=== PATIENT | male | born 1965 | race Caucasian/White ===

== ENCOUNTER 2021-07-01 17:26 | Emergency (ER) | payer BC ==
[~2021-07-01] VITALS: Ht 188 cm; Wt 129.0 kg
[~2021-07-01 17:26] MED LIST: AMOX500C2 PO; FEXO30TA17 PO; TRAM50TA2 PO
--- NOTE | 2021-07-01 19:34 | ED Lower Extremity ---
General Chief Complaint: Lower Extremity Stated Complaint: L LEG SWELLING Nursing Triage Note: PT AMB TO RM 8 WITH SPOUSE WITH C/O L LEG SWELLING SINCE SUNDAY. PT WAS SEEN AT [facility] AND GIVEN BACTRIM (NORA ONEAL MED STUDENT) Source: patient Exam Limitations: no limitations (CEDRICK LOPEZ MD) History of Present Illness Date Seen by Provider: Jul 01, 2021 Time Seen by Provider: 19:12 Initial Comments Claudia is a 55 y/o M with PMHx of HTN, HLD, and varicose veins who presents for R leg swelling onset last night. Patient states he was seen in the Home clinic for diagnosis of cellulitis of the L lower extremity and given Bactrim which he has been taking regularly though with no improvement. Patient reports that last night his L leg started swelling significantly though no pain other than the established pain over the cellulitis. He denies trauma, long trips or immobility, hx of blood clots, fevers, nausea, vomiting, CP and SOB. (NORA ONEAL MED STUDENT) Allergies and Home Medications Allergies Uncoded Allergies: CODIENE (Allergy, Unknown, [facility], 07/01/21) HAY FEVER (Allergy, Unknown, 07/01/21) Patient Home Medication List Home Medication List Reviewed: Yes (CEDRICK LPOEZ MD) Amoxicillin (Amoxicillin) 500 Mg Capsule, 1 EACH PO Q6HR Prescribed by: ALEXIA LAZAR on 11/07/09949 Cephalexin (Cephalexin) 500 Mg Tablet, 500 MG PO QID Prescribed by: CEDRICK ORELLANA on 07/01/212154 Fexofenadine Hcl (Jami) 30 Mg Tablet, 1 EACH PO BID, (Reported) Entered as Reported by: JESSICA THOMPSON on 11/07/09 09 Tramadol Hcl (Tramadol Hcl) 50 Mg Tablet, 50 MG PO Q6H Prescribed by: ALEXIA LAZAR on 11/07/09 0950 Review of Systems Constitutional: No fever, No weakness EENTM: No double vision, No vision loss Respiratory: No hemoptysis, No short of breath Cardiovascular: No chest pain, No syncope Gastrointestinal: No abdominal pain, No constipation, No diarrhea, No nausea, No vomiting Genitourinary: No dysuria, No frequency Musculoskeletal: No back pain, No joint swelling Skin: No change in color, No dryness Psychiatric/Neurological: Denies Anxiety, Denies Depressed (NORA ONEAL MED STUDENT) Past Uxxdwjw-Epaozi-Atfooi Hx Patient Social History Tobacco Use?: Yes Tobacco type used: Cigarettes Smoking Status: Current Everyday Smoker Substance use?: No Alcohol Use?: Yes Alcohol type: Beer Alcohol Frequency: Daily Pt feels they are or have been: No (NORA ONEAL STUDENT) Immunizations Up To Date First/Initial COVID19 Vaccinat: 2020 Second COVID19 Vaccination [place]: 2020 COVID19 Vaccine Resource Conservation Manager: MODERNA (NORA ONEAL) Past Medical History Surgery/Hospitalization HX: HTN, HLD, CAD (NORA ONEAL STUDENT) Physical Exam Vital Signs Vital Signs - First Documented 07/01/21 07/01/21 17:55 22:05 Temp 36.2 Pulse 86 Resp 18 B/P (MAP) 123/76 (92) Pulse Ox 94 O2 Delivery Room Air (CEDRICK LOPEZ MD) Vital Signs Capillary Refill : (NORA ONEAL STUDENT) Height, Weight, BMI Height: '" Weight: lbs. oz. kg; 36.00 BMI Method:Estimated General Appearance: WD/WN, no apparent distress HEENT: PERRL/EOMI, normal ENT inspection Neck: non-tender, full range of motion, normal inspection Cardiovascular: normal peripheral pulses, regular rate, rhythm, no murmur Respiratory: chest non-tender, lungs clear, normal breath sounds, no respiratory distress, no accessory muscle use Gastrointestinal: normal bowel sounds, non tender Hips: bilateral hip non-tender, bilateral hip no evidence of injury Legs: bilateral leg non-tender, bilateral leg normal range of motion; left leg swelling Knees: bilateral knee non-tender, bilateral knee normal inspection; left knee swelling Ankles: bilateral ankle non-tender; left ankle swelling Feet: bilateral foot non-tender; left foot swelling Neurologic/Tendon: normal sensation, normal motor functions Neurologic/Psychiatric: alert, normal mood/affect Skin: rash (tender, erythematous rash consistent with cellulitis over medial aspect of proximal L lower leg and knee) (NORA ONEAL MED STUDENT) Progress/Results/Core Measures Results/Orders Lab Results Laboratory Tests Test 07/01/21 19:50 Range/Units White Blood Count 8.3 4.3-11.0 10^3/uL Red Blood Count 3.73 L 4.30-5.52 10^6/uL Hemoglobin 12.3 L 13.3-17.7 g/dL Hematocrit 37 L 40-54 % Mean Corpuscular Volume 98 80-99 fL Mean Corpuscular Hemoglobin 33 25-34 pg Mean Corpuscular Hemoglobin Concent 34 32-36 g/dL Red Cell Distribution Width 11.9 10.0-14.5 % Platelet Count 274 130-400 10^3/uL Mean Platelet Volume 8.6 L 9.0-12.2 fL Immature Granulocyte % (Auto) 1 % Neutrophils (%) (Auto) 59 42-75 % Lymphocytes (%) (Auto) 24 12-44 % Monocytes (%) (Auto) 12 0-12 % Eosinophils (%) (Auto) 4 0-10 % Basophils (%) (Auto) 1 0-10 % Neutrophils # (Auto) 4.9 1.8-7.8 10^3/uL Lymphocytes # (Auto) 2.0 1.0-4.0 10^3/uL Monocytes # (Auto) 1.0 0.0-1.0 10^3/uL Eosinophils # (Auto) 0.3 0.0-0.3 10^3/uL Basophils # (Auto) 0.1 0.0-0.1 10^3/uL Immature Granulocyte # (Auto) 0.0 0.0-0.1 10^3/uL D-Dimer 0.57 H 0.00-0.49 UG/ML Sodium Level 130 L 135-145 MMOL/L Potassium Level 4.1 3.6-5.0 MMOL/L Chloride Level 94 L 98-107 MMOL/L Carbon Dioxide Level 20 L 21-32 MMOL/L Anion Gap 16 H 5-14 MMOL/L Blood Urea Nitrogen 15 7-18 MG/DL Creatinine 1.20 0.60-1.30 MG/DL Estimat Glomerular Filtration Rate 72 BUN/Creatinine Ratio 13 Glucose Level 80 70-105 MG/DL Calcium Level 9.4 8.5-10.1 MG/DL C-Reactive Protein High Sensitivity 3.43 H 0.00-0.50 MG/DL (CEDRICK LOPEZ MD) My Orders Orders - CEDRICK LOPEZ MD Basic Metabolic Panel (07/01/21 19:31) Cbc With Automated Diff (07/01/21 19:31) Hs C Reactive Protein (07/01/21 19:31) Fibrin Degradation Products (07/01/21 19:31) Ed Iv/Invasive Line Start (07/01/21 19:31) Ceftriaxone 1 Gm Pre-Mix (Rocephin 1 Gm (07/01/21 21:08) Us Venous Lower Ext Lt (07/01/21 21:08) (CEDRICK LOPEZ MD) Vital Signs/I&O 07/01/21 07/01/21 17:55 22:05 Temp 36.2 36.2 Pulse 86 90 Resp 18 16 B/P (MAP) 123/76 (92) 123/85 Pulse Ox 94 O2 Delivery Room Air (CEDRICK LOPEZ MD) Blood Pressure Mean: 92 Progress Progress Note : Progress Note Patient was seen and examined. Differential included persistent cellulitis versus DVT. Labs were obtained. D-dimer was mildly elevated. Ultrasound was obtained and showed no DVT. Treatment for cellulitis will be approached more aggressively with a dose of Rocephin in the ER and addition of Keflex to his oral therapy. (CEDRICK LOPEZ MD) Diagnostic Imaging Diagonstic Imaging: Ultrasound Plain Films/CT/US/NM/MRI: leg Comments Venous ultrasound discussed with the graphic art technician and report reviewed. See report below: NAME: CLAUDIA PAINTER [facility] REC#: [id number] PT STATUS: REG ER : 1965 PHYSICIAN: CEDRICK LOPEZ MD ADMIT DATE: 07/01/21/ER Signed Date of Exam:07/01/21 US VENOUS LOWER EXT LT INDICATION: Left leg swelling, redness, tenderness. History of venous ablation. TECHNIQUE: Multiple real-time grayscale images were obtained over the left lower extremity in various projections, bilaterally. Additional duplex Doppler and color Doppler images were also obtained. CORRELATION STUDY: None FINDINGS: Color and grayscale sonographic images demonstrate no intraluminal defect within the visualized portion of the common femoral, superficial femoral and/or popliteal veins to suggest thrombus formation. These vessels demonstrate normal response to compression and augmentation. No soft tissue fluid collection. Multiple lymph nodes within the left groin. IMPRESSION: 1. Negative for deep venous thrombosis of the left leg. Dictated by: Dictated on workstation # [id number] Dict: 07/01/212144 Trans: 07/01/212145 DO [id number] Interpreted by: ZENON BASILIO DO Electronically signed by: ZENON BASILIO DO 07/01/212145 (CEDRICK LOPEZ MD) Departure Impression Primary Impression: Cellulitis of left leg Additional Impressions: Swelling of left lower extremity Venous insufficiency of left leg Disposition: HOME, SELF-CARE Condition: Improved Departure-Patient Inst. Referrals: [facility] (PCP) Primary Care Physician JESSICA HO APRN (Family) Primary Care Physician Patient Instructions: Cellulitis (Skin Infection), Adult ED Add. Discharge Instructions: Complete the Bactrim antibiotic as previously prescribed. Add Keflex (cephalexin) as prescribed and complete the entire course. You may use Tylenol (acetaminophen) and/or ibuprofen for pain control. Elevate your foot and leg to the level of your heart as much as possible to help reduce swelling. Return to the emergency room if you are having worsening symptoms or develop new symptoms such as fever despite following these instructions. All discharge instructions reviewed with patient and/or family. Voiced understanding. Scripts Cephalexin (Cephalexin) 500 Mg Tablet 500 MG PO QID, #40 TAB Prov: CEDRICK LOPEZ MD 07/01/21 Medical Student Attestation and Attending Note: I have personally interviewed and examined this patient along with Nora Oneal MS4. I have reviewed student documentation including history, physical, and assessments. I agree with the documentation except where otherwise noted. Exam: General: Alert, oriented, no acute distress, well developed HEENT: Normocephalic and atraumatic Heart: Regular rate and rhythm without murmur Lungs: Clear to auscultation bilaterally with normal effort Extremities: Tenderness and swelling throughout the left lower extremity below the knee, mildly tender in the calf Neuropsych: Alert, oriented, no focal deficits Skin: Warm and dry, mild erythema on the medial proximal left calf (CEDRICK LOPEZ MD) Copy Copies To 1: MORGAN ROSA MATTHEW MED STUDENT Jul 01, 2021 19:34 CEDRICK LOPEZ MD Jul 01, 2021 21:55
[2021-07-01 20:05] LABS: BASOPHILS # (AUTO) 0.1 10^3/uL (0.0-0.1); BASOPHILS % (AUTO) 1 % (0-10); EOSINOPHILS # (AUTO) 0.3 10^3/uL (0.0-0.3); EOSINOPHILS % (AUTO) 4 % (0-10); HEMATOCRIT 37 % (40-54); HEMOGLOBIN 12.3 g/dL (13.3-17.7); LYMPHOCYTES % (AUTO) 24 % (12-44); MEAN CORPUSCULAR HEMOGLOBIN 33 pg (25-34); MEAN CORPUSCULAR HGB CONC 34 g/dL (32-36); MEAN CORPUSCULAR VOLUME 98 fL (80-99); MEAN PLATELET VOLUME 8.6 fL (9.0-12.2); MONOCYTES % (AUTO) 12 % (0-12); NEUTROPHILS # (AUTO) 4.9 10^3/uL (1.8-7.8); NEUTROPHILS % (AUTO) 59 % (42-75); PLATELET COUNT 274 10^3/uL (130-400); WHITE BLOOD COUNT 8.3 10^3/uL (4.3-11.0)
[2021-07-01 20:08] LABS: POTASSIUM 4.1 MMOL/L (3.6-5.0)
[2021-07-01 20:09] LABS: CALCIUM 9.4 MG/DL (8.5-10.1)
[2021-07-01 20:14] LABS: CREATININE SERUM 1.2 MG/DL (0.60-1.30)
[2021-07-01] MEDS ORDERED: cefTRIAXone 1 GM PRE-MIX 50 ML IV STA (21:08)
--- NOTE | 2021-07-01 21:48 | Diagnostic Imaging Report ---
INDICATION: Left leg swelling, redness, tenderness. History of venous ablation. TECHNIQUE: Multiple real-time grayscale images were obtained over the left lower extremity in various projections, bilaterally. Additional duplex Doppler and color Doppler images were also obtained. CORRELATION STUDY: None FINDINGS: Color and grayscale sonographic images demonstrate no intraluminal defect within the visualized portion of the common femoral, superficial femoral and/or popliteal veins to suggest thrombus formation. These vessels demonstrate normal response to compression and augmentation. No soft tissue fluid collection. Multiple lymph nodes within the left groin. IMPRESSION: 1. Negative for deep venous thrombosis of the left leg. Dictated by: Dictated on workstation # [id number]
[2021-07-01] MEDS ORDERED: CEPH500T PO (21:55)
[2021-07-01 22:05] VITALS: BP 123/85
== END 2021-07-01 22:06 | disposition home or self-care (01) ==
LOC: EDUNIT# 17:26 → ER 17:28
DX: L03.116 Cellulitis of left lower limb (principal); I87.2 Venous insufficiency (chronic) (peripheral); F17.210 Nicotine dependence, cigarettes, uncomplicated
CPT/HCPCS: 36415; 80048; 85025; 85379; 86141

== ENCOUNTER 2023-01-23 09:35 | Inpatient (IN) | payer OTHER ==
[2023-01-23] VITALS (8 sets, daily range): BP systolic 97–130; BP diastolic 54–77
[~2023-01-23] VITALS: Ht 188 cm; Wt 121.1 kg
[~2023-01-23 09:35] MED LIST changes: +CEPH500T PO
[2023-01-23] MEDS ORDERED: NS IV 1000 ML 1,000 ML IV SCH (11:00)
[2023-01-23] MEDS ORDERED: VANCOMYCIN INJECTION 1,000 MG in NS (IVPB) 250 ML 250 ML IV ONE (11:00)
[2023-01-23 11:06] LABS: BASOPHILS # (AUTO) 0.1 10^3/uL (0.0-0.1); BASOPHILS % (AUTO) 0 % (0-10); EOSINOPHILS # (AUTO) 0.1 10^3/uL (0.0-0.3); EOSINOPHILS % (AUTO) 1 % (0-10); HEMATOCRIT 35 % (40-54); HEMOGLOBIN 11.4 g/dL (13.3-17.7); LYMPHOCYTES # (AUTO) 0.9 10^3/uL (1.0-4.0); LYMPHOCYTES % (AUTO) 7 % (12-44); MEAN CORPUSCULAR HEMOGLOBIN 33 pg (25-34); MEAN CORPUSCULAR HGB CONC 32 g/dL (32-36); MEAN CORPUSCULAR VOLUME 103 fL (80-99); MEAN PLATELET VOLUME 8.6 fL (9.0-12.2); MONOCYTES # (AUTO) 1.7 10^3/uL (0.0-1.0); MONOCYTES % (AUTO) 13 % (0-12); NEUTROPHILS # (AUTO) 10.2 10^3/uL (1.8-7.8); NEUTROPHILS % (AUTO) 78 % (42-75); PLATELET COUNT 373 10^3/uL (130-400)
--- NOTE | 2023-01-23 11:06 | ED Lower Extremity ---
General Chief Complaint: Lower Extremity Stated Complaint: CELLULITIS W/ ABCESS ON LT LEG Nursing Triage Note: ARRIVED VIA POV FROM [facility] WITH COMPLAINTS OF REDNESS/PAIN LEFT LEG THAT HAS NOT IMPROVED WITH ROUND OF KEFLEX. Source: patient Exam Limitations: no limitations History of Present Illness Date Seen by Provider: Jan 23, 2023 Time Seen by Provider: 11:03 Initial Comments Patient is a 57-year-old male with a history of cellulitis to the left leg who presents to the ED with left leg swelling redness and pain. States symptoms started about a week and a half ago. Had some redness and swelling to the left inner thigh. Was placed on Keflex with some improvement. Stopped antibiotics this past Sunday. Has noted increased redness swelling and a developing abscess to the left anterior thigh. Patient has been taking anti-inflammatories without much improvement. History of similar symptoms. Does report a mild cough. He was slightly hypoxic on arrival 89 to 90% was placed on 2 L. History of smoking. Denies of any chest pain Raúl pain vomiting or diarrhea. Reports chills subjective fever. Denies diabetes history of hypertension and smoking. Denies history of COPD or coronary artery disease. Denies of any recent travels or surgeries. Allergies and Home Medications Allergies Uncoded Allergies: CODIENE (Allergy, Unknown, [facility], 07/01/21) HAY FEVER (Allergy, Unknown, 07/01/21) Patient Home Medication List Home Medication List Reviewed: Yes Discontinued Medications Amoxicillin (Amoxicillin) 500 Mg Capsule, 1 EACH PO Q6HR Discontinued Reason: No Longer Taking Prescribed by: ALEXIA LAZAR on 11/07/09949 Last Action: Discontinued Cephalexin (Cephalexin) 500 Mg Tablet, 500 MG PO QID Discontinued Reason: No Longer Taking Prescribed by: CEDRICK ORELLANA on 07/01/212154 Last Action: Discontinued Fexofenadine Hcl (Jami) 30 Mg Tablet, 1 EACH PO BID, (Reported) Discontinued Reason: No Longer Taking Entered as Reported by: JESSICA THOMPSON on 11/07/09910 Last Action: Discontinued Tramadol Hcl (Tramadol Hcl) 50 Mg Tablet, 50 MG PO Q6H Discontinued Reason: No Longer Taking Prescribed by: ALEXIA LAZAR on 11/07/09949 Last Action: Discontinued Review of Systems Constitutional: chills; No diaphoresis; fever, malaise, weakness EENTM: No ear pain, No blurred vision, No double vision Respiratory: No cough, No dyspnea on exertion Cardiovascular: No chest pain Gastrointestinal: No abdominal pain, No diarrhea, No nausea, No vomiting Genitourinary: No decreased output, No discharge Musculoskeletal: No back pain, No joint pain; muscle pain Skin: change in color All Other Systems Reviewed Negative Unless Noted: Yes Past Npntbcv-Fpjpsd-Jvfwov Hx Patient Social History Tobacco Use?: Yes Tobacco type used: Cigarettes Smoking Status: Current Everyday Smoker Substance use?: No Alcohol Use?: Yes Alcohol Frequency: Once in a while Immunizations Up To Date First/Initial COVID19 Vaccinat: 2020 Second COVID19 Vaccination [place]: 2020 Past Medical History Surgery/Hospitalization HX: HTN, HLD, CAD Physical Exam Vital Signs Vital Signs - First Documented 01/23/23 10:10 Temp 36.4 Pulse 87 Resp 16 B/P (MAP) 127/75 (92) Pulse Ox 87 O2 Delivery Room Air O2 Flow Rate 2.00 Capillary Refill : Less Than 3 Seconds Height, Weight, BMI Height: '" Weight: lbs. oz. kg; 38.00 BMI Method:Estimated General Appearance: WD/WN, no apparent distress HEENT: PERRL/EOMI, normal ENT inspection, TMs normal, pharynx normal Neck: non-tender, full range of motion, supple Cardiovascular: regular rate, rhythm, no edema, no gallop, no JVD Respiratory: chest non-tender, lungs clear, normal breath sounds, no respiratory distress, no accessory muscle use Gastrointestinal: normal bowel sounds, non tender, soft, no organomegaly, no pulsatile mass Back: normal inspection, no CVA tenderness Legs: left leg other (Erythema and swelling to the left inner thigh, left medial knee with a 4 x 5 cm fluctuant mass with surrounding induration. Tenderness to palpate. Warmth noted.) Knees: bilateral knee non-tender, bilateral knee normal inspection Ankles: bilateral ankle non-tender, bilateral ankle normal inspection, bilateral ankle normal range of motion Procedures/Interventions I&D : Blade Size: 11 I & D Procedure: betadine prep Packing/Drain: Idoform 03/08 Progress large abscess to left inner thigh. 8 mL local lidocaine. 2 cm incision. Large amount of purulent drainage. Quarter inch out of form packing placed. Tolerated procedure well. Progress/Results/Core Measures Results/Orders Lab Results Laboratory Tests Test 01/23/23 10:40 Range/Units White Blood Count 13.0 H 4.3-11.0 10^3/uL Red Blood Count 3.41 L 4.30-5.52 10^6/uL Hemoglobin 11.4 L 13.3-17.7 g/dL Hematocrit 35 L 40-54 % Mean Corpuscular Volume 103 H 80-99 fL Mean Corpuscular Hemoglobin 33 25-34 pg Mean Corpuscular Hemoglobin Concent 32 32-36 g/dL Red Cell Distribution Width 12.1 10.0-14.5 % Platelet Count 373 130-400 10^3/uL Mean Platelet Volume 8.6 L 9.0-12.2 fL Immature Granulocyte % (Auto) 1 % Neutrophils (%) (Auto) 78 H 42-75 % Lymphocytes (%) (Auto) 7 L 12-44 % Monocytes (%) (Auto) 13 H 0-12 % Eosinophils (%) (Auto) 1 0-10 % Basophils (%) (Auto) 0 0-10 % Neutrophils # (Auto) 10.2 H 1.8-7.8 10^3/uL Lymphocytes # (Auto) 0.9 L 1.0-4.0 10^3/uL Monocytes # (Auto) 1.7 H 0.0-1.0 10^3/uL Eosinophils # (Auto) 0.1 0.0-0.3 10^3/uL Basophils # (Auto) 0.1 0.0-0.1 10^3/uL Immature Granulocyte # (Auto) 0.1 0.0-0.1 10^3/uL Neutrophils % (Manual) 83 % Lymphocytes % (Manual) 2 % Monocytes % (Manual) 13 % Eosinophils % (Manual) 2 % Basophils % (Manual) 0 % Band Neutrophils 0 % Blood Morphology Comment NORMAL Prothrombin Time 14.0 12.2-14.7 SEC INR Comment 1.0 0.8-1.4 Activated Partial Thromboplast Time 32 24-35 SEC Sodium Level 132 L 135-145 MMOL/L Potassium Level 4.3 3.6-5.0 MMOL/L Chloride Level 92 L 98-107 MMOL/L Carbon Dioxide Level 27 21-32 MMOL/L Anion Gap 13 5-14 MMOL/L Blood Urea Nitrogen 15 7-18 MG/DL Creatinine 0.84 0.60-1.30 MG/DL Estimat Glomerular Filtration Rate 103 BUN/Creatinine Ratio 18 Glucose Level 134 H 70-105 MG/DL Lactic Acid Level 0.82 0.50-2.00 MMOL/L Calcium Level 8.7 8.5-10.1 MG/DL Corrected Calcium 9.2 8.5-10.1 MG/DL Total Bilirubin 0.5 0.1-1.0 MG/DL Aspartate Amino Transf (AST/SGOT) 18 5-34 U/L Alanine Aminotransferase (ALT/SGPT) 22 0-55 U/L Alkaline Phosphatase 87 40-136 U/L C-Reactive Protein High Sensitivity 21.67 H 0.00-0.50 MG/DL Total Protein 7.1 6.4-8.2 GM/DL Albumin 3.4 3.2-4.5 GM/DL My Orders Orders - ELIZABETH URBAN Cbc And Automated Diff (01/23/23 10:56) Comprehensive Metabolic Panel (01/23/23 10:56) Blood Culture (01/23/23 10:56) Protime With Inr (01/23/23 10:56) Partial Thromboplastin Time (01/23/23 10:56) Chest 1 View, Ap/Pa Only (01/23/23 10:56) Ed Iv/Invasive Line Start (01/23/23 10:56) Vital Signs Adult Sepsis Patie Q15M (01/23/23 10:56) O2 (01/23/23 10:56) Lactic Acid Analyzer (01/23/23 10:56) Ns Iv 1000 Ml (Ns Iv 1000 Ml) (01/23/23 11:00) Vancomycin Injection (Vancomycin Injecti (01/23/23 11:00) Us Venous Lower Ext Lt (01/23/23 11:02) Lidocaine 1% Inj 20 Ml (Xylocaine 1% Inj (01/23/23 11:15) Hs C Reactive Protein (01/23/23 11:03) Piperacillin/Tazobactam (Piperacillin/Ta (01/23/23 11:15) Manual Differential (01/23/23 10:40) Ed Admission (Communication) (01/23/23 11:44) Medications Given in ED Current Medications Medications Dose Ordered Sig/Haley Route Start Time Stop Time Status Last Admin Dose Admin Lidocaine HCl 20 ml ONCE ONCE INJ 01/23/23 11:15 01/23/23 11:16 DC 01/23/23 11:13 20 ML Vancomycin HCl 1000 mg/Sodium Chloride 250 ml @ 250 mls/hr ONCE ONCE IV 01/23/23 11:00 01/23/23 11:59 01/23/23 11:13 250 MLS/HR Vital Signs/I&O 01/23/23 01/23/23 10:10 10:10 Temp 36.4 Pulse 87 Resp 16 B/P (MAP) 127/75 (92) Pulse Ox 87 O2 Delivery Room Air Nasal Cannula O2 Flow Rate 2.00 Blood Pressure Mean: 92 Departure Communication (PCP) Reviewed previous ER visits, H&P, lab testing. Differential diagnosis cellulitis, abscess, DVT, sepsis. On exam significant swelling redness of the left inner thigh left leg. History of variceal surgeries of his left and right leg. History of cellulitis left leg. He was not tachycardic but slightly hypoxic. Patient was placed on 2 L with 94%. Does report a cough every day smoker. No history of CHF, coronary artery disease, COPD. Does sound wheezy throughout. Complain of left leg pain. Failed outpatient therapy with Keflex. Septic workup was initiated. Started on vancomycin and Zosyn. Ultrasound of the left leg did not note any DVT. Does have a large abscess to left inner thigh. Incision and drainage with a large amount of purulent drainage. Packed quarter inch iodoform packing. CBC showed a white blood count of 13. Hemoglobin 11. CRP of 21. Sodium 132. Was started on a liter fluid. Normal lactic acid. Patient is afebrile. Recommended mission for IV antibiotics General surgery consult. Discussed patient with Dr. Christianson who agreed to accept the patient on behalf of Dr. Cifuentes Impression Primary Impression: Cellulitis of left leg Disposition: ADMITTED INPATIENT Condition: Stable Admissions Decision to Admit Reason: Admit from ER (General) Decision to Admit/Date: Jan 23, 2023 Time/Decision to Admit Time: 11:06 Departure-Patient Inst. Referrals: [facility] (PCP/Family) Primary Care Physician ELIZABETH URBAN Jan 23, 2023 11:06
[2023-01-23 11:08] LABS: ALBUMIN 3.4 GM/DL (3.2-4.5)
[2023-01-23 11:09] LABS: POTASSIUM 4.3 MMOL/L (3.6-5.0)
[2023-01-23 11:10] LABS: CALCIUM 8.7 MG/DL (8.5-10.1)
[2023-01-23 11:11] LABS: TOTAL PROTEIN 7.1 GM/DL (6.4-8.2)
[2023-01-23 11:13] LABS: BILIRUBIN,TOTAL 0.5 MG/DL (0.1-1.0)
[2023-01-23 11:15] LABS: CREATININE SERUM 0.84 MG/DL (0.60-1.30)
[2023-01-23] MEDS ORDERED: PIPERACILLIN/Tazobactam 4.5 GM in NS (IVPB) 100 ML 100 ML IV ONE (11:15)
[2023-01-23] MEDS ORDERED: LIDOCAINE 1% INJ 20 ML VIAL INJ ONE (11:15)
[2023-01-23 11:24] LABS: BAND NEUTROPHILS 0 %; BASOPHILS % (MANUAL) 0 %; EOSINOPHILS % (MANUAL) 2 %; LYMPHOCYTES % (MANUAL) 2 %; MONOCYTES % (MANUAL) 13 %; NEUTROPHILS % (MANUAL) 83 %; RBC MORPH NORMAL
--- NOTE | 2023-01-23 12:15 | Diagnostic Imaging Report ---
CLINICAL INDICATION: Patient complains of redness/pain involving the left leg that has improved in the amount of Keflex. EXAM: Portable chest x-ray upright view. COMPARISON: None. FINDINGS: Lungs/pleura: Lungs are clear. There is no pneumothorax. There is no pleural effusion. Mediastinum: Unremarkable. Pulmonary vasculature: Unremarkable. Heart: Cardiac silhouette is upper limits of normal for portable projection. Bones/extrathoracic soft tissue: Unremarkable. IMPRESSION: There is no radiographic evidence of acute cardiopulmonary process. Dictated by: Dictated on workstation # [id number]
[2023-01-23] MEDS ORDERED: fentaNYL INJECTION 100 MCG/2 ML VIAL IVP STA (12:16)
--- NOTE | 2023-01-23 12:34 | Consultation - Surgery ---
AMIE NIETO 01/23/23 1234: History of Present Illness History of Present Illness Patient Consulted On(reina/time) 01/23/23 12:20 Date Seen by Provider: Jan 23, 2023 Time Seen by Provider: 12:15 History of Present Illness Patient is a 57 year old male who presented to the ED today with complaints of an infection on his left thigh. He has a repeated history of cellulitis on his left leg (4x in the past year) but states this is the worst it has been. This current episode has been present for a couple weeks. Denies history of puncture wounds. He had been started on a 7 day course of keflex, which he completed and said it did help improve the infection some but over this past weekend it continued to get worse. He is in a good amount of pain and is having a hard time walking because of this. He has tried some OTC pain medications with some relief. He denies nausea, vomiting, fever, but is having some chills. He has a 4x5 cm abscess in his left upper medial thigh that has been drained. His current white count is 13. He has been started on vancomycin and Zosyn. He had a doppler ultrasound performed that showed no evidence of lower extremity thro mbosis. He also started having some shortness of breath in the ED and was satting 90% on 2L nasal cannula. He had a CXR performed that was negative for any cardiopulmonary processes. He denies a hx of COPD, asthma, diabetes. Allergies and Home Medications Allergies Uncoded Allergies: CODIENE (Allergy, Unknown, [place], 07/01/21) HAY FEVER (Allergy, Unknown, 07/01/21) Patient Home Medication List No Active Prescriptions or Reported Meds Past Dljamka-Gwrrei-Usjpnr Hx Patient Social History Smoking Status: Current Everyday Smoker Alcohol Use?: Yes Review of Systems-General Constitutional: chills; No malaise EENTM: No dental problems, No nose congestion Respiratory: No hemoptysis; short of breath Cardiovascular: No chest pain; edema Gastrointestinal: No abdominal pain, No nausea, No vomiting Genitourinary: No dysuria, No frequency Musculoskeletal: No back pain, No joint pain Skin: see HPI, change in color, other (cellulitis) Psychiatric/Neurological: Denies Anxiety, Denies Depressed Physical Exam-General Problems Physical Exam Vital Signs Vital Signs - First Documented 01/23/23 10:10 Temp 36.4 Pulse 87 Resp 16 B/P (MAP) 127/75 (92) Pulse Ox 87 O2 Delivery Room Air O2 Flow Rate 2.00 Capillary Refill : Less Than 3 Seconds General Appearance: WD/WN, no apparent distress Respiratory: no respiratory distress, wheezing (right sided wheezing) Cardiovascular: normal peripheral pulses, regular rate, rhythm Gastrointestinal: non tender, soft Extremities: pedal edema (pitting edema) Neurologic/Psychiatric: normal mood/affect, oriented x 3 Skin: rash (large erythematous area in left upper medial thigh that extends down to the middle of the lower leg that is warm to touch and exquisitely painful) Data Review Labs Laboratory Tests 01/23/23 10:40: White Blood Count 13.0H, Red Blood Count 3.41L, Hemoglobin 11.4L, Hematocrit 35L , Mean Corpuscular Volume 103H, Mean Corpuscular Hemoglobin 33, Mean Corpuscular Hemoglobin Concent 32, Red Cell Distribution Width 12.1, Platelet Count 373, Mean Platelet Volume 8.6L, Immature Granulocyte % (Auto) 1, Neutrophils (%) (Auto) 78H, Lymphocytes (%) (Auto) 7L, Monocytes (%) (Auto) 13H, Eosinophils (%) (Auto) 1, Basophils (%) (Auto) 0, Neutrophils # (Auto) 10.2H, Lymphocytes # (Auto) 0.9L, Monocytes # (Auto) 1.7H, Eosinophils # (Auto) 0.1, Basophils # (Auto) 0.1, Immature Granulocyte # (Auto) 0.1, Neutrophils % (Manual) 83, Lymphocytes % (Manual) 2, Monocytes % (Manual) 13, Eosinophils % (Manual) 2, Basophils % (Manual) 0, Band Neutrophils 0, Blood Morphology Comment NORMAL, Prothrombin Time 14.0, INR Comment 1.0, Activated Partial Thromboplast Time 32, Sodium Level 132L, Potassium Level 4.3, Chloride Level 92L, Carbon Dioxide Level 27, Anion Gap 13, Blood Urea Nitrogen 15, Creatinine 0.84, Estimat Glomerular Filtration Rate 103, BUN/Creatinine Ratio 18, Glucose Level 134H, Lactic Acid Level 0.82, Calcium Level 8.7, Corrected Calcium 9.2, Total Bilirubin 0.5, Aspartate Amino Transf (AST/SGOT) 18, Alanine Aminotransferase (ALT/SGPT) 22, Alkaline Phosphatase 87, C-Reactive Protein High Sensitivity 21.67H, Total Protein 7.1, Albumin 3.4 Assessment/Plan Assessment/Plan Assessment/Plan Left leg cellulitis Abscess culture abscess empiric abx with vanc and zosyn, change pending culture results IV fluids pain control Monitor white count Monitor respiratory status Needs incision and drainage NIMISHA CRUZ DO 01/23/23 5307: History of Present Illness History of Present Illness History of Present Illness Consult requested for right lower extremity cellulitis/abscess s/p incision and drainage. Daniela is a 57 year old male with left thigh red and swollen. Has had multiple infections of the left leg in the past year. Has been present for the last couple weeks and continued to worsen. Was on antibiotics which helped initiall but has worsened over the weekend. Pain moderate. Has history of vein ablation b/l lower extremities. U/s showing 4x5 cm abscess left upper medial thigh. WBC 13 Allergies and Home Medications Allergies Uncoded Allergies: CODIENE (Allergy, Unknown, [place], 07/01/21) HAY FEVER (Allergy, Unknown, 07/01/21) Patient Home Medication List Home Medication List Reviewed: Yes No Active Prescriptions or Reported Meds Past Lefwtwr-Oxxiaw-Fbyuvv Hx Reviewed Nursing Assessment Reviewed/Agree w Nursing PMH: Yes Family Medical History Significant Family History: No Pertinent Family Hx Review of Systems-General Constitutional: chills; No diaphoresis EENTM: No blurred vision, No double vision Respiratory: No cough; short of breath Gastrointestinal: No abdominal pain, No nausea, No vomiting Genitourinary: No decreased output, No discharge Musculoskeletal: No back pain, No joint pain Skin: change in color, other (cellulitis) Psychiatric/Neurological: Denies Anxiety, Denies Depressed, Denies Emotional Problems All Other Systems Reviewed Negative Unless Noted: Yes (Negative excepted noted.) Physical Exam-General Problems Physical Exam General Appearance: WD/WN, no apparent distress, obese HEENT: PERRL/EOMI, normal ENT inspection Neck: non-tender, supple Respiratory: chest non-tender, no respiratory distress, no accessory muscle use Cardiovascular: regular rate, rhythm, no JVD Gastrointestinal: non tender, soft Rectal: deferred Back: no CVA tenderness, no vertebral tenderness Extremities: pedal edema (pitting edema), other (left medial thigh with small skin opening and area around it has fluctuance. Large amount of purulent material, ertyhema moving down medial aspect of leg distally) Neurologic/Psychiatric: alert, normal mood/affect, oriented x 3 Skin: rash (large erythematous area in left upper medial thigh that extends down to the middle of the lower leg that is warm to touch and painful) Lymphatic: no adenopathy Assessment/Plan Assessment/Plan Assessment/Plan Left leg cellulitis Abscess left lower extremity pain culture abscess empiric abx with vanc and zosyn, change pending culture results IV fluids pain control npo Discussed the need to do further incision and drianage. Not adequate enough to drain the area and want to see the tissues below for further evaluation. patient understands risks and benefits of incision and drainage and all other indicated procedures and wishes to proceed. To OR. Supervisory-Addendum Brief Verification & Attestation Participated in pt care: history, MDM, physical Personally performed: exam, history, MDM, supervision of care Care discussed with: Medical Student Procedures: n/a Results interpretation: Verified all documentation Verification and Attestation of Medical Student E/M Service A medical student performed and documented this service in my presence. I reviewed and verified all information documented by the medical student and made modifications to such information, when appropriate. I personally performed the physical exam and medical decision making. Nimisha Cruz, Jan 23, 2023,16:47 AMIE NIETO Jan 23, 2023 12:34 NIMISHA CRUZ DO Jan 23, 2023 16:47
--- NOTE | 2023-01-23 12:39 | Diagnostic Imaging Report ---
PROCEDURE: US left lower extremity venous. TECHNIQUE: Multiple real-time grayscale images were obtained over the left lower extremity in various projections. Additional duplex Doppler and color Doppler images were also obtained. INDICATION: Left flank pain and swelling. Left lower extremity venous system widely patent. No deep or superficial thrombus. There are prominent left groin and inguinal lymph nodes with fatty ras likely reactive however the largest is 4.7 x 1.5 cm. There is some subcutaneous edema over the ankle and calf but no visible fluid collection. IMPRESSION: Negative for venous thrombus subcutaneous edema may be cellulitis but no visible fluid collection. Prominent left inguinal lymph nodes indeterminate. Dictated by: Dictated on workstation # [id number]
[2023-01-23] MEDS ORDERED: NALOXONE 0.4 MG/ML 1 ML VIAL IV PRN (12:45)
[2023-01-23] MEDS ORDERED: PHARMACY TO DOSE IV SCH (12:45)
[2023-01-23 12:58] LABS: TRIGLYCERIDES 62 MG/DL (<150); VLDL CHOLESTEROL 12 MG/DL (5-40)
[2023-01-23] MEDS ORDERED: PIPERACILLIN/Tazobactam 4.5 GM in NS (IVPB) 100 ML 100 ML IV NR (13:00)
[2023-01-23] MEDS ORDERED: VANCOMYCIN 1 GM/NS 250 ML IVPB IV NR ×2 (13:00)
[2023-01-23 13:03] LABS: CHOLESTEROL 132 MG/DL (< 200); HDL CHOLESTEROL 39 MG/DL (40-60)
[2023-01-23] MEDS ORDERED: proPOfol INJECTION 200 MG/20 ML VIAL IV ONE (17:16)
[2023-01-23] MEDS ORDERED: fentaNYL INJECTION 100 MCG/2 ML VIAL ONE (17:16)
[2023-01-23] MEDS ORDERED: LIDOCAINE PF 2% 5 ML VIAL ONE (17:16)
[2023-01-23] MEDS ORDERED: MIDAZOLAM INJ 2 MG/2 ML VIAL ONE (17:16)
[2023-01-23] MEDS ORDERED: SUCCINYLCHOLINE INJ 20 MG/1 ML 10 ML VIAL ONE (17:16)
[2023-01-23] MEDS ORDERED: ONDANSETRON INJECTION 4 MG/2 ML (SDV) ONE (17:16)
[2023-01-23] MEDS ORDERED: ROCURONIUM 50 MG/5 ML VIAL IV ONE (17:54)
[2023-01-23] MEDS ORDERED: SEVOFLURANE (ULTANE) 15 ML INHAL SOLN ONE (17:59)
[2023-01-23] MEDS: fentaNYL DRIP PRE-MIX 250 ML IV SCH (18:24)
[2023-01-23] MEDS ORDERED: LACTATED RINGERS 1,000 ML 1,000 ML IV ONE (18:54)
[2023-01-23] MEDS ORDERED: HYDROmorphone INJECTION 2 MG/ML VIAL IVP NR (19:00)
--- NOTE | 2023-01-23 19:01 | Diagnostic Imaging Report ---
INDICATION: Ventilator support. TIME OF EXAM: 6:38 PM CORRELATION is made with prior chest from earlier same day. FINDINGS: ET tube has been placed, has the tip in good position above the negar. There is some atelectasis in the left perihilar region and left base. The right lung is fairly clear. No significant effusion or pneumothorax is detected. IMPRESSION: Satisfactory endotracheal tube placement. Dictated by: Dictated on workstation # [id number]
--- NOTE | 2023-01-23 19:20 | History & Physical ---
HPI History of Present Illness: 57 yo M that presents with worsening LLE pain and swelling. states that patient has been battling cellulitis and pain in this leg several times this year and has been on antibiotics each time. States that over the last 48 hrs the pain and swelling has got alot worse and that is why he came into the ER. also states that he has had a cough for a few days. She has had a head cold this week. Denies any fever this week. Source: patient Exam Limitations: no limitations Date seen by provider: Jan 23, 2023 Time Seen by Provider: 19:30 Attending Physician [facility] PCP Admitting Physician: Yadi Cifuentes MD Attending Physician: Yadi Cifuentes MD Consult Date of Admission Jan 23, 2023 at 12:39 Home Medications Home Medications Reviewed patient Home Medication Reconciliation performed by pharmacy medication reconciliations precision optics technician and/or nursing. Patients Allergies have been reviewed. Allergies Uncoded Allergies: CODIENE (Allergy, Unknown, [place], 07/01/21) HAY FEVER (Allergy, Unknown, 07/01/21) VHX-Faaahn-Vzrxnd Hx Patient Social History Living Status: Lives at home with Smoking Status: Current Everyday Smoker Alcohol Use?: Yes Tobacco type used: Cigarettes Immunizations Up To Date Influenza Vaccine Up-to-Date: No; Not Current First/Initial COVID19 Vaccinat: 2020 Second COVID19 Vaccination [place]: 2020 Past Medical History HTN Tobacco Use Family Medical History Significant Family History: No Pertinent Family Hx Review of Systems ([facility]) Constitutional: other (intubated, unable to get ROS) Reviewed Test Results Reviewed Test Results Lab Laboratory Tests Test 01/23/23 10:40 01/23/23 19:16 01/23/23 21:00 01/23/23 23:15 Range/Units White Blood Count 13.0 H 4.3-11.0 10^3/uL Red Blood Count 3.41 L 4.30-5.52 10^6/uL Hemoglobin 11.4 L 13.3-17.7 g/dL Hematocrit 35 L 40-54 % Mean Corpuscular Volume 103 H 80-99 fL Mean Corpuscular Hemoglobin 33 25-34 pg Mean Corpuscular Hemoglobin Concent 32 32-36 g/dL Red Cell Distribution Width 12.1 10.0-14.5 % Platelet Count 373 130-400 10^3/uL Mean Platelet Volume 8.6 L 9.0-12.2 fL Immature Granulocyte % (Auto) 1 % Neutrophils (%) (Auto) 78 H 42-75 % Lymphocytes (%) (Auto) 7 L 12-44 % Monocytes (%) (Auto) 13 H 0-12 % Eosinophils (%) (Auto) 1 0-10 % Basophils (%) (Auto) 0 0-10 % Neutrophils # (Auto) 10.2 H 1.8-7.8 10^3/uL Lymphocytes # (Auto) 0.9 L 1.0-4.0 10^3/uL Monocytes # (Auto) 1.7 H 0.0-1.0 10^3/uL Eosinophils # (Auto) 0.1 0.0-0.3 10^3/uL Basophils # (Auto) 0.1 0.0-0.1 10^3/uL Immature Granulocyte # (Auto) 0.1 0.0-0.1 10^3/uL Neutrophils % (Manual) 83 % Lymphocytes % (Manual) 2 % Monocytes % (Manual) 13 % Eosinophils % (Manual) 2 % Basophils % (Manual) 0 % Band Neutrophils 0 % Blood Morphology Comment NORMAL Prothrombin Time 14.0 12.2-14.7 SEC INR Comment 1.0 0.8-1.4 Activated Partial Thromboplast Time 32 24-35 SEC Sodium Level 132 L 135-145 MMOL/L Potassium Level 4.3 3.6-5.0 MMOL/L Chloride Level 92 L 98-107 MMOL/L Carbon Dioxide Level 27 21-32 MMOL/L Anion Gap 13 5-14 MMOL/L Blood Urea Nitrogen 15 7-18 MG/DL Creatinine 0.84 0.60-1.30 MG/DL Estimat Glomerular Filtration Rate 103 BUN/Creatinine Ratio 18 Glucose Level 134 H 70-105 MG/DL Mean Blood Glucose 123 <=126 mg/dL Hemoglobin A1c 5.9 H 4.0-5.6 % Lactic Acid Level 0.82 0.50-2.00 MMOL/L Calcium Level 8.7 8.5-10.1 MG/DL Corrected Calcium 9.2 8.5-10.1 MG/DL Total Bilirubin 0.5 0.1-1.0 MG/DL Aspartate Amino Transf (AST/SGOT) 18 5-34 U/L Alanine Aminotransferase (ALT/SGPT) 22 0-55 U/L Alkaline Phosphatase 87 40-136 U/L C-Reactive Protein High Sensitivity 21.67 H 0.00-0.50 MG/DL Total Protein 7.1 6.4-8.2 GM/DL Albumin 3.4 3.2-4.5 GM/DL Triglycerides Level 62 <150 MG/DL Cholesterol Level 132 < 200 MG/DL LDL Cholesterol Direct 85 1-129 MG/DL VLDL Cholesterol 12 5-40 MG/DL HDL Cholesterol 39 L 40-60 MG/DL Arterial Blood pH 7.32 *L 7.37-7.43 Arterial Blood Partial Pressure CO2 58 H 35-45 MMHG Arterial Blood Partial Pressure O2 67 L 79-93 MMHG Arterial Blood HCO3 30 H 23-27 MMOL/L Arterial Blood Total CO2 31.7 H 21.0-31.0 MMOL/L Arterial Blood Oxygen Saturation 94 94-100 % Arterial Blood Base Excess 2.4 -2.5-2.5 MMOL/L Blood Gas Ventilator Setting YES Blood Gas Inspired Oxygen 100% Influenza Type A (RT-PCR) Not Detected Not Detecte Influenza Type B (RT-PCR) Not Detected Not Detecte SARS-CoV-2 RNA (RT-PCR) Not Detected Not Detecte Glucometer 116 H 70-110 MG/DL Physical Exam-(CHC) Physical Exam Vital Signs VS - Last 72 Hours, by Label 01/23/23 01/23/23 01/23/23 01/23/23 10:10 10:10 12:25 12:46 Temp 36.4 36.9 Pulse 87 86 84 Resp 16 16 16 B/P (MAP) 127/75 (92) 100/72 110/69 (83) Pulse Ox 87 94 91 O2 Delivery Room Air Nasal Cannula Room Air Nasal Cannula O2 Flow Rate 2.00 2.00 01/23/23 01/23/23 01/23/23 01/23/23 13:00 15:09 15:11 18:07 Temp 36.6 Pulse 81 Resp 16 B/P (MAP) 101/63 (76) Pulse Ox 91 88 92 O2 Delivery Nasal Cannula Nasal Cannula Nasal Cannula Mechanical Ventilator O2 Flow Rate 2.00 2.00 3.00 01/23/23 01/23/23 01/23/23 01/23/23 18:07 18:10 18:15 18:20 Temp 36.9 Resp 20 20 20 B/P (MAP) 108/58 (75) 110/60 (77) 130/62 (84) Pulse Ox 98 98 92 O2 Delivery Mechanical Ventilator Mechanical Ventilator Mechanical Ventilator Mechanical Ventilator 01/23/23 01/23/23 01/23/23 01/23/23 18:23 18:24 18:27 18:30 Temp 36.9 Pulse 113 113 95 Resp 20 B/P (MAP) 130/62 130/62 130/77 (94) Pulse Ox 91 O2 Delivery Mechanical Ventilator 01/23/23 01/23/23 01/23/23 01/23/23 18:30 18:35 19:00 19:00 Pulse 101 101 Resp 24 B/P (MAP) Pulse Ox 90 O2 Delivery Mechanical Ventilator Mechanical Ventilator Mechanical Ventilator O2 Flow Rate 100.00 01/23/23 01/23/23 01/23/23 01/23/23 19:09 19:20 19:30 19:32 Pulse 92 85 82 104 Resp 24 B/P (MAP) 95/57 (69) 97/58 (71) 103/62 (74) Pulse Ox 94 94 95 84 O2 Delivery Mechanical Ventilator Mechanical Ventilator Mechanical Ventilator O2 Flow Rate 100.00 100.00 100.00 FiO2 100 01/23/23 01/23/23 01/23/23 01/23/23 19:40 19:50 20:00 20:00 Pulse 81 80 79 Resp 24 B/P (MAP) 106/66 (77) 114/68 (79) 115/70 (81) Pulse Ox 95 96 95 93 O2 Delivery Mechanical Ventilator Mechanical Ventilator Mechanical Ventilator Mechanical Ventilator O2 Flow Rate 100.00 100.00 100.00 FiO2 100 01/23/23 01/23/23 01/23/23 01/23/23 20:10 20:20 20:30 20:40 Pulse 79 78 76 76 Resp 24 24 24 B/P (MAP) 118/71 (83) 120/73 (86) 123/73 (87) 123/75 (87) Pulse Ox 95 94 96 98 O2 Delivery Mechanical Ventilator Mechanical Ventilator Mechanical Ventilator Mechanical Ventilator O2 Flow Rate 100.00 100.00 100.00 100.00 01/23/23 01/23/23 01/23/23 01/23/23 20:50 20:51 21:00 21:15 Pulse 77 75 76 92 Resp 24 24 24 B/P (MAP) 128/72 (90) 128/72 122/73 (89) 113/71 (83) Pulse Ox 98 100 96 O2 Delivery Mechanical Ventilator Mechanical Ventilator Mechanical Ventilator O2 Flow Rate 100.00 100.00 100.00 01/23/23 01/23/23 01/23/23 01/23/23 21:30 22:39 23:24 23:45 Temp 36.4 Pulse 77 79 Resp 24 24 B/P (MAP) 117/72 (85) Pulse Ox 96 92 93 O2 Delivery Mechanical Ventilator Mechanical Ventilator O2 Flow Rate 100.00 FiO2 100 100 Capillary Refill : Less Than 3 SecondsLess Than 3 Seconds General Appearance: other (Intubated and sedated) HEENT: PERRL/EOMI Respiratory: no accessory muscle use, crackles, wheezing Cardiovascular: normal peripheral pulses, regular rate, rhythm, no murmur Gastrointestinal: normal bowel sounds, non tender, soft Extremities: swelling, other (+ erythema, necrotic tissue, dressing with purulent drainage) Neurologic/Psychiatric: other (intubated and sedated) Assessment/Plan Assessment/Plan Admission Status: Inpatient Order (span 2 midnights) Reason for Inpatient Admission: Need of critical care (1) Severe sepsis Status: Acute Assessment & Plan: - Broad spectrum antibiotics Vanc and Zosyn, IVFs (2) Necrotizing fasciitis of lower leg Status: Acute Assessment & Plan: - Consult General surgery Dr Cruz, patient was taken to OR (3) Acute and chronic respiratory failure with hypoxia Status: Acute Assessment & Plan: - Unable to tolerate extubation after surgery, will continue intubation until AM (4) Cellulitis of left leg Status: Acute (5) Pre-diabetes Status: Chronic Assessment & Plan: - A1c 5.9 YADI CIFUENTES MD Jan 23, 2023 19:20
[2023-01-23 19:23] LABS: ABG BASE EXCESS 2.4 MMOL/L (-2.5-2.5); ABG OXYGEN SATURATION 94 % (94-100); ABG PCO2 58 MMHG (35-45); ABG PO2 67 MMHG (79-93); ABG TCO2 31.7 MMOL/L (21.0-31.0)
[2023-01-23] MEDS: LACTATED RINGERS 1,000 ML 1,000 ML IV SCH ×3 (19:24→21:47)
[2023-01-23 19:29] LABS: ABG PH 7.32 (7.37-7.43)
[2023-01-23 19:30] LABS: INSPIRED O2 100%; VENTILATOR YES
[2023-01-23] MEDS ORDERED: NS IV 500 ML 1,000 ML ONE (20:20)
--- NOTE | 2023-01-23 20:20 | Tele-ICU Progress Note ---
Progress Note 57M with g/o recurrent LL cellulitus (x4 this year) admitted with left leg cellulitus and abscess. Patient developed redness and swelling to left inner thigh. He was placed on keflex with some improvement, completed 01/19. Now presents with increased redness, swelling and a developing abscess to the left thigh. US was done, negative for clot but did show large abscess. In the ED a large left inner thigh was drained. A 2 cm incision was made with a large amount of purulent material drained. A quarter inch on foam packing was placed. He was started on vanco and zosyn. He was mildly hypoxic at 89-90% and was placed on 2L NC with 94%. Reported to be diffusely wheezy. Patient was then taken to OR for I&D where he was found to have fairly evolved necrotizing faciitis (per bedside RN, op notes not yet available for review). He is transferred to ICU intubated, sedated. A/P: - sepsis: secondary to LL cellulitus with abscess and necrotizing faciitis ---S/p source control with I&D. ---will likely go back to OR in AM ---Cultures pending. ---Continue vanco and zosyn. - acute resp failure, hypoxic. Unclear etiology. Initially with mild hypoxia. Now on 100%/+10 with SpO2 98%, PaO2 67. Ppl only 22. CXR with mild congestion. ---monitor for ARDS ---CTA to rule out PE - EtOH: drinks beer x6 daily. ---CIWA Patient assesed via real time audiovisual communication system. CCT40 min Focused Exam Lactate Level 01/23/23 10:40: Lactic Acid Level 0.82 Height, Weight, BMI Height: '" Weight: lbs. oz. kg; 37.85 BMI Method:Estimated LINDA MCGOVERN MD Jan 23, 2023 20:19
[2023-01-23] MEDS: PIPERACILLIN/Tazobactam 4.5 GM in NS (IVPB) 100 ML 100 ML IV SCH (20:27)
[2023-01-23] MEDS ORDERED: AZITHROMYCIN INJECTION 500 MG in NS (IVPB) 250 ML 250 ML IV SCH (21:00)
[2023-01-23] MEDS ORDERED: NS 100 ML (IVPB) BAG IV ONE (21:15)
[2023-01-23] MEDS ORDERED: HOLD METFORMIN - RECEIVED CONTRAST 20 ML VIAL IV SCH (21:15)
[2023-01-23] MEDS ORDERED: IOHEXOL 350 MG/ML 100 ML (OMNIPAQUE 350) VIAL IV ONE (21:15)
--- NOTE | 2023-01-23 21:22 | Progress Note-Post Operative ---
Post-Operative Progess Note Surgeon (s)/Perianesthesia Nurse (s) Surgeon NIMISHA MURPHY DO Perianesthesia Nurse: na Pre-Operative Diagnosis left thigh abscess/cellulitis Post-Operative Diagnosis left thigh necrotizing soft tissue infection Procedure & Operative Findings Date of Procedure 01/23/23 Procedure Performed/Findings incision and drainage and debridement with cautery subcutaneous tissue and fascia 15x8x6 m left lower extremity Anesthesia Type general Estimated Blood Loss Estimated blood loss (mL): minimal Specimens/Packing Specimens Removed culture Packing: kerlex/betadine NIMISHA MURPHY DO Jan 23, 2023 21:21
--- NOTE | 2023-01-23 21:58 | Diagnostic Imaging Report ---
INDICATION: Nasogastric tube placement. COMPARISONS: 01/23/2023. IMPRESSION: Single view of the chest shows the cardiac contour to be upper limits of normal. Basilar alveolar infiltrates are seen, left greater than right, similar to the previous study. ET tube tip is stable with the tip projected over the trachea at the level of the clavicles. There has been interval placement of NG tube with the tip in the gastric body with side port distal to GE junction. IMPRESSION: 1. Stable chest. 2. Stable ET tube. 2. Interval placement of an NG tube with the tip projected over the gastric body with side port distal to the GE junction. Dictated by: Dictated on workstation # [id number]
--- NOTE | 2023-01-23 22:13 | Diagnostic Imaging Report ---
INDICATION: 57-year-old male with hypoxia, on a ventilator. COMPARISONS: None FINDINGS: There are few shotty benign-appearing axillary nodes but no evidence of axillary adenopathy. There is no mediastinal or hilar adenopathy. Cardiac contour is borderline enlarged. Thoracic aortic contour is normal with few nonaneurysmal calcifications. There is no dissection. There is normal arch origin of the great vessels. Patient is intubated with ET tube tip within the trachea at the level of the clavicles. Pulmonary outflow tract as well as the right and left pulmonary arteries, their segmental and subsegmental branches are patent with no evidence of intraluminal thrombus to suggest a pulmonary embolism. Lungs show bilateral lower lobe consolidations with volume loss. There is no effusion or pneumothorax. There is an NG tube extending into the gastric body. Limited assessment of the abdomen shows borderline hepatomegaly. There is [id number]-[id number] degenerative changes in the axial skeleton. IMPRESSION: 1. No CT angiographic evidence for aortic aneurysm, dissection or pulmonary embolism. 2. Bilateral lower lobe and pneumonic consolidations. There is no effusion or pneumothorax. Additional nonemergent findings as described above. Dictated by: Dictated on workstation # [id number]
[2023-01-23] MEDS: CLINDAMYCIN 900 MG/50 ML IVPB 50 ML IV SCH (23:16)
[2023-01-24] MEDS: VANCOMYCIN 1500MG/300ML PREMIX IV SCH ×3 (00:01→22:51)
[2023-01-24] MEDS: fentaNYL DRIP PRE-MIX 250 ML IV SCH ×3 (01:19→16:14)
[2023-01-24 02:47] VITALS: BP_SYST 103; BP_SYST 97; BP_DIAS 54; BP_DIAS 61
[2023-01-24 04:27] LABS: ABG OXYGEN SATURATION 97 % (94-100); ABG PCO2 50 MMHG (35-45); ABG PO2 83 MMHG (79-93); ABG TCO2 32.5 MMOL/L (21.0-31.0)
[2023-01-24 04:28] LABS: INSPIRED O2 100%
[2023-01-24 04:29] LABS: VENTILATOR YES
--- NOTE | 2023-01-24 04:31 | OPERATIVE REPORT ---
DATE OF SERVICE: 01/23/2023 PREOPERATIVE DIAGNOSIS: Left thigh abscess, cellulitis. POSTOPERATIVE DIAGNOSIS: Left thigh necrotizing soft retraction. PROCEDURE: Incision, drainage and debridement with cautery and subcutaneous tissue and fascia 15 x 8 x 6 cm, left lower extremity. SURGEON: Nimisha Cruz DO ANESTHESIA: General. ESTIMATED BLOOD LOSS: Minimal. COMPLICATIONS: None. INDICATIONS: The patient is a 57-year-old male with abscess of the left thigh. He had drainage performed in the Emergency Department, still with significant fluctuance and tenderness and cellulitis that extended down the medial aspect of the left lower extremity as well. The patient [ ] for possible soft tissue necrotizing infection. Therefore, I discussed opening the left thigh more and all other indicated procedures. The patient understood risks and benefits of procedure and wished to proceed. Consent was signed in chart. DESCRIPTION OF PROCEDURE: The patient was taken to the operating suite where he was prepped and draped in sterile fashion. Timeout was performed through the existing incision. The wound was probed with a large pocket present. The incision was extended proximally and distally along the medial aspect of the thigh, allowing the necrotic and walker dishwater-appearing fluid was within the wound. Culture was obtained. This was then suctioned and started using blunt and cautery dissection removing necrotic tissue and also suctioning. Once [ ] necrotic tissue was suctioned and debrided, overall measurements were 15 x 8 x 6 cm. Power nurse discharge planner was used to irrigate the wound and wound inspected to healthy good tissue. Subcutaneous tissue and some fascia removed. The wound was then appeared stable; therefore, packed it with Kerlix-soaked Betadine. The wound then had sterile dressing applied. The patient tolerated the procedure well without any complications and taken to the intensive Care Unit postoperatively for close monitoring. RECOMMENDATIONS: The patient may need further surgical interventions depending on course. This was discussed with family. Job ID: [id number] DocumentID: [id number] Dictated Date: 01/23/2023 21:31:03 [employer] Date: 01/24/2023 04:30:00 Dictated By: NIMISHA CRUZ DO
[2023-01-24] MEDS: PIPERACILLIN/Tazobactam 4.5 GM in NS (IVPB) 100 ML 100 ML IV SCH ×3 (04:47→19:57)
[2023-01-24] MEDS: CLINDAMYCIN 900 MG/50 ML IVPB 50 ML IV SCH ×3 (05:32→22:04)
[2023-01-24 06:36] LABS: HEMATOCRIT 30 % (40-54); HEMOGLOBIN 9.4 g/dL (13.3-17.7); WHITE BLOOD COUNT 7.3 10^3/uL (4.3-11.0)
[2023-01-24 06:37] LABS: MEAN CORPUSCULAR HEMOGLOBIN 32 pg (25-34); MEAN CORPUSCULAR HGB CONC 31 g/dL (32-36); MEAN CORPUSCULAR VOLUME 104 fL (80-99); MEAN PLATELET VOLUME 8.4 fL (9.0-12.2); PLATELET COUNT 325 10^3/uL (130-400)
[2023-01-24 06:43] VITALS: BP 103/61
--- NOTE | 2023-01-24 07:40 | Progress Note - Surgery ---
AMIE NIETO 01/24/23 0740: Subjective Date Seen by a Provider: Jan 24, 2023 Time Seen by a Provider: 06:50 Subjective/Events-last exam Patient was seen this morning. Yesterday evening he had a more extensive I+D performed in the OR after an initial attempt in the ED. He is still sedated and on mechanical ventilation. He has an NG tube in place with confirmed placement on CXR. He had an ABG this morning that showed a pH of 7.4 with pCO2 of 50 and HCO3 of 31. Also had a chest CT done that showed bilateral lower lobe consolidation. His urine output this morning is 0.55 ml/kg/hr. His leukocytosis from yesterday has also improved from 13 to 7.3 this morning. Review of Systems General: No Chills, No Night Sweats HEENT: No Head Aches, No Visual Changes Pulmonary: No Dyspnea, No Pleuritic Chest Pain Cardiovascular: No: Chest Pain, Palpitations Gastrointestinal: No: Nausea, Vomiting Genitourinary: No Dysuria, No Frequency Musculoskeletal: No: neck pain, shoulder pain Neurological: No: Weakness, Confusion Focused Exam Lactate Level 01/23/23 10:40: Lactic Acid Level 0.82 Objective Exam Vital Signs Date Time Temp Pulse Resp B/P (MAP) Pulse Ox O2 Delivery O2 Flow Rate FiO2 01/24/23 06:45 72 20 94/58 (70) 96 Mechanical Ventilator 100.00 01/24/23 06:43 71 20 95 90 01/24/23 06:30 72 20 96/59 (71) 95 Mechanical Ventilator 100.00 01/24/23 06:15 72 20 97/60 (72) 95 Mechanical Ventilator 100.00 01/24/23 06:00 72 20 98/59 (72) 95 Mechanical Ventilator 100.00 01/24/23 05:45 72 20 97/60 (72) 95 Mechanical Ventilator 100.00 01/24/23 05:30 74 20 97/61 (73) 96 Mechanical Ventilator 100.00 01/24/23 05:15 73 20 91/59 (70) 95 Mechanical Ventilator 100.00 01/24/23 05:00 72 20 92/59 (70) 95 Mechanical Ventilator 100.00 01/24/23 04:47 73 89/56 01/24/23 04:45 73 20 89/56 (67) 94 Mechanical Ventilator 100.00 01/24/23 04:30 75 20 88/56 (67) 94 Mechanical Ventilator 100.00 01/24/23 04:15 76 20 83/58 (66) 94 Mechanical Ventilator 100.00 01/24/23 04:00 71 20 101/63 (76) 95 Mechanical Ventilator 100.00 01/24/23 04:00 93 Mechanical Ventilator 100 01/24/23 03:46 36.4 01/24/23 03:45 72 20 99/63 (75) 95 Mechanical Ventilator 100.00 01/24/23 03:30 70 20 102/62 (75) 95 Mechanical Ventilator 100.00 01/24/23 03:15 71 20 101/62 (75) 95 Mechanical Ventilator 100.00 01/24/23 03:00 70 20 102/61 (73) 95 Mechanical Ventilator 100.00 01/24/23 02:47 71 20 95 100 01/24/23 02:45 71 20 103/61 (74) 95 Mechanical Ventilator 100.00 01/24/23 02:30 72 24 102/62 (75) 95 Mechanical Ventilator 100.00 01/24/23 02:15 71 24 99/60 (71) 95 Mechanical Ventilator 100.00 01/24/23 02:00 70 24 101/61 (73) 95 Mechanical Ventilator 100.00 01/24/23 01:45 70 24 104/65 (77) 95 Mechanical Ventilator 100.00 01/24/23 01:30 639 24 103/63 (74) 95 Mechanical Ventilator 100.00 01/24/23 01:19 70 99/60 01/24/23 01:15 70 24 99/60 (71) 95 Mechanical Ventilator 100.00 01/24/23 01:00 70 24 95 Mechanical Ventilator 100.00 01/24/23 01:00 70 01/24/23 00:45 69 24 86/49 (60) 94 Mechanical Ventilator 100.00 01/24/23 00:30 70 24 88/51 (63) 95 Mechanical Ventilator 100.00 01/24/23 00:15 71 24 98/60 (72) 93 Mechanical Ventilator 100.00 01/24/23 00:00 71 24 105/60 (72) 93 Mechanical Ventilator 100.00 01/23/23 23:45 36.4 01/23/23 23:45 70 24 103/58 (70) 93 Mechanical Ventilator 100.00 01/23/23 23:30 72 24 106/61 (76) 93 Mechanical Ventilator 100.00 01/23/23 23:24 93 Mechanical Ventilator 100 01/23/23 23:15 71 24 105/62 (76) 93 Mechanical Ventilator 100.00 01/23/23 23:00 71 24 106/61 (74) 93 Mechanical Ventilator 100.00 01/23/23 22:45 71 24 100/58 (70) 92 Mechanical Ventilator 100.00 01/23/23 22:39 79 24 92 100 01/23/23 22:30 75 24 97/54 (66) 92 Mechanical Ventilator 100.00 01/23/23 22:23 73 24 96/53 (67) 93 Mechanical Ventilator 100.00 01/23/23 21:30 77 24 117/72 (85) 96 Mechanical Ventilator 100.00 01/23/23 21:15 92 24 113/71 (83) 96 Mechanical Ventilator 100.00 01/23/23 21:00 76 24 122/73 (89) 100 Mechanical Ventilator 100.00 01/23/23 20:51 75 128/72 01/23/23 20:50 77 24 128/72 (90) 98 Mechanical Ventilator 100.00 01/23/23 20:40 76 24 123/75 (87) 98 Mechanical Ventilator 100.00 01/23/23 20:30 76 24 123/73 (87) 96 Mechanical Ventilator 100.00 01/23/23 20:20 78 24 120/73 (86) 94 Mechanical Ventilator 100.00 01/23/23 20:10 79 24 118/71 (83) 95 Mechanical Ventilator 100.00 01/23/23 20:00 93 Mechanical Ventilator 100 01/23/23 20:00 79 24 115/70 (81) 95 Mechanical Ventilator 100.00 01/23/23 19:50 80 24 114/68 (79) 96 Mechanical Ventilator 100.00 01/23/23 19:40 81 24 106/66 (77) 95 Mechanical Ventilator 100.00 01/23/23 19:32 104 24 84 100 01/23/23 19:30 82 24 103/62 (74) 95 Mechanical Ventilator 100.00 01/23/23 19:20 85 24 97/58 (71) 94 Mechanical Ventilator 100.00 01/23/23 19:09 92 24 95/57 (69) 94 Mechanical Ventilator 100.00 01/23/23 19:00 101 01/23/23 19:00 101 24 90 Mechanical Ventilator 100.00 01/23/23 18:35 Mechanical Ventilator 01/23/23 18:30 Mechanical Ventilator 01/23/23 18:30 36.9 20 130/77 (94) 91 Mechanical Ventilator 01/23/23 18:27 95 01/23/23 18:24 113 130/62 01/23/23 18:23 113 130/62 01/23/23 18:20 20 130/62 (84) 92 Mechanical Ventilator 01/23/23 18:15 Mechanical Ventilator 01/23/23 18:10 20 110/60 (77) 98 Mechanical Ventilator 01/23/23 18:07 36.9 20 108/58 (75) 98 Mechanical Ventilator 01/23/23 18:07 Mechanical Ventilator 01/23/23 15:11 92 Nasal Cannula 3.00 01/23/23 15:09 36.6 81 16 101/63 (76) 88 Nasal Cannula 2.00 01/23/23 13:00 91 Nasal Cannula 2.00 01/23/23 12:46 36.9 84 16 110/69 (83) 91 Nasal Cannula 2.00 01/23/23 12:25 86 16 100/72 94 Room Air 01/23/23 10:10 Nasal Cannula 2.00 01/23/23 10:10 36.4 87 16 127/75 (92) 87 Room Air I & O 01/24/23 07:00 Intake Total 240 ml Output Total 1950 ml Balance -1710 ml Capillary Refill : Less Than 3 SecondsLess Than 3 Seconds General Appearance: Obese, Other (sedated on mechanical ventilation) HEENT: PERRL/EOMI, Pharynx Normal Neck: Normal Inspection, Supple Respiratory: Lungs Clear, Normal Breath Sounds Cardiovascular: Regular Rate, Rhythm, No Murmur Peripheral Pulses: 2+ Dorsalis Pedis (R), 2+ Left Dors-Pedis (L), 2+ Radial Pulses (R), 2+ Radial Pulses (L) Gastrointestinal: normal bowel sounds, non tender, soft Extremity: Normal Capillary Refill, Normal Inspection Neurologic/Psychiatric: Other (sedated on mechanical ventilation) Skin: Warm/Dry, Other (wound site looks clean with no evidence of necrotic tissue) Lymphatic: No Adenopathy Results Lab Laboratory Tests 01/23/23 10:40: White Blood Count 13.0H, Red Blood Count 3.41L, Hemoglobin 11.4L, Hematocrit 35L , Mean Corpuscular Volume 103H, Mean Corpuscular Hemoglobin 33, Mean Corpuscular Hemoglobin Concent 32, Red Cell Distribution Width 12.1, Platelet Count 373, Mean Platelet Volume 8.6L, Immature Granulocyte % (Auto) 1, Neutrophils (%) (Auto) 78H, Lymphocytes (%) (Auto) 7L, Monocytes (%) (Auto) 13H, Eosinophils (%) (Auto) 1, Basophils (%) (Auto) 0, Neutrophils # (Auto) 10.2H, Lymphocytes # (Auto) 0.9L, Monocytes # (Auto) 1.7H, Eosinophils # (Auto) 0.1, Basophils # (Auto) 0.1, Immature Granulocyte # (Auto) 0.1, Neutrophils % (Manual) 83, Lymphocytes % (Manual) 2, Monocytes % (Manual) 13, Eosinophils % (Manual) 2, Basophils % (Manual) 0, Band Neutrophils 0, Blood Morphology Comment NORMAL, Prothrombin Time 14.0, INR Comment 1.0, Activated Partial Thromboplast Time 32, Sodium Level 132L, Potassium Level 4.3, Chloride Level 92L, Carbon Dioxide Level 27, Anion Gap 13, Blood Urea Nitrogen 15, Creatinine 0.84, Estimat Glomerular Filtration Rate 103, BUN/Creatinine Ratio 18, Glucose Level 134H, Mean Blood Glucose 123, Hemoglobin A1c 5.9H, Lactic Acid Level 0.82, Calcium Level 8.7, Corrected Calcium 9.2, Total Bilirubin 0.5, Aspartate Amino Transf (AST/SGOT) 18, Alanine Aminotransferase (ALT/SGPT) 22, Alkaline Phosphatase 87, C-Reactive Protein High Sensitivity 21.67H, Total Protein 7.1, Albumin 3.4, Triglycerides Level 62, Cholesterol Level 132, LDL Cholesterol Direct 85, VLDL Cholesterol 12, HDL Cholesterol 39L 01/23/23 19:16: Arterial Blood pH 7.32*L, Arterial Blood Partial Pressure CO2 58H, Arterial Blood Partial Pressure O2 67L, Arterial Blood HCO3 30H, Arterial Blood Total CO2 31.7H, Arterial Blood Oxygen Saturation 94, Arterial Blood Base Excess 2.4, Blood Gas Ventilator Setting YES, Blood Gas Inspired Oxygen 100% 01/23/23 21:00: Influenza Type A (RT-PCR) Not Detected, Influenza Type B (RT-PCR) Not Detected, SARS-CoV-2 RNA (RT-PCR) Not Detected 01/23/23 23:15: Glucometer 116H 01/24/23 04:19: Arterial Blood pH 7.40, Arterial Blood Partial Pressure CO2 50H, Arterial Blood Partial Pressure O2 83, Arterial Blood HCO3 31H, Arterial Blood Total CO2 32.5H, Arterial Blood Oxygen Saturation 97, Arterial Blood Base Excess 5.0H, Blood Gas Ventilator Setting YES, Blood Gas Inspired Oxygen 100% 01/24/23 05:44: White Blood Count 7.3, Red Blood Count 2.92L, Hemoglobin 9.4L, Hematocrit 30L, Mean Corpuscular Volume 104H, Mean Corpuscular Hemoglobin 32, Mean Corpuscular Hemoglobin Concent 31L, Red Cell Distribution Width 12.3, Platelet Count 325, Mean Platelet Volume 8.4L Assessment/Plan Assessment/Plan Assessment/Plan Left leg cellulitis Abscess left lower extremity pain await culture results continue vanc, zosyn, and clindamycin - change accordingly pending culture results IV fluids pain control npo regular packing and dressing changes monitor respiratory status NIMISHA CRUZ DO 01/24/23 0924: Subjective Subjective/Events-last exam Intubated. No family at bedside. WBC 7.3. Objective Exam General Appearance: Obese, Other (sedated on mechanical ventilation) HEENT: PERRL/EOMI, Normal ENT Inspection, Other (ET tube) Neck: Normal Inspection, Supple Respiratory: Chest Non Tender, No Accessory Muscle Use, No Respiratory Distress Cardiovascular: Regular Rate, Rhythm, No JVD Gastrointestinal: non tender, soft Extremity: Other (left lower extremity cellulitis improving, left thigh open wound, no necrotic tissue at this time. Indration surrounding wound) Neurologic/Psychiatric: Other (sedated on mechanical ventilation) Skin: Other (wound site looks clean with no evidence of necrotic tissue) Assessment/Plan Assessment/Plan Assessment/Plan left thigh necrotizing soft tissue infection s/p incision and drianage and debridment Left leg cellulitis left lower extremity pain respiratory failure on vent await culture results continue vanc, zosyn, and clindamycin - change accordingly pending culture results IV fluids pain control npo regular packing and dressing changes monitor respiratory status wound care Supervisory-Addendum Brief Verification & Attestation Participated in pt care: history, MDM, physical Personally performed: exam, history, MDM, supervision of care Care discussed with: Medical Student Procedures: n/a Results interpretation: Verified all documentation Verification and Attestation of Medical Student E/M Service A medical student performed and documented this service in my presence. I reviewed and verified all information documented by the medical student and made modifications to such information, when appropriate. I personally performed the physical exam and medical decision making. Nimisha Cruz, Jan 24, 2023,09:25 AMIE NIETO Jan 24, 2023 07:40 NIMISHA CRUZ DO Jan 24, 2023 09:24
--- NOTE | 2023-01-24 08:21 | Physician Query Clarification ---
PQ-Present on Admission Admission/Discharge Admission Date: Jan 23, 2023 at 12:39 Discharge Date: Dr. Cifuentes, Question: Sepsis w/severe sepsis was documented in H&P done at 19:20 on 01/23. Patient admitted at 12.39 on 01/23. Can you specify if this condition was present on admission? Please document a response in Progress Note or Discharge Summary. 1. Yes - Condition was present at the time of inpatient admission. 2. No - Condition was not present at the time of inpatient admission and it developed during the inpatient stay. 3. W - Provider is unable to clinically determine whether condition was present on admission or not. 4. Other [please specify] PHYSICIAN RESPONSE Condition was Present on Admit: Yes In responding to this query, please exercise your independent professional judgment. The purpose of this communication is to more accurately reflect the complexity of your patients condition. The fact that a question is asked does not imply that any particular answer is desired or expected. Thank you for your timely response to this clarification. Requestors name: Darryl THIS PHYSICIAN QUERY FORM IS A PERMANENT PART OF THE MEDICAL RECORD DARRYL SHAIKH Jan 24, 2023 08:21 YADI CIFUENTES MD Jan 24, 2023 10:09
[2023-01-24] MEDS: ENOXAPARIN 40 MG/0.4 ML SYRINGE SC SCH (08:35)
[2023-01-24 08:39] LABS: ALBUMIN 2.8 GM/DL (3.2-4.5); POTASSIUM 4.3 MMOL/L (3.6-5.0)
[2023-01-24 08:41] LABS: TOTAL PROTEIN 5.8 GM/DL (6.4-8.2)
[2023-01-24 08:43] LABS: BILIRUBIN,TOTAL 0.2 MG/DL (0.1-1.0)
[2023-01-24 08:45] LABS: CREATININE SERUM 0.92 MG/DL (0.60-1.30)
--- NOTE | 2023-01-24 09:18 | Tele-ICU Progress Note ---
Subjective Date Seen by a Provider: Jan 24, 2023 Time Seen by a Provider: 09:14 Subjective/Events-last exam (Tele-ICU Physician , consultation as per request of PCP Service provided via interactive audio and video telecommunications E-CARE system to a patient admitted to ICU bed in [facility]. Available chart/ vitals / labs / Images reviewed H&P is from ER notes Patient's information available about PMH, Shx, Fhx allergy reviewed inEMR. ROS as per chart and RN report Now in ICU, hemodynamically stable Video assessment done using teleICU camera, rest of exam as per RN Discussed with RN. VENT SETTINGS and ABG reviewed NOT CANDIDATE for SBTreviewed possible contraindications including Cardiovascular Stability /Sedation Score / FI02/PEEP / ABG / CXR/ secretions Sedation, discussed with RN, RASS - 1-2 on propofol 40 fent 175 Hospital course: (01/23) 57yr old male admitted with left uper medial thigh abscess/cellulitis s/p I & D, to ICU intubated , 100 Fio2 , CTA - neg for PE 01/24- RASS - 1-2 on propofol 40 fent 175 A/P: Acute hypoxic resp failure 01/23 - postop -?ETIOLOGY - CTA 01/23 NEG for pe , bilat basal PNA should not explain level of hypoxia - in ER was ( slightly hypoxic on arrival 89 to 90% was placed on 2 L) -no severe bronchospam : PAP 25 on vent - low suspect for air embolism based on Sx performed -will order ECHO to assed RVSP and r/o shunt AC 450 rr 20 90% + 10 PAP 23 -no secretion , desats with minimal movements Sepsis: secondary to LL cellulites with abscess and necrotizing faciitis - BP stable left thigh necrotizing soft tissue infection ---will likely go back to OR in AM as per report by RN ---Cultures pending. ---Continue vanco and zosyn clinda - as per Sx Anemia - suspected delutional - follow EtOH: drinks beer x6 daily. ---CIWA, vitamins Nutritions - will start TF latter today Lines : periph , (Central Line Necessity Reviewed) Naidu: 01/23 OG: Nutrition: npo Analgesia: Anxiety/ delirium VTE Prophylaxis: ingrid 40 Stress Ulcer Prophylaxis: na Plans in collaboration with bedside consultants and IM MDs. Discussed with RN to reach out if any questions or concerns Case and care daily discussed on multidisciplinary rounds ( RN, PharmD, Massotherapist , Respiratory Therapy, roll on worker ) A total of 35 minutes of critical care time was devoted to this patient today, required to treat and/or prevent further deterioration of critical care condition ( as above ) . I am remotely monitoring this patient from another state. I am unable to do the bedside exam, and history/physical and pertinent information is taken from other notes in the computer and bedside staff. Sepsis Event Evaluation Height, Weight, BMI Height: '" Weight: lbs. oz. kg; 37.85 BMI Method:Estimated Focused Exam Lactate Level 01/23/23 10:40: Lactic Acid Level 0.82 Exam Exam Patient acknowledged, consented, and participated in this virtual visit which was conducted using real time audio/video Vital Signs Date Time Temp Pulse Resp B/P (MAP) Pulse Ox O2 Delivery O2 Flow Rate FiO2 01/24/23 09:12 72 94/58 01/24/23 09:02 72 94/58 01/24/23 08:03 72 94/58 01/24/23 07:54 36.5 01/24/23 06:45 72 20 94/58 (70) 96 Mechanical Ventilator 100.00 01/24/23 06:43 71 20 95 90 01/24/23 06:30 72 20 96/59 (71) 95 Mechanical Ventilator 100.00 01/24/23 06:15 72 20 97/60 (72) 95 Mechanical Ventilator 100.00 01/24/23 06:00 72 20 98/59 (72) 95 Mechanical Ventilator 100.00 01/24/23 05:45 72 20 97/60 (72) 95 Mechanical Ventilator 100.00 01/24/23 05:30 74 20 97/61 (73) 96 Mechanical Ventilator 100.00 01/24/23 05:15 73 20 91/59 (70) 95 Mechanical Ventilator 100.00 01/24/23 05:00 72 20 92/59 (70) 95 Mechanical Ventilator 100.00 01/24/23 04:47 73 89/56 01/24/23 04:45 73 20 89/56 (67) 94 Mechanical Ventilator 100.00 01/24/23 04:30 75 20 88/56 (67) 94 Mechanical Ventilator 100.00 01/24/23 04:15 76 20 83/58 (66) 94 Mechanical Ventilator 100.00 01/24/23 04:00 71 20 101/63 (76) 95 Mechanical Ventilator 100.00 01/24/23 04:00 93 Mechanical Ventilator 100 01/24/23 03:46 36.4 01/24/23 03:45 72 20 99/63 (75) 95 Mechanical Ventilator 100.00 01/24/23 03:30 70 20 102/62 (75) 95 Mechanical Ventilator 100.00 01/24/23 03:15 71 20 101/62 (75) 95 Mechanical Ventilator 100.00 01/24/23 03:00 70 20 102/61 (73) 95 Mechanical Ventilator 100.00 01/24/23 02:47 71 20 95 100 01/24/23 02:45 71 20 103/61 (74) 95 Mechanical Ventilator 100.00 01/24/23 02:30 72 24 102/62 (75) 95 Mechanical Ventilator 100.00 01/24/23 02:15 71 24 99/60 (71) 95 Mechanical Ventilator 100.00 01/24/23 02:00 70 24 101/61 (73) 95 Mechanical Ventilator 100.00 01/24/23 01:45 70 24 104/65 (77) 95 Mechanical Ventilator 100.00 01/24/23 01:30 639 24 103/63 (74) 95 Mechanical Ventilator 100.00 01/24/23 01:19 70 99/60 01/24/23 01:15 70 24 99/60 (71) 95 Mechanical Ventilator 100.00 01/24/23 01:00 70 24 95 Mechanical Ventilator 100.00 01/24/23 01:00 70 01/24/23 00:45 69 24 86/49 (60) 94 Mechanical Ventilator 100.00 01/24/23 00:30 70 24 88/51 (63) 95 Mechanical Ventilator 100.00 01/24/23 00:15 71 24 98/60 (72) 93 Mechanical Ventilator 100.00 01/24/23 00:00 71 24 105/60 (72) 93 Mechanical Ventilator 100.00 01/23/23 23:45 36.4 01/23/23 23:45 70 24 103/58 (70) 93 Mechanical Ventilator 100.00 01/23/23 23:30 72 24 106/61 (76) 93 Mechanical Ventilator 100.00 01/23/23 23:24 93 Mechanical Ventilator 100 01/23/23 23:15 71 24 105/62 (76) 93 Mechanical Ventilator 100.00 01/23/23 23:00 71 24 106/61 (74) 93 Mechanical Ventilator 100.00 01/23/23 22:45 71 24 100/58 (70) 92 Mechanical Ventilator 100.00 01/23/23 22:39 79 24 92 100 01/23/23 22:30 75 24 97/54 (66) 92 Mechanical Ventilator 100.00 01/23/23 22:23 73 24 96/53 (67) 93 Mechanical Ventilator 100.00 01/23/23 21:30 77 24 117/72 (85) 96 Mechanical Ventilator 100.00 01/23/23 21:15 92 24 113/71 (83) 96 Mechanical Ventilator 100.00 01/23/23 21:00 76 24 122/73 (89) 100 Mechanical Ventilator 100.00 01/23/23 20:51 75 128/72 01/23/23 20:50 77 24 128/72 (90) 98 Mechanical Ventilator 100.00 01/23/23 20:40 76 24 123/75 (87) 98 Mechanical Ventilator 100.00 01/23/23 20:30 76 24 123/73 (87) 96 Mechanical Ventilator 100.00 01/23/23 20:20 78 24 120/73 (86) 94 Mechanical Ventilator 100.00 01/23/23 20:10 79 24 118/71 (83) 95 Mechanical Ventilator 100.00 01/23/23 20:00 93 Mechanical Ventilator 100 01/23/23 20:00 79 24 115/70 (81) 95 Mechanical Ventilator 100.00 01/23/23 19:50 80 24 114/68 (79) 96 Mechanical Ventilator 100.00 01/23/23 19:40 81 24 106/66 (77) 95 Mechanical Ventilator 100.00 01/23/23 19:32 104 24 84 100 01/23/23 19:30 82 24 103/62 (74) 95 Mechanical Ventilator 100.00 01/23/23 19:20 85 24 97/58 (71) 94 Mechanical Ventilator 100.00 01/23/23 19:09 92 24 95/57 (69) 94 Mechanical Ventilator 100.00 01/23/23 19:00 101 01/23/23 19:00 101 24 90 Mechanical Ventilator 100.00 01/23/23 18:35 Mechanical Ventilator 01/23/23 18:30 Mechanical Ventilator 01/23/23 18:30 36.9 20 130/77 (94) 91 Mechanical Ventilator 01/23/23 18:27 95 01/23/23 18:24 113 130/62 01/23/23 18:23 113 130/62 01/23/23 18:20 20 130/62 (84) 92 Mechanical Ventilator 01/23/23 18:15 Mechanical Ventilator 01/23/23 18:10 20 110/60 (77) 98 Mechanical Ventilator 01/23/23 18:07 36.9 20 108/58 (75) 98 Mechanical Ventilator 01/23/23 18:07 Mechanical Ventilator 01/23/23 15:11 92 Nasal Cannula 3.00 01/23/23 15:09 36.6 81 16 101/63 (76) 88 Nasal Cannula 2.00 01/23/23 13:00 91 Nasal Cannula 2.00 01/23/23 12:46 36.9 84 16 110/69 (83) 91 Nasal Cannula 2.00 01/23/23 12:25 86 16 100/72 94 Room Air 01/23/23 10:10 Nasal Cannula 2.00 01/23/23 10:10 36.4 87 16 127/75 (92) 87 Room Air I & O 01/24/23 06:59 Intake Total 240 ml Output Total 1950 ml Balance -1710 ml Height & Weight Height: '" Weight: lbs. oz. kg; 37.85 BMI Method:Estimated General Appearance: Obese, Other (sedated on mechanical ventilation) HEENT: PERRL/EOMI, Pharynx Normal Neck: Normal Inspection, Supple Respiratory: Lungs Clear, Normal Breath Sounds Cardiovascular: Regular Rate, Rhythm, No Murmur Capillary Refill: Less Than 3 Seconds Peripheral Pulses: 2+ Dorsalis Pedis (R), 2+ Left Dors-Pedis (L), 2+ Radial Pulses (R), 2+ Radial Pulses (L) Gastrointestinal: normal bowel sounds, non tender, soft Extremity: Normal Capillary Refill, Normal Inspection Neurologic/Psychiatric: Other (sedated on mechanical ventilation) Skin: Warm/Dry, Other (wound site looks clean with no evidence of necrotic tissue) Lymphatic: No Adenopathy Results Lab Laboratory Tests 01/23/23 10:40 01/24/23 05:44 Assessment/Plan Assessment/Plan 1 RASHMI CANTRELL MD Jan 24, 2023 09:18
[2023-01-24 09:36] VITALS: BP 99/59
--- NOTE | 2023-01-24 11:01 | Progress Note - Hospitalist ---
Subjective HPI/CC On Admission Date Seen by Provider: Jan 24, 2023 Time Seen by Provider: 11:00 Subjective/Events-last exam Patient remains intubated Left inner thigh wound appears to be clean no drainage Nursing packing the wound Reviewed meds and labs Patient appears to have findings suggestive of obstructive sleep apnea untreated and undiagnosed Focused Exam Lactate Level 01/23/23 10:40: Lactic Acid Level 0.82 Objective Exam Vital Signs Vital Signs Date Time Temp Pulse Resp B/P (MAP) Pulse Ox O2 Delivery O2 Flow Rate FiO2 01/24/23 17:41 69 95/56 01/24/23 16:32 94 Mechanical Ventilator 70 01/24/23 16:06 36.5 01/24/23 16:00 20 70.00 Capillary Refill : Less Than 3 SecondsLess Than 3 Seconds General Appearance: Obese, Other (Sedated and intubated) Respiratory: Lungs Clear, Normal Breath Sounds Cardiovascular: Regular Rate, Rhythm Results/Procedures Lab Laboratory Tests 01/24/23 05:44 Patient resulted labs reviewed. Assessment/Plan Assessment and Plan Assess & Plan/Chief Complaint Assessment: Necrotizing fasciitis left inner thigh Acute hypoxic respiratory failure unable to extubate postsurgery Suspicion for GARFIELD Severe sepsis Plan: IV antibiotics Maintain ventilator Appreciate general surgery Appreciate RAUL Perla DO Jan 24, 2023 11:01
--- NOTE | 2023-01-24 12:23 | Diagnostic Imaging Report ---
INDICATION: Central venous catheter assessment Single AP view of the chest is obtained with comparison made to study of 01/23/2023 Heart size and pulmonary vascularity are within normal limits. Endotracheal tube is in place with tip just below the thoracic inlet. Nasogastric tube can be seen to the level of lower esophagus. Below this level there is insufficient contrast for assessment. Left upper extremity PICC has been placed with catheter tip projecting over the lower superior vena cava. There is no pneumothorax. IMPRESSION: No pneumothorax or other complication post left upper extremity PICC placement. Dictated by: Dictated on workstation # [id number]
[2023-01-24] MEDS ORDERED: BUDE10.2 IH (13:53)
[2023-01-24] MEDS ORDERED: HYDR-3922 PO (13:53)
[2023-01-24] MEDS ORDERED: HYDR25TA4 PO (13:53)
[2023-01-24] MEDS ORDERED: AMLO-251 PO (13:53)
[2023-01-24] MEDS ORDERED: OMEP-401 PO (13:53)
[2023-01-24] MEDS ORDERED: ATOR20TA66 PO (13:53)
[2023-01-24] MEDS ORDERED: LISI40TA9 PO (13:53)
[2023-01-24] MEDS: MUPIROCIN 2% OINTMENT 22 GM TUBE NSEACH SCH ×2 (14:03→20:28)
[2023-01-24 14:28] VITALS: BP 95/56
[2023-01-24] MEDS: SODIUM HYPOCHLORITE 0.125% TOP SCH (14:43)
--- NOTE | 2023-01-24 17:07 | Anesthesia-General Post-Op ---
General Patient Condition Mental Status/LOC: Same as Preop Cardiovascular: Satisfactory Nausea/Vomiting: Absent Respiratory: Satisfactory Pain: Controlled Complications: Absent Post Op Complications Complications None Follow Up Care/Instructions Patient Instructions None needed. Anesthesia/Patient Condition Patient Condition Patient is doing well, no complaints, stable vital signs, no apparent adverse anesthesia problems. No complications reported per nursing. CARL MIGUEL CRNA Jan 24, 2023 17:07
[2023-01-24 18:36] VITALS: BP 108/63
[2023-01-24] MEDS ORDERED: TROUGH ORDER-PHARMACY XX NR (22:00)
[2023-01-24 22:14] VITALS: BP 124/70
[2023-01-25] MEDS: fentaNYL DRIP PRE-MIX 250 ML IV SCH ×4 (00:12→22:11)
[2023-01-25 02:34] VITALS: BP 114/65
[2023-01-25] MEDS: PIPERACILLIN/Tazobactam 4.5 GM in NS (IVPB) 100 ML 100 ML IV SCH ×3 (02:59→20:00)
[2023-01-25 03:41] LABS: HEMATOCRIT 31 % (40-54); HEMOGLOBIN 9.7 g/dL (13.3-17.7); MEAN CORPUSCULAR HEMOGLOBIN 33 pg (25-34); MEAN CORPUSCULAR HGB CONC 32 g/dL (32-36); MEAN CORPUSCULAR VOLUME 103 fL (80-99); MEAN PLATELET VOLUME 8.3 fL (9.0-12.2); PLATELET COUNT 343 10^3/uL (130-400); WHITE BLOOD COUNT 7.1 10^3/uL (4.3-11.0)
[2023-01-25 03:54] LABS: ALBUMIN 2.8 GM/DL (3.2-4.5); POTASSIUM 4.1 MMOL/L (3.6-5.0)
[2023-01-25 03:55] LABS: CALCIUM 8.2 MG/DL (8.5-10.1)
[2023-01-25 03:56] LABS: TOTAL PROTEIN 6.2 GM/DL (6.4-8.2)
[2023-01-25] MEDS: FAMOTIDINE INJ 20MG/2ML VIAL IVP SCH ×3 (03:56→19:58)
[2023-01-25 03:58] LABS: BILIRUBIN,TOTAL 0.3 MG/DL (0.1-1.0)
[2023-01-25 03:59] LABS: PHOSPHORUS 3.7 MG/DL (2.3-4.7)
[2023-01-25 04:00] LABS: CREATININE SERUM 0.83 MG/DL (0.60-1.30)
[2023-01-25 04:02] LABS: MAGNESIUM 1.9 MG/DL (1.6-2.4)
[2023-01-25] MEDS ORDERED: MAGNESIUM 1 GM/100 ML IVPB 200 ML IV ONE (04:07)
[2023-01-25] MEDS: MAGNESIUM 1 GM/100 ML IVPB 100 ML IV SCH (04:13)
[2023-01-25 04:16] LABS: ABG BASE EXCESS 4.3 MMOL/L (-2.5-2.5); ABG OXYGEN SATURATION 93 % (94-100); ABG PCO2 47 MMHG (35-45); ABG PH 7.41 (7.37-7.43); ABG PO2 63 MMHG (79-93); ABG TCO2 31.2 MMOL/L (21.0-31.0)
[2023-01-25 04:17] LABS: INSPIRED O2 60%; VENTILATOR YES
--- NOTE | 2023-01-25 05:26 | Progress Note - Hospitalist ---
Subjective HPI/CC On Admission Date Seen by Provider: Jan 25, 2023 Time Seen by Provider: 10:00 Subjective/Events-last exam Remains intubated PHTN noted at bedside I updated her on ECHO results Slow extubation Focused Exam Lactate Level 01/23/23 10:40: Lactic Acid Level 0.82 Objective Exam Vital Signs Vital Signs Date Time Temp Pulse Resp B/P (MAP) Pulse Ox O2 Delivery O2 Flow Rate FiO2 01/25/23 12:00 68 25 117/67 (82) 93 Mechanical Ventilator 60.00 01/25/23 11:17 36.7 01/25/23 10:22 60 Capillary Refill : Less Than 3 SecondsLess Than 3 Seconds General Appearance: No Apparent Distress, WD/WN, Other (sedated and intubated) Respiratory: Lungs Clear, Normal Breath Sounds Results/Procedures Lab Laboratory Tests 01/25/23 03:35 Patient resulted labs reviewed. Assessment/Plan Assessment and Plan Assess & Plan/Chief Complaint Assessment: Necrotizing fasciitis left inner thigh Acute hypoxic respiratory failure unable to extubate postsurgery Suspicion for GARFIELD Severe sepsis PHTN on ECHO Plan: IV antibiotics Maintain ventilator Appreciate general surgery Appreciate RAUL Perla DO Jan 25, 2023 05:26
[2023-01-25] MEDS: CLINDAMYCIN 900 MG/50 ML IVPB 50 ML IV SCH ×3 (06:04→22:57)
[2023-01-25 06:25] VITALS: BP 107/59
[2023-01-25] MEDS: MUPIROCIN 2% OINTMENT 22 GM TUBE NSEACH SCH ×2 (08:09→19:59)
[2023-01-25] MEDS: SODIUM HYPOCHLORITE 0.125% TOP SCH (08:09)
[2023-01-25] MEDS: ENOXAPARIN 40 MG/0.4 ML SYRINGE SC SCH (08:10)
--- NOTE | 2023-01-25 08:31 | Progress Note - Surgery ---
MARY JARAMILLO 01/25/23 0830: Subjective Date Seen by a Provider: Jan 25, 2023 Time Seen by a Provider: 07:10 Subjective/Events-last exam Pt is intubated and sedated with FIO2 titrated down. Left medial thigh wound is clean and no signs of necrotic tissue. Erythema is decreasing. Focused Exam Lactate Level 01/23/23 10:40: Lactic Acid Level 0.82 Objective Exam Vital Signs Date Time Temp Pulse Resp B/P (MAP) Pulse Ox O2 Delivery O2 Flow Rate FiO2 01/25/23 08:18 67 115/72 01/25/23 08:17 67 115/72 01/25/23 08:00 67 20 107/62 (77) 94 Mechanical Ventilator 60.00 01/25/23 07:45 36.6 01/25/23 07:14 68 108/62 01/25/23 07:00 70 01/25/23 07:00 70 19 108/62 (75) 94 Mechanical Ventilator 60.00 01/25/23 06:25 69 20 95 60 01/25/23 06:00 68 28 113/64 (80) 94 Mechanical Ventilator 60.00 01/25/23 05:20 60 01/25/23 05:00 70 28 117/68 (84) 94 Mechanical Ventilator 60.00 01/25/23 04:52 70 113/65 01/25/23 04:00 70 113/65 01/25/23 04:00 71 20 119/66 (83) 94 Mechanical Ventilator 60.00 01/25/23 04:00 71 20 119/66 (83) 94 Mechanical Ventilator 60.00 01/25/23 03:56 70 113/65 01/25/23 03:00 70 28 113/65 (81) 95 Mechanical Ventilator 60.00 01/25/23 03:00 95 Mechanical Ventilator 60 01/25/23 02:58 60 01/25/23 02:58 36.5 70 20 96 Mechanical Ventilator 60.00 01/25/23 02:35 60 01/25/23 02:34 71 20 97 70 01/25/23 02:33 Mechanical Ventilator 60.00 01/25/23 02:32 71 115/66 01/25/23 02:30 Mechanical Ventilator 60.00 01/25/23 02:00 71 19 115/66 (82) 97 Mechanical Ventilator 70.00 01/25/23 01:30 70 01/25/23 01:09 71 121/68 01/25/23 01:00 71 19 121/69 (86) 96 Mechanical Ventilator 70.00 01/25/23 00:12 71 121/68 01/25/23 00:01 71 01/25/23 00:00 72 20 121/68 (85) 96 Mechanical Ventilator 70.00 01/24/23 23:40 95 Mechanical Ventilator 70 01/24/23 23:40 37.2 72 20 124/66 (85) 95 Mechanical Ventilator 70.00 01/24/23 23:00 75 19 122/65 (84) 94 Mechanical Ventilator 70.00 01/24/23 22:50 76 116/69 01/24/23 22:25 80 124/72 01/24/23 22:14 80 22 94 70 01/24/23 22:12 70 01/24/23 22:00 80 14 124/70 (88) 93 Mechanical Ventilator 70.00 01/24/23 21:00 73 20 117/67 (84) 95 Mechanical Ventilator 70.00 01/24/23 20:00 95 Mechanical Ventilator 70 01/24/23 20:00 71 20 108/63 (78) 95 Mechanical Ventilator 70.00 01/24/23 19:57 71 113/64 01/24/23 19:57 71 113/64 01/24/23 19:53 37.0 71 20 113/64 (80) 95 Mechanical Ventilator 70.00 01/24/23 19:46 36.5 01/24/23 19:00 72 01/24/23 19:00 72 20 115/65 (82) 96 Mechanical Ventilator 70.00 01/24/23 18:50 72 108/63 01/24/23 18:36 72 20 94 70 01/24/23 18:00 79 10 111/64 (80) 91 Mechanical Ventilator 70.00 01/24/23 17:41 69 95/56 01/24/23 17:00 71 20 108/64 (79) 95 Mechanical Ventilator 70.00 01/24/23 16:32 94 Mechanical Ventilator 70 01/24/23 16:14 69 95/56 01/24/23 16:09 69 95/56 01/24/23 16:06 36.5 01/24/23 16:00 71 20 102/67 (79) 94 Mechanical Ventilator 70.00 11/22/23 15:15 69 95/56 01/24/23 15:00 70 19 105/60 (75) 95 Mechanical Ventilator 70.00 01/24/23 14:28 69 20 96 70 01/24/23 14:00 70 20 89/51 (64) 95 Mechanical Ventilator 90.00 01/24/23 13:35 68 106/65 01/24/23 13:17 68 106/65 01/24/23 13:00 69 01/24/23 13:00 68 106/65 01/24/23 13:00 70 19 101/59 (73) 95 Mechanical Ventilator 90.00 01/24/23 12:46 36.5 01/24/23 12:35 93 Mechanical Ventilator 80 01/24/23 12:00 73 20 99/59 (72) 94 Mechanical Ventilator 90.00 01/24/23 11:58 37.3 01/24/23 11:00 87 15 98/62 (74) 92 Mechanical Ventilator 90.00 01/24/23 10:00 72 19 101/60 (74) 95 Mechanical Ventilator 90.00 01/24/23 09:36 72 20 95 80 01/24/23 09:12 72 94/58 01/24/23 09:02 72 94/58 01/24/23 09:00 73 20 100/60 (73) 96 Mechanical Ventilator 90.00 I & O 01/25/23 06:59 Intake Total 2400 ml Output Total 2675 ml Balance -275 ml Capillary Refill : Less Than 3 SecondsLess Than 3 Seconds General Appearance: Obese, Other (Sedated and intubated) HEENT: PERRL/EOMI, Normal ENT Inspection, Other (ET tube) Neck: Normal Inspection, Supple Respiratory: Lungs Clear, Normal Breath Sounds Cardiovascular: Regular Rate, Rhythm Peripheral Pulses: 2+ Dorsalis Pedis (R), 2+ Left Dors-Pedis (L), 2+ Radial Pulses (R), 2+ Radial Pulses (L) Gastrointestinal: non tender, soft Extremity: Other (left lower extremity cellulitis improving, left thigh open wound, no necrotic tissue at this time. Indration surrounding wound) Neurologic/Psychiatric: Other (sedated on mechanical ventilation) Skin: Other (wound site looks clean with no evidence of necrotic tissue) Lymphatic: No Adenopathy Results Lab Laboratory Tests 01/24/23 12:03: Glucometer 104 01/24/23 22:09: Vancomycin Level Trough 14.9 01/25/23 03:35: White Blood Count 7.1, Red Blood Count 2.97L, Hemoglobin 9.7L, Hematocrit 31L, Mean Corpuscular Volume 103H, Mean Corpuscular Hemoglobin 33, Mean Corpuscular Hemoglobin Concent 32, Red Cell Distribution Width 12.4, Platelet Count 343, Mean Platelet Volume 8.3L, Sodium Level 137, Potassium Level 4.1, Chloride Level 101, Carbon Dioxide Level 27, Anion Gap 9, Blood Urea Nitrogen 12, Creatinine 0.83, Estimat Glomerular Filtration Rate 103, BUN/Creatinine Ratio 14, Glucose Level 91, Calcium Level 8.2L, Corrected Calcium 9.2, Phosphorus Level 3.7, Magnesium Level 1.9, Total Bilirubin 0.3, Aspartate Amino Transf (AST/SGOT) 15, Alanine Aminotransferase (ALT/SGPT) 20, Alkaline Phosphatase 76, Total Protein 6.2L, Albumin 2.8L 01/25/23 04:05: Arterial Blood pH 7.41, Arterial Blood Partial Pressure CO2 47H, Arterial Blood Partial Pressure O2 63L, Arterial Blood HCO3 30H, Arterial Blood Total CO2 31.2H , Arterial Blood Oxygen Saturation 93L, Arterial Blood Base Excess 4.3H, Blood Gas Ventilator Setting YES, Blood Gas Inspired Oxygen 60% Microbiology 01/23/23 Gram Stain - Final, Resulted 01/23/23 Anaerobic Culture, Resulted Pending 01/23/23 Surgical Culture, Resulted Pending 01/23/23 MRSA Screen - Final, Complete 01/23/23 Blood Culture - Preliminary, Resulted Assessment/Plan Assessment/Plan Assessment/Plan left thigh necrotizing soft tissue infection s/p incision and drianage and debridment Left leg cellulitis left lower extremity pain respiratory failure on vent await culture results continue vanc, zosyn, and clindamycin - change accordingly pending culture results IV fluids pain control npo regular packing and dressing changes monitor respiratory status- Titrated FIO2 down to 60 from 100 wound care NIMISHA CRUZ DO 01/25/23 0941: Subjective Subjective/Events-last exam Intubated and sedated. Left thigh improving. Erythema and edema decreasing. No family at bedside. Objective Exam General Appearance: Other (Sedated and intubated) HEENT: PERRL/EOMI, Normal ENT Inspection, Other (ET tube) Neck: Normal Inspection, Supple Respiratory: Chest Non Tender, No Accessory Muscle Use Cardiovascular: Regular Rate, Rhythm, No JVD Gastrointestinal: non tender, soft Extremity: Other (left lower extremity cellulitis improving, left thigh open wound, no necrotic tissue at this time. Induration surrounding wound ) Neurologic/Psychiatric: Other (sedated on mechanical ventilation) Skin: Other (wound site looks clean with no evidence of necrotic tissue, less erythema) Lymphatic: No Adenopathy Assessment/Plan Assessment/Plan Assessment/Plan left thigh necrotizing soft tissue infection s/p incision and drianage and debridment Left leg cellulitis left lower extremity pain respiratory failure on vent await culture results continue vanc, zosyn, and clindamycin - change accordingly pending culture results IV fluids pain control npo regular packing and dressing changes monitor respiratory status- Titrated FIO2 down to 60 from 100 wound care Supervisory-Addendum Brief Verification & Attestation Participated in pt care: history, MDM, physical Personally performed: exam, history, MDM, supervision of care Care discussed with: Medical Student Procedures: n/a Results interpretation: Verified all documentation Verification and Attestation of Medical Student E/M Service A medical student performed and documented this service in my presence. I reviewed and verified all information documented by the medical student and made modifications to such information, when appropriate. I personally performed the physical exam and medical decision making. Nimisha Cruz, Jan 25, 2023,09:41 MARY JARAMILLO Jan 25, 2023 08:30 NIMISHA CRUZ DO Jan 25, 2023 09:41
[2023-01-25 10:22] VITALS: BP 117/69
--- NOTE | 2023-01-25 10:40 | Tele-ICU Progress Note ---
Subjective Date Seen by a Provider: Jan 25, 2023 Time Seen by a Provider: 10:40 Subjective/Events-last exam (Tele-ICU Physician , Progress Note ) Service provided via interactive audio and video telecommunications E-CARE system to a patient admitted to ICU bed in [facility]. Patient is seen today due to persistent need of ICU care Available chart/ vitals / labs / Images reviewed Video assessment done using teleICU camera, rest of exam as per RN Discussed with RN Events overnight : Afebrile hemodynamically stable Respiratory -20 450 50 + 8 I/O = neg Drips: Pressors- no VENT SETTINGS and ABG reviewed NOT CANDIDATE for SBTreviewed possible contraindications including C ardiovascular Stability /Sedation Score / FI02/PEEP / ABG / CXR/ secretions Sedation, discussed with RN, RASS - 1-2 on propofol 40 fent 150 Hospital course: (01/23) 57yr old male admitted with left uper medial thigh abscess/cellulitis s/p I & D, to ICU intubated , 100 Fio2 , CTA - neg for PE 01/24- RASS - 1-2 on propofol 40 fent 175 ECHO 01/25- AC -20 450 50 + 8 , propofol 40 fent 150 A/P: Acute hypoxic resp failure 01/23 - postop -?ETIOLOGY still not clear - IMROVING - CTA 01/23 NEG for pe , bilat basal PNA should not explain level of hypoxia -no severe bronchospam : PAP 25 on vent - low suspect for air embolism based on Sx performed -will order ECHO NO shunt ( but present pulm HTN - in ER was ( slightly hypoxic on arrival 89 to 90% was placed on 2 L)) - -AC 20 450 50 + 8 PAP 23 -no secretion , desats with minimal movements Sepsis: secondary to LL cellulites with abscess and necrotizing faciitis - BP stable left thigh necrotizing soft tissue infection ---Cultures pending. ---Continue vanco and zosyn clinda - as per Sx - plans as per sx Anemia - suspected delutional - stable PULM HTN - by ECHO 01/24/23 - RVSP 60 mm hg ( no acute PE on CTA ) - keep neg volum status EtOH: drinks beer x6 daily. ---CIWA, vitamins Nutritions - not started TF with NG output 800 cc last shift - cont LIS , off TF today Lines : periph , (Central Line Necessity Reviewed) Naidu: 01/23 OG: Nutrition: npo Analgesia: Anxiety/ delirium VTE Prophylaxis: ingrid 40 Stress Ulcer Prophylaxis: h2bl Plans in collaboration with bedside consultants and IM MDs. Discussed with RN to reach out if any questions or concerns Case and care daily discussed on multidisciplinary rounds ( RN, PharmD, Marketing Operations Coordinator , Respiratory Therapy, group home worker ) A total of 35 minutes of critical care time was devoted to this patient today, required to treat and/or prevent further deterioration of critical care condition ( as above ) . I am remotely monitoring this patient from another state. I am unable to do the bedside exam, and history/physical and pertinent information is taken from other notes in the computer and bedside staff. Sepsis Event Evaluation Height, Weight, BMI Height: '" Weight: lbs. oz. kg; 38.64 BMI Method:Estimated Focused Exam Lactate Level 01/23/23 10:40: Lactic Acid Level 0.82 Exam Exam Patient acknowledged, consented, and participated in this virtual visit which was conducted using real time audio/video Vital Signs Date Time Temp Pulse Resp B/P (MAP) Pulse Ox O2 Delivery O2 Flow Rate FiO2 01/25/23 10:22 70 20 96 60 01/25/23 10:10 68 119/64 01/25/23 10:00 70 16 119/64 (77) 95 Mechanical Ventilator 60.00 01/25/23 09:00 68 20 116/67 (80) 95 Mechanical Ventilator 60.00 01/25/23 08:18 67 115/72 01/25/23 08:17 67 115/72 01/25/23 08:00 67 20 107/62 (77) 94 Mechanical Ventilator 60.00 01/25/23 07:45 36.6 01/25/23 07:15 94 Mechanical Ventilator 60 01/25/23 07:14 68 108/62 01/25/23 07:00 70 01/25/23 07:00 70 19 108/62 (75) 94 Mechanical Ventilator 60.00 01/25/23 06:25 69 20 95 60 01/25/23 06:00 68 28 113/64 (80) 94 Mechanical Ventilator 60.00 01/25/23 05:20 60 01/25/23 05:00 70 28 117/68 (84) 94 Mechanical Ventilator 60.00 11/23/23 04:52 70 113/65 01/25/23 04:00 70 113/65 01/25/23 04:00 71 20 119/66 (83) 94 Mechanical Ventilator 60.00 01/25/23 04:00 71 20 119/66 (83) 94 Mechanical Ventilator 60.00 01/25/23 03:56 70 113/65 01/25/23 03:00 70 28 113/65 (81) 95 Mechanical Ventilator 60.00 01/25/23 03:00 95 Mechanical Ventilator 60 01/25/23 02:58 60 01/25/23 02:58 36.5 70 20 96 Mechanical Ventilator 60.00 01/25/23 02:35 60 01/25/23 02:34 71 20 97 70 01/25/23 02:33 Mechanical Ventilator 60.00 01/25/23 02:32 71 115/66 01/25/23 02:30 Mechanical Ventilator 60.00 01/25/23 02:00 71 19 115/66 (82) 97 Mechanical Ventilator 70.00 01/25/23 01:30 70 01/25/23 01:09 71 121/68 01/25/23 01:00 71 19 121/69 (86) 96 Mechanical Ventilator 70.00 01/25/23 00:12 71 121/68 01/25/23 00:01 71 01/25/23 00:00 72 20 121/68 (85) 96 Mechanical Ventilator 70.00 01/24/23 23:40 95 Mechanical Ventilator 70 01/24/23 23:40 37.2 72 20 124/66 (85) 95 Mechanical Ventilator 70.00 01/24/23 23:00 75 19 122/65 (84) 94 Mechanical Ventilator 70.00 01/24/23 22:50 76 116/69 01/24/23 22:25 80 124/72 01/24/23 22:14 80 22 94 70 01/24/23 22:12 70 01/24/23 22:00 80 14 124/70 (88) 93 Mechanical Ventilator 70.00 01/24/23 21:00 73 20 117/67 (84) 95 Mechanical Ventilator 70.00 01/24/23 20:00 95 Mechanical Ventilator 70 01/24/23 20:00 71 20 108/63 (78) 95 Mechanical Ventilator 70.00 01/24/23 19:57 71 113/64 01/24/23 19:57 71 113/64 01/24/23 19:53 37.0 71 20 113/64 (80) 95 Mechanical Ventilator 70.00 01/24/23 19:46 36.5 01/24/23 19:00 72 01/24/23 19:00 72 20 115/65 (82) 96 Mechanical Ventilator 70.00 01/24/23 18:50 72 108/63 01/24/23 18:36 72 20 94 70 01/24/23 18:00 79 10 111/64 (80) 91 Mechanical Ventilator 70.00 01/24/23 17:41 69 95/56 01/24/23 17:00 71 20 108/64 (79) 95 Mechanical Ventilator 70.00 01/24/23 16:32 94 Mechanical Ventilator 70 01/24/23 16:14 69 95/56 01/24/23 16:09 69 95/56 01/24/23 16:06 36.5 01/24/23 16:00 71 20 102/67 (79) 94 Mechanical Ventilator 70.00 01/24/23 15:15 69 95/56 01/24/23 15:00 70 19 105/60 (75) 95 Mechanical Ventilator 70.00 01/24/23 14:28 69 20 96 70 01/24/23 14:00 70 20 89/51 (64) 95 Mechanical Ventilator 90.00 01/24/23 13:35 68 106/65 01/24/23 13:17 68 106/65 01/24/23 13:00 69 01/24/23 13:00 68 106/65 01/24/23 13:00 70 19 101/59 (73) 95 Mechanical Ventilator 90.00 01/24/23 12:46 36.5 01/24/23 12:35 93 Mechanical Ventilator 80 01/24/23 12:00 73 20 99/59 (72) 94 Mechanical Ventilator 90.00 01/24/23 11:58 37.3 01/24/23 11:00 87 15 98/62 (74) 92 Mechanical Ventilator 90.00 I & O 01/25/23 06:59 Intake Total 2400 ml Output Total 2675 ml Balance -275 ml Height & Weight Height: '" Weight: lbs. oz. kg; 38.64 BMI Method:Estimated General Appearance: Other (Sedated and intubated) HEENT: PERRL/EOMI, Normal ENT Inspection, Other (ET tube) Neck: Normal Inspection, Supple Respiratory: Chest Non Tender, No Accessory Muscle Use Cardiovascular: Regular Rate, Rhythm, No JVD Capillary Refill: Less Than 3 Seconds Peripheral Pulses: 2+ Dorsalis Pedis (R), 2+ Left Dors-Pedis (L), 2+ Radial Pulses (R), 2+ Radial Pulses (L) Gastrointestinal: non tender, soft Extremity: Other (left lower extremity cellulitis improving, left thigh open wound, no necrotic tissue at this time. Induration surrounding wound ) Neurologic/Psychiatric: Other (sedated on mechanical ventilation) Skin: Other (wound site looks clean with no evidence of necrotic tissue, less erythema) Lymphatic: No Adenopathy Results Lab Laboratory Tests 01/24/23 05:44 01/25/23 03:35 Assessment/Plan Assessment/Plan 1 RASHMI CANTRELL MD Jan 25, 2023 10:40
[2023-01-25] MEDS: NS IV SCH (11:08)
[2023-01-25] MEDS: THIAMINE IV SCH (11:08)
[2023-01-25] MEDS: FOLIC ACID IV SCH (11:08)
[2023-01-25] MEDS: VANCOMYCIN 1500MG/300ML PREMIX IV SCH ×2 (11:12→22:57)
[2023-01-25 13:44] VITALS: BP 104/85
[2023-01-25] MEDS: RT-Ipratropium/Albuterol NEB 3 ML VIAL INH PRN ×2 (13:44→18:41)
[2023-01-25 18:36] VITALS: BP 103/65
[2023-01-25 22:43] VITALS: BP 109/64
[2023-01-26 02:10] VITALS: BP 100/64
[2023-01-26] MEDS: RT-Ipratropium/Albuterol NEB 3 ML VIAL INH PRN ×2 (02:10→06:58)
[2023-01-26] MEDS: PIPERACILLIN/Tazobactam 4.5 GM in NS (IVPB) 100 ML 100 ML IV SCH ×3 (03:03→18:33)
[2023-01-26 04:44] LABS: ABG BASE EXCESS 3.5 MMOL/L (-2.5-2.5); ABG OXYGEN SATURATION 92 % (94-100); ABG PCO2 48 MMHG (35-45); ABG PH 7.39 (7.37-7.43); ABG PO2 64 MMHG (79-93); ABG TCO2 30.6 MMOL/L (21.0-31.0); INSPIRED O2 50%; VENTILATOR YES
[2023-01-26] MEDS: fentaNYL DRIP PRE-MIX 250 ML IV SCH ×3 (05:06→19:47)
[2023-01-26 05:30] LABS: HEMATOCRIT 33 % (40-54); HEMOGLOBIN 10.2 g/dL (13.3-17.7); MEAN CORPUSCULAR HEMOGLOBIN 32 pg (25-34); MEAN CORPUSCULAR HGB CONC 31 g/dL (32-36); MEAN CORPUSCULAR VOLUME 104 fL (80-99); MEAN PLATELET VOLUME 8.4 fL (9.0-12.2); PLATELET COUNT 388 10^3/uL (130-400); WHITE BLOOD COUNT 6.8 10^3/uL (4.3-11.0)
[2023-01-26 05:44] LABS: POTASSIUM 4.5 MMOL/L (3.6-5.0)
[2023-01-26 05:45] LABS: ALBUMIN 2.9 GM/DL (3.2-4.5)
[2023-01-26 05:46] LABS: CALCIUM 8.4 MG/DL (8.5-10.1)
[2023-01-26 05:47] LABS: TOTAL PROTEIN 6.5 GM/DL (6.4-8.2)
[2023-01-26 05:49] LABS: BILIRUBIN,TOTAL 0.2 MG/DL (0.1-1.0)
[2023-01-26 05:50] LABS: PHOSPHORUS 3.7 MG/DL (2.3-4.7)
[2023-01-26 05:51] LABS: CREATININE SERUM 0.79 MG/DL (0.60-1.30)
[2023-01-26] MEDS: CLINDAMYCIN 900 MG/50 ML IVPB 50 ML IV SCH ×3 (06:03→21:34)
--- NOTE | 2023-01-26 06:44 | Progress Note - Hospitalist ---
Subjective HPI/CC On Admission Date Seen by Provider: Jan 26, 2023 Time Seen by Provider: 11:00 Subjective/Events-last exam Patient remains intubated Patient needs wound VAC No major concerns Labs reviewed and all stable SBT not reasonable today Focused Exam Lactate Level Objective Exam Vital Signs Vital Signs Date Time Temp Pulse Resp B/P (MAP) Pulse Ox O2 Delivery O2 Flow Rate FiO2 01/26/23 15:25 69 110/63 01/26/23 14:54 20 96 50 01/26/23 12:26 Mechanical Ventilator 01/26/23 12:05 36.8 50.00 Capillary Refill : Less Than 3 SecondsLess Than 3 Seconds General Appearance: No Apparent Distress, WD/WN, Chronically ill, Obese, Other (Intubated and sedated) Respiratory: Lungs Clear, Normal Breath Sounds Cardiovascular: Regular Rate, Rhythm Results/Procedures Lab Laboratory Tests 01/26/23 05:14 Patient resulted labs reviewed. Assessment/Plan Assessment and Plan Assess & Plan/Chief Complaint Assessment: Necrotizing fasciitis left inner thigh Acute hypoxic respiratory failure unable to extubate postsurgery Suspicion for GARFIELD Severe sepsis PHTN on ECHO Plan: IV antibiotics Maintain ventilator Appreciate general surgery Appreciate RAUL Perla DO Jan 26, 2023 06:44
[2023-01-26 07:00] VITALS: BP 108/60
--- NOTE | 2023-01-26 07:23 | Progress Note - Surgery ---
AMIE NIETO 01/26/2323: Subjective Date Seen by a Provider: Jan 26, 2023 Time Seen by a Provider: 07:00 Subjective/Events-last exam Patient s/p day 3 left thigh abscess I+D and debridement. Is sedated and on mechanical ventilation still. FiO2 continues to be titrated down to 50, from 60 yesterday. His wound culture came back positive for staph aureus. Blood cultures were negative. Had thiamine and B12 infusion yesterday. Hgb this morning is 10.2. Review of Systems General: No Chills, No Night Sweats HEENT: No Head Aches, No Visual Changes Pulmonary: No Dyspnea, No Cough Cardiovascular: No: Chest Pain, Palpitations Gastrointestinal: No: Nausea, Vomiting, Abdominal Pain Genitourinary: No Dysuria, No Frequency Musculoskeletal: No: neck pain, shoulder pain Neurological: No: Weakness, Confusion Focused Exam Lactate Level 01/23/23 10:40: Lactic Acid Level 0.82 Objective Exam Vital Signs Date Time Temp Pulse Resp B/P (MAP) Pulse Ox O2 Delivery O2 Flow Rate FiO2 01/26/23 07:00 66 20 95 50 01/26/23 06:00 68 20 107/60 (76) 95 Mechanical Ventilator 50.00 01/26/23 05:00 70 20 106/58 (74) 95 Mechanical Ventilator 50.00 01/26/23 04:20 94 Mechanical Ventilator 50 01/26/23 04:00 71 17 111/64 (80) 94 Mechanical Ventilator 50.00 01/26/23 03:00 72 112/66 (81) 96 Mechanical Ventilator 50.00 01/26/23 02:10 69 20 96 50 01/26/23 02:00 69 100/64 (76) 96 Mechanical Ventilator 50.00 01/26/23 01:00 72 108/66 (80) 96 Mechanical Ventilator 50.00 01/26/23 00:03 72 01/26/23 00:00 73 110/65 (80) 95 Mechanical Ventilator 50.00 01/25/23 23:27 94 Mechanical Ventilator 50 01/25/23 23:00 73 110/63 (79) 96 Mechanical Ventilator 50.00 01/25/23 22:43 72 20 95 50 01/25/23 22:11 80 117/76 01/25/23 22:00 82 117/76 (90) 96 Mechanical Ventilator 50.00 01/25/23 21:00 80 121/99 (106) 92 Mechanical Ventilator 50.00 01/25/23 20:00 73 116/71 (86) 92 Mechanical Ventilator 50.00 01/25/23 20:00 74 114/69 01/25/23 19:31 94 Mechanical Ventilator 50 01/25/23 19:09 37.8 01/25/23 19:00 70 111/65 (80) 94 Mechanical Ventilator 60.00 01/25/23 18:58 70 01/25/23 18:36 68 20 94 50 01/25/23 18:00 68 110/65 (81) 94 Mechanical Ventilator 60.00 01/25/23 17:45 69 112/62 01/25/23 17:38 69 112/62 01/25/23 17:00 69 112/62 (81) 95 Mechanical Ventilator 60.00 01/25/23 16:58 36.9 01/25/23 16:37 94 Mechanical Ventilator 50 01/25/23 16:00 70 113/63 (80) 95 Mechanical Ventilator 60.00 01/25/23 15:30 69 119/75 01/25/23 15:12 70 114/75 01/25/23 15:00 70 114/75 (89) 94 Mechanical Ventilator 60.00 01/25/23 14:25 71 111/64 01/25/23 14:00 71 19 111/64 (79) 96 Mechanical Ventilator 60.00 01/25/23 13:44 72 20 94 50 01/25/23 13:19 69 110/65 01/25/23 13:00 67 20 125/74 (91) 95 Mechanical Ventilator 60.00 01/25/23 12:43 69 01/25/23 12:20 68 117/67 01/25/23 12:00 68 25 117/67 (82) 93 Mechanical Ventilator 60.00 01/25/23 12:00 94 Mechanical Ventilator 50 01/25/23 11:30 68 117/67 01/25/23 11:17 36.7 01/25/23 11:00 71 19 115/65 (81) 94 Mechanical Ventilator 60.00 01/25/23 10:22 70 20 96 60 01/25/23 10:10 68 119/64 01/25/23 10:00 70 16 119/64 (77) 95 Mechanical Ventilator 60.00 01/25/23 09:00 68 20 116/67 (80) 95 Mechanical Ventilator 60.00 01/25/23 08:18 67 115/72 01/25/23 08:17 67 115/72 01/25/23 08:00 67 20 107/62 (77) 94 Mechanical Ventilator 60.00 01/25/23 07:45 36.6 I & O 01/26/23 06:59 Intake Total 1320 ml Output Total 3600 ml Balance -2280 ml Capillary Refill : Less Than 3 SecondsLess Than 3 Seconds General Appearance: No Apparent Distress, WD/WN, Other (sedated and intubated) HEENT: PERRL/EOMI, Normal ENT Inspection, Other (ET tube) Neck: Normal Inspection, Supple Respiratory: Lungs Clear, Normal Breath Sounds Cardiovascular: Regular Rate, Rhythm, No JVD Peripheral Pulses: 2+ Dorsalis Pedis (R), 2+ Left Dors-Pedis (L), 2+ Radial Pulses (R), 2+ Radial Pulses (L) Gastrointestinal: non tender, soft Extremity: Other (left lower extremity cellulitis improving, left thigh open wound, no necrotic tissue at this time. Induration surrounding wound ) Neurologic/Psychiatric: Other (sedated on mechanical ventilation) Skin: Other (wound site looks clean with no evidence of necrotic tissue, less erythema) Lymphatic: No Adenopathy Results Lab Laboratory Tests 01/25/23 11:14: Glucometer 93 01/25/23 17:07: Glucometer 86 01/26/23 04:35: Arterial Blood pH 7.39, Arterial Blood Partial Pressure CO2 48H, Arterial Blood Partial Pressure O2 64L, Arterial Blood HCO3 29H, Arterial Blood Total CO2 30.6, Arterial Blood Oxygen Saturation 92L, Arterial Blood Base Excess 3.5H, Blood Gas Ventilator Setting YES, Blood Gas Inspired Oxygen 50% 01/26/23 05:14: White Blood Count 6.8, Red Blood Count 3.15L, Hemoglobin 10.2L, Hematocrit 33L, Mean Corpuscular Volume 104H, Mean Corpuscular Hemoglobin 32, Mean Corpuscular Hemoglobin Concent 31L, Red Cell Distribution Width 12.4, Platelet Count 388, Mean Platelet Volume 8.4L, Sodium Level 137, Potassium Level 4.5, Chloride Level 102, Carbon Dioxide Level 27, Anion Gap 8, Blood Urea Nitrogen 9, Creatinine 0. 79, Estimat Glomerular Filtration Rate 105, BUN/Creatinine Ratio 11, Glucose Level 97, Calcium Level 8.4L, Corrected Calcium 9.3, Phosphorus Level 3.7, Magnesium Level 2.0, Total Bilirubin 0.2, Aspartate Amino Transf (AST/SGOT) 13, Alanine Aminotransferase (ALT/SGPT) 17, Alkaline Phosphatase 92, Total Protein 6.5, Albumin 2.9L, Triglycerides Level 165H Microbiology 01/23/23 Gram Stain - Final, Resulted 01/23/23 Anaerobic Culture, Resulted Pending 01/23/23 Surgical Culture - Preliminary, Resulted Staphylococcus aureus 01/23/23 MRSA Screen - Final, Complete 01/23/23 Blood Culture - Preliminary, Resulted Assessment/Plan Assessment/Plan Assessment/Plan left thigh necrotizing soft tissue infection s/p incision and drainage and debridement Left leg cellulitis left lower extremity pain respiratory failure on vent culture results - staph aureus continue vanc, zosyn, and clindamycin IV fluids pain control npo continue wet to dry wound care BID monitor respiratory status- FiO2 down to 50, PEEP down to 8 NIMISHA CRUZ DO 01/26/23 1537: Subjective Subjective/Events-last exam Intubated and sedated. Family at bedside. Not able to be extubated yet. Objective Exam General Appearance: WD/WN, Other (sedated and intubated) HEENT: PERRL/EOMI, Normal ENT Inspection, Other (ET tube) Neck: Normal Inspection, Supple Respiratory: Other Cardiovascular: No JVD Gastrointestinal: non tender, soft Extremity: Other (left lower extremity cellulitis improving, left thigh open wound, no necrotic tissue at this time. Induration surrounding wound improving) Neurologic/Psychiatric: Alert, Oriented x3, Other (sedated on mechanical ventilation) Skin: Normal Color, Warm/Dry, Other (wound site looks clean with no evidence of necrotic tissue, less erythema) Lymphatic: No Adenopathy Assessment/Plan Assessment/Plan Assessment/Plan left thigh necrotizing soft tissue infection s/p incision and drainage and debridement Left leg cellulitis left lower extremity pain respiratory failure on vent culture results - staph aureus continue vanc, zosyn, and clindamycin IV fluids pain control npo continue wet to dry wound care BID considering wound vac monitor respiratory status- FiO2 down to 50, PEEP down to 8 Supervisory-Addendum Brief Verification & Attestation Participated in pt care: history, MDM, physical Personally performed: exam, history, MDM, supervision of care Care discussed with: Medical Student Procedures: n/a Results interpretation: Verified all documentation Verification and Attestation of Medical Student E/M Service A medical student performed and documented this service in my presence. I reviewed and verified all information documented by the medical student and made modifications to such information, when appropriate. I personally performed the physical exam and medical decision making. Nimisha Cruz, Jan 26, 2023,15:37 AMIE NIETO Jan 26, 2023 07:23 NIMISHA CRUZ DO Jan 26, 2023 15:37
[2023-01-26] MEDS: FAMOTIDINE INJ 20MG/2ML VIAL IVP SCH ×2 (08:02→19:46)
[2023-01-26] MEDS: ENOXAPARIN 40 MG/0.4 ML SYRINGE SC SCH (08:02)
[2023-01-26] MEDS: MUPIROCIN 2% OINTMENT 22 GM TUBE NSEACH SCH ×2 (08:02→19:53)
[2023-01-26] MEDS: SODIUM HYPOCHLORITE 0.125% TOP SCH (08:03)
--- NOTE | 2023-01-26 08:57 | Tele-ICU Progress Note ---
Subjective Date Seen by a Provider: Jan 26, 2023 Time Seen by a Provider: 08:57 Subjective/Events-last exam (Tele-ICU Physician , Progress Note ) Service provided via interactive audio and video telecommunications E-CARE system to a patient admitted to ICU bed in [facility]. Patient is seen today due to persistent need of ICU care Available chart/ vitals / labs / Images reviewed Video assessment done using teleICU camera, rest of exam as per RN Discussed with RN Events overnight : Afebrile hemodynamically stable Respiratory -20 450 50 + 8 I/O = neg Drips: Pressors- no VENT SETTINGS and ABG reviewed NOT CANDIDATE for SBTreviewed possible contraindications including C ardiovascular Stability /Sedation Score / FI02/PEEP / ABG / CXR/ secretions Sedation, discussed with RN, RASS - 1-2 on propofol 40 fent 150 Hospital course: (01/23) 57yr old male admitted with left uper medial thigh abscess/cellulitis s/p I & D, to ICU intubated , 100 Fio2 , CTA - neg for PE 01/24- RASS - 1-2 on propofol 40 fent 175 ECHO 01/25- AC -20 450 50 + 8 , propofol 40 fent 150 01/26- AC -20 450 50 + 8 , propofol 30 fent 175 OG output 500 /shift A/P: Acute hypoxic resp failure 01/23 - postop -?ETIOLOGY still not clear - IMROVING - CTA 01/23 NEG for pe , bilat basal PNA should not explain level of hypoxia -no severe bronchospam : PAP 25 on vent - low suspect for air embolism based on Sx performed -will order ECHO NO shunt ( but present pulm HTN - in ER was ( slightly hypoxic on arrival 89 to 90% was placed on 2 L)) - -AC 20 450 50 + 8 PAP 23 -no secretion , desats with minimal movements Sepsis: secondary to LL cellulites with abscess and necrotizing faciitis - BP stable left thigh necrotizing soft tissue infection ---Cultures pending. ---Continue vanco and zosyn clinda - as per Sx - plans as per sx Anemia - suspected delutional - stable PULM HTN - by ECHO 01/24/23 - RVSP 60 mm hg ( no acute PE on CTA ) - keep neg volum status EtOH: drinks beer x6 daily. ---CIWA, vitamins Nutritions - not started TF with NG output 500 cc last shift - cont LIS , off TF today MRSA nasal - bactroban ELEV TGL 01/26 of 165 - add vesed , try to wean off propofol Lines : periph , (Central Line Necessity Reviewed) Naidu: 01/23 OG: Nutrition: npo Analgesia: Anxiety/ delirium VTE Prophylaxis: ingrid 40 Stress Ulcer Prophylaxis: h2bl Plans in collaboration with bedside consultants and IM MDs. Discussed with RN to reach out if any questions or concerns Case and care daily discussed on multidisciplinary rounds ( RN, PharmD, [employer] , Respiratory Therapy, asphalt worker ) A total of 35 minutes of critical care time was devoted to this patient today, required to treat and/or prevent further deterioration of critical care condition ( as above ) . I am remotely monitoring this patient from another state. I am unable to do the bedside exam, and history/physical and pertinent information is taken from other notes in the computer and bedside staff. Sepsis Event Evaluation Height, Weight, BMI Height: '" Weight: lbs. oz. kg; 38.64 BMI Method:Estimated Focused Exam Lactate Level 01/23/23 10:40: Lactic Acid Level 0.82 Exam Exam Patient acknowledged, consented, and participated in this virtual visit which was conducted using real time audio/video Vital Signs Date Time Temp Pulse Resp B/P (MAP) Pulse Ox O2 Delivery O2 Flow Rate FiO2 01/26/23 08:01 66 108/60 01/26/23 08:01 66 108/60 01/26/23 07:52 37.0 Mechanical Ventilator 50.00 01/26/23 07:00 67 01/26/23 07:00 66 20 95 50 01/26/23 06:00 68 20 107/60 (76) 95 Mechanical Ventilator 50.00 01/26/23 05:00 70 20 106/58 (74) 95 Mechanical Ventilator 50.00 01/26/23 04:20 94 Mechanical Ventilator 50 01/26/23 04:00 71 17 111/64 (80) 94 Mechanical Ventilator 50.00 01/26/23 03:00 72 112/66 (81) 96 Mechanical Ventilator 50.00 01/26/23 02:10 69 20 96 50 01/26/23 02:00 69 100/64 (76) 96 Mechanical Ventilator 50.00 01/26/23 01:00 72 108/66 (80) 96 Mechanical Ventilator 50.00 01/26/23 00:03 72 01/26/23 00:00 73 110/65 (80) 95 Mechanical Ventilator 50.00 01/25/23 23:27 94 Mechanical Ventilator 50 01/25/23 23:00 73 110/63 (79) 96 Mechanical Ventilator 50.00 01/25/23 22:43 72 20 95 50 01/25/23 22:11 80 117/76 01/25/23 22:00 82 117/76 (90) 96 Mechanical Ventilator 50.00 01/25/23 21:00 80 121/99 (106) 92 Mechanical Ventilator 50.00 01/25/23 20:00 73 116/71 (86) 92 Mechanical Ventilator 50.00 01/25/23 20:00 74 114/69 01/25/23 19:31 94 Mechanical Ventilator 50 01/25/23 19:09 37.8 01/25/23 19:00 70 111/65 (80) 94 Mechanical Ventilator 60.00 01/25/23 18:58 70 01/25/23 18:36 68 20 94 50 01/25/23 18:00 68 110/65 (81) 94 Mechanical Ventilator 60.00 01/25/23 17:45 69 112/62 01/25/23 17:38 69 112/62 01/25/23 17:00 69 112/62 (81) 95 Mechanical Ventilator 60.00 01/25/23 16:58 36.9 01/25/23 16:37 94 Mechanical Ventilator 50 01/25/23 16:00 70 113/63 (80) 95 Mechanical Ventilator 60.00 01/25/23 15:30 69 119/75 01/25/23 15:12 70 114/75 01/25/23 15:00 70 114/75 (89) 94 Mechanical Ventilator 60.00 01/25/23 14:25 71 111/64 01/25/23 14:00 71 19 111/64 (79) 96 Mechanical Ventilator 60.00 01/25/23 13:44 72 20 94 50 01/25/23 13:19 69 110/65 01/25/23 13:00 67 20 125/74 (91) 95 Mechanical Ventilator 60.00 01/25/23 12:43 69 01/25/23 12:20 68 117/67 01/25/23 12:00 68 25 117/67 (82) 93 Mechanical Ventilator 60.00 01/25/23 12:00 94 Mechanical Ventilator 50 01/25/23 11:30 68 117/67 01/25/23 11:17 36.7 01/25/23 11:00 71 19 115/65 (81) 94 Mechanical Ventilator 60.00 01/25/23 10:22 70 20 96 60 01/25/23 10:10 68 119/64 01/25/23 10:00 70 16 119/64 (77) 95 Mechanical Ventilator 60.00 01/25/23 09:00 68 20 116/67 (80) 95 Mechanical Ventilator 60.00 I & O0 01/26/23 06:59 Intake Total 1320 ml Output Total 3600 ml Balance -2280 ml Height & Weight Height: '" Weight: lbs. oz. kg; 38.64 BMI Method:Estimated General Appearance: No Apparent Distress, WD/WN, Other (sedated and intubated) HEENT: PERRL/EOMI, Normal ENT Inspection, Other (ET tube) Neck: Normal Inspection, Supple Respiratory: Lungs Clear, Normal Breath Sounds Cardiovascular: Regular Rate, Rhythm, No JVD Capillary Refill: Less Than 3 Seconds Peripheral Pulses: 2+ Dorsalis Pedis (R), 2+ Left Dors-Pedis (L), 2+ Radial Pulses (R), 2+ Radial Pulses (L) Gastrointestinal: non tender, soft Extremity: Other (left lower extremity cellulitis improving, left thigh open wound, no necrotic tissue at this time. Induration surrounding wound ) Neurologic/Psychiatric: Other (sedated on mechanical ventilation) Skin: Other (wound site looks clean with no evidence of necrotic tissue, less erythema) Lymphatic: No Adenopathy Results Lab Laboratory Tests 01/25/23 03:35 01/26/23 05:14 Assessment/Plan Assessment/Plan 1 RASHMI CANTRELL MD Jan 26, 2023 08:57
[2023-01-26] MEDS ORDERED: FOLIC ACID IV SCH (09:00)
[2023-01-26] MEDS ORDERED: NS IV SCH (09:00)
[2023-01-26] MEDS ORDERED: THIAMINE IV SCH (09:00)
[2023-01-26] MEDS: FOLIC ACID IV SCH (09:18)
[2023-01-26] MEDS: THIAMINE IV SCH (09:18)
[2023-01-26] MEDS: NS IV SCH (09:18)
[2023-01-26] MEDS: MIDAZOLAM DRIP PRE-MIX 100 ML IV SCH (09:19)
[2023-01-26] MEDS: RT-Ipratropium/Albuterol NEB 3 ML VIAL INH SCH ×4 (10:23→22:07)
[2023-01-26 10:26] VITALS: BP 104/60
[2023-01-26] MEDS: VANCOMYCIN 1500MG/300ML PREMIX IV SCH ×2 (11:07→22:34)
[2023-01-26 14:54] VITALS: BP 110/63
[2023-01-26 18:28] VITALS: BP 109/67
[2023-01-26 22:07] VITALS: BP 101/62
[2023-01-27] MEDS: PIPERACILLIN/Tazobactam 4.5 GM in NS (IVPB) 100 ML 100 ML IV SCH ×3 (02:28→18:02)
[2023-01-27] MEDS: fentaNYL DRIP PRE-MIX 250 ML IV SCH ×4 (02:28→21:43)
[2023-01-27] MEDS: RT-Ipratropium/Albuterol NEB 3 ML VIAL INH SCH ×6 (02:42→21:25)
[2023-01-27 02:43] VITALS: BP 103/73
[2023-01-27] MEDS: MIDAZOLAM DRIP PRE-MIX 100 ML IV SCH ×2 (03:07→19:48)
[2023-01-27 03:24] LABS: HEMATOCRIT 34 % (40-54); HEMOGLOBIN 10.7 g/dL (13.3-17.7); MEAN CORPUSCULAR HEMOGLOBIN 33 pg (25-34); MEAN CORPUSCULAR HGB CONC 32 g/dL (32-36); MEAN CORPUSCULAR VOLUME 104 fL (80-99); MEAN PLATELET VOLUME 8.4 fL (9.0-12.2); PLATELET COUNT 357 10^3/uL (130-400); WHITE BLOOD COUNT 7.6 10^3/uL (4.3-11.0)
[2023-01-27 03:33] LABS: POTASSIUM 4.8 MMOL/L (3.6-5.0)
[2023-01-27 03:34] LABS: CALCIUM 8.6 MG/DL (8.5-10.1)
[2023-01-27 03:35] LABS: TOTAL PROTEIN 6.6 GM/DL (6.4-8.2)
[2023-01-27 03:37] LABS: BILIRUBIN,TOTAL 0.2 MG/DL (0.1-1.0)
[2023-01-27 03:38] LABS: PHOSPHORUS 3.4 MG/DL (2.3-4.7)
[2023-01-27 03:39] LABS: CREATININE SERUM 0.76 MG/DL (0.60-1.30)
[2023-01-27 03:41] LABS: MAGNESIUM 1.9 MG/DL (1.6-2.4)
[2023-01-27] MEDS: MAGNESIUM 1 GM/100 ML IVPB 100 ML IV SCH ×2 (03:59→04:00)
[2023-01-27] MEDS: CLINDAMYCIN 900 MG/50 ML IVPB 50 ML IV SCH ×3 (05:46→21:35)
--- NOTE | 2023-01-27 06:24 | Progress Note - Hospitalist ---
Subjective HPI/CC On Admission Date Seen by Provider: Jan 27, 2023 Time Seen by Provider: 11:00 Subjective/Events-last exam Remains intubated Will need wound VAC Long slow recovery suspected Reviewed meds and labs Review of Systems General: Fatigue, Malaise Objective Exam Vital Signs Vital Signs Date Time Temp Pulse Resp B/P (MAP) Pulse Ox O2 Delivery O2 Flow Rate FiO2 01/28/23 05:17 60 01/28/23 05:00 82 20 132/80 (97) 94 Mechanical Ventilator 60.00 01/28/23 03:00 37.1 Capillary Refill : Less Than 3 SecondsLess Than 3 Seconds General Appearance: Chronically ill, Obese, Other (Sedated and intubated) Respiratory: Lungs Clear, Normal Breath Sounds Cardiovascular: Regular Rate, Rhythm Results/Procedures Lab Laboratory Tests 01/28/23 03:25 Patient resulted labs reviewed. Assessment/Plan Assessment and Plan Assess & Plan/Chief Complaint Assessment: Necrotizing fasciitis left inner thigh Acute hypoxic respiratory failure unable to extubate postsurgery Suspicion for [place]ARFIELD Severe sepsis PHTN on ECHO Plan: IV antibiotics Maintain ventilator Appreciate general surgery Appreciate RAUL Perla DO Jan 27, 2023 06:24
[2023-01-27 06:27] LABS: ABG BASE EXCESS 2.4 MMOL/L (-2.5-2.5); ABG OXYGEN SATURATION 93 % (94-100); ABG PCO2 49 MMHG (35-45); ABG PH 7.37 (7.37-7.43); ABG PO2 69 MMHG (79-93); ABG TCO2 29.8 MMOL/L (21.0-31.0)
[2023-01-27 06:29] LABS: INSPIRED O2 50%; VENTILATOR YES
[2023-01-27 07:18] VITALS: BP 115/69
[2023-01-27] MEDS: MUPIROCIN 2% OINTMENT 22 GM TUBE NSEACH SCH ×2 (07:59→19:48)
--- NOTE | 2023-01-27 08:00 | Tele-ICU Progress Note ---
Progress Note Video rounds completed 57 y/o male with sepsis secondary to LLE necrotizing fasciitis S/P surgical debridement Remains on vent (Tele-ICU Physician , Progress Note ) Service provided via interactive audio and video telecommunications E-CARE system to a patient admitted to ICU bed in [facility]. Patient is seen today due to persistent need of ICU care Available chart/ vitals / labs / Images reviewed Video assessment done using teleICU camera, rest of exam as per RN Discussed with RN Events overnight : PE this am comfortable in bed on vent, sedated with fentanyl and propofol No dyschronous breathing Pulse: 75 BP: 122/65 O2 sat: 95% VENT SETTINGS: 20/450/50%/6 AB.37/49/69/28 NOT CANDIDATE for SBTreviewed possible contraindications including Cardiovascular Stability /Sedation Score / FI02/PEEP / ABG / CXR/ secretions Sedation, discussed with RN, RASS - 1-2 on propofol 40 fent 150 Hospital course: (01/23) 57yr old male admitted with left uper medial thigh abscess/cellulitis s/p I & D, to ICU intubated , 100 Fio2 , CTA - neg for PE 01/24- RASS - 1-2 on propofol 40 fent 175 ECHO 01/25- AC -20 450 50 + 8 , propofol 40 fent 150 01/26- AC -20 450 50 + 8 , propofol 30 fent 175 OG output 500 /shift A/P: Acute hypoxic resp failure 01/23 - postop -?ETIOLOGY still not clear - IMROVING - CTA 01/23 NEG for pe , bilat basal PNA should not explain level of hypoxia -no severe bronchospam : PAP 25 on vent - low suspect for air embolism based on Sx performed -will order ECHO NO shunt ( but present pulm HTN - in ER was ( slightly hypoxic on arrival 89 to 90% was placed on 2 L)) - -AC 20 450 50 + 8 PAP 23 -no secretion , desats with minimal movements Sepsis: secondary to left lower extremity cellulites with abscess and necrotizing faciitis - BP stable left thigh necrotizing soft tissue infection ---Cultures pending. ---Continue vanco and zosyn clinda - as per Sx ---being followed by surgery, POD #4 surgical debridement Anemia - Hb.7 PULM HTN - by ECHO 11/22/23 - RVSP 60 mm hg ( no acute PE on CTA ) - keep neg volum status EtOH: drinks beer x6 daily. ---CIWA, receiving MVI and thiamine Nutritions - not started TF with NG output 500 cc last shift - cont LIS , off TF today MRSA nasal - bactroban ELEV TGL 01/26 of 165 - add vesed , try to wean off propofol Lines : periph , (Central Line Necessity Reviewed) Naidu: 01/23 OG: Nutrition: npo Analgesia: Anxiety/ delirium VTE Prophylaxis: ingrid 40 Stress Ulcer Prophylaxis: on Famotidine IMPRESSION: sepsis secondary to LLE necrotizing fasciitis, s/p debridement Remains ventilated with marginal ABG on 50% FIO2. Currently not ready for SBT based on low PO2 and high FIO2 Plans in collaboration with bedside consultants and IM MDs. Discussed with RN to reach out if any questions or concerns A total of 30 minutes of critical care time was devoted to this patient today, required to treat and/or prevent further deterioration of critical care condition. Focused Exam Height, Weight, BMI Height: '" Weight: lbs. oz. kg; 38.08 BMI Method:Estimated Labs Laboratory Tests 01/27/23 03:13 Results Results/Procedures Labs Laboratory Tests 01/26/23 05:14 01/27/23 03:13 Patient resulted labs reviewed. Results Labs Labs Laboratory Tests 01/26/23 11:44: Glucometer 92 01/26/23 17:38: Glucometer 100 01/26/23 23:48: Glucometer 94 01/27/23 03:13: White Blood Count 7.6, Red Blood Count 3.25L, Hemoglobin 10.7L, Hematocrit 34L, Mean Corpuscular Volume 104H, Mean Corpuscular Hemoglobin 33, Mean Corpuscular Hemoglobin Concent 32, Red Cell Distribution Width 12.5, Platelet Count 357, Mean Platelet Volume 8.4L, Sodium Level 137, Potassium Level 4.8, Chloride Level 103, Carbon Dioxide Level 26, Anion Gap 8, Blood Urea Nitrogen 9, Creatinine 0.76, Estimat Glomerular Filtration Rate 106, BUN/Creatinine Ratio 12, Glucose L evel 101, Calcium Level 8.6, Corrected Calcium 9.4, Phosphorus Level 3.4, Magnesium Level 1.9, Total Bilirubin 0.2, Aspartate Amino Transf (AST/SGOT) 20, Alanine Aminotransferase (ALT/SGPT) 19, Alkaline Phosphatase 87, Total Protein 6.6, Albumin 3.0L 01/27/23 05:04: Arterial Blood pH 7.37, Arterial Blood Partial Pressure CO2 49H, Arterial Blood Partial Pressure O2 69L, Arterial Blood HCO3 28H, Arterial Blood Total CO2 29.8, Arterial Blood Oxygen Saturation 93L, Arterial Blood Base Excess 2.4, Blood Gas Ventilator Setting YES, Blood Gas Inspired Oxygen 50% Microbiology 01/23/23 Gram Stain - Final, Resulted 01/23/23 Anaerobic Culture - Preliminary, Resulted No anaerobes isolated 01/23/23 Surgical Culture - Preliminary, Resulted Staphylococcus aureus Staphylococcus aureus#2 Susceptibility To Follow 01/23/23 MRSA Screen - Final, Complete 01/23/23 Blood Culture - Preliminary, Resulted HONORIO GIORDANO MD Jan 27, 2023 08:00
[2023-01-27] MEDS: THIAMINE IV SCH (08:56)
[2023-01-27] MEDS: NS IV SCH (08:56)
[2023-01-27] MEDS: FOLIC ACID IV SCH (08:56)
[2023-01-27] MEDS: FAMOTIDINE INJ 20MG/2ML VIAL IVP SCH ×2 (08:56→19:48)
[2023-01-27] MEDS: ENOXAPARIN 40 MG/0.4 ML SYRINGE SC SCH (08:57)
[2023-01-27] MEDS: SODIUM HYPOCHLORITE 0.125% TOP SCH (08:57)
--- NOTE | 2023-01-27 09:43 | Progress Note - Surgery ---
AMIE NIETO 01/27/23 0943: Subjective Date Seen by a Provider: Jan 27, 2023 Time Seen by a Provider: 09:00 Subjective/Events-last exam Patient seen this morning. Still sedated and on mechanical ventilation. His wound looks good with no drainage or signs of infection. Erythema appears to be improving as well. His vent settings are slowly being tapered down with his PEEP at 6 this morning. Review of Systems General: No Chills, No Night Sweats HEENT: No Head Aches, No Visual Changes Pulmonary: No Dyspnea, No Cough Cardiovascular: No: Chest Pain, Palpitations Gastrointestinal: No: Nausea, Vomiting Genitourinary: No Dysuria, No Frequency Musculoskeletal: No: neck pain, shoulder pain Neurological: No: Weakness, Seizures Objective Exam Vital Signs Date Time Temp Pulse Resp B/P (MAP) Pulse Ox O2 Delivery O2 Flow Rate FiO2 01/27/23 09:20 75 121/67 01/27/23 09:11 75 121/67 01/27/23 09:00 75 22 121/67 (86) 95 Mechanical Ventilator 50.00 01/27/23 08:09 37.1 Mechanical Ventilator 50.00 01/27/23 08:04 79 21 115/63 01/27/23 08:04 76 115/63 01/27/23 08:00 76 17 115/63 (80) 94 Mechanical Ventilator 50.00 01/27/23 07:18 73 20 95 50 01/27/23 07:00 72 20 112/62 (79) 95 Mechanical Ventilator 50.00 01/27/23 07:00 73 01/27/23 06:18 71 111/60 01/27/23 06:00 71 19 111/60 (77) 95 Mechanical Ventilator 50.00 01/27/23 05:15 50 01/27/23 05:08 73 124/71 01/27/23 05:00 73 19 124/71 (88) 95 Mechanical Ventilator 50.00 01/27/23 04:58 76 124/73 01/27/23 04:00 76 20 124/73 (90) 95 Mechanical Ventilator 50.00 01/27/23 03:43 37.3 20 95 Mechanical Ventilator 50.00 01/27/23 03:40 95 Mechanical Ventilator 50 01/27/23 03:07 73 20 103/73 01/27/23 03:00 75 20 125/75 (92) 95 Mechanical Ventilator 50.00 01/27/23 02:43 73 20 94 50 01/27/23 02:28 73 118/70 01/27/23 02:00 73 20 118/70 (86) 95 Mechanical Ventilator 50.00 01/27/23 01:19 50 01/27/23 01:05 75 110/67 01/27/23 01:00 76 20 115/69 (84) 93 Mechanical Ventilator 50.00 01/27/23 00:15 75 01/27/23 00:00 75 20 110/67 (81) 94 Mechanical Ventilator 50.00 01/26/23 23:26 76 109/64 01/26/23 23:26 76 109/64 01/26/23 23:25 94 Mechanical Ventilator 50 01/26/23 23:24 37.7 76 20 109/64 (79) 94 Mechanical Ventilator 50.00 01/26/23 23:00 76 17 107/64 (78) 94 Mechanical Ventilator 50.00 01/26/23 22:14 50 01/26/23 22:07 75 20 95 50 01/26/23 22:00 75 20 101/62 (75) 95 Mechanical Ventilator 50.00 01/26/23 21:37 50 01/26/23 21:00 75 20 112/67 (82) 95 Mechanical Ventilator 50.00 01/26/23 20:00 76 19 108/60 (76) 96 Mechanical Ventilator 50.00 01/26/23 19:47 80 109/63 01/26/23 19:47 80 109/63 01/26/23 19:25 80 109/63 01/26/23 19:15 94 Mechanical Ventilator 50 01/26/23 19:01 76 01/26/23 19:00 76 19 104/60 (75) 96 Mechanical Ventilator 50.00 01/26/23 19:00 37.7 Mechanical Ventilator 50.00 01/26/23 18:28 78 20 94 50 01/26/23 18:00 73 19 109/67 (81) 96 Mechanical Ventilator 50.00 01/26/23 17:38 50 01/26/23 17:37 73 108/66 01/26/23 17:00 74 19 110/68 (82) 95 Mechanical Ventilator 50.00 01/26/23 16:17 69 110/63 01/26/23 16:17 69 110/63 01/26/23 16:00 75 14 111/64 (80) 95 Mechanical Ventilator 50.00 01/26/23 16:00 36.7 01/26/23 16:00 95 Mechanical Ventilator 50 01/26/23 15:25 69 110/63 01/26/23 15:00 70 20 110/65 (80) 96 Mechanical Ventilator 50.00 01/26/23 14:54 69 20 96 50 01/26/23 14:48 50 01/26/23 14:42 69 108/66 01/26/23 14:00 71 19 110/63 (79) 96 Mechanical Ventilator 50.00 01/26/23 13:57 71 108/63 01/26/23 13:39 71 108/63 01/26/23 13:04 72 109/62 01/26/23 13:00 72 01/26/23 13:00 72 19 108/61 (77) 96 Mechanical Ventilator 50.00 01/26/23 12:26 97 Mechanical Ventilator 50 01/26/23 12:11 78 105/60 01/26/23 12:07 78 105/60 01/26/23 12:05 36.8 Mechanical Ventilator 50.00 01/26/23 12:00 74 28 108/62 (77) 97 Mechanical Ventilator 50.00 01/26/23 11:40 78 105/60 01/26/23 11:07 78 20 105/60 01/26/23 11:05 73 105/60 01/26/23 11:01 71 102/62 01/26/23 11:00 74 20 107/63 (78) 95 Mechanical Ventilator 50.00 01/26/23 10:58 50 01/26/23 10:33 71 20 102/62 01/26/23 10:33 71 102/62 01/26/23 10:26 70 20 94 50 01/26/23 10:00 69 19 103/62 (76) 95 Mechanical Ventilator 50.00 01/26/23 09:50 66 106/64 01/26/23 09:49 71 20 106/64 I & O 01/27/23 07:00 Intake Total 3827.4 ml Output Total 3240 ml Balance 587.4 ml Capillary Refill : Less Than 3 SecondsLess Than 3 Seconds General Appearance: WD/WN, Other (sedated and intubated) HEENT: PERRL/EOMI, Normal ENT Inspection, Other (ET tube) Neck: Normal Inspection, Supple Respiratory: Lungs Clear, Normal Breath Sounds, Other (on mechanical ventilation) Cardiovascular: No JVD Peripheral Pulses: 2+ Dorsalis Pedis (R), 2+ Left Dors-Pedis (L), 2+ Radial Pulses (R), 2+ Radial Pulses (L) Gastrointestinal: non tender, soft Extremity: Other (left lower extremity cellulitis improving, left thigh open wound, no necrotic tissue at this time. Induration surrounding wound impro ving) Neurologic/Psychiatric: Alert, Oriented x3, Other (sedated on mechanical ventilation) Skin: Normal Color, Warm/Dry, Other (wound site looks clean with no evidence of necrotic tissue, less erythema) Lymphatic: No Adenopathy Results Lab Laboratory Tests 01/26/23 11:44: Glucometer 92 01/26/23 17:38: Glucometer 100 01/26/23 23:48: Glucometer 94 01/27/23 03:13: White Blood Count 7.6, Red Blood Count 3.25L, Hemoglobin 10.7L, Hematocrit 34L, Mean Corpuscular Volume 104H, Mean Corpuscular Hemoglobin 33, Mean Corpuscular Hemoglobin Concent 32, Red Cell Distribution Width 12.5, Platelet Count 357, Mean Platelet Volume 8.4L, Sodium Level 137, Potassium Level 4.8, Chloride Level 103, Carbon Dioxide Level 26, Anion Gap 8, Blood Urea Nitrogen 9, Creatinine 0.76, Estimat Glomerular Filtration Rate 106, BUN/Creatinine Ratio 12, Glucose Level 101, Calcium Level 8.6, Corrected Calcium 9.4, Phosphorus Level 3.4, Magnesium Level 1.9, Total Bilirubin 0.2, Aspartate Amino Transf (AST/SGOT) 20, Alanine Aminotransferase (ALT/SGPT) 19, Alkaline Phosphatase 87, Total Protein 6.6, Albumin 3.0L 01/27/23 05:04: Arterial Blood pH 7.37, Arterial Blood Partial Pressure CO2 49H, Arterial Blood Partial Pressure O2 69L, Arterial Blood HCO3 28H, Arterial Blood Total CO2 29.8, Arterial Blood Oxygen Saturation 93L, Arterial Blood Base Excess 2.4, Blood Gas Ventilator Setting YES, Blood Gas Inspired Oxygen 50% Microbiology 01/23/23 Gram Stain - Final, Resulted 01/23/23 Anaerobic Culture - Preliminary, Resulted No anaerobes isolated 01/23/23 Surgical Culture - Preliminary, Resulted Staphylococcus aureus Staphylococcus aureus#2 Susceptibility To Follow 01/23/23 MRSA Screen - Final, Complete 01/23/23 Blood Culture - Preliminary, Resulted Assessment/Plan Assessment/Plan Assessment/Plan left thigh necrotizing soft tissue infection s/p incision and drainage and debridement Left leg cellulitis left lower extremity pain respiratory failure on vent culture results - staph aureus continue vanc, zosyn, and clindamycin IV fluids pain control npo continue wet to dry wound care BID consider wound vac monitor respiratory status- FiO2 at 50, PEEP down to 6 continue to titrate down vent settings until possible extubation NIMISHA CRUZ DO 01/27/23 1133: Subjective Subjective/Events-last exam Intubated and sedated. No family at bedside. Left leg improving. Not able to extubate yet. Objective Exam General Appearance: No Apparent Distress, Other (sedated and intubated) HEENT: Normal ENT Inspection, Other (ET tube) Neck: Normal Inspection, Supple Respiratory: Chest Non Tender, Other (on mechanical ventilation, equal chest rise) Cardiovascular: Regular Rate, Rhythm, No JVD Gastrointestinal: non tender, soft Extremity: Other (left lower extremity cellulitis improving, left thigh open wound, no necrotic tissue at this time. Induration surrounding wound improving) Neurologic/Psychiatric: No Alert, No Oriented x3; Other (sedated on mechanical ventilation) Skin: Normal Color, Warm/Dry, Other (wound site looks clean with no evidence of necrotic tissue, less erythema) Lymphatic: No Adenopathy Assessment/Plan Assessment/Plan Assessment/Plan left thigh necrotizing soft tissue infection s/p incision and drainage and debridement Left leg cellulitis left lower extremity pain respiratory failure on vent culture results - staph aureus continue vanc, zosyn, and clindamycin IV fluids pain control npo continue wet to dry wound care BID consider wound vac monitor respiratory status- FiO2 at 50, PEEP down to 6 continue to titrate down vent settings until possible extubation tube feeds with higher residuals, will hold today Supervisory-Addendum Brief Verification & Attestation Participated in pt care: history, MDM, physical Personally performed: exam, history, MDM, supervision of care Care discussed with: Medical Student Procedures: n/a Results interpretation: Verified all documentation Verification and Attestation of Medical Student E/M Service A medical student performed and documented this service in my presence. I reviewed and verified all information documented by the medical student and made modifications to such information, when appropriate. I personally performed the physical exam and medical decision making. Nimisha Cruz, Jan 27, 2023,11:33 AMIE NIETO Jan 27, 2023 09:43 NIMISHA CRUZ DO Jan 27, 2023 11:33
[2023-01-27 10:03] VITALS: BP 126/76
[2023-01-27] MEDS: VANCOMYCIN 1500MG/300ML PREMIX IV SCH ×2 (10:34→22:00)
[2023-01-27 15:08] VITALS: BP 90/71
[2023-01-27 19:05] VITALS: BP 119/67
[2023-01-27 21:26] VITALS: BP 119/66
[2023-01-28] MEDS ORDERED: RT-ALBUTEROL SULF 2.5 MG/3 ML PRE-MIX VIAL INH PRN (00:30)
[2023-01-28] MEDS ORDERED: RT-ALBUTEROL SULF 2.5 MG/3 ML PRE-MIX VIAL ONE (00:33)
[2023-01-28 01:40] LABS: ABG BASE EXCESS 0.9 MMOL/L (-2.5-2.5); ABG OXYGEN SATURATION 93 % (94-100); ABG PCO2 49 MMHG (35-45); ABG PH 7.35 (7.37-7.43); ABG PO2 67 MMHG (79-93); ABG TCO2 28.6 MMOL/L (21.0-31.0)
[2023-01-28 01:41] LABS: INSPIRED O2 60%; VENTILATOR YES
[2023-01-28] MEDS: PIPERACILLIN/Tazobactam 4.5 GM in NS (IVPB) 100 ML 100 ML IV SCH ×3 (02:15→18:00)
[2023-01-28] MEDS: RT-Ipratropium/Albuterol NEB 3 ML VIAL INH SCH ×6 (02:50→22:12)
[2023-01-28 02:51] VITALS: BP 132/71
[2023-01-28] MEDS: fentaNYL DRIP PRE-MIX 250 ML IV SCH ×5 (03:22→21:30)
[2023-01-28 03:39] LABS: BASOPHILS # (AUTO) 0.1 10^3/uL (0.0-0.1); BASOPHILS % (AUTO) 1 % (0-10); EOSINOPHILS # (AUTO) 0.2 10^3/uL (0.0-0.3); EOSINOPHILS % (AUTO) 2 % (0-10); HEMATOCRIT 35 % (40-54); LYMPHOCYTES # (AUTO) 0.4 10^3/uL (1.0-4.0); LYMPHOCYTES % (AUTO) 4 % (12-44); MEAN CORPUSCULAR HEMOGLOBIN 32 pg (25-34); MEAN CORPUSCULAR HGB CONC 31 g/dL (32-36); MEAN CORPUSCULAR VOLUME 103 fL (80-99); MEAN PLATELET VOLUME 8.4 fL (9.0-12.2); MONOCYTES # (AUTO) 0.8 10^3/uL (0.0-1.0); MONOCYTES % (AUTO) 9 % (0-12); NEUTROPHILS # (AUTO) 7.7 10^3/uL (1.8-7.8); NEUTROPHILS % (AUTO) 84 % (42-75); PLATELET COUNT 376 10^3/uL (130-400); WHITE BLOOD COUNT 9.2 10^3/uL (4.3-11.0)
[2023-01-28 03:57] LABS: ALBUMIN 3.2 GM/DL (3.2-4.5); BILIRUBIN,TOTAL 0.3 MG/DL (0.1-1.0); CALCIUM 8.8 MG/DL (8.5-10.1); CREATININE SERUM 0.75 MG/DL (0.60-1.30); MAGNESIUM 1.9 MG/DL (1.6-2.4); PHOSPHORUS 3.8 MG/DL (2.3-4.7); POTASSIUM 4.8 MMOL/L (3.6-5.0); TOTAL PROTEIN 6.7 GM/DL (6.4-8.2)
[2023-01-28] MEDS: MAGNESIUM 1 GM/100 ML IVPB 100 ML IV SCH (04:18)
[2023-01-28] MEDS: CLINDAMYCIN 900 MG/50 ML IVPB 50 ML IV SCH (05:17)
--- NOTE | 2023-01-28 06:40 | Progress Note - Hospitalist ---
Subjective HPI/CC On Admission Date Seen by Provider: Jan 28, 2023 Time Seen by Provider: 11:00 Subjective/Events-last exam Patient doing about the same Respiratory status is complicated Severity of COPD from 2 packs a day smoker and presumed sleep apnea will make it slow recovery at bedside All answers were to her satisfaction Review of Systems General: Fatigue, Malaise Objective Exam Vital Signs Vital Signs Date Time Temp Pulse Resp B/P (MAP) Pulse Ox O2 Delivery O2 Flow Rate FiO2 01/28/23 12:33 84 113/69 01/28/23 12:00 18 94 Mechanical Ventilator 60.00 01/28/23 11:16 60 01/28/23 08:39 37.5 Capillary Refill : Less Than 3 SecondsLess Than 3 Seconds General Appearance: No Apparent Distress, WD/WN, Chronically ill, Other (Sedated and intubated) Respiratory: Lungs Clear, Normal Breath Sounds Cardiovascular: Regular Rate, Rhythm Results/Procedures Lab Laboratory Tests 01/28/23 03:25 Patient resulted labs reviewed. Assessment/Plan Assessment and Plan Assess & Plan/Chief Complaint Assessment: Necrotizing fasciitis left inner thigh Acute hypoxic respiratory failure unable to extubate postsurgery Suspicion for [facility] Severe sepsis PHTN on ECHO Plan: IV antibiotics Maintain ventilator Appreciate general surgery Appreciate RAUL Perla DO Jan 28, 2023 06:40
--- NOTE | 2023-01-28 06:41 | Diagnostic Imaging Report ---
EXAMINATION: Chest 1 view HISTORY: Hypoxia COMPARISON: 01/22/2023 FINDINGS: Heart size and pulmonary vasculature are normal. There are low lung volumes. There are patchy opacities within the mid and lower lungs. Small bilateral pleural effusions. The left-sided PICC line is present with tip projecting over the distal SVC. Medical support lines and tubes are otherwise unchanged. The osseous structures are intact. IMPRESSION: 1. Low lung volumes with patchy opacities in the lung bases compatible with atelectasis, edema, or pneumonia. Small bilateral pleural effusions. Dictated by: Dictated on workstation # [id number]
[2023-01-28] MEDS: MUPIROCIN 2% OINTMENT 22 GM TUBE NSEACH SCH ×2 (07:26→20:23)
[2023-01-28] MEDS ORDERED: FUROSEMIDE INJECTION 40 MG/4 ML VIAL IVP ONE (08:15)
[2023-01-28] MEDS: NS IV SCH (08:25)
[2023-01-28] MEDS: FAMOTIDINE INJ 20MG/2ML VIAL IVP SCH ×2 (08:25→20:22)
[2023-01-28] MEDS: FOLIC ACID IV SCH (08:25)
[2023-01-28] MEDS: ENOXAPARIN 40 MG/0.4 ML SYRINGE SC SCH (08:25)
[2023-01-28] MEDS: THIAMINE IV SCH (08:25)
[2023-01-28] MEDS: SODIUM HYPOCHLORITE 0.125% TOP SCH (08:25)
--- NOTE | 2023-01-28 09:46 | Diagnostic Imaging Report ---
EXAMINATION: Abdomen 1 view HISTORY: Abdominal distention COMPARISON: None available. FINDINGS: There is a moderate amount of gas and stool throughout the colon. Nonobstructive bowel gas pattern. The enteric catheter is present overlying the left upper quadrant. The osseous structures are intact. IMPRESSION: Moderate stool burden without other acute abnormality in the abdomen. Dictated by: Dictated on workstation # [id number]
--- NOTE | 2023-01-28 09:48 | Progress Note - Surgery ---
AMIE NIETO 01/28/23 0948: Subjective Date Seen by a Provider: Jan 28, 2023 Time Seen by a Provider: 09:30 Subjective/Events-last exam Patient was seen this morning. Still sedated and on mechanical ventilation. FiO2 at 60% this morning. His nurse reported he had 3 episodes last night of seng aturation with tachycardia. Vitals are stable at this time. He had a CXR this morning that showed patchy opacities in the lung bases consistent with atelectasis, pneumonia, or edema. Sputum culture was ordered. His wound looks clean and dry with no signs of infection. Wound culture susceptibility came back that showed susceptibility to vancomycin but resistance to clindamycin. Review of Systems General: No Chills, No Night Sweats HEENT: No Head Aches, No Visual Changes Pulmonary: No Cough, No Pleuritic Chest Pain Cardiovascular: No: Chest Pain, Palpitations Gastrointestinal: No: Nausea, Vomiting Genitourinary: No Dysuria, No Frequency Musculoskeletal: No: neck pain, shoulder pain Neurological: No: Seizures, Other (sedated) Objective Exam Vital Signs Date Time Temp Pulse Resp B/P (MAP) Pulse Ox O2 Delivery O2 Flow Rate FiO2 01/28/23 09:39 60 01/28/23 09:08 80 129/87 01/28/23 09:00 79 20 129/87 (105) 92 Mechanical Ventilator 60.00 01/28/23 08:50 80 129/87 01/28/23 08:40 79 20 118/64 01/28/23 08:39 37.5 Mechanical Ventilator 60.00 01/28/23 08:26 78 20 116/62 01/28/23 08:26 78 116/62 01/28/23 08:26 79 117/63 01/28/23 08:00 93 Mechanical Ventilator 60 01/28/23 08:00 79 19 117/63 (80) 95 Mechanical Ventilator 60.00 01/28/23 07:25 78 136/82 01/28/23 07:25 78 136/82 01/28/23 07:00 79 19 136/82 (100) 95 Mechanical Ventilator 60.00 01/28/23 07:00 78 01/28/23 06:00 79 20 129/80 (96) 95 Mechanical Ventilator 60.00 01/28/23 05:17 60 01/28/23 05:00 82 20 132/80 (97) 94 Mechanical Ventilator 60.00 01/28/23 04:00 82 20 134/73 (93) 95 Mechanical Ventilator 60.00 01/28/23 03:30 95 Mechanical Ventilator 60 01/28/23 03:22 80 130/72 01/28/23 03:22 80 130/72 01/28/23 03:14 80 130/72 01/28/23 03:00 81 21 130/72 (91) 95 Mechanical Ventilator 60.00 01/28/23 03:00 37.1 80 20 130/72 (91) 95 Mechanical Ventilator 60.00 01/28/23 02:51 81 19 95 60 01/28/23 02:20 81 126/69 01/28/23 02:00 83 19 128/74 (92) 94 Mechanical Ventilator 60.00 01/28/23 01:24 85 124/74 01/28/23 01:15 60 01/28/23 01:00 94 24 160/92 (114) 90 Mechanical Ventilator 60.00 01/28/23 00:45 82 01/28/23 00:40 92 158/86 01/28/23 00:39 90 22 158/86 01/28/23 00:21 Mechanical Ventilator 60.00 01/28/23 00:00 81 22 145/90 (108) 94 Mechanical Ventilator 50.00 01/27/23 23:34 / 01/27/23 23:34 78 129/73 01/27/23 23:30 93 Mechanical Ventilator 50 01/27/23 23:18 37.4 78 20 129/73 (91) 93 Mechanical Ventilator 50.00 01/27/23 23:00 79 19 129/74 (92) 94 Mechanical Ventilator 50.00 01/27/23 22:00 79 19 114/63 (80) 94 Mechanical Ventilator 50.00 01/27/23 21:44 79 121/66 01/27/23 21:43 79 121/66 01/27/23 21:26 78 20 95 50 01/27/23 21:19 50 01/27/23 21:00 80 20 121/66 (84) 94 Mechanical Ventilator 50.00 01/27/23 20:00 80 20 118/66 (83) 94 Mechanical Ventilator 50.00 01/27/23 19:48 79 20 119/67 11/25/23 19:46 37.2 01/27/23 19:29 79 119/67 01/27/23 19:25 94 Mechanical Ventilator 50 01/27/23 19:05 79 20 94 50 01/27/23 19:00 78 01/27/23 19:00 37.5 80 20 125/73 (90) 94 Mechanical Ventilator 50.00 01/27/23 18:09 75 123/70 01/27/23 18:02 75 123/70 01/27/23 18:00 75 13 123/70 (90) 92 Mechanical Ventilator 50.00 01/27/23 17:13 50 01/27/23 17:00 76 20 112/63 (78) 92 Mechanical Ventilator 50.00 01/27/23 16:02 92 Mechanical Ventilator 50 01/27/23 16:00 75 20 111/60 (76) 92 Mechanical Ventilator 50.00 01/27/23 15:59 36.6 01/27/23 15:31 76 105/58 01/27/23 15:08 76 20 91 50 01/27/23 15:00 77 16 90/71 (77) 91 Mechanical Ventilator 50.00 01/27/23 14:11 50 01/27/23 14:00 70 19 106/59 (74) 93 Mechanical Ventilator 50.00 01/27/23 13:52 70 122/65 01/27/23 13:51 70 122/65 01/27/23 13:25 70 122/65 01/27/23 13:00 70 11 122/65 (82) 93 Mechanical Ventilator 50.00 01/27/23 12:54 93 Mechanical Ventilator 50 01/27/23 12:24 71 01/27/23 12:16 37.0 Mechanical Ventilator 50.00 01/27/23 12:00 72 28 106/59 (76) 93 Mechanical Ventilator 50.00 01/27/23 11:00 76 28 110/64 (80) 94 Mechanical Ventilator 50.00 01/27/23 11:00 76 28 110/64 (80) 94 Mechanical Ventilator 50.00 01/27/23 10:35 50 01/27/23 10:03 77 20 95 50 01/27/23 10:00 76 28 126/76 (90) 94 Mechanical Ventilator 50.00 01/27/23 09:48 75 121/67 I & O 01/28/23 07:00 Intake Total 3021.2 ml Output Total 3415 ml Balance -393.8 ml Capillary Refill : Less Than 3 SecondsLess Than 3 Seconds General Appearance: Chronically ill, Obese, Other (Sedated and intubated) HEENT: Normal ENT Inspection, Other (ET tube) Neck: Normal Inspection, Supple Respiratory: No Lungs Clear, No Normal Breath Sounds; No Respiratory Distress, Other (coarse breath sounds) Cardiovascular: Regular Rate, Rhythm Peripheral Pulses: 2+ Dorsalis Pedis (R), 2+ Left Dors-Pedis (L), 2+ Radial Pulses (R), 2+ Radial Pulses (L) Gastrointestinal: non tender, soft Extremity: Other (left lower extremity cellulitis improving, left thigh open wound, no necrotic tissue at this time. Induration surrounding wound improving) Neurologic/Psychiatric: No Alert, No Oriented x3; Other (sedated on mechanical ventilation) Skin: Normal Color, Warm/Dry, Other (wound site looks clean with no evidence of necrotic tissue, less erythema) Lymphatic: No Adenopathy Results Lab Laboratory Tests 01/27/23 11:19: Glucometer 94 01/27/23 18:28: Glucometer 81 01/27/23 23:18: Glucometer 87 01/28/23 01:32: Arterial Blood pH 7.35L, Arterial Blood Partial Pressure CO2 49H, Arterial Blood Partial Pressure O2 67L, Arterial Blood HCO3 27, Arterial Blood Total CO2 28.6, Arterial Blood Oxygen Saturation 93L, Arterial Blood Base Excess 0.9, Blood Gas Ventilator Setting YES, Blood Gas Inspired Oxygen 60% 01/28/23 03:25: White Blood Count 9.2, Red Blood Count 3.41L, Hemoglobin 11.0L, Hematocrit 35L, Mean Corpuscular Volume 103H, Mean Corpuscular Hemoglobin 32, Mean Corpuscular Hemoglobin Concent 31L, Red Cell Distribution Width 12.4, Platelet Count 376, Mean Platelet Volume 8.4L, Immature Granulocyte % (Auto) 1, Neutrophils (%) (Auto) 84H, Lymphocytes (%) (Auto) 4L, Monocytes (%) (Auto) 9, Eosinophils (%) ( Auto) 2, Basophils (%) (Auto) 1, Neutrophils # (Auto) 7.7, Lymphocytes # (Auto) 0.4L, Monocytes # (Auto) 0.8, Eosinophils # (Auto) 0.2, Basophils # (Auto) 0.1, Immature Granulocyte # (Auto) 0.1, Sodium Level 135, Potassium Level 4.8, C hloride Level 101, Carbon Dioxide Level 25, Anion Gap 9, Blood Urea Nitrogen 9, Creatinine 0.75, Estimat Glomerular Filtration Rate 107, BUN/Creatinine Ratio 12, Glucose Level 117H, Calcium Level 8.8, Corrected Calcium 9.4, Phosphorus Level 3.8, Magnesium Level 1.9, Total Bilirubin 0.3, Aspartate Amino Transf (AST/SGOT) 48H, Alanine Aminotransferase (ALT/SGPT) 40, Alkaline Phosphatase 89, Total Protein 6.7, Albumin 3.2, Triglycerides Level 226H Microbiology 01/23/23 Gram Stain - Final, Resulted 01/23/23 Anaerobic Culture - Preliminary, Resulted No anaerobes isolated 01/23/23 Surgical Culture - Final, Resulted Staphylococcus aureus Staphylococcus aureus#2 01/23/23 MRSA Screen - Final, Complete 01/23/23 Blood Culture - Preliminary, Resulted Assessment/Plan Assessment/Plan Assessment/Plan left thigh necrotizing soft tissue infection s/p incision and drainage and debridement Left leg cellulitis left lower extremity pain respiratory failure on vent pneumonia culture results - staph aureus continue vanc and zosyn DC clindamycin IV fluids pain control npo continue wet to dry wound care BID consider wound vac monitor respiratory status- FiO2 at 60 this morning, PEEP at 6 continue to titrate down vent settings until possible extubation continue to hold tube feeds sputum culture NIMISHA GARDUNO DO 01/28/23 1135: Subjective Subjective/Events-last exam Patient intubated and sedated. Having some desats last night. FIO2 60. Chest x ray as noted above. Wound left leg stable. Family at bedside. Objective Exam General Appearance: Other (Sedated and intubated) HEENT: Normal ENT Inspection, Other (ET tube) Neck: Normal Inspection, Supple Respiratory: No Respiratory Distress, Other (coarse breath sounds) Cardiovascular: Regular Rate, Rhythm, No JVD Gastrointestinal: non tender, soft Extremity: Other (left lower extremity cellulitis improving, left thigh open wound, no necrotic tissue at this time. Induration surrounding wound improving) Skin: Normal Color, Warm/Dry Lymphatic: No Adenopathy Assessment/Plan Assessment/Plan Assessment/Plan left thigh necrotizing soft tissue infection s/p incision and drainage and debridement Left leg cellulitis left lower extremity pain respiratory failure on vent pneumonia culture results - staph aureus continue vanc and zosyn IV fluids pain control npo continue wet to dry wound care BID possible wound vac monitor respiratory status- FiO2 at 60 this morning, PEEP at 6 continue to titrate down vent settings until possible extubation continue to hold tube feeds sputum culture KUB Supervisory-Addendum Brief Verification & Attestation Participated in pt care: history, MDM, physical Personally performed: exam, history, MDM, supervision of care Care discussed with: Medical Student Procedures: n/a Results interpretation: Verified all documentation Verification and Attestation of Medical Student E/M Service A medical student performed and documented this service in my presence. I reviewed and verified all information documented by the medical student and made modifications to such information, when appropriate. I personally performed the physical exam and medical decision making. Nimisha Cruz, Jan 28, 2023,11:35 AMIE NIETO Jan 28, 2023 09:48 NIMISHA CRUZ DO Jan 28, 2023 11:35
[2023-01-28] MEDS: MIDAZOLAM DRIP PRE-MIX 100 ML IV SCH ×2 (10:20→20:25)
[2023-01-28 10:26] VITALS: BP 128/71
--- NOTE | 2023-01-28 10:45 | Tele-ICU Progress Note ---
Subjective Date Seen by a Provider: Jan 28, 2023 Time Seen by a Provider: 10:45 Subjective/Events-last exam (Tele-ICU Physician , Progress Note ) Service provided via interactive audio and video telecommunications E-CARE system to a patient admitted to ICU bed in [facility]. Patient is seen today due to persistent need of ICU care Available chart/ vitals / labs / Images reviewed Video assessment done using teleICU camera, rest of exam as per RN Discussed with RN Events overnight : events of desat last night - ? mucous plugs Afebrile hemodynamically stable Respiratory -20 450 60 + 8 I/O = neg Drips: Pressors- no VENT SETTINGS and ABG reviewed NOT CANDIDATE for SBTreviewed possible contraindications including Cardiovascular Stability /Sedation Score / FI02/PEEP / ABG / CXR/ secretions Sedation, discussed with RN, RASS - 1-2 on propofol 25 fent 200 versed 8 Hospital course: (01/23) 57yr old male admitted with left uper medial thigh abscess/cellulitis s/p I & D, to ICU intubated , 100 Fio2 , CTA - neg for PE 01/24- RASS - 1-2 on propofol 40 fent 175 ECHO 01/25- AC -20 450 50 + 8 , propofol 40 fent 150 01/26- AC -20 450 50 + 8 , propofol 30 fent 175 OG output 500 /shift 01/28 -AC -20 450 60 + 8 , RASS - 1-2 on propofol 25 fent 200 versed 8, A/P: Acute hypoxic resp failure 01/23 - postop -?ETIOLOGY still not clear - IMROVING - CTA 01/23 NEG for pe , bilat basal PNA should not explain level of hypoxia -no severe bronchospam : PAP 25 on vent - + secretions - events of desat last night - ? mucous plugs - on duo neb q4 h - low suspect for air embolism based on Sx performed - ECHO NO shunt ( but present pulm HTN - in ER was ( slightly hypoxic on arrival 89 to 90% was placed on 2 L)) - -AC change to rr 18 and TV 600 ( clost to 8 cc/kf IBW ) -no secretion , desats with minimal movements Sepsis: secondary to LL cellulites with abscess and necrotizing faciitis - BP stable left thigh necrotizing soft tissue infection ---Cultures pending. ---Continue vanco and zosyn clinda - as per Sx - MRSA wound - stop clinda - plans as per sx Anemia - suspected delutional - stable PULM HTN - by ECHO 01/24/23 - RVSP 60 mm hg ( no acute PE on CTA ) - keep neg volum status EtOH: drinks beer x6 daily. ---CIWA, vitamins Nutritions - not started TF with NG output 500 cc last shift - cont LIS , off TF today - started 01/26 - high residuals - add reglan MRSA nasal - bactroban ELEV TGL 01/26 of 165- add vesed , try to wean off propofol Lines : periph , (Central Line Necessity Reviewed) Naidu: 01/23 OG: Nutrition: npo Analgesia: Anxiety/ delirium VTE Prophylaxis: ingrid 40 Stress Ulcer Prophylaxis: h2bl Plans in collaboration with bedside consultants and IM MDs. Discussed with RN to reach out if any questions or concerns Case and care daily discussed on multidisciplinary rounds ( RN, PharmD, Gynecology Teacher , Respiratory Therapy, gum worker ) A total of 35 minutes of critical care time was devoted to this patient today, required to treat and/or prevent further deterioration of critical care condition ( as above ) . I am remotely monitoring this patient from another state. I am unable to do the bedside exam, and history/physical and pertinent information is taken from other notes in the computer and bedside staff. Sepsis Event Evaluation Height, Weight, BMI Height: '" Weight: lbs. oz. kg; 38.02 BMI Method:Estimated Exam Exam Patient acknowledged, consented, and participated in this virtual visit which was conducted using real time audio/video Vital Signs Date Time Temp Pulse Resp B/P (MAP) Pulse Ox O2 Delivery O2 Flow Rate FiO2 01/28/23 10:26 78 18 94 60 01/28/23 10:20 79 18 128/71 01/28/23 10:18 79 18 128/71 01/28/23 10:18 79 128/71 01/28/23 10:00 78 22 126/68 (88) 94 Mechanical Ventilator 60.00 01/28/23 09:44 79 18 123/69 01/28/23 09:44 79 131/70 01/28/23 09:39 60 01/28/23 09:08 80 129/87 01/28/23 09:00 79 20 129/87 (105) 92 Mechanical Ventilator 60.00 01/28/23 08:50 80 129/87 01/28/23 08:40 79 20 118/64 01/28/23 08:39 37.5 Mechanical Ventilator 60.00 01/28/23 08:26 78 20 116/62 01/28/23 08:26 78 116/62 01/28/23 08:26 79 117/63 01/28/23 08:00 93 Mechanical Ventilator 60 01/28/23 08:00 79 19 117/63 (80) 95 Mechanical Ventilator 60.00 01/28/23 07:25 78 136/82 01/28/23 07:25 78 136/82 01/28/23 07:00 79 19 136/82 (100) 95 Mechanical Ventilator 60.00 01/28/23 07:00 78 01/28/23 06:00 79 20 129/80 (96) 95 Mechanical Ventilator 60.00 01/28/23 05:17 60 01/28/23 05:00 82 20 132/80 (97) 94 Mechanical Ventilator 60.00 01/28/23 04:00 82 20 134/73 (93) 95 Mechanical Ventilator 60.00 01/28/23 03:30 95 Mechanical Ventilator 60 01/28/23 03:22 80 130/72 01/28/23 03:22 80 130/72 01/28/23 03:14 80 130/72 01/28/23 03:00 81 21 130/72 (91) 95 Mechanical Ventilator 60.00 01/28/23 03:00 37.1 80 20 130/72 (91) 95 Mechanical Ventilator 60.00 01/28/23 02:51 81 19 95 60 01/28/23 02:20 81 126/69 01/28/23 02:00 83 19 128/74 (92) 94 Mechanical Ventilator 60.00 01/28/23 01:24 85 124/74 01/28/23 01:15 60 01/28/23 01:00 94 24 160/92 (114) 90 Mechanical Ventilator 60.00 01/28/23 00:45 82 01/28/23 00:40 92 158/86 01/28/23 00:39 90 22 158/86 01/28/23 00:21 Mechanical Ventilator 60.00 01/28/23 00:00 81 22 145/90 (108) 94 Mechanical Ventilator 50.00 01/27/23 23:34 / 01/27/23 23:34 78 129/73 01/27/23 23:30 93 Mechanical Ventilator 50 01/27/23 23:18 37.4 78 20 129/73 (91) 93 Mechanical Ventilator 50.00 01/27/23 23:00 79 19 129/74 (92) 94 Mechanical Ventilator 50.00 01/27/23 22:00 79 19 114/63 (80) 94 Mechanical Ventilator 50.00 01/27/23 21:44 79 121/66 01/27/23 21:43 79 121/66 01/27/23 21:26 78 20 95 50 01/27/23 21:19 50 01/27/23 21:00 80 20 121/66 (84) 94 Mechanical Ventilator 50.00 01/27/23 20:00 80 20 118/66 (83) 94 Mechanical Ventilator 50.00 01/27/23 19:48 79 20 119/67 01/27/23 19:46 37.2 01/27/23 19:29 79 119/67 01/27/23 19:25 94 Mechanical Ventilator 50 01/27/23 19:05 79 20 94 50 01/27/23 19:00 78 01/27/23 19:00 37.5 80 20 125/73 (90) 94 Mechanical Ventilator 50.00 01/27/23 18:09 75 123/70 01/27/23 18:02 75 123/70 01/27/23 18:00 75 13 123/70 (90) 92 Mechanical Ventilator 50.00 01/27/23 17:13 50 01/27/23 17:00 76 20 112/63 (78) 92 Mechanical Ventilator 50.00 01/27/23 16:02 92 Mechanical Ventilator 50 01/27/23 16:00 75 20 111/60 (76) 92 Mechanical Ventilator 50.00 01/27/23 15:59 36.6 01/27/23 15:31 76 105/58 01/27/23 15:08 76 20 91 50 01/27/23 15:00 77 16 90/71 (77) 91 Mechanical Ventilator 50.00 01/27/23 14:11 50 01/27/23 14:00 70 19 106/59 (74) 93 Mechanical Ventilator 50.00 01/27/23 13:52 70 122/65 01/27/23 13:51 70 122/65 01/27/23 13:25 70 122/65 01/27/23 13:00 70 11 122/65 (82) 93 Mechanical Ventilator 50.00 01/27/23 12:54 93 Mechanical Ventilator 50 01/27/23 12:24 71 01/27/23 12:16 37.0 Mechanical Ventilator 50.00 01/27/23 12:00 72 28 106/59 (76) 93 Mechanical Ventilator 50.00 01/27/23 11:00 76 28 110/64 (80) 94 Mechanical Ventilator 50.00 01/27/23 11:00 76 28 110/64 (80) 94 Mechanical Ventilator 50.00 I & O 01/28/23 06:59 Intake Total 3021.2 ml Output Total 3415 ml Balance -393.8 ml Height & Weight Height: '" Weight: lbs. oz. kg; 38.02 BMI Method:Estimated General Appearance: Chronically ill, Obese, Other (Sedated and intubated) HEENT: Normal ENT Inspection, Other (ET tube) Neck: Normal Inspection, Supple Respiratory: No Lungs Clear, No Normal Breath Sounds; No Respiratory Distress, Other (coarse breath sounds) Cardiovascular: Regular Rate, Rhythm Capillary Refill: Less Than 3 Seconds Peripheral Pulses: 2+ Dorsalis Pedis (R), 2+ Left Dors-Pedis (L), 2+ Radial Pulses (R), 2+ Radial Pulses (L) Gastrointestinal: non tender, soft Extremity: Other (left lower extremity cellulitis improving, left thigh open wound, no necrotic tissue at this time. Induration surrounding wound improving) Neurologic/Psychiatric: No Alert, No Oriented x3; Other (sedated on mechanical ventilation) Skin: Normal Color, Warm/Dry, Other (wound site looks clean with no evidence of necrotic tissue, less erythema) Lymphatic: No Adenopathy Results Lab Laboratory Tests 01/27/23 03:13 01/28/23 03:25 Assessment/Plan Assessment/Plan 1 RASHMI CANTRELL MD Jan 28, 2023 10:45
[2023-01-28 15:13] VITALS: BP 128/71
[2023-01-28] MEDS: VANCOMYCIN 1500MG/300ML PREMIX 300 ML IV SCH (16:26)
[2023-01-28 18:40] VITALS: BP 121/73
--- NOTE | 2023-01-28 19:02 | Tele-ICU Progress Note ---
Subjective Date Seen by a Provider: Jan 28, 2023 Time Seen by a Provider: 19:02 Subjective/Events-last exam (Tele-ICU Physician , consultation as per request of PCP Service provided via interactive audio and video telecommunications E-CARE system to a patient admitted to ICU bed in [facility]. Available chart/ vitals / labs / Images reviewed H&P is from ER notes Patient's information available about PMH, Shx, Fhx allergy reviewed inEMR. ROS as per chart and RN report Now in ICU, hemodynamically stable Video assessment done using teleICU camera, rest of exam as per RN Discussed with RN. Hospital course: A/P Suspected Acute stroke ( last mormal seemn 9 pm --> 10 am had confusion and slurred speech ) -CT/CTA head and neck - no large vessel occlusion -neurocheck/NIHSS/VS monitoring per stroke order set protocol -IV hydralazine and labetalol PRN for BP >185/105 -f/up imaging ad MRI to follow -echo ordered -Antithrombotic medication (migh took extra tegretol accidental - level is pending ) h/o trigeminal neuralgia - tx with tegretol DM with milf hypoglycemia - ISS SYDNI vs CKD - hydration - follow Anemia - ? baseline HB - no acute bleeding - follow Lines : , (Central Line Necessity Reviewed) Naidu: OG: Nutrition: Analgesia: Anxiety/ delirium VTE Prophylaxis: Stress Ulcer Prophylaxis: Plans in collaboration with bedside consultants and IM MDs. Discussed with RN to reach out if any questions or concerns A total of _ minutes of critical care time was devoted to this patient today, required to treat and/or prevent further deterioration of critical care condition ( as above ) . I am remotely monitoring this patient from another state. I am unable to do the bedside exam, and history/physical and pertinent information is taken from other notes in the computer and bedside staff. . Sepsis Event Evaluation Height, Weight, BMI Height: '" Weight: lbs. oz. kg; 38.02 BMI Method:Estimated Exam Exam Patient acknowledged, consented, and participated in this virtual visit which was conducted using real time audio/video Vital Signs Date Time Temp Pulse Resp B/P (MAP) Pulse Ox O2 Delivery O2 Flow Rate FiO2 01/28/23 18:40 82 18 94 60 01/28/23 18:00 84 18 114/70 (83) 94 Mechanical Ventilator 60.00 11/26/23 17:22 81 131/72 01/28/23 17:21 81 131/72 01/28/23 17:18 60 01/28/23 17:00 84 28 147/84 (100) 95 Mechanical Ventilator 60.00 01/28/23 16:00 81 25 131/72 (90) 95 Mechanical Ventilator 60.00 01/28/23 15:40 95 Mechanical Ventilator 60 01/28/23 15:36 37.0 01/28/23 15:13 78 18 94 60 01/28/23 15:00 82 18 136/77 (93) 94 Mechanical Ventilator 60.00 01/28/23 14:30 60 01/28/23 14:00 80 18 120/68 (84) 95 Mechanical Ventilator 60.00 01/28/23 13:27 80 114/72 01/28/23 13:25 80 114/72 01/28/23 13:00 80 17 114/72 (84) 94 Mechanical Ventilator 60.00 01/28/23 12:33 84 113/69 01/28/23 12:21 84 01/28/23 12:00 83 18 113/69 (83) 94 Mechanical Ventilator 60.00 01/28/23 12:00 37.1 Mechanical Ventilator 60.00 01/28/23 11:16 95 Mechanical Ventilator 60 01/28/23 11:13 81 131/71 01/28/23 11:13 81 131/71 01/28/23 11:00 81 17 131/71 (89) 95 Mechanical Ventilator 60.00 01/28/23 10:26 78 18 94 60 01/28/23 10:20 79 18 128/71 01/28/23 10:18 79 18 128/71 01/28/23 10:18 79 128/71 01/28/23 10:00 78 22 126/68 (88) 94 Mechanical Ventilator 60.00 01/28/23 09:44 79 18 123/69 01/28/23 09:44 79 131/70 01/28/23 09:39 60 01/28/23 09:08 80 129/87 01/28/23 09:00 79 20 129/87 (105) 92 Mechanical Ventilator 60.00 01/28/23 08:50 80 129/87 01/28/23 08:40 79 18 95 60 01/28/23 08:40 79 20 118/64 01/28/23 08:39 37.5 Mechanical Ventilator 60.00 01/28/23 08:26 78 20 116/62 01/28/23 08:26 78 116/62 01/28/23 08:26 79 117/63 01/28/23 08:00 93 Mechanical Ventilator 60 01/28/23 08:00 79 19 117/63 (80) 95 Mechanical Ventilator 60.00 01/28/23 07:25 78 136/82 01/28/23 07:25 78 136/82 01/28/23 07:00 79 19 136/82 (100) 95 Mechanical Ventilator 60.00 01/28/23 07:00 78 01/28/23 06:00 79 20 129/80 (96) 95 Mechanical Ventilator 60.00 01/28/23 05:17 60 01/28/23 05:00 82 20 132/80 (97) 94 Mechanical Ventilator 60.00 01/28/23 04:00 82 20 134/73 (93) 95 Mechanical Ventilator 60.00 01/28/23 03:30 95 Mechanical Ventilator 60 01/28/23 03:22 80 130/72 01/28/23 03:22 80 130/72 01/28/23 03:14 80 130/72 01/28/23 03:00 81 21 130/72 (91) 95 Mechanical Ventilator 60.00 01/28/23 03:00 37.1 80 20 130/72 (91) 95 Mechanical Ventilator 60.00 01/28/23 02:51 81 19 95 60 01/28/23 02:20 81 126/69 01/28/23 02:00 83 19 128/74 (92) 94 Mechanical Ventilator 60.00 01/28/23 01:24 85 124/74 01/28/23 01:15 60 01/28/23 01:00 94 24 160/92 (114) 90 Mechanical Ventilator 60.00 01/28/23 00:45 82 01/28/23 00:40 92 158/86 01/28/23 00:39 90 22 158/86 01/28/23 00:21 Mechanical Ventilator 60.00 01/28/23 00:00 81 22 145/90 (108) 94 Mechanical Ventilator 50.00 01/27/23 23:34 / 01/27/23 23:34 78 129/73 01/27/23 23:30 93 Mechanical Ventilator 50 01/27/23 23:18 37.4 78 20 129/73 (91) 93 Mechanical Ventilator 50.00 01/27/23 23:00 79 19 129/74 (92) 94 Mechanical Ventilator 50.00 01/27/23 22:00 79 19 114/63 (80) 94 Mechanical Ventilator 50.00 01/27/23 21:44 79 121/66 01/27/23 21:43 79 121/66 01/27/23 21:26 78 20 95 50 01/27/23 21:19 50 01/27/23 21:00 80 20 121/66 (84) 94 Mechanical Ventilator 50.00 01/27/23 20:00 80 20 118/66 (83) 94 Mechanical Ventilator 50.00 01/27/23 19:48 79 20 119/67 01/27/23 19:46 37.2 01/27/23 19:29 79 119/67 01/27/23 19:25 94 Mechanical Ventilator 50 01/27/23 19:05 79 20 94 50 I & O 01/28/23 06:59 Intake Total 3021.2 ml Output Total 3415 ml Balance -393.8 ml Height & Weight Height: '" Weight: lbs. oz. kg; 38.02 BMI Method:Estimated General Appearance: No Apparent Distress, WD/WN, Chronically ill, Other (Sedated and intubated) HEENT: Normal ENT Inspection, Other (ET tube) Neck: Normal Inspection, Supple Respiratory: Lungs Clear, Normal Breath Sounds Cardiovascular: Regular Rate, Rhythm Capillary Refill: Less Than 3 Seconds Peripheral Pulses: 2+ Dorsalis Pedis (R), 2+ Left Dors-Pedis (L), 2+ Radial Pulses (R), 2+ Radial Pulses (L) Gastrointestinal: non tender, soft Extremity: Other (left lower extremity cellulitis improving, left thigh open wound, no necrotic tissue at this time. Induration surrounding wound improving) Neurologic/Psychiatric: No Alert, No Oriented x3; Other (sedated on mechanical ventilation) Skin: Normal Color, Warm/Dry Lymphatic: No Adenopathy Results Lab Laboratory Tests 01/27/23 03:13 01/28/23 03:25 Assessment/Plan Assessment/Plan 1 RASHMI CANTRELL MD Jan 28, 2023 19:02
[2023-01-28] MEDS: LACTULOSE SYRUP 10GM/15ML 30ML UDC PO SCH (20:22)
[2023-01-28 22:12] VITALS: BP 130/80
[2023-01-29] MEDS: fentaNYL DRIP PRE-MIX 250 ML IV SCH ×6 (01:42→22:21)
[2023-01-29] MEDS: PIPERACILLIN/Tazobactam 4.5 GM in NS (IVPB) 100 ML 100 ML IV SCH ×3 (02:17→18:03)
[2023-01-29 02:32] LABS: BASOPHILS % (AUTO) 0 % (0-10); EOSINOPHILS # (AUTO) 0.4 10^3/uL (0.0-0.3); EOSINOPHILS % (AUTO) 6 % (0-10); HEMATOCRIT 36 % (40-54); HEMOGLOBIN 11.4 g/dL (13.3-17.7); LYMPHOCYTES # (AUTO) 0.6 10^3/uL (1.0-4.0); LYMPHOCYTES % (AUTO) 8 % (12-44); MEAN CORPUSCULAR HEMOGLOBIN 32 pg (25-34); MEAN CORPUSCULAR HGB CONC 32 g/dL (32-36); MEAN CORPUSCULAR VOLUME 101 fL (80-99); MEAN PLATELET VOLUME 8.4 fL (9.0-12.2); MONOCYTES % (AUTO) 13 % (0-12); NEUTROPHILS # (AUTO) 5.5 10^3/uL (1.8-7.8); NEUTROPHILS % (AUTO) 72 % (42-75); PLATELET COUNT 386 10^3/uL (130-400); WHITE BLOOD COUNT 7.6 10^3/uL (4.3-11.0)
[2023-01-29 02:45] VITALS: BP 127/77
[2023-01-29] MEDS: RT-Ipratropium/Albuterol NEB 3 ML VIAL INH SCH ×6 (02:45→22:15)
[2023-01-29 02:47] LABS: ALBUMIN 3.2 GM/DL (3.2-4.5); POTASSIUM 3.9 MMOL/L (3.6-5.0)
[2023-01-29 02:48] LABS: CALCIUM 8.9 MG/DL (8.5-10.1)
[2023-01-29 02:50] LABS: TOTAL PROTEIN 6.8 GM/DL (6.4-8.2)
[2023-01-29 02:52] LABS: BILIRUBIN,TOTAL 0.4 MG/DL (0.1-1.0)
[2023-01-29 02:53] LABS: CREATININE SERUM 0.76 MG/DL (0.60-1.30)
[2023-01-29 02:56] LABS: MAGNESIUM 1.8 MG/DL (1.6-2.4)
[2023-01-29] MEDS: VANCOMYCIN 1500MG/300ML PREMIX 300 ML IV SCH ×2 (03:09→16:27)
[2023-01-29 03:15] LABS: EOSINOPHILS % (MANUAL) 5 %; LYMPHOCYTES % (MANUAL) 6 %; MONOCYTES % (MANUAL) 13 %; NEUTROPHILS % (MANUAL) 76 %; RBC MORPH NORMAL
[2023-01-29] MEDS: POTASSIUM CL 10MEQ/50ML IVPB 50 ML IV SCH ×2 (03:25→04:23)
[2023-01-29] MEDS: MAGNESIUM 1 GM/100 ML IVPB 100 ML IV SCH ×2 (03:25→04:23)
[2023-01-29] MEDS: MIDAZOLAM DRIP PRE-MIX 100 ML IV SCH ×3 (05:24→22:21)
[2023-01-29 06:30] VITALS: BP 121/74
[2023-01-29 06:35] LABS: ABG BASE EXCESS 2.9 MMOL/L (-2.5-2.5); ABG OXYGEN SATURATION 93 % (94-100); ABG PCO2 39 MMHG (35-45); ABG PH 7.45 (7.37-7.43); ABG PO2 66 MMHG (79-93); ABG TCO2 28.3 MMOL/L (21.0-31.0); INSPIRED O2 50%; VENTILATOR YES
--- NOTE | 2023-01-29 07:08 | Progress Note - Hospitalist ---
Subjective HPI/CC On Admission Date Seen by Provider: Jan 29, 2023 Time Seen by Provider: 09:00 Subjective/Events-last exam Patient still intubated Reviewed vent settings Reviewed meds and labs Still not SBT candidate Objective Exam Vital Signs Vital Signs Date Time Temp Pulse Resp B/P (MAP) Pulse Ox O2 Delivery O2 Flow Rate FiO2 01/29/23 19:45 94 Mechanical Ventilator 50 01/29/23 18:50 81 18 01/29/23 18:00 128/75 (92) 60.00 01/29/23 16:40 37.8 Capillary Refill : Less Than 3 SecondsLess Than 3 Seconds General Appearance: Other (Sedated and intubated) Respiratory: Lungs Clear, Normal Breath Sounds Cardiovascular: Regular Rate, Rhythm Results/Procedures Lab Laboratory Tests 01/29/23 02:25 Patient resulted labs reviewed. Assessment/Plan Assessment and Plan Assess & Plan/Chief Complaint Assessment: Necrotizing fasciitis left inner thigh Acute hypoxic respiratory failure unable to extubate postsurgery Suspicion for GARFIELD Severe sepsis PHTN on ECHO Plan: IV antibiotics Maintain ventilator Appreciate general surgery Appreciate RAUL Perla DO Jan 29, 2023 07:08
--- NOTE | 2023-01-29 07:52 | Tele-ICU Progress Note ---
Subjective Date Seen by a Provider: Jan 29, 2023 Time Seen by a Provider: 07:51 Subjective/Events-last exam Tele-ICU Physician, Progress Note Service provided via interactive audio and video telecommunications E-CARE sy stem to a patient admitted to ICU bed in [facility]. Patient is seen today due to persistent need of ICU care Available chart/ vitals / labs / Images reviewed Video assessment done using teleICU camera, rest of exam as per RN Discussed with RN Subjective: No major events overnight. Still with copious secretions, sputum culture still pending. On antibiotics for soft tissue infection. Hospital course: 01/23- 57yr old male admitted with left uper medial thigh necrotizing soft tissue infection now s/p I&D (01/23), hospital course c/b acute hypoxic respiratory failure 2/2 pneumonia, intubated and sedated 01/24- RASS - 1-2 on propofol 40 fent 175 ECHO 01/25- AC -20 450 50 + 8 , propofol 40 fent 150 01/26- AC -20 450 50 + 8 , propofol 30 fent 175 OG output 500 /shift 01/28- Intubated and sedated, remains on Fi02 60%, Wound cx susceptible to Vanc, resistance to clindamycin. 01/29- Remains intubated and requiring 50% A/P: Acute respiratory failure likely 2/2 pneumonia -Patient remains intubated (vent day 6) -Labs with no evidence of leukocytosis and CXR yesterday with low lung volumes and small bilateral effusion -Noted to have copious secretions, sputum culture not sent, will reorder. Hold off starting antibiotics -Will give one dose IV lasix -CTA 01/23 neg for pe, bilat basal PNA should not explain level of hypoxia -TTE with evidence of Pulm HTN however normal EF, no shunt Neuro: On propfol, fentanyl and versed. Will dc propofol given elevated TG and start precedex. -Wean versed gtt. Will start on seroquel 25mg QHS. Sepsis: 2/2 LL cellulites with abscess and necrotizing fascitis -Currently on Vanc and Clindamycin however cultures noted to have resistance to clinda. -Will cont Vanc/zosyn, likely require 2 weeks. -Surg following s/p I&D Anemia of chronic disease -Stable -Transfuse Hgb <7 EtOH: drinks beer x6 daily. -Out of window for withdrawal -Ok to d/c CIWA, cont thiamine Nutrition: Will discuss with surgery, -Will hold TF until bowel movement Lines : PIV Naidu: 01/23 OG: Nutrition: npo Analgesia: Anxiety/ delirium VTE Prophylaxis: ingrid 40 Stress Ulcer Prophylaxis: pepcid Plans in collaboration with bedside consultants and IM MDs. Discussed with RN to reach out if any questions or concerns Case and care daily discussed on multidisciplinary rounds ( RN, PharmD, Shellfish Checker , Respiratory Therapy, criminal justice social worker) A total of 35 minutes of CC time was devoted to this patient today, required to treat and/or prevent further deterioration of critical care condition (as above). I am remotely monitoring this patient from another state. I am unable to do the bedside exam, and history/physical and pertinent information is taken from other notes in the computer and bedside staff. Sepsis Event Evaluation Height, Weight, BMI Height: '" Weight: lbs. oz. kg; 36.97 BMI Method:Estimated Exam Exam Patient acknowledged, consented, and participated in this virtual visit which was conducted using real time audio/video Vital Signs Date Time Temp Pulse Resp B/P (MAP) Pulse Ox O2 Delivery O2 Flow Rate FiO2 01/29/23 07:16 73 01/29/23 07:00 74 18 116/68 (84) 96 Mechanical Ventilator 60.00 01/29/23 06:30 73 18 95 50 01/29/23 05:59 72 18 120/71 (87) 96 Mechanical Ventilator 60.00 01/29/23 05:30 50 01/29/23 05:24 75 17 115/69 01/29/23 05:24 75 115/69 01/29/23 05:24 75 115/69 01/29/23 05:00 72 17 113/69 (84) 95 Mechanical Ventilator 60.00 01/29/23 04:23 50 01/29/23 04:00 75 17 117/69 (85) 94 Mechanical Ventilator 60.00 01/29/23 03:00 95 Mechanical Ventilator 50 01/29/23 03:00 37.1 76 18 135/81 (99) 94 Mechanical Ventilator 60.00 01/29/23 02:45 75 18 95 50 01/29/23 02:26 50 01/29/23 02:26 Mechanical Ventilator 50.00 01/29/23 02:00 74 17 127/77 (94) 96 Mechanical Ventilator 60.00 01/29/23 01:42 79 123/74 01/29/23 01:25 79 123/74 01/29/23 01:00 75 01/29/23 01:00 82 18 131/76 (94) 93 Mechanical Ventilator 60.00 01/29/23 00:00 76 17 136/78 (97) 96 Mechanical Ventilator 60.00 01/28/23 23:10 95 Mechanical Ventilator 60 01/28/23 23:00 37.1 80 18 141/86 (104) 95 Mechanical Ventilator 60.00 01/28/23 22:12 77 18 96 60 01/28/23 22:00 77 25 149/84 (105) 96 Mechanical Ventilator 60.00 01/28/23 21:30 80 151/87 01/28/23 21:23 60 01/28/23 21:22 86 126/75 01/28/23 21:00 81 17 123/77 (92) 95 Mechanical Ventilator 60.00 01/28/23 20:25 86 18 126/75 01/28/23 20:00 84 17 148/96 (113) 94 Mechanical Ventilator 60.00 01/28/23 19:15 95 Mechanical Ventilator 60 01/28/23 19:00 86 01/28/23 19:00 37.7 81 18 126/75 (92) 95 Mechanical Ventilator 60.00 01/28/23 18:40 82 18 94 60 01/28/23 18:00 84 18 114/70 (83) 94 Mechanical Ventilator 60.00 01/28/23 17:22 81 131/72 01/28/23 17:21 81 131/72 01/28/23 17:18 60 01/28/23 17:00 84 28 147/84 (100) 95 Mechanical Ventilator 60.00 01/28/23 16:00 81 25 131/72 (90) 95 Mechanical Ventilator 60.00 01/28/23 15:40 95 Mechanical Ventilator 60 01/28/23 15:36 37.0 01/28/23 15:13 78 18 94 60 01/28/23 15:00 82 18 136/77 (93) 94 Mechanical Ventilator 60.00 01/28/23 14:30 60 01/28/23 14:00 80 18 120/68 (84) 95 Mechanical Ventilator 60.00 11/26/23 13:27 80 114/72 11/26/23 13:25 80 114/72 01/28/23 13:00 80 17 114/72 (84) 94 Mechanical Ventilator 60.00 01/28/23 12:33 84 113/69 01/28/23 12:21 84 01/28/23 12:00 83 18 113/69 (83) 94 Mechanical Ventilator 60.00 01/28/23 12:00 37.1 Mechanical Ventilator 60.00 01/28/23 11:16 95 Mechanical Ventilator 60 01/28/23 11:13 81 131/71 01/28/23 11:13 81 131/71 01/28/23 11:00 81 17 131/71 (89) 95 Mechanical Ventilator 60.00 01/28/23 10:26 78 18 94 60 01/28/23 10:20 79 18 128/71 01/28/23 10:18 79 18 128/71 01/28/23 10:18 79 128/71 01/28/23 10:00 78 22 126/68 (88) 94 Mechanical Ventilator 60.00 01/28/23 09:44 79 18 123/69 01/28/23 09:44 79 131/70 01/28/23 09:39 60 01/28/23 09:08 80 129/87 01/28/23 09:00 79 20 129/87 (105) 92 Mechanical Ventilator 60.00 01/28/23 08:50 80 129/87 01/28/23 08:40 79 18 95 60 01/28/23 08:40 79 20 118/64 01/28/23 08:39 37.5 Mechanical Ventilator 60.00 01/28/23 08:26 78 20 116/62 01/28/23 08:26 78 116/62 01/28/23 08:26 79 117/63 01/28/23 08:00 93 Mechanical Ventilator 60 01/28/23 08:00 79 19 117/63 (80) 95 Mechanical Ventilator 60.00 I & O 01/29/23 06:59 Intake Total 3211.2 ml Output Total 5285 ml Balance -2073.8 ml Height & Weight Height: '" Weight: lbs. oz. kg; 36.97 BMI Method:Estimated General Appearance: No Apparent Distress, WD/WN, Chronically ill, Other (Sedated and intubated) HEENT: Normal ENT Inspection, Other (ET tube) Neck: Normal Inspection, Supple Respiratory: Lungs Clear, Normal Breath Sounds Cardiovascular: Regular Rate, Rhythm Capillary Refill: Less Than 3 Seconds Peripheral Pulses: 2+ Dorsalis Pedis (R), 2+ Left Dors-Pedis (L), 2+ Radial Pulses (R), 2+ Radial Pulses (L) Gastrointestinal: non tender, soft Extremity: Other (left lower extremity cellulitis improving, left thigh open wound, no necrotic tissue at this time. Induration surrounding wound improving) Neurologic/Psychiatric: No Alert, No Oriented x3; Other (sedated on mechanical ventilation) Skin: Normal Color, Warm/Dry Lymphatic: No Adenopathy Results Lab Laboratory Tests 01/28/23 03:25 01/29/23 02:25 Assessment/Plan Assessment/Plan . Critical Care: Ventilator Management MIKE CUTLER MD Jan 29, 2023 07:52
[2023-01-29] MEDS ORDERED: POT Phosphate/NA Phosphate TABLET PO NR (08:30)
[2023-01-29] MEDS: THIAMINE IV SCH (08:39)
[2023-01-29] MEDS: FAMOTIDINE INJ 20MG/2ML VIAL IVP SCH ×2 (08:39→20:17)
[2023-01-29] MEDS: SODIUM HYPOCHLORITE 0.125% TOP SCH (08:39)
[2023-01-29] MEDS: NS IV SCH (08:39)
[2023-01-29] MEDS: LACTULOSE SYRUP 10GM/15ML 30ML UDC PO SCH ×2 (08:39→20:17)
[2023-01-29] MEDS: FOLIC ACID IV SCH (08:39)
[2023-01-29] MEDS: ENOXAPARIN 40 MG/0.4 ML SYRINGE SC SCH (08:39)
--- NOTE | 2023-01-29 08:50 | Diagnostic Imaging Report ---
EXAM: CHEST 1 VIEW, AP/PA ONLY. INDICATION: Intubated. Respiratory failure. COMPARISON: 01/28/2023. FINDINGS: ETT tip at the level of the clavicles. NG tube tip is obscured by underpenetration. Low lung volumes accentuate the heart size and pulmonary vascularity. Probable small left pleural effusion. No pneumothorax. Increasing interstitial opacities on the left. IMPRESSION: 1. ETT in the expected position. 2. Low lung volumes. 3. Increasing interstitial opacities on the left may be due to an infectious/inflammatory process. Small left pleural effusion. Dictated by: Dictated on workstation # [id number]
[2023-01-29] MEDS ORDERED: FUROSEMIDE INJECTION 40 MG/4 ML VIAL IVP NR (09:30)
[2023-01-29] MEDS: SENNOSIDES 8.6 MG TABLET PO SCH (09:40)
[2023-01-29 10:11] VITALS: BP 137/83
[2023-01-29] MEDS ORDERED: HYPOCHLOROUS ACID/NaCl WOUND SOLN 250 ML IR PRN (13:00)
--- NOTE | 2023-01-29 13:08 | Wound Care Assessment ---
Wound Care Assessment Date Seen by Provider: Jan 29, 2023 Time Seen by Provider: 13:06 Chief Complaint L medial thigh wound HPI Connor Munguia is a 57yoM with past medical history of HTN, HLD, COPD who was admitted for L lower extremity cellulitis with underlying abscess. He has had recurrent bouts of cellulitis in this area of his L medial thigh over the last year and most recently completed a 7 day course of keflex before admission. He was taken to the OR for incision and drainage. In the OR he was found to have necrotizing soft tissue infection. He is currently on Vanc and Zosyn for sepsis with wound culture positive for clindamycin resistant MRSA. Blood cultures have been negative. He is intubated and sedated in the ICU for acute hypoxic respiratory failure. He was also placed on CIWA protocol for potential for alcohol withdrawal. He has been slow to wean with thoughts of underlying GARFIELD with pulmonary HTN and questionable pneumonia. Wound care was consulted for possible wound vac placement and management. He is a good candidate and wound vac was placed 01/29, will change twice weekly. Unable to obtain any further history due to patient being intubated and sedated. Past Medical History: Denies Diabetes Type II Smoking Status: Current Everyday Smoker (2ppd) Recreational Drug Use: No Alcohol Use: Regular Use (6 beers/d) Review of Systems Other systems unable to obtain ROS due to patient condition Exam Vital Signs Date Time Temp Pulse Resp B/P (MAP) Pulse Ox O2 Delivery O2 Flow Rate FiO2 01/29/23 12:13 84 01/29/23 12:00 36.1 01/29/23 12:00 17 96 Mechanical Ventilator 60.00 01/29/23 10:11 50 Capillary Refill : Less Than 3 SecondsLess Than 3 Seconds General Appearance: obese, other (intubated and sedated) Neck: supple Cardiovascular: regular rate, rhythm Respiratory: other (intubated) Gastrointestinal: soft Extremities: inflammation, swelling, other (induration to periwound) Neurologic/Psychiatric: other (sedated) Skin: other (open surgical wound to L medial thigh) Skin Problem Location: lower extremities Skin Character: drainage, erythema, lesion, tenderness (patient reacts to painful stimuli when dressing wound) L Medial thigh wound S/P I&D of nectrotizing soft tissue infection Full thickness with exposed muscle and fascia 12.1x10.0x5.3 cm granulation is small and pink necrotic is medium and slough no tunneling or undermining Results Laboratory Tests 01/28/23 17:33: Glucometer 87 01/28/23 23:22: Glucometer 87 01/29/23 02:25: White Blood Count 7.6, Red Blood Count 3.52L, Hemoglobin 11.4L, Hematocrit 36L, Mean Corpuscular Volume 101H, Mean Corpuscular Hemoglobin 32, Mean Corpuscular Hemoglobin Concent 32, Red Cell Distribution Width 12.4, Platelet Count 386, Mean Platelet Volume 8.4L, Immature Granulocyte % (Auto) 1, Neutrophils (%) (Auto) 72, Lymphocytes (%) (Auto) 8L, Monocytes (%) (Auto) 13H, Eosinophils (%) (Auto) 6, Basophils (%) (Auto) 0, Neutrophils # (Auto) 5.5, Lymphocytes # (Auto) 0.6L, Monocytes # (Auto) 1.0, Eosinophils # (Auto) 0.4H, Basophils # (Auto) 0.0, Immature Granulocyte # (Auto) 0.1, Neutrophils % (Manual) 76, Lymphocytes % (Manual) 6, Monocytes % (Manual) 13, Eosinophils % (Manual) 5, Blood Morphology Comment NORMAL, Sodium Level 137, Potassium Level 3.9, Chloride Level 101, Carbon Dioxide Level 24, Anion Gap 12, Blood Urea Nitrogen 10, Creatinine 0.76, Estimat Glomerular Filtration Rate 106, BUN/Creatinine Ratio 13, Glucose Level 94, Calcium Level 8.9, Corrected Calcium 9.5, Phosphorus Level 3.0, Magnesium Level 1.8, Total Bilirubin 0.4, Aspartate Amino Transf (AST/SGOT) 63H, Alanine Aminotransferase (ALT/SGPT) 62H, Alkaline Phosphatase 90, Total Protein 6.8, Albumin 3.2 01/29/23 06:27: Arterial Blood pH 7.45H, Arterial Blood Partial Pressure CO2 39, Arterial Blood Partial Pressure O2 66L, Arterial Blood HCO3 27, Arterial Blood Total CO2 28.3, Arterial Blood Oxygen Saturation 93L, Arterial Blood Base Excess 2.9H, Blood Gas Ventilator Setting YES, Blood Gas Inspired Oxygen 50% 01/29/23 12:16: Glucometer 92 Microbiology 01/23/23 Gram Stain - Final, Complete 01/23/23 Anaerobic Culture - Final, Complete No anaerobes isolated 01/23/23 Surgical Culture - Final, Complete Staphylococcus aureus Staphylococcus aureus#2 01/23/23 MRSA Screen - Final, Complete 01/23/23 Blood Culture - Final, Complete Assessment/Plan/Dx 1. L medial thigh open surgical wound s/p debridement of nectrotizing soft tissue infection 2. Acute hypoxic respiratory failure thought to be secondary to pna with GARFIELD/pulmonary HTN 3. Sepsis with Cindamycin resistant MRSA 4. Anemia of Chronic disease 5. Alcohol use disorder Plan 1. Wound vac placed 01/29 with good seal, change twice weekly. Currently on Vanc and Zosyn per primary team. Continue IV abx. No apparent uncontrolled diabetes or vascular disease complicating wound healing. With smoking history is at risk for peripheral vascular disease. 2. Intubated and sedated, per primary team with ICU consulted 3. Per primary 4. Per primary 5. Per primary, no signs of alcohol withdrawal at this time Supervisory-Addendum Brief Verification & Attestation Participated in pt care: history, MDM, physical Personally performed: exam, history, MDM, supervision of care Care discussed with: Medical Student Procedures: n/a Results interpretation: Verified all documentation KEN OCHOA Jan 29, 2023 13:08 THADDEUS CHAMPAGNE MD Jan 29, 2023 16:58
[2023-01-29 14:13] VITALS: BP 127/71
[2023-01-29] MEDS ORDERED: ALTEPLASE 2 MG VIAL (CATHFLO) IV NR (15:00)
[2023-01-29] MEDS ORDERED: TROUGH ORDER-PHARMACY XX ONE (15:00)
--- NOTE | 2023-01-29 15:19 | Progress Note - Surgery ---
MARY JARAMILLO 01/29/23 1519: Subjective Date Seen by a Provider: Jan 29, 2023 Time Seen by a Provider: 11:20 Subjective/Events-last exam Pt is intubated and sedated. Wound is clean without necrotic tissue. FIO2 is 50%. Review of Systems General: No Chills, No Night Sweats HEENT: No Head Aches, No Visual Changes Pulmonary: No Dyspnea, No Cough Cardiovascular: No: Chest Pain, Palpitations Gastrointestinal: No: Nausea, Vomiting Genitourinary: No Dysuria, No Hematuria Musculoskeletal: No: neck pain, shoulder pain Neurological: No: Weakness, Numbness Objective Exam Vital Signs Date Time Temp Pulse Resp B/P (MAP) Pulse Ox O2 Delivery O2 Flow Rate FiO2 01/29/23 15:00 86 18 144/84 (104) 96 Mechanical Ventilator 60.00 01/29/23 14:13 79 18 96 50 01/29/23 14:00 80 17 127/71 (89) 95 Mechanical Ventilator 60.00 01/29/23 13:38 81 01/29/23 13:00 80 17 118/69 (85) 96 Mechanical Ventilator 60.00 01/29/23 12:13 84 01/29/23 12:00 36.1 01/29/23 12:00 82 17 114/72 (86) 96 Mechanical Ventilator 60.00 01/29/23 11:00 80 17 115/72 (86) 96 Mechanical Ventilator 60.00 01/29/23 10:11 80 18 96 50 01/29/23 10:00 77 18 137/83 (101) 96 Mechanical Ventilator 60.00 01/29/23 09:21 50 01/29/23 09:00 78 17 124/73 (90) 95 Mechanical Ventilator 60.00 01/29/23 08:11 36.5 01/29/23 08:00 74 17 111/67 (82) 96 Mechanical Ventilator 60.00 01/29/23 08:00 94 Mechanical Ventilator 50 01/29/23 07:16 73 01/29/23 07:00 74 18 116/68 (84) 96 Mechanical Ventilator 60.00 01/29/23 06:30 73 18 95 50 01/29/23 05:59 72 18 120/71 (87) 96 Mechanical Ventilator 60.00 01/29/23 05:30 50 11/27/23 05:24 75 17 115/69 11/27/23 05:24 75 115/69 01/29/23 05:24 75 115/69 01/29/23 05:00 72 17 113/69 (84) 95 Mechanical Ventilator 60.00 01/29/23 04:23 50 01/29/23 04:00 75 17 117/69 (85) 94 Mechanical Ventilator 60.00 01/29/23 03:00 95 Mechanical Ventilator 50 01/29/23 03:00 37.1 76 18 135/81 (99) 94 Mechanical Ventilator 60.00 01/29/23 02:45 75 18 95 50 01/29/23 02:26 50 01/29/23 02:26 Mechanical Ventilator 50.00 01/29/23 02:00 74 17 127/77 (94) 96 Mechanical Ventilator 60.00 01/29/23 01:42 79 123/74 01/29/23 01:25 79 123/74 01/29/23 01:00 75 01/29/23 01:00 82 18 131/76 (94) 93 Mechanical Ventilator 60.00 01/29/23 00:00 76 17 136/78 (97) 96 Mechanical Ventilator 60.00 01/28/23 23:10 95 Mechanical Ventilator 60 01/28/23 23:00 37.1 80 18 141/86 (104) 95 Mechanical Ventilator 60.00 01/28/23 22:12 77 18 96 60 01/28/23 22:00 77 25 149/84 (105) 96 Mechanical Ventilator 60.00 01/28/23 21:30 80 151/87 01/28/23 21:23 60 01/28/23 21:22 86 126/75 01/28/23 21:00 81 17 123/77 (92) 95 Mechanical Ventilator 60.00 01/28/23 20:25 86 18 126/75 01/28/23 20:00 84 17 148/96 (113) 94 Mechanical Ventilator 60.00 01/28/23 19:15 95 Mechanical Ventilator 60 01/28/23 19:00 86 01/28/23 19:00 37.7 81 18 126/75 (92) 95 Mechanical Ventilator 60.00 01/28/23 18:40 82 18 94 60 01/28/23 18:00 84 18 114/70 (83) 94 Mechanical Ventilator 60.00 01/28/23 17:22 81 131/72 11/26/23 17:21 81 131/72 01/28/23 17:18 60 01/28/23 17:00 84 28 147/84 (100) 95 Mechanical Ventilator 60.00 01/28/23 16:00 81 25 131/72 (90) 95 Mechanical Ventilator 60.00 01/28/23 15:40 95 Mechanical Ventilator 60 01/28/23 15:36 37.0 I & O 01/29/23 06:59 Intake Total 3211.2 ml Output Total 5285 ml Balance -2073.8 ml Capillary Refill : Less Than 3 SecondsLess Than 3 Seconds General Appearance: No Apparent Distress, WD/WN, Chronically ill, Other (Sedated and intubated) HEENT: Normal ENT Inspection, Other (ET tube) Neck: Normal Inspection, Supple Respiratory: Lungs Clear, Normal Breath Sounds Cardiovascular: Regular Rate, Rhythm Peripheral Pulses: 2+ Dorsalis Pedis (R), 2+ Left Dors-Pedis (L), 2+ Radial Pulses (R), 2+ Radial Pulses (L) Gastrointestinal: soft Extremity: Other (left lower extremity cellulitis improving, left thigh open wound, no necrotic tissue at this time. Induration surrounding wound improving) Neurologic/Psychiatric: No Alert, No Oriented x3; Other (sedated on mechanical ventilation) Skin: Normal Color, Warm/Dry Lymphatic: No Adenopathy Results Lab Laboratory Tests 01/28/23 17:33: Glucometer 87 01/28/23 23:22: Glucometer 87 01/29/23 02:25: White Blood Count 7.6, Red Blood Count 3.52L, Hemoglobin 11.4L, Hematocrit 36L, Mean Corpuscular Volume 101H, Mean Corpuscular Hemoglobin 32, Mean Corpuscular Hemoglobin Concent 32, Red Cell Distribution Width 12.4, Platelet Count 386, M pooja Platelet Volume 8.4L, Immature Granulocyte % (Auto) 1, Neutrophils (%) (Auto) 72, Lymphocytes (%) (Auto) 8L, Monocytes (%) (Auto) 13H, Eosinophils (%) (Auto) 6, Basophils (%) (Auto) 0, Neutrophils # (Auto) 5.5, Lymphocytes # (Auto) 0.6L, Monocytes # (Auto) 1.0, Eosinophils # (Auto) 0.4H, Basophils # (Auto) 0.0, Immature Granulocyte # (Auto) 0.1, Neutrophils % (Manual) 76, Lymphocytes % (Manual) 6, Monocytes % (Manual) 13, Eosinophils % (Manual) 5, Blood Morphology Comment NORMAL, Sodium Level 137, Potassium Level 3.9, Chloride Level 101, Carbon Dioxide Level 24, Anion Gap 12, Blood Urea Nitrogen 10, Creatinine 0.76, Estimat Glomerular Filtration Rate 106, BUN/Creatinine Ratio 13, Glucose Level 94, Calcium Level 8.9, Corrected Calcium 9.5, Phosphorus Level 3.0, Magnesium Level 1.8, Total Bilirubin 0.4, Aspartate Amino Transf (AST/SGOT) 63H, Alanine Aminotransferase (ALT/SGPT) 62H, Alkaline Phosphatase 90, Total Protein 6.8, Albumin 3.2 01/29/23 06:27: Arterial Blood pH 7.45H, Arterial Blood Partial Pressure CO2 39, Arterial Blood Partial Pressure O2 66L, Arterial Blood HCO3 27, Arterial Blood Total CO2 28.3, Arterial Blood Oxygen Saturation 93L, Arterial Blood Base Excess 2.9H, Blood Gas Ventilator Setting YES, Blood Gas Inspired Oxygen 50% 01/29/23 12:16: Glucometer 92 01/29/23 14:31: Vancomycin Level Trough 11.0 Microbiology 01/28/23 Gram Stain, Resulted Pending 01/28/23 Sputum Culture - Preliminary, Resulted YEAST Culture In Progress 01/23/23 Gram Stain - Final, Complete 01/23/23 Anaerobic Culture - Final, Complete No anaerobes isolated 01/23/23 Surgical Culture - Final, Complete Staphylococcus aureus Staphylococcus aureus#2 01/23/23 Blood Culture - Final, Complete Assessment/Plan Assessment/Plan Assessment/Plan left thigh necrotizing soft tissue infection s/p incision and drainage and debridement Left leg cellulitis left lower extremity pain respiratory failure on vent pneumonia culture results - staph aureus continue vanc and zosyn IV fluids pain control npo continue wet to dry wound care BID Wound vacuum monitor respiratory status- FiO2 at 50 this morning, PEEP at 6 continue to titrate down vent settings until possible extubation continue to hold tube feeds sputum culture ZAID CRUZ DO 01/29/23 4324: Subjective Subjective/Events-last exam Intubated and sedated. Family at bedside. Objective Exam General Appearance: No Apparent Distress, Chronically ill, Other (Sedated and intubated) HEENT: PERRL/EOMI, Normal ENT Inspection, Other (ET tube) Neck: Normal Inspection, Supple Respiratory: Chest Non Tender, No Accessory Muscle Use, No Respiratory Distress Cardiovascular: Regular Rate, Rhythm, No JVD Gastrointestinal: soft, no organomegaly Extremity: Other (left lower extremity cellulitis improving, left thigh open wound, no necrotic tissue at this time. Induration surrounding wound improving) Neurologic/Psychiatric: Other (sedated on mechanical ventilation) Skin: Normal Color, Warm/Dry Lymphatic: No Adenopathy Assessment/Plan Assessment/Plan Assessment/Plan left thigh necrotizing soft tissue infection s/p incision and drainage and debridement Left leg cellulitis left lower extremity pain respiratory failure on vent pneumonia culture results - staph aureus continue vanc and zosyn IV fluids pain control npo continue wet to dry wound care BID Wound vacuum monitor respiratory status- FiO2 at 50 this morning, PEEP at 6 continue to titrate down vent settings until possible extubation continue to hold tube feeds sputum culture Supervisory-Addendum Brief Verification & Attestation Participated in pt care: history, MDM, physical Personally performed: exam, history, MDM, supervision of care Care discussed with: Medical Student Procedures: n/a Results interpretation: Verified all documentation Verification and Attestation of Medical Student E/M Service A medical student performed and documented this service in my presence. I reviewed and verified all information documented by the medical student and made modifications to such information, when appropriate. I personally performed the physical exam and medical decision making. Zaid Cruz, Jan 29, 2023,18:54 MARY JARAMILLO Jan 29, 2023 15:19 ZAID CRUZ DO Jan 29, 2023 18:54
[2023-01-29 18:50] VITALS: BP 122/73
[2023-01-29] MEDS: MICONAZOLE 2% POWDER 90 GM TOP SCH (20:17)
[2023-01-29 22:16] VITALS: BP 113/63
[2023-01-30 02:12] VITALS: BP 111/67
[2023-01-30] MEDS: RT-Ipratropium/Albuterol NEB 3 ML VIAL INH SCH ×6 (02:12→21:06)
[2023-01-30] MEDS: fentaNYL DRIP PRE-MIX 250 ML IV SCH ×5 (02:23→22:27)
[2023-01-30] MEDS: PIPERACILLIN/Tazobactam 4.5 GM in NS (IVPB) 100 ML 100 ML IV SCH ×3 (02:24→18:10)
[2023-01-30 04:54] LABS: BASOPHILS % (AUTO) 1 % (0-10); EOSINOPHILS # (AUTO) 0.5 10^3/uL (0.0-0.3); EOSINOPHILS % (AUTO) 6 % (0-10); HEMATOCRIT 37 % (40-54); HEMOGLOBIN 11.8 g/dL (13.3-17.7); LYMPHOCYTES # (AUTO) 0.9 10^3/uL (1.0-4.0); LYMPHOCYTES % (AUTO) 10 % (12-44); MEAN CORPUSCULAR HEMOGLOBIN 32 pg (25-34); MEAN CORPUSCULAR HGB CONC 32 g/dL (32-36); MEAN CORPUSCULAR VOLUME 102 fL (80-99); MEAN PLATELET VOLUME 8.7 fL (9.0-12.2); MONOCYTES % (AUTO) 12 % (0-12); NEUTROPHILS # (AUTO) 6.2 10^3/uL (1.8-7.8); NEUTROPHILS % (AUTO) 71 % (42-75); PLATELET COUNT 403 10^3/uL (130-400); WHITE BLOOD COUNT 8.7 10^3/uL (4.3-11.0)
[2023-01-30 05:03] LABS: ABG BASE EXCESS 3.7 MMOL/L (-2.5-2.5); ABG OXYGEN SATURATION 92 % (94-100); ABG PCO2 43 MMHG (35-45); ABG PH 7.43 (7.37-7.43); ABG PO2 66 MMHG (79-93); ABG TCO2 29.8 MMOL/L (21.0-31.0)
[2023-01-30 05:04] LABS: INSPIRED O2 50%; VENTILATOR YES
[2023-01-30 05:22] LABS: ALBUMIN 3.2 GM/DL (3.2-4.5); BILIRUBIN,TOTAL 0.6 MG/DL (0.1-1.0); CALCIUM 8.9 MG/DL (8.5-10.1); CREATININE SERUM 0.78 MG/DL (0.60-1.30); MAGNESIUM 1.8 MG/DL (1.6-2.4); PHOSPHORUS 3.5 MG/DL (2.3-4.7); POTASSIUM 3.8 MMOL/L (3.6-5.0); TOTAL PROTEIN 6.6 GM/DL (6.4-8.2)
[2023-01-30] MEDS: VANCOMYCIN 1500MG/300ML PREMIX 300 ML IV SCH (05:56)
[2023-01-30] MEDS ORDERED: NS IV 500 ML 500 ML IV PRN (07:15)
[2023-01-30] MEDS: ACETAMINOPHEN 500 MG TABLET PO PRN (07:27)
--- NOTE | 2023-01-30 07:27 | Progress Note - Surgery ---
AMIE NIETO 01/30/23 0727: Subjective Date Seen by a Provider: Jan 30, 2023 Time Seen by a Provider: 06:30 Subjective/Events-last exam Patient intubated. His propofol was discontinued yesterday. He has a wound vac in place on his left thigh. Per nursing he still has not had a BM and has hyp oactive bowel sounds. He has been given senna, miralax, and lactulose. His abdominal xray on 01/28 showed moderate stool burden. His CXR yesterday showed worsening left interstitial opacities. Sputum culture came back positive for yeast growth. He has been started on miconazole Review of Systems General: No Chills, No Night Sweats HEENT: No Head Aches, No Visual Changes Pulmonary: No Dyspnea, No Cough Cardiovascular: No: Chest Pain, Palpitations Gastrointestinal: No: Nausea, Vomiting Genitourinary: No Dysuria, No Frequency Musculoskeletal: No: neck pain, shoulder pain Neurological: No: Weakness, Numbness Objective Exam Vital Signs Date Time Temp Pulse Resp B/P (MAP) Pulse Ox O2 Delivery O2 Flow Rate FiO2 01/30/23 06:01 50 01/30/23 06:00 89 11 116/69 (84) 92 Mechanical Ventilator 50.00 01/30/23 05:50 94 Mechanical Ventilator 50 01/30/23 05:30 101 18 142/82 (98) 94 Mechanical Ventilator 50.00 01/30/23 05:00 86 18 113/74 (86) 94 Mechanical Ventilator 50.00 01/30/23 04:00 94 Mechanical Ventilator 50 01/30/23 04:00 81 18 102/65 (76) 95 Mechanical Ventilator 50.00 01/30/23 03:00 83 18 108/68 (78) 95 Mechanical Ventilator 50.00 01/30/23 02:12 82 18 95 50 01/30/23 02:00 81 18 111/67 (82) 94 Mechanical Ventilator 50.00 01/30/23 01:46 50 01/30/23 01:00 81 18 120/72 (83) 96 Mechanical Ventilator 50.00 01/30/23 01:00 81 01/30/23 00:00 82 18 119/69 (82) 96 Mechanical Ventilator 50.00 01/29/23 23:16 94 Mechanical Ventilator 50 01/29/23 23:00 82 18 115/61 (79) 96 Mechanical Ventilator 50.00 01/29/23 22:21 82 18 118/63 01/29/23 22:16 82 18 94 50 01/29/23 22:00 85 18 119/64 (82) 95 Mechanical Ventilator 50.00 01/29/23 21:58 50 01/29/23 21:00 85 18 113/70 (85) 95 Mechanical Ventilator 50.00 01/29/23 20:00 87 18 116/72 (85) 93 Mechanical Ventilator 50.00 01/29/23 19:45 94 Mechanical Ventilator 50 01/29/23 19:00 81 18 126/77 (95) 91 Mechanical Ventilator 50.00 01/29/23 19:00 81 01/29/23 18:50 81 18 95 50 01/29/23 18:00 50 01/29/23 18:00 81 17 128/75 (92) 94 Mechanical Ventilator 60.00 01/29/23 17:00 80 18 143/87 (105) 96 Mechanical Ventilator 60.00 01/29/23 16:40 37.8 01/29/23 16:00 94 Mechanical Ventilator 50 01/29/23 16:00 80 18 127/76 (93) 96 Mechanical Ventilator 60.00 01/29/23 15:00 86 18 144/84 (104) 96 Mechanical Ventilator 60.00 01/29/23 14:13 79 18 96 50 01/29/23 14:00 50 01/29/23 14:00 80 17 127/71 (89) 95 Mechanical Ventilator 60.00 01/29/23 13:38 81 01/29/23 13:00 80 17 118/69 (85) 96 Mechanical Ventilator 60.00 01/29/23 12:13 84 01/29/23 12:00 36.1 01/29/23 12:00 94 Mechanical Ventilator 50 01/29/23 12:00 82 17 114/72 (86) 96 Mechanical Ventilator 60.00 01/29/23 11:00 80 17 115/72 (86) 96 Mechanical Ventilator 60.00 01/29/23 10:11 80 18 96 50 01/29/23 10:00 77 18 137/83 (101) 96 Mechanical Ventilator 60.00 01/29/23 09:21 50 01/29/23 09:00 78 17 124/73 (90) 95 Mechanical Ventilator 60.00 01/29/23 08:11 36.5 01/29/23 08:00 74 17 111/67 (82) 96 Mechanical Ventilator 60.00 01/29/23 08:00 94 Mechanical Ventilator 50 I & O 01/30/23 07:00 Intake Total 0 ml Output Total 4400 ml Balance -4400 ml Capillary Refill : Less Than 3 SecondsLess Than 3 Seconds General Appearance: Other (Sedated and intubated) HEENT: PERRL/EOMI, Normal ENT Inspection, Other (ET tube) Neck: Normal Inspection, Supple Respiratory: Lungs Clear, Normal Breath Sounds Cardiovascular: Regular Rate, Rhythm Peripheral Pulses: 2+ Dorsalis Pedis (R), 2+ Left Dors-Pedis (L), 2+ Radial Pulses (R), 2+ Radial Pulses (L) Gastrointestinal: soft, no organomegaly, abnormal bowel sounds (hypoactive) Extremity: Other (left lower extremity cellulitis improving, left thigh open wound, no necrotic tissue at this time. Induration surrounding wound improving. Wound vac in place) Neurologic/Psychiatric: Other (on mechanical ventilation) Skin: Normal Color, Warm/Dry Lymphatic: No Adenopathy Results Lab Laboratory Tests 01/29/23 12:16: Glucometer 92 01/29/23 14:31: Vancomycin Level Trough 11.0 01/29/23 18:20: Glucometer 87 01/29/23 23:36: Glucometer 88 01/30/23 04:40: White Blood Count 8.7, Red Blood Count 3.65L, Hemoglobin 11.8L, Hematocrit 37L, Mean Corpuscular Volume 102H, Mean Corpuscular Hemoglobin 32, Mean Corpuscular Hemoglobin Concent 32, Red Cell Distribution Width 12.2, Platelet Count 403H, Mean Platelet Volume 8.7L, Immature Granulocyte % (Auto) 1, Neutrophils (%) (A uto) 71, Lymphocytes (%) (Auto) 10L, Monocytes (%) (Auto) 12, Eosinophils (%) (Auto) 6, Basophils (%) (Auto) 1, Neutrophils # (Auto) 6.2, Lymphocytes # (Auto) 0.9L, Monocytes # (Auto) 1.0, Eosinophils # (Auto) 0.5H, Basophils # (Auto) 0.0, Immature Granulocyte # (Auto) 0.1, Sodium Level 138, Potassium Level 3.8, Chloride Level 104, Carbon Dioxide Level 24, Anion Gap 10, Blood Urea Nitrogen 12, Creatinine 0.78, Estimat Glomerular Filtration Rate 105, BUN/Creatinine Ratio 15, Glucose Level 84, Calcium Level 8.9, Corrected Calcium 9.5, Phosphorus Level 3.5, Magnesium Level 1.8, Total Bilirubin 0.6, Aspartate Amino Transf (AST/SGOT) 41H, Alanine Aminotransferase (ALT/SGPT) 55, Alkaline Phosphatase 94, Total Protein 6.6, Albumin 3.2 01/30/23 04:53: Arterial Blood pH 7.43, Arterial Blood Partial Pressure CO2 43, Arterial Blood Partial Pressure O2 66L, Arterial Blood HCO3 29H, Arterial Blood Total CO2 29.8, Arterial Blood Oxygen Saturation 92L, Arterial Blood Base Excess 3.7H, Blood Gas Ventilator Setting YES, Blood Gas Inspired Oxygen 50% Microbiology 01/28/23 Gram Stain - Final, Resulted 01/28/23 Sputum Culture - Preliminary, Resulted YEAST Culture In Progress 01/23/23 Gram Stain - Final, Complete 01/23/23 Anaerobic Culture - Final, Complete No anaerobes isolated 01/23/23 Surgical Culture - Final, Complete Staphylococcus aureus Staphylococcus aureus#2 01/23/23 Blood Culture - Final, Complete Assessment/Plan Assessment/Plan Assessment/Plan left thigh necrotizing soft tissue infection s/p incision and drainage and debridement Left leg cellulitis left lower extremity pain respiratory failure on vent pneumonia wound culture results - staph aureus sputum culture results - yeast continue vanc and zosyn continue antifungals IV fluids pain control npo continue wet to dry wound care BID Wound vacuum in place monitor respiratory status- FiO2 at 50 this morning, PEEP at 6 continue to titrate down vent settings until possible extubation continue to hold tube feeds NIMISHA CRUZ DO 01/30/232043: Subjective Subjective/Events-last exam Remains intubated. Trying SBT not able to be extubated yet. Wound vac in place. Able to shake head to answer questions. Family at bedside. Objective Exam General Appearance: Anxious, Other ( intubated) HEENT: PERRL/EOMI, Normal ENT Inspection, Other (ET tube) Neck: Normal Inspection, Supple Respiratory: Chest Non Tender, No Accessory Muscle Use, No Respiratory Distress Cardiovascular: Regular Rate, Rhythm, No JVD Gastrointestinal: soft, distended (slight) Extremity: Other (left lower extremity cellulitis improving, left thigh open wound with wound vac,. Induration surrounding wound improving. Wound vac in place) Neurologic/Psychiatric: Alert, Other (on mechanical ventilation) Skin: Normal Color, Warm/Dry Lymphatic: No Adenopathy Assessment/Plan Assessment/Plan Assessment/Plan left thigh necrotizing soft tissue infection s/p incision and drainage and debridement Left leg cellulitis left lower extremity pain respiratory failure on vent pneumonia wound culture results - staph aureus sputum culture results - yeast continue vanc and zosyn Eraxis continue antifungals IV fluids pain control npo Wound vac in place monitor respiratory status- FiO2 at 50 this morning, PEEP at 6 continue to titrate down vent settings until possible extubation continue to hold tube feeds due to high resdiduals Supervisory-Addendum Brief Verification & Attestation Participated in pt care: history, MDM, physical Personally performed: exam, history, MDM, supervision of care Care discussed with: Medical Student Procedures: n/a Results interpretation: Verified all documentation Verification and Attestation of Medical Student E/M Service A medical student performed and documented this service in my presence. I reviewed and verified all information documented by the medical student and made modifications to such information, when appropriate. I personally performed the physical exam and medical decision making. Nimisha Cruz, Jan 30, 2023,20:44 AMIE NIETO Jan 30, 2023 07:27 NIMISHA CRUZ DO Jan 30, 2023 20:44
[2023-01-30] MEDS: LACTULOSE SYRUP 10GM/15ML 30ML UDC PO SCH ×2 (08:09→20:12)
[2023-01-30] MEDS: ENOXAPARIN 40 MG/0.4 ML SYRINGE SC SCH (08:09)
[2023-01-30] MEDS: SENNOSIDES 8.6 MG TABLET PO SCH (08:09)
[2023-01-30] MEDS: MIDAZOLAM DRIP PRE-MIX 100 ML IV SCH ×2 (08:09→21:04)
[2023-01-30] MEDS: FAMOTIDINE INJ 20MG/2ML VIAL IVP SCH ×2 (08:09→20:12)
[2023-01-30] MEDS: NS IV SCH (08:20)
[2023-01-30] MEDS: FOLIC ACID IV SCH (08:20)
[2023-01-30] MEDS: THIAMINE IV SCH (08:20)
[2023-01-30 08:30] VITALS: BP 105/64
[2023-01-30] MEDS: MICONAZOLE 2% POWDER 90 GM TOP SCH ×2 (08:30→20:12)
[2023-01-30] MEDS ORDERED: ANIDULAFUNGIN IV ONE (08:45)
[2023-01-30] MEDS ORDERED: NS IV ONE (08:45)
--- NOTE | 2023-01-30 08:48 | Tele-ICU Progress Note ---
Subjective Date Seen by a Provider: Jan 30, 2023 Time Seen by a Provider: 08:47 Subjective/Events-last exam (Tele-ICU Physician , Progress Note ) Service provided via interactive audio and video telecommunications E-CARE system to a patient admitted to ICU bed in [facility]. Patient is seen today due to persistent need of ICU care Available chart/ vitals / labs / Images reviewed Video assessment done using teleICU camera, rest of exam as per RN Discussed with RN Events overnight : events of desat last night - ? mucous plugs Afebrile hemodynamically stable Respiratory -20 450 60 + 8 I/O = neg Drips: Pressors- no VENT SETTINGS and ABG reviewed NOT CANDIDATE for SBTreviewed possible contraindications including Cardiovascular Stability /Sedation Score / FI02/PEEP / ABG / CXR/ secretions Sedation, discussed with RN, RASS - 1-2 fent 300 versed 10 Hospital course: (01/23) 57yr old male admitted with left uper medial thigh abscess/cellulitis s/p I & D, to ICU intubated , 100 Fio2 , CTA - neg for PE 01/24- RASS - 1-2 on propofol 40 fent 175 ECHO 01/25- AC -20 450 50 + 8 , propofol 40 fent 150 01/26- AC -20 450 50 + 8 , propofol 30 fent 175 OG output 500 /shift 01/28 -AC -20 450 60 + 8 , RASS - 1-2 on propofol 25 fent 200 versed 8, changed TV to 600 01/29 - 50 % , high OG output , WOUND VAC 01/30 -40 % 18 600 +6 , FEVER 38 ( recultured PICC . periph , sputum ) + secretions ETT ,ERAXIS , cont lactulose , added reglan , fent 300 versed 10 A/P: Acute hypoxic resp failure 01/23 - postop -?ETIOLOGY still not clear - IMROVING - CTA 01/23 NEG for pe, ECHO NO shunt ( but present pulm HTN - in ER was ( slightly hypoxic on arrival 89 to 90% was placed on 2 L)) , - low suspect for air embolism based on Sx performed - + secretions -- on duo neb q4 h - -AC 40 % 18 600 +6 -cont diuresis Left thigh necrotizing soft tissue infection ---Cultures pending. ---Continue vanco and zosyn clinda - as per Sx - MRSA wound - stop clinda - wound vac 01/29 - as per sx ID - MRSA - soft tissue - VANCO ( by sens ) -suspecteed PNA - Zosyn , vanco - sputum yeastr - 01/29 Eraxis -MRSA nasal- bactroban -Fever 01/30 - recultured PULM HTN - by ECHO 01/24/23 - RVSP 60 mm hg ( no acute PE on CTA ) - keep neg volume status EtOH: drinks beer x6 daily. ---CIWA, vitamins Nutritions - not started TF with NG output 500 cc last shift - cont LIS , off TF today - started 01/26 - high residuals - add reglan - still NPO with hiogh residuals MRSA nasal - bactroban ELEV TGL 01/26 of 165- add vesed , off propofol Sepsis: secondary to LL cellulites with abscess and necrotizing faciitis - BP stable Lines : PICC , (Central Line Necessity Reviewed) Naidu: 01/23 OG: Nutrition: npo Analgesia: Anxiety/ delirium VTE Prophylaxis: ingrid 40 Stress Ulcer Prophylaxis: h2bl Plans in collaboration with bedside consultants and IM MDs. Discussed with RN to reach out if any questions or concerns Case and care daily discussed on multidisciplinary rounds ( RN, PharmD, Shoeshiner , Respiratory Therapy, caseworker intake ) A total of 35 minutes of critical care time was devoted to this patient today, required to treat and/or prevent further deterioration of critical care condition ( as above ) . I am remotely monitoring this patient from another state. I am unable to do the bedside exam, and history/physical and pertinent information is taken from other notes in the computer and bedside staff. Sepsis Event Evaluation Height, Weight, BMI Height: '" Weight: lbs. oz. kg; 37.40 BMI Method:Estimated Focused Exam Lactate Level 01/30/23 08:15: Lactic Acid Level 0.38L Lactic Acid Level Laboratory Tests Test 01/30/23 08:15 Lactic Acid Level 0.38 MMOL/L (0.50-2.00) L Exam Exam Patient acknowledged, consented, and participated in this virtual visit which w as conducted using real time audio/video Vital Signs Date Time Temp Pulse Resp B/P (MAP) Pulse Ox O2 Delivery O2 Flow Rate FiO2 01/30/23 08:09 89 11 116/69 01/30/23 08:09 89 108/61 01/30/23 07:55 38.4 Mechanical Ventilator 50.00 01/30/23 07:27 38.4 01/30/23 06:01 50 01/30/23 06:00 89 11 116/69 (84) 92 Mechanical Ventilator 50.00 01/30/23 05:50 94 Mechanical Ventilator 50 01/30/23 05:30 101 18 142/82 (98) 94 Mechanical Ventilator 50.00 01/30/23 05:00 86 18 113/74 (86) 94 Mechanical Ventilator 50.00 01/30/23 04:00 94 Mechanical Ventilator 50 01/30/23 04:00 81 18 102/65 (76) 95 Mechanical Ventilator 50.00 01/30/23 03:00 83 18 108/68 (78) 95 Mechanical Ventilator 50.00 01/30/23 02:12 82 18 95 50 01/30/23 02:00 81 18 111/67 (82) 94 Mechanical Ventilator 50.00 01/30/23 01:46 50 01/30/23 01:00 81 18 120/72 (83) 96 Mechanical Ventilator 50.00 01/30/23 01:00 81 01/30/23 00:00 82 18 119/69 (82) 96 Mechanical Ventilator 50.00 01/29/23 23:16 94 Mechanical Ventilator 50 01/29/23 23:00 82 18 115/61 (79) 96 Mechanical Ventilator 50.00 01/29/23 22:21 82 18 118/63 01/29/23 22:16 82 18 94 50 01/29/23 22:00 85 18 119/64 (82) 95 Mechanical Ventilator 50.00 01/29/23 21:58 50 01/29/23 21:00 85 18 113/70 (85) 95 Mechanical Ventilator 50.00 01/29/23 20:00 87 18 116/72 (85) 93 Mechanical Ventilator 50.00 01/29/23 19:45 94 Mechanical Ventilator 50 01/29/23 19:00 81 18 126/77 (95) 91 Mechanical Ventilator 50.00 01/29/23 19:00 81 01/29/23 18:50 81 18 95 50 01/29/23 18:00 50 01/29/23 18:00 81 17 128/75 (92) 94 Mechanical Ventilator 60.00 01/29/23 17:00 80 18 143/87 (105) 96 Mechanical Ventilator 60.00 01/29/23 16:40 37.8 01/29/23 16:00 94 Mechanical Ventilator 50 01/29/23 16:00 80 18 127/76 (93) 96 Mechanical Ventilator 60.00 01/29/23 15:00 86 18 144/84 (104) 96 Mechanical Ventilator 60.00 01/29/23 14:13 79 18 96 50 01/29/23 14:00 50 01/29/23 14:00 80 17 127/71 (89) 95 Mechanical Ventilator 60.00 01/29/23 13:38 81 01/29/23 13:00 80 17 118/69 (85) 96 Mechanical Ventilator 60.00 01/29/23 12:13 84 01/29/23 12:00 36.1 01/29/23 12:00 94 Mechanical Ventilator 50 01/29/23 12:00 82 17 114/72 (86) 96 Mechanical Ventilator 60.00 01/29/23 11:00 80 17 115/72 (86) 96 Mechanical Ventilator 60.00 01/29/23 10:11 80 18 96 50 01/29/23 10:00 77 18 137/83 (101) 96 Mechanical Ventilator 60.00 01/29/23 09:21 50 01/29/23 09:00 78 17 124/73 (90) 95 Mechanical Ventilator 60.00 I & O 01/30/23 07:00 Intake Total 0 ml Output Total 4400 ml Balance -4400 ml Height & Weight Height: '" Weight: lbs. oz. kg; 37.40 BMI Method:Estimated General Appearance: Other (Sedated and intubated) HEENT: PERRL/EOMI, Normal ENT Inspection, Other (ET tube) Neck: Normal Inspection, Supple Respiratory: Lungs Clear, Normal Breath Sounds Cardiovascular: Regular Rate, Rhythm Capillary Refill: Less Than 3 Seconds Peripheral Pulses: 2+ Dorsalis Pedis (R), 2+ Left Dors-Pedis (L), 2+ Radial Pulses (R), 2+ Radial Pulses (L) Gastrointestinal: soft, no organomegaly, abnormal bowel sounds (hypoactive) Extremity: Other (left lower extremity cellulitis improving, left thigh open wound, no necrotic tissue at this time. Induration surrounding wound improving. Wound vac in place) Neurologic/Psychiatric: Other (on mechanical ventilation) Skin: Normal Color, Warm/Dry Lymphatic: No Adenopathy Results Lab Laboratory Tests 01/29/23 02:25 01/30/23 04:40 Assessment/Plan Assessment/Plan 1 RASHMI CANTRELL MD Jan 30, 2023 08:48
[2023-01-30] MEDS: SODIUM HYPOCHLORITE 0.125% TOP SCH (08:52)
[2023-01-30] MEDS ORDERED: NS IV NR (09:00)
[2023-01-30] MEDS ORDERED: ANIDULAFUNGIN IV NR (09:00)
[2023-01-30 09:55] VITALS: BP 135/75
[2023-01-30] MEDS: METOCLOPRAMIDE INJ 10 MG/2 ML IVP SCH ×2 (11:55→17:56)
[2023-01-30 14:47] VITALS: BP 149/83
[2023-01-30] MEDS: VANCOMYCIN 1,750 MG/NS 500 ML IVPB IV SCH ×2 (15:18)
--- NOTE | 2023-01-30 15:39 | Progress Note - Hospitalist ---
BENJAMIN JENKINS 01/30/23 1539: Subjective HPI/CC On Admission Date Seen by Provider: Jan 30, 2023 Subjective/Events-last exam Connor is a 57 yo M with a PMH of pre-diabetes, HTN and cigarette smoking who was admitted on 01/23 for right lower extremity necrotizing fascititis causing severe sepsis. He was initiated on broad spectrum antibiotics and underwent debridement and incision and drainage that day. He could not be extubated post- operatively due to acute hypoxic respiratory failure and he has been intubated and mechanically ventilated since. Focused Exam Lactate Level 01/30/23 08:15: Lactic Acid Level 0.38L Objective Exam Vital Signs Vital Signs Date Time Temp Pulse Resp B/P (MAP) Pulse Ox O2 Delivery O2 Flow Rate FiO2 01/30/23 15:24 37.2 01/30/23 15:00 89 18 94 Mechanical Ventilator 40.00 01/30/23 14:47 40 Capillary Refill : Less Than 3 SecondsLess Than 3 Seconds Cardiovascular: Other (mechanically ventilated ) Gastrointestinal: Abnormal Bowel Sounds ((diminished) ) Extremity: Other (Wound vac on left inner thigh. wound is clean without necrotic tissue) Neurologic/Psychiatric: Other (intubated and sedated ) Results/Procedures Lab Laboratory Tests 01/30/23 04:40 Patient resulted labs reviewed. Assessment/Plan Assessment and Plan Assess & Plan/Chief Complaint Acute hypoxic respiratory failure Respiratory acidosis - improving - Patient intubated & mechanically ventilated since 01/23 after failed post- operative extubation - Etiology unclear; pulmonary HTN and undiagosed GARFIELD likely contributing. Atel ectasis may play a role. - Current vent settings: TV 600, rate 50, PEEP 6, FiO2 40% - ABG today: pH 7.43, pCO2 43, pO2 66 - ICU following and will determine candicacy for SBT - Continue to down-titrate vent settings until potential extubation Pulmonary hypertension, mild - Echo showing systolic pressure of 60-65 mmHg (01/24) Possible ventilator associated pneumonia - CXR 01/28: patchy basilar opacities compatible w/ atelectasis, edema, or pneumonia. - CXR 01/29: showing worsening left interstitial opacities - Sputum culture grew yeast on 01/28 - Continue vancomycin and zosyn - Continue adunilofungin and miconazole Bilateral pleural effusions, small - Continue lasix 20 mg Necrotizing fascititis of LLE (inner thigh) - improving S/P I&D and debridement of LLE (01/23) - Patient without leukocytosis and no longer meeting sepsis criteria - Wound cultures resulted s. aureus resitant to clindamycin (01/26) - Blood cultures without growth thus far - Clindamycin from 01/23 - 01/26 - Surgery still following, appreciate recs - Continue wet to dry wound care BID - Continue vancomycin and Zosyin - Continue IV fluids Constipation - CXR 01/28 showing moderate stool burden without acute abnormality - Per nursing, no BM since admission - ICU starting metoclopramide Prediabetes - a1C 5.9 this admission Disposition: Pending DVT prophylaxis: Enoxaparin Diet: NPO (intubated/sedated), holding tube feeds BISI MARQUEZ DO 01/31/23 0444: Subjective HPI/CC On Admission Time Seen by Provider: 11:00 Subjective/Events-last exam Patient still intubated Fever noted Increase secretions Pancultured Objective Exam General Appearance: Other (Sedated and intubated) Respiratory: Lungs Clear Assessment/Plan Assessment and Plan Assess & Plan/Chief Complaint Supportive care Supervisory-Addendum Brief Verification & Attestation Participated in pt care: history, MDM, physical Personally performed: exam, history, MDM, supervision of care Care discussed with: Medical Student Procedures: n/a Results interpretation: Verified all documentation Verification and Attestation of Medical Student E/M Service A medical student performed and documented this service in my presence. I reviewed and verified all information documented by the medical student and made modifications to such information, when appropriate. I personally performed the physical exam and medical decision making. Bisi Marquez Jan 31, 2023,04:44 BENJAMIN JENKINS Jan 30, 2023 15:39 BISI MARQUEZ DO Jan 31, 2023 04:44
[2023-01-30 19:00] VITALS: BP 151/87
[2023-01-30 21:06] VITALS: BP 162/91
[2023-01-31] MEDS: METOCLOPRAMIDE INJ 10 MG/2 ML IVP SCH ×5 (00:55→23:25)
[2023-01-31 02:55] VITALS: BP 142/78
[2023-01-31] MEDS: RT-Ipratropium/Albuterol NEB 3 ML VIAL INH SCH ×6 (02:55→22:14)
[2023-01-31] MEDS: fentaNYL DRIP PRE-MIX 250 ML IV SCH ×4 (03:05→23:27)
[2023-01-31] MEDS: PIPERACILLIN/Tazobactam 4.5 GM in NS (IVPB) 100 ML 100 ML IV SCH ×3 (03:07→18:11)
[2023-01-31 03:10] LABS: ABG BASE EXCESS 0.5 MMOL/L (-2.5-2.5); ABG OXYGEN SATURATION 96 % (94-100); ABG PCO2 37 MMHG (35-45); ABG PH 7.43 (7.37-7.43); ABG PO2 88 MMHG (79-93); ABG TCO2 25.7 MMOL/L (21.0-31.0); INSPIRED O2 50%; VENTILATOR YES
[2023-01-31] MEDS: VANCOMYCIN 1,750 MG/NS 500 ML IVPB IV SCH ×4 (04:18→16:18)
[2023-01-31 04:20] LABS: BASOPHILS # (AUTO) 0.1 10^3/uL (0.0-0.1); BASOPHILS % (AUTO) 1 % (0-10); EOSINOPHILS # (AUTO) 0.3 10^3/uL (0.0-0.3); EOSINOPHILS % (AUTO) 3 % (0-10); HEMATOCRIT 37 % (40-54); HEMOGLOBIN 11.8 g/dL (13.3-17.7); LYMPHOCYTES % (AUTO) 10 % (12-44); MEAN CORPUSCULAR HEMOGLOBIN 32 pg (25-34); MEAN CORPUSCULAR HGB CONC 32 g/dL (32-36); MEAN CORPUSCULAR VOLUME 101 fL (80-99); MEAN PLATELET VOLUME 8.6 fL (9.0-12.2); MONOCYTES # (AUTO) 1.3 10^3/uL (0.0-1.0); MONOCYTES % (AUTO) 13 % (0-12); NEUTROPHILS # (AUTO) 7.3 10^3/uL (1.8-7.8); NEUTROPHILS % (AUTO) 73 % (42-75); PLATELET COUNT 416 10^3/uL (130-400)
[2023-01-31 04:32] LABS: ALBUMIN 3.4 GM/DL (3.2-4.5); BILIRUBIN,TOTAL 0.4 MG/DL (0.1-1.0); CREATININE SERUM 0.75 MG/DL (0.60-1.30); MAGNESIUM 1.9 MG/DL (1.6-2.4); PHOSPHORUS 3.3 MG/DL (2.3-4.7); POTASSIUM 3.5 MMOL/L (3.6-5.0); TOTAL PROTEIN 7.3 GM/DL (6.4-8.2)
[2023-01-31] MEDS: POTASSIUM CL 10MEQ/50ML IVPB 50 ML IV SCH ×4 (04:56→07:30)
[2023-01-31] MEDS: MAGNESIUM 1 GM/100 ML IVPB 100 ML IV SCH (04:56)
[2023-01-31] MEDS: POTASSIUM CHLORIDE 20 MEQ TABLET PO SCH (04:56)
[2023-01-31 06:32] VITALS: BP 166/96
--- NOTE | 2023-01-31 08:05 | Progress Note - Surgery ---
MARY JARAMILLO 01/31/23 0805: Subjective Date Seen by a Provider: Jan 31, 2023 Time Seen by a Provider: 07:00 Subjective/Events-last exam Pt is intubated. Wound vac is on and no necrotic tissue seen. SBT tried yesterday and tolerated for 40 minutes but had heavy secretions that required reintubation. SBT scheduled for today. Per RN, patient is coughing more today and they are confident that he can clear his secretions. Review of Systems Unable to obtain due to intubation. Focused Exam Lactate Level 01/30/23 08:15: Lactic Acid Level 0.38L Objective Exam Vital Signs Date Time Temp Pulse Resp B/P (MAP) Pulse Ox O2 Delivery O2 Flow Rate FiO2 01/31/23 07:32 124 170/94 01/31/23 07:30 124 26 170/94 01/31/23 07:30 124 170/94 01/31/23 06:51 86 166/96 01/31/23 06:45 85 18 132/89 (104) 97 Mechanical Ventilator 50.00 01/31/23 06:32 86 18 97 50 01/31/23 06:30 87 18 166/96 (117) 96 Mechanical Ventilator 50.00 01/31/23 06:15 84 18 149/86 (103) 95 Mechanical Ventilator 50.00 01/31/23 06:12 50 01/31/23 06:00 86 18 150/84 (102) 94 Mechanical Ventilator 50.00 01/31/23 05:30 96 18 178/94 (115) 95 Mechanical Ventilator 50.00 01/31/23 05:15 90 18 144/77 (100) 90 Mechanical Ventilator 50.00 01/31/23 05:00 99 18 172/91 (106) 95 Mechanical Ventilator 50.00 01/31/23 04:45 89 18 140/85 (101) 95 Mechanical Ventilator 50.00 01/31/23 04:30 92 18 150/83 (102) 94 Mechanical Ventilator 50.00 01/31/23 04:28 95 Mechanical Ventilator 40 01/31/23 04:15 97 18 158/84 (100) 95 Mechanical Ventilator 50.00 01/31/23 04:00 90 18 147/79 (93) 96 Mechanical Ventilator 50.00 01/31/23 03:45 89 18 147/77 (97) 94 Mechanical Ventilator 50.00 01/31/23 03:30 91 18 169/88 (117) 96 Mechanical Ventilator 50.00 01/31/23 03:05 85 142/78 01/31/23 03:00 86 18 177/93 (124) 98 Mechanical Ventilator 50.00 01/31/23 02:55 85 18 98 50 01/31/23 02:45 81 18 142/78 (97) 96 Mechanical Ventilator 50.00 01/31/23 02:32 92 169/89 01/31/23 02:30 82 18 144/79 (101) 95 Mechanical Ventilator 50.00 01/31/23 02:15 92 18 169/89 (119) 97 Mechanical Ventilator 50.00 01/31/23 02:00 50 01/31/23 02:00 84 18 157/80 (108) 96 Mechanical Ventilator 50.00 01/31/23 01:45 86 18 141/100 (112) 98 Mechanical Ventilator 50.00 01/31/23 01:30 79 18 153/86 (103) 97 Mechanical Ventilator 50.00 01/31/23 01:15 81 18 160/87 (109) 97 Mechanical Ventilator 50.00 01/31/23 01:00 81 18 158/85 (103) 97 Mechanical Ventilator 50.00 01/31/23 01:00 81 01/31/23 00:46 89 18 168/90 (113) 97 Mechanical Ventilator 50.00 01/31/23 00:45 89 18 183/95 (128) 97 Mechanical Ventilator 50.00 01/31/23 00:44 95 Mechanical Ventilator 40 01/31/23 00:30 86 18 151/90 (108) 96 Mechanical Ventilator 50.00 01/31/23 00:15 84 18 135/85 (103) 93 Mechanical Ventilator 50.00 01/31/23 00:00 83 18 139/83 (105) 94 Mechanical Ventilator 50.00 01/30/23 23:45 81 18 137/81 (102) 90 Mechanical Ventilator 50.00 01/30/23 23:30 81 18 162/96 (120) 95 Mechanical Ventilator 50.00 01/30/23 23:15 81 18 142/86 (101) 95 Mechanical Ventilator 50.00 01/30/23 23:00 83 18 155/89 (114) 95 Mechanical Ventilator 50.00 01/30/23 22:30 83 18 137/75 (91) 95 Mechanical Ventilator 50.00 01/30/23 22:15 87 18 147/79 (96) 95 Mechanical Ventilator 50.00 01/30/23 22:00 95 18 148/80 (105) 96 Mechanical Ventilator 50.00 01/30/23 21:53 40 01/30/23 21:45 97 18 148/78 (99) 95 Mechanical Ventilator 50.00 01/30/23 21:30 93 18 95 Mechanical Ventilator 50.00 01/30/23 21:15 97 18 179/98 (125) 93 Mechanical Ventilator 50.00 01/30/23 21:06 98 18 92 Mechanical Ventilator 50.00 01/30/23 21:06 96 18 91 50 01/30/23 21:04 99 20 162/91 01/30/23 21:00 105 18 162/91 (106) 90 Mechanical Ventilator 40.00 01/30/23 20:45 98 18 162/102 (122) 94 Mechanical Ventilator 40.00 01/30/23 20:30 89 18 159/91 (115) 95 Mechanical Ventilator 40.00 01/30/23 20:15 80 18 161/91 (118) 96 Mechanical Ventilator 40.00 01/30/23 20:00 78 18 152/92 (123) 96 Mechanical Ventilator 40.00 01/30/23 20:00 36.7 01/30/23 19:53 95 Mechanical Ventilator 40 01/30/23 19:45 79 18 141/79 (92) 95 Mechanical Ventilator 35.00 01/30/23 19:30 80 18 158/91 (115) 96 Mechanical Ventilator 35.00 01/30/23 19:15 78 18 148/82 (105) 96 Mechanical Ventilator 35.00 01/30/23 19:00 78 01/30/23 19:00 78 18 151/87 (107) 96 Mechanical Ventilator 35.00 01/30/23 19:00 77 18 96 35 01/30/23 18:21 Mechanical Ventilator 35.00 01/30/23 18:15 40 01/30/23 18:00 78 17 155/84 (107) 97 Mechanical Ventilator 40.00 01/30/23 17:55 81 159/87 01/30/23 17:00 78 18 159/87 (111) 97 Mechanical Ventilator 40.00 01/30/23 16:30 81 140/78 01/30/23 16:07 95 Mechanical Ventilator 40 01/30/23 16:00 81 23 140/78 (98) 95 Mechanical Ventilator 40.00 01/30/23 15:24 37.2 01/30/23 15:00 89 18 133/73 (93) 94 Mechanical Ventilator 40.00 01/30/23 14:47 94 21 94 40 01/30/23 14:00 75 17 149/89 (109) 96 Mechanical Ventilator 40.00 01/30/23 13:00 76 01/30/23 13:00 76 15 127/82 (97) 95 Mechanical Ventilator 40.00 01/30/23 12:26 79 133/72 01/30/23 12:25 79 133/72 01/30/23 12:15 96 Mechanical Ventilator 40 01/30/23 12:05 38.3 Mechanical Ventilator 40.00 01/30/23 12:00 78 17 133/75 (94) 96 Mechanical Ventilator 50.00 01/30/23 11:54 37.5 01/30/23 11:00 79 20 133/72 (92) 95 Mechanical Ventilator 50.00 01/30/23 10:12 40 01/30/23 10:00 81 17 111/65 (80) 96 Mechanical Ventilator 50.00 01/30/23 09:55 79 18 94 40 01/30/23 09:00 91 18 112/66 (81) 96 Mechanical Ventilator 50.00 01/30/23 08:30 81 18 98 40 01/30/23 08:20 37.3 01/30/23 08:09 89 11 116/69 01/30/23 08:09 89 108/61 I & O 01/31/23 06:59 Intake Total 1050 ml Output Total 2575 ml Balance -1525 ml Capillary Refill : Less Than 3 SecondsLess Than 3 Seconds General Appearance: Other (Intubated) HEENT: PERRL/EOMI, Normal ENT Inspection, Other (ET tube) Neck: Normal Inspection, Supple Respiratory: Lungs Clear Cardiovascular: Regular Rate, Rhythm, No Edema, No JVD Peripheral Pulses: 2+ Dorsalis Pedis (R), 2+ Left Dors-Pedis (L), 2+ Radial Pulses (R), 2+ Radial Pulses (L) Gastrointestinal: soft, distended (slight) Extremity: Other (left lower extremity cellulitis improving, left thigh open wound with wound vac,. Induration surrounding wound improving. Wound vac in place) Neurologic/Psychiatric: Alert, Other (on mechanical ventilation) Skin: Normal Color, Warm/Dry Lymphatic: No Adenopathy Results Lab Laboratory Tests 01/30/23 08:15: Lactic Acid Level 0.38L 01/30/23 11:25: Glucometer 79 01/30/23 17:59: Glucometer 82 01/30/23 19:33: Glucometer 76 01/30/23 20:51: Glucometer 105 01/31/23 00:54: Glucometer 93 01/31/23 03:04: Arterial Blood pH 7.43, Arterial Blood Partial Pressure CO2 37, Arterial Blood Partial Pressure O2 88, Arterial Blood HCO3 25, Arterial Blood Total CO2 25.7, Arterial Blood Oxygen Saturation 96, Arterial Blood Base Excess 0.5, Blood Gas Ventilator Setting YES, Blood Gas Inspired Oxygen 50% 01/31/23 04:10: White Blood Count 10.0, Red Blood Count 3.68L, Hemoglobin 11.8L, Hematocrit 37L, Mean Corpuscular Volume 101H, Mean Corpuscular Hemoglobin 32, Mean Corpuscular Hemoglobin Concent 32, Red Cell Distribution Width 12.2, Platelet Count 416H, Mean Platelet Volume 8.6L, Immature Granulocyte % (Auto) 1, Neutrophils (%) (Auto) 73, Lymphocytes (%) (Auto) 10L, Monocytes (%) (Auto) 13H, Eosinophils (%) (Auto) 3, Basophils (%) (Auto) 1, Neutrophils # (Auto) 7.3, Lymphocytes # (Auto) 1.0, Monocytes # (Auto) 1.3H, Eosinophils # (Auto) 0.3, Basophils # (Auto) 0.1, Immature Granulocyte # (Auto) 0.1, Sodium Level 141, Potassium Level 3.5L, Chloride Level 106, Carbon Dioxide Level 21, Anion Gap 14, Blood Urea Nitrogen 10, Creatinine 0.75, Estimat Glomerular Filtration Rate 107, BUN/Creatinine Ratio 13, Glucose Level 94, Calcium Level 9.0, Corrected Calcium 9.5, Phosphorus Level 3.3, Magnesium Level 1.9, Total Bilirubin 0.4, Aspartate Amino Transf (AST/SGOT) 37H, Alanine Aminotransferase (ALT/SGPT) 51, Alkaline Phosphatase 98, Total Protein 7.3, Albumin 3.4 Microbiology 01/28/23 Gram Stain - Final, Complete 01/28/23 Sputum Culture - Final, Complete YEAST 01/23/23 Gram Stain - Final, Complete 01/23/23 Anaerobic Culture - Final, Complete No anaerobes isolated 01/23/23 Surgical Culture - Final, Complete Staphylococcus aureus Staphylococcus aureus#2 01/23/23 Blood Culture - Final, Complete Assessment/Plan Assessment/Plan Assessment/Plan left thigh necrotizing soft tissue infection s/p incision and drainage and debridement Left leg cellulitis left lower extremity pain respiratory failure on vent pneumonia wound culture results - MRSA sputum culture results - yeast continue vanc and zosyn continue antifungals- miconazole and adinulafungin IV fluids pain control npo Wound vac in place monitor respiratory status- FiO2 at 50 this morning, PEEP at 6 continue to titrate down vent settings until possible extubation- SBT today continue to hold tube feeds due to high residuals ANTONIO CUMMINGS DO 01/31/23 1538: Subjective Time Seen by a Provider: 13:39 Subjective/Events-last exam Pt seen and examined, intubated and sedated. Review of Systems unable to obtain, pt intubated Objective Exam General Appearance: Other (Intubated) HEENT: Other (ET tube) Respiratory: No Accessory Muscle Use, No Respiratory Distress, Crackles, Decreased Breath Sounds Cardiovascular: Regular Rate, Rhythm, No Murmur Extremity: Other (left lower extremity did not see any cellulitis, left thigh open wound with wound vac,. Induration surrounding wound improving. ) Assessment/Plan Assessment/Plan Assessment/Plan left thigh necrotizing soft tissue infection s/p incision and drainage and debridement with wound VAC placement Left leg cellulitis left lower extremity pain respiratory failure on vent pneumonia wound culture results - MRSA sputum culture results - yeast continue vanc and zosyn continue antifungals- miconazole and adinulafungin IV fluids pain control npo Wound vac in place Supervisory-Addendum Brief Verification & Attestation Participated in pt care: history, MDM, physical Personally performed: exam, history, MDM, supervision of care Care discussed with: Medical Student Procedures: n/a Verification and Attestation of Medical Student E/M Service A medical student performed and documented this service. I then reviewed and verified all information documented by the medical student and made modifications to such information, when appropriate. I personally performed a physical exam, medical decision making and then discussed any differences between the notes and made revisions as necessary to create one note. Antonio Cummings , 01/31/23 , 15:38 MARY JARAMILLO Jan 31, 2023 08:05 ANTONIO CUMMINGS DO Jan 31, 2023 15:38
[2023-01-31] MEDS: ENOXAPARIN 40 MG/0.4 ML SYRINGE SC SCH (08:15)
[2023-01-31] MEDS: LACTULOSE SYRUP 10GM/15ML 30ML UDC PO SCH ×2 (08:15→21:02)
[2023-01-31] MEDS: SENNOSIDES 8.6 MG TABLET PO SCH (08:16)
[2023-01-31] MEDS: FAMOTIDINE INJ 20MG/2ML VIAL IVP SCH ×2 (08:16→21:02)
[2023-01-31] MEDS: MIDAZOLAM DRIP PRE-MIX 100 ML IV SCH (08:16)
[2023-01-31] MEDS: SODIUM HYPOCHLORITE 0.125% TOP SCH (08:16)
[2023-01-31] MEDS: MICONAZOLE 2% POWDER 90 GM TOP SCH ×2 (08:16→21:03)
--- NOTE | 2023-01-31 09:00 | Tele-ICU Progress Note ---
Subjective Date Seen by a Provider: Jan 31, 2023 Time Seen by a Provider: 08:59 Subjective/Events-last exam (Tele-ICU Physician , Progress Note ) Service provided via interactive audio and video telecommunications E-CARE system to a patient admitted to ICU bed in [facility]. Patient is seen today due to persistent need of ICU care Available chart/ vitals / labs / Images reviewed Video assessment done using teleICU camera, rest of exam as per RN Discussed with RN Events overnight : events of desat last night - ? mucous plugs Afebrile hemodynamically stable Respiratory -20 450 60 + 8 I/O = neg Drips: Pressors- no VENT SETTINGS and ABG reviewed NOT CANDIDATE for SBTreviewed possible contraindications including Cardiovascular Stability /Sedation Score / FI02/PEEP / ABG / CXR/ secretions Sedation, discussed with RN, RASS - 1-2 fent 300 versed 10 Hospital course: (01/23) 57yr old male admitted with left uper medial thigh abscess/cellulitis s/p I & D, to ICU intubated , 100 Fio2 , CTA - neg for PE 01/24- RASS - 1-2 on propofol 40 fent 175 ECHO 01/25- AC -20 450 50 + 8 , propofol 40 fent 150 01/26- AC -20 450 50 + 8 , propofol 30 fent 175 OG output 500 /shift 01/28 -AC -20 450 60 + 8 , RASS - 1-2 on propofol 25 fent 200 versed 8, changed TV to 600 01/29 - 50 % , high OG output , WOUND VAC 01/30 -40 % 18 600 +6 , FEVER 38 ( recultured PICC . periph , sputum ) + secretions ETT ,ERAXIS , cont lactulose , added reglan , fent 300 versed 10 01/31 - mucous plugs - 50% ( was on 100% few times ) febt 300 , verced 8 RASS -1 A/P: Acute hypoxic resp failure 01/23 - postop -?ETIOLOGY still not clear - IMROVING - CTA 01/23 NEG for pe, ECHO NO shunt ( but present pulm HTN - in ER was ( slightly hypoxic on arrival 89 to 90% was placed on 2 L)) , - low suspect for air embolism based on Sx performed - + secretions -- on duo neb q4 h , mucomist nebs , guafenesin 200 qid - -AC 50 % 18 600 +6 -cont diuresis PRN SBT 01/30 - gdid well , but SEVERE SECRETIONS - will repeat today again Left thigh necrotizing soft tissue infection ---Cultures pending. ---Continue vanco and zosyn clinda - as per Sx - MRSA wound - stop clinda - wound vac 01/29 - as per sx ID - MRSA - soft tissue - VANCO ( by sens ) -suspecteed PNA - Zosyn , vanco - sputum yeast - 01/29 Eraxis -MRSA nasal- bactroban -Fever 01/30 - recultured , subsideing PULM HTN - by ECHO 01/24/23 - RVSP 60 mm hg ( no acute PE on CTA ) - keep neg volume status EtOH: drinks beer x6 daily. ---CIWA, vitamins Nutritions - cont LIS , off TF today - started 01/26 - high residuals - reglan - still NPO with high residuals MRSA nasal - bactroban ELEV TGL 01/26 of 165- add vesed , off propofol Sepsis: secondary to LL cellulites with abscess and necrotizing faciitis - BP stable Lines : PICC , (Central Line Necessity Reviewed) Naidu: 01/23 OG: Nutrition: npo Analgesia: Anxiety/ delirium VTE Prophylaxis: ingrid 40 Stress Ulcer Prophylaxis: h2bl Plans in collaboration with bedside consultants and IM MDs. Discussed with RN to reach out if any questions or concerns Case and care daily discussed on multidisciplinary rounds ( RN, PharmD, Weaving Professor , Respiratory Therapy, canvas worker apprentice ) A total of 35 minutes of critical care time was devoted to this patient today, required to treat and/or prevent further deterioration of critical care condition ( as above ) . I am remotely monitoring this patient from another state. I am unable to do the bedside exam, and history/physical and pertinent information is taken from other notes in the computer and bedside staff. Sepsis Event Evaluation Height, Weight, BMI Height: '" Weight: lbs. oz. kg; 37.40 BMI Method:Estimated Focused Exam Lactate Level 01/30/23 08:15: Lactic Acid Level 0.38L Exam Exam Patient acknowledged, consented, and participated in this virtual visit which was conducted using real time audio/video Vital Signs Date Time Temp Pulse Resp B/P (MAP) Pulse Ox O2 Delivery O2 Flow Rate FiO2 01/31/23 08:25 37.4 11/29/23 08:16 124 26 170/94 01/31/23 07:32 124 170/94 01/31/23 07:30 124 26 170/94 01/31/23 07:30 124 170/94 01/31/23 07:00 104 01/31/23 06:51 86 166/96 01/31/23 06:45 85 18 132/89 (104) 97 Mechanical Ventilator 50.00 01/31/23 06:32 86 18 97 50 01/31/23 06:30 87 18 166/96 (117) 96 Mechanical Ventilator 50.00 01/31/23 06:15 84 18 149/86 (103) 95 Mechanical Ventilator 50.00 01/31/23 06:12 50 01/31/23 06:00 86 18 150/84 (102) 94 Mechanical Ventilator 50.00 01/31/23 05:30 96 18 178/94 (115) 95 Mechanical Ventilator 50.00 01/31/23 05:15 90 18 144/77 (100) 90 Mechanical Ventilator 50.00 01/31/23 05:00 99 18 172/91 (106) 95 Mechanical Ventilator 50.00 01/31/23 04:45 89 18 140/85 (101) 95 Mechanical Ventilator 50.00 01/31/23 04:30 92 18 150/83 (102) 94 Mechanical Ventilator 50.00 01/31/23 04:28 95 Mechanical Ventilator 40 01/31/23 04:15 97 18 158/84 (100) 95 Mechanical Ventilator 50.00 01/31/23 04:00 90 18 147/79 (93) 96 Mechanical Ventilator 50.00 01/31/23 03:45 89 18 147/77 (97) 94 Mechanical Ventilator 50.00 01/31/23 03:30 91 18 169/88 (117) 96 Mechanical Ventilator 50.00 01/31/23 03:05 85 142/78 01/31/23 03:00 86 18 177/93 (124) 98 Mechanical Ventilator 50.00 01/31/23 02:55 85 18 98 50 01/31/23 02:45 81 18 142/78 (97) 96 Mechanical Ventilator 50.00 01/31/23 02:32 92 169/89 01/31/23 02:30 82 18 144/79 (101) 95 Mechanical Ventilator 50.00 01/31/23 02:15 92 18 169/89 (119) 97 Mechanical Ventilator 50.00 01/31/23 02:00 50 01/31/23 02:00 84 18 157/80 (108) 96 Mechanical Ventilator 50.00 01/31/23 01:45 86 18 141/100 (112) 98 Mechanical Ventilator 50.00 01/31/23 01:30 79 18 153/86 (103) 97 Mechanical Ventilator 50.00 01/31/23 01:15 81 18 160/87 (109) 97 Mechanical Ventilator 50.00 01/31/23 01:00 81 18 158/85 (103) 97 Mechanical Ventilator 50.00 01/31/23 01:00 81 01/31/23 00:46 89 18 168/90 (113) 97 Mechanical Ventilator 50.00 01/31/23 00:45 89 18 183/95 (128) 97 Mechanical Ventilator 50.00 01/31/23 00:44 95 Mechanical Ventilator 40 01/31/23 00:30 86 18 151/90 (108) 96 Mechanical Ventilator 50.00 01/31/23 00:15 84 18 135/85 (103) 93 Mechanical Ventilator 50.00 01/31/23 00:00 83 18 139/83 (105) 94 Mechanical Ventilator 50.00 01/30/23 23:45 81 18 137/81 (102) 90 Mechanical Ventilator 50.00 01/30/23 23:30 81 18 162/96 (120) 95 Mechanical Ventilator 50.00 01/30/23 23:15 81 18 142/86 (101) 95 Mechanical Ventilator 50.00 01/30/23 23:00 83 18 155/89 (114) 95 Mechanical Ventilator 50.00 01/30/23 22:30 83 18 137/75 (91) 95 Mechanical Ventilator 50.00 01/30/23 22:15 87 18 147/79 (96) 95 Mechanical Ventilator 50.00 01/30/23 22:00 95 18 148/80 (105) 96 Mechanical Ventilator 50.00 01/30/23 21:53 40 01/30/23 21:45 97 18 148/78 (99) 95 Mechanical Ventilator 50.00 01/30/23 21:30 93 18 95 Mechanical Ventilator 50.00 01/30/23 21:15 97 18 179/98 (125) 93 Mechanical Ventilator 50.00 11/28/23 21:06 98 18 92 Mechanical Ventilator 50.00 01/30/23 21:06 96 18 91 50 01/30/23 21:04 99 20 162/91 01/30/23 21:00 105 18 162/91 (106) 90 Mechanical Ventilator 40.00 01/30/23 20:45 98 18 162/102 (122) 94 Mechanical Ventilator 40.00 01/30/23 20:30 89 18 159/91 (115) 95 Mechanical Ventilator 40.00 01/30/23 20:15 80 18 161/91 (118) 96 Mechanical Ventilator 40.00 01/30/23 20:00 78 18 152/92 (123) 96 Mechanical Ventilator 40.00 01/30/23 20:00 36.7 01/30/23 19:53 95 Mechanical Ventilator 40 01/30/23 19:45 79 18 141/79 (92) 95 Mechanical Ventilator 35.00 01/30/23 19:30 80 18 158/91 (115) 96 Mechanical Ventilator 35.00 01/30/23 19:15 78 18 148/82 (105) 96 Mechanical Ventilator 35.00 01/30/23 19:00 78 01/30/23 19:00 78 18 151/87 (107) 96 Mechanical Ventilator 35.00 01/30/23 19:00 77 18 96 35 01/30/23 18:21 Mechanical Ventilator 35.00 01/30/23 18:15 40 01/30/23 18:00 78 17 155/84 (107) 97 Mechanical Ventilator 40.00 01/30/23 17:55 81 159/87 01/30/23 17:00 78 18 159/87 (111) 97 Mechanical Ventilator 40.00 01/30/23 16:30 81 140/78 01/30/23 16:07 95 Mechanical Ventilator 40 01/30/23 16:00 81 23 140/78 (98) 95 Mechanical Ventilator 40.00 01/30/23 15:24 37.2 01/30/23 15:00 89 18 133/73 (93) 94 Mechanical Ventilator 40.00 01/30/23 14:47 94 21 94 40 01/30/23 14:00 75 17 149/89 (109) 96 Mechanical Ventilator 40.00 01/30/23 13:00 76 01/30/23 13:00 76 15 127/82 (97) 95 Mechanical Ventilator 40.00 01/30/23 12:26 79 133/72 01/30/23 12:25 79 133/72 01/30/23 12:15 96 Mechanical Ventilator 40 01/30/23 12:05 38.3 Mechanical Ventilator 40.00 01/30/23 12:00 78 17 133/75 (94) 96 Mechanical Ventilator 50.00 01/30/23 11:54 37.5 01/30/23 11:00 79 20 133/72 (92) 95 Mechanical Ventilator 50.00 01/30/23 10:12 40 01/30/23 10:00 81 17 111/65 (80) 96 Mechanical Ventilator 50.00 01/30/23 09:55 79 18 94 40 01/30/23 09:00 91 18 112/66 (81) 96 Mechanical Ventilator 50.00 I & O 01/31/23 06:59 Intake Total 1050 ml Output Total 2575 ml Balance -1525 ml Height & Weight Height: '" Weight: lbs. oz. kg; 37.40 BMI Method:Estimated General Appearance: Other (Intubated) HEENT: PERRL/EOMI, Normal ENT Inspection, Other (ET tube) Neck: Normal Inspection, Supple Respiratory: Lungs Clear Cardiovascular: Regular Rate, Rhythm, No Edema, No JVD Capillary Refill: Less Than 3 Seconds Peripheral Pulses: 2+ Dorsalis Pedis (R), 2+ Left Dors-Pedis (L), 2+ Radial Pulses (R), 2+ Radial Pulses (L) Gastrointestinal: soft, distended (slight) Extremity: Other (left lower extremity cellulitis improving, left thigh open wound with wound vac,. Induration surrounding wound improving. Wound vac in place) Neurologic/Psychiatric: Alert, Other (on mechanical ventilation) Skin: Normal Color, Warm/Dry Lymphatic: No Adenopathy Results Lab Laboratory Tests 01/30/23 04:40 01/31/23 04:10 Assessment/Plan Assessment/Plan 1 RASHMI CANTRELL MD Jan 31, 2023 09:00
[2023-01-31] MEDS: guaiFENesin SYRUP 100 MG/5 ML 10 ML PO SCH ×4 (09:17→21:02)
[2023-01-31] MEDS: NS IV SCH ×2 (09:17)
[2023-01-31] MEDS: THIAMINE IV SCH (09:17)
[2023-01-31] MEDS: FOLIC ACID IV SCH (09:17)
[2023-01-31] MEDS: ANIDULAFUNGIN IV SCH (09:17)
[2023-01-31] MEDS ORDERED: RT-Ipratropium/Albuterol NEB 3 ML VIAL INH SCH (10:00)
[2023-01-31] MEDS: aCETylcysteine 20% (RT/PO) 4 ML SOLN VIAL INH SCH ×3 (10:28→22:14)
[2023-01-31 10:30] VITALS: BP 131/80
--- NOTE | 2023-01-31 11:40 | Progress Note - Hospitalist ---
BENJAMIN JENKINS 01/31/23 1139: Subjective HPI/CC On Admission Date Seen by Provider: Jan 31, 2023 Time Seen by Provider: 11:00 Subjective/Events-last exam Patient has been intubated and mechanically ventilated x 8 days. He is easily aroused during the examination and able to follow commands. Per nursing, he is coughing up significant mucous. Yesterday's SBT lasted 40 minutes and another trial is planned for today. He has not yet had a bowel movement. Focused Exam Lactate Level 01/30/23 08:15: Lactic Acid Level 0.38L Objective Exam Vital Signs Vital Signs Date Time Temp Pulse Resp B/P (MAP) Pulse Ox O2 Delivery O2 Flow Rate FiO2 01/31/23 11: 90 146/76 01/31/23 11:03 37.5 01/31/23 11:02 17 95 Mechanical Ventilator 50.00 01/31/23 10:30 50 Capillary Refill : Less Than 3 SecondsLess Than 3 Seconds General Appearance: No Apparent Distress, Other (intubated but arousable ) Respiratory: No Accessory Muscle Use, No Respiratory Distress Cardiovascular: Regular Rate, Rhythm Extremity: No Pedal Edema, Other (wound vac in place on left inner thigh. no erythema or necrotic tissue noted. ) Neurologic/Psychiatric: Alert, Other (intubated but arousable ) Skin: Normal Color, Warm/Dry Results/Procedures Lab Laboratory Tests 01/31/23 04:10 Patient resulted labs reviewed. Assessment/Plan Assessment and Plan Assess & Plan/Chief Complaint Acute hypoxic respiratory failure Respiratory acidosis - improving - Patient intubated & mechanically ventilated since 01/23 after failed post- operative extubation - Etiology unclear; pulmonary HTN and undiagosed GARFIELD likely contributing. Atelectasis may play a role. - Vent settings today: TV 600, rate 50, PEEP 6, FiO2 50% - ABG today: pH 7.43, pCO2 37, pO2 66 - SBT yesterday was 40 minutes and largely limited by persistent secretions - ICU conducting SBTs as permitted. Planning for SBT today. - ICU to down-titrate vent settings until potential extubation Pulmonary hypertension, mild - Echo showing systolic pressure of 60-65 mmHg (01/24) Possible ventilator associated pneumonia - CXR 01/28: patchy basilar opacities compatible w/ atelectasis, edema, or pneumonia. - CXR 01/29: showing worsening left interstitial opacities - Sputum culture grew yeast on 01/28 - Continue vancomycin, zosyn, miconazole and adunilofungin Bilateral pleural effusions, small - Continue lasix 20 mg Necrotizing fascititis of LLE (inner thigh) - improving S/P I&D and debridement of LLE (01/23) - Patient without leukocytosis and no longer meeting sepsis criteria - Wound cultures resulted s. aureus resitant to clindamycin (01/26) - Blood cultures without growth thus far - Clindamycin from 01/23 - 01/26 - Surgery still following, appreciate recs - Continue wet to dry wound care BID - Continue vancomycin and Zosyin - Continue IV fluids Constipation - CXR 01/28 showing moderate stool burden without acute abnormality - Per nursing, no BM since admission - Continue lactulose and metoclopramide Prediabetes - a1C 5.9 this admission Disposition: Pending DVT prophylaxis: Enoxaparin Diet: NPO (intubated/sedated), holding tube feeds BISI MARQUEZ DO 02/01/23 0425: Subjective Subjective/Events-last exam Patient seems to be doing really well SBT today Reviewed meds and labs Reviewed chest x-ray Objective Exam General Appearance: Chronically ill, Obese, Other (intubated but arousable ) Respiratory: No Accessory Muscle Use, No Respiratory Distress, Decreased Breath Sounds Cardiovascular: Regular Rate, Rhythm Assessment/Plan Assessment and Plan Assess & Plan/Chief Complaint SBT Supportive care Supervisory-Addendum Brief Verification & Attestation Participated in pt care: history, MDM, physical Personally performed: exam, history, MDM, supervision of care Care discussed with: Medical Student Procedures: n/a Results interpretation: Verified all documentation Verification and Attestation of Medical Student E/M Service A medical student performed and documented this service in my presence. I reviewed and verified all information documented by the medical student and made modifications to such information, when appropriate. I personally performed the physical exam and medical decision making. Bisi Marquez, Feb 01, 2023,04:24 BENJAMIN JENKINS Jan 31, 2023 11:39 BISI MARQUEZ DO Feb 01, 2023 04:25
[2023-01-31] MEDS ORDERED: dilTIAZem INJ 25 MG/5 ML VIAL IVP ONE (14:00)
[2023-01-31] MEDS ORDERED: dilTIAZem INJ 25 MG/5 ML VIAL ONE (14:02)
--- NOTE | 2023-01-31 14:22 | Diagnostic Imaging Report ---
INDICATION: Hypoxia. Frontal chest obtained at 9:37 a.m. Comparison made with 01/29/2023. FINDINGS: ET tube tip overlies mid trachea. NG tube tip is below the film. There is central vascular congestion with some patchy bibasilar infiltrate. There is no pneumothorax or pleural fluid. IMPRESSION: Central vascular congestion noted with patchy bibasilar infiltrate. Stable life support lines. Dictated by: Dictated on workstation # [id number]
[2023-01-31] MEDS: LABETALOL 5 mg/ml 4 ML SINGLE DOSE SYRINGE IV PRN (16:18)
[2023-01-31] MEDS: ACETAMINOPHEN 500 MG TABLET PO PRN (21:23)
[2023-02-01] MEDS: LABETALOL 5 mg/ml 4 ML SINGLE DOSE SYRINGE IV PRN ×2 (01:30→16:28)
[2023-02-01] MEDS: RT-Ipratropium/Albuterol NEB 3 ML VIAL INH SCH ×6 (02:33→22:30)
[2023-02-01] MEDS: aCETylcysteine 20% (RT/PO) 4 ML SOLN VIAL INH SCH ×4 (02:34→22:30)
[2023-02-01] MEDS ORDERED: TROUGH ORDER-PHARMACY XX ONE ×2 (03:00→15:00)
[2023-02-01] MEDS: PIPERACILLIN/Tazobactam 4.5 GM in NS (IVPB) 100 ML 100 ML IV SCH ×3 (03:39→18:28)
[2023-02-01] MEDS: VANCOMYCIN 1,750 MG/NS 500 ML IVPB IV SCH ×4 (04:31→16:27)
[2023-02-01 05:07] LABS: BASOPHILS # (AUTO) 0.1 10^3/uL (0.0-0.1); BASOPHILS % (AUTO) 1 % (0-10); EOSINOPHILS # (AUTO) 0.1 10^3/uL (0.0-0.3); EOSINOPHILS % (AUTO) 1 % (0-10); HEMATOCRIT 42 % (40-54); HEMOGLOBIN 13.5 g/dL (13.3-17.7); LYMPHOCYTES # (AUTO) 1.1 10^3/uL (1.0-4.0); LYMPHOCYTES % (AUTO) 9 % (12-44); MEAN CORPUSCULAR HEMOGLOBIN 33 pg (25-34); MEAN CORPUSCULAR HGB CONC 32 g/dL (32-36); MEAN CORPUSCULAR VOLUME 101 fL (80-99); MEAN PLATELET VOLUME 8.9 fL (9.0-12.2); MONOCYTES # (AUTO) 1.3 10^3/uL (0.0-1.0); MONOCYTES % (AUTO) 10 % (0-12); NEUTROPHILS # (AUTO) 9.6 10^3/uL (1.8-7.8); NEUTROPHILS % (AUTO) 78 % (42-75); PLATELET COUNT 418 10^3/uL (130-400); WHITE BLOOD COUNT 12.3 10^3/uL (4.3-11.0)
[2023-02-01 05:14] LABS: ALBUMIN 3.7 GM/DL (3.2-4.5)
[2023-02-01 05:15] LABS: POTASSIUM 3.6 MMOL/L (3.6-5.0)
[2023-02-01 05:16] LABS: CALCIUM 9.7 MG/DL (8.5-10.1)
[2023-02-01 05:17] LABS: TOTAL PROTEIN 8.2 GM/DL (6.4-8.2)
[2023-02-01 05:19] LABS: BILIRUBIN,TOTAL 0.5 MG/DL (0.1-1.0)
[2023-02-01 05:20] LABS: PHOSPHORUS 2.4 MG/DL (2.3-4.7)
[2023-02-01 05:21] LABS: CREATININE SERUM 0.7 MG/DL (0.60-1.30)
[2023-02-01 05:24] LABS: MAGNESIUM 1.9 MG/DL (1.6-2.4)
[2023-02-01] MEDS: POTASSIUM CHLORIDE 20 MEQ TABLET PO SCH (06:00)
[2023-02-01] MEDS: POTASSIUM CL 10MEQ/50ML IVPB 50 ML IV SCH (06:00)
[2023-02-01] MEDS: MAGNESIUM 1 GM/100 ML IVPB 100 ML IV SCH ×2 (06:00→07:03)
[2023-02-01] MEDS: METOCLOPRAMIDE INJ 10 MG/2 ML IVP SCH ×3 (07:02→18:28)
[2023-02-01] MEDS ORDERED: POTASSIUM CHLORIDE 20 MEQ TABLET PO ONE (08:00)
[2023-02-01] MEDS: DexMEDEtomidine 1,000mcg/250ml 250 ML IV SCH ×2 (08:24→22:38)
[2023-02-01] MEDS: SENNOSIDES 8.6 MG TABLET PO SCH (09:00)
[2023-02-01] MEDS: LACTULOSE SYRUP 10GM/15ML 30ML UDC PO SCH ×2 (09:00→21:22)
[2023-02-01] MEDS: NS IV SCH ×2 (09:36→09:43)
[2023-02-01] MEDS: ANIDULAFUNGIN IV SCH (09:36)
[2023-02-01] MEDS: ENOXAPARIN 40 MG/0.4 ML SYRINGE SC SCH (09:41)
[2023-02-01] MEDS: guaiFENesin SYRUP 100 MG/5 ML 10 ML PO SCH ×4 (09:41→21:22)
[2023-02-01] MEDS: THIAMINE IV SCH (09:43)
[2023-02-01] MEDS: FOLIC ACID IV SCH (09:43)
[2023-02-01] MEDS: FAMOTIDINE INJ 20MG/2ML VIAL IVP SCH ×2 (09:44→21:23)
[2023-02-01] MEDS: MICONAZOLE 2% POWDER 90 GM TOP SCH ×2 (09:55→21:23)
[2023-02-01] MEDS: SODIUM HYPOCHLORITE 0.125% TOP SCH (09:56)
[2023-02-01] MEDS: oxyCODONE IMMEDIATE RELEASE 5 MG TABLET PO PRN ×3 (10:36→21:23)
--- NOTE | 2023-02-01 11:41 | Occ Therapy Progress Note ---
Therapy Progress Note On medical hold per RN, OT will monitor MJ ESPINAL OT Feb 01, 2023 11:41
--- NOTE | 2023-02-01 11:45 | Physical Therapy Progress Note ---
Therapy Progress Note Patient on Hold due to elevated HR. PT will attempt tomorrow JOLEEN Covarrubias PT Feb 01, 2023 11:45
--- NOTE | 2023-02-01 11:57 | Progress Note - Surgery ---
Subjective Time Seen by a Provider: 11:14 Subjective/Events-last exam Pt seen and examined, he is extubated and states leg pain is minimal. Review of Systems Pulmonary: No Dyspnea, No Cough Cardiovascular: No: Chest Pain, Palpitations Gastrointestinal: No: Nausea, Vomiting Musculoskeletal: leg pain unable to obtain, pt intubated Focused Exam Lactate Level 01/30/23 08:15: Lactic Acid Level 0.38L Objective Exam Vital Signs Date Time Temp Pulse Resp B/P (MAP) Pulse Ox O2 Delivery O2 Flow Rate FiO2 02/01/23 11:00 87 16 146/82 (103) 95 Vapotherm 30.00 100.00 02/01/23 10:51 94 Vapotherm 30.00 70 02/01/23 10:00 86 14 151/91 (111) 98 Vapotherm 30.00 100.00 02/01/23 09:00 93 15 138/83 (101) 96 Vapotherm 30.00 100.00 02/01/23 08:00 98 161/104 (123) 96 Vapotherm 30.00 100.00 02/01/23 07:33 92 Vapotherm 30.00 100.00 02/01/23 07:26 93 Vapotherm 30.00 100 02/01/23 07:22 103 02/01/23 07:12 89 High Flow N/C 9.00 02/01/23 07:00 110 28 169/95 (119) 92 High Flow N/C 9.00 02/01/23 06:45 101 166/97 02/01/23 06:00 105 26 170/98 (122) 90 High Flow N/C 9.00 02/01/23 05:00 100 26 143/100 (114) 91 High Flow N/C 9.00 02/01/23 04:15 102 21 161/96 (117) 90 High Flow N/C 9.00 02/01/23 03:58 36.8 High Flow N/C 9.00 02/01/23 03:57 92 High Flow N/C 9.00 02/01/23 03:30 103 169/95 02/01/23 03:00 96 20 91 High Flow N/C 9.00 02/01/23 02:36 94 High Flow N/C 9.00 02/01/23 02:00 97 25 154/87 (109) 92 High Flow N/C 9.00 02/01/23 01:00 96 26 166/110 (128) 93 High Flow N/C 9.00 02/01/23 00:04 98 02/01/23 00:00 37.9 High Flow N/C 9.00 02/01/23 00:00 96 25 159/66 (97) 93 High Flow N/C 9.00 02/01/23 00:00 93 High Flow N/C 9.00 01/31/23 23:27 107 158/93 01/31/23 23:00 106 19 157/88 (111) 93 High Flow N/C 9.00 01/31/23 22:17 94 High Flow N/C 9.00 01/31/23 22:00 107 28 168/104 (125) 91 High Flow N/C 9.00 01/31/23 22:00 37.2 01/31/23 21:23 37.9 01/31/23 21:00 110 32 163/92 (115) 90 High Flow N/C 9.00 01/31/23 20:31 144 01/31/23 20:00 93 High Flow N/C 9.00 01/31/23 20:00 37.2 High Flow N/C 9.00 01/31/23 20:00 94 27 152/105 (121) 93 High Flow N/C 9.00 01/31/23 19:03 96 01/31/23 19:00 94 18 153/89 (110) 95 High Flow N/C 9.00 01/31/23 18:53 98 High Flow N/C 9.00 01/31/23 18:00 96 20 153/89 (110) 96 High Flow N/C 9.00 01/31/23 17:34 100 139/81 01/31/23 17:00 98 18 139/81 (100) 95 High Flow N/C 9.00 01/31/23 16:41 37.5 01/31/23 16:21 97 177/97 01/31/23 16:00 94 High Flow N/C 9.00 01/31/23 16:00 99 17 156/91 (112) 95 High Flow N/C 9.00 01/31/23 15:59 101 173/112 01/31/23 15:41 101 173/112 01/31/23 15:00 98 20 168/106 (126) 95 High Flow N/C 9.00 01/31/23 14:56 90 High Flow N/C 9.00 01/31/23 14:15 104 159/88 01/31/23 14:03 152 174/97 01/31/23 14:00 149 26 164/97 (119) 94 Mechanical Ventilator 50.00 01/31/23 13:45 50 01/31/23 13:00 98 18 174/97 (122) 98 Mechanical Ventilator 50.00 01/31/23 13:00 97 01/31/23 12:58 98 19 175/87 01/31/23 12:58 97 175/87 01/31/23 12:00 95 17 173/91 (118) 96 Mechanical Ventilator 50.00 01/31/23 12:00 95 Mechanical Ventilator 50 I & O 02/01/23 06:59 Intake Total 2487.4 ml Output Total 5000 ml Balance -2512.6 ml Capillary Refill : Less Than 3 SecondsLess Than 3 Seconds General Appearance: No Apparent Distress, Obese HEENT: PERRL/EOMI Respiratory: No Accessory Muscle Use, No Respiratory Distress, Decreased Breath Sounds Cardiovascular: Regular Rate, Rhythm, No Murmur Peripheral Pulses: 2+ Dorsalis Pedis (R), 2+ Left Dors-Pedis (L), 2+ Radial Pulses (R), 2+ Radial Pulses (L) Extremity: Other (left lower extremity did not see any cellulitis, left thigh open wound with wound vac,. No induration surrounding wound ) Neurologic/Psychiatric: Alert Skin: Normal Color, Warm/Dry Results Lab Laboratory Tests 01/31/23 18:10: Glucometer 119H 01/31/23 23:24: Glucometer 104 02/01/23 05:00: White Blood Count 12.3H, Red Blood Count 4.15L, Hemoglobin 13.5, Hematocrit 42, Mean Corpuscular Volume 101H, Mean Corpuscular Hemoglobin 33, Mean Corpuscular Hemoglobin Concent 32, Red Cell Distribution Width 12.1, Platelet Count 418H, Mean Platelet Volume 8.9L, Immature Granulocyte % (Auto) 1, Neutrophils (%) (Auto) 78H, Lymphocytes (%) (Auto) 9L, Monocytes (%) (Auto) 10, Eosinophils (%) (Auto) 1, Basophils (%) (Auto) 1, Neutrophils # (Auto) 9.6H, Lymphocytes # (Auto) 1.1, Monocytes # (Auto) 1.3H, Eosinophils # (Auto) 0.1, Basophils # (Auto) 0.1, Immature Granulocyte # (Auto) 0.1, Sodium Level 141, Potassium Level 3.6, Chloride Level 105, Carbon Dioxide Level 23, Anion Gap 13, Blood Urea Nitrogen 6L, Creatinine 0.70, Estimat Glomerular Filtration Rate 109, BUN/Creatinine Ratio 9, Glucose Level 100, Calcium Level 9.7, Corrected Calcium 9.9, Phosphorus Level 2.4, Magnesium Level 1.9, Total Bilirubin 0.5, Aspartate Amino Transf (AST/SGOT) 36H, Alanine Aminotransferase (ALT/SGPT) 52, Alkaline Phosphatase 108, Total Protein 8.2, Albumin 3.7, Vancomycin Level Trough 21.4H Microbiology 01/30/23 Blood Culture - Preliminary, Resulted 01/28/23 Gram Stain - Final, Complete 01/28/23 Sputum Culture - Final, Complete YEAST 01/23/23 Gram Stain - Final, Complete 01/23/23 Anaerobic Culture - Final, Complete No anaerobes isolated 01/23/23 Surgical Culture - Final, Complete Staphylococcus aureus Staphylococcus aureus#2 Assessment/Plan Assessment/Plan Assessment/Plan Left thigh necrotizing soft tissue infection s/p incision and drainage and debridement with wound VAC placement Wound VAC to be changed today, wound culture results - MRSA on ABX Sputum culture results - yeast, continue antifungals- miconazole and adinulafungin IV fluids, pain control, start clears and advance as tolerated BOOGIE ANDRE DO Feb 01, 2023 11:57
[2023-02-01] MEDS ORDERED: FUROSEMIDE INJECTION 40 MG/4 ML VIAL IVP NR (12:00)
--- NOTE | 2023-02-01 12:14 | Speech Therapy Progress Note ---
Therapy Progress Note Speech pathology received the consultation and the chart was reviewed. ST attempted the assessment at 1211. The patient refused participation stating, "Just go. Are you still there? I told you to go." Prior to refusal, the patient denied swallowing concerns or issues (however does appear confused). ST provided gentle encouragement and rationale for the visit. Regardless the patient continued to point at the door stating, "I said leave." ST will reattempt the evaluation on the subsequent treatment date. REFUSED, Visit x 1 PERLA LOWRY Feb 01, 2023 12:14
[2023-02-01 13:20] LABS: ABG BASE EXCESS 1.7 MMOL/L (-2.5-2.5); ABG OXYGEN SATURATION 89 % (94-100); ABG PCO2 42 MMHG (35-45); ABG PH 7.41 (7.37-7.43); ABG PO2 58 MMHG (79-93); ABG TCO2 27.9 MMOL/L (21.0-31.0)
--- NOTE | 2023-02-01 13:51 | Tele-ICU Progress Note ---
Subjective Date Seen by a Provider: Feb 01, 2023 Time Seen by a Provider: 13:50 Subjective/Events-last exam Tele-ICU Physician , Progress Note Service provided via interactive audio and video telecommunications E-CARE sys tem to a patient admitted to ICU bed in [facility]. Patient is seen today due to persistent need of ICU care Available chart/ vitals / labs / Images reviewed Video assessment done using teleICU camera, rest of exam as per RN Discussed with RN Subj: Pt extubated yesterday with no major events overnight. Continues to have episodes of confusion and is on precedex. but otherwise HD stable Hospital course: 01/23 57yr old male admitted with left uper medial thigh abscess/cellulitis s/p I & D, to ICU intubated , 100 Fio2 , CTA - neg for PE 01/24- RASS - 1-2 on propofol 40 fent 175 ECHO 01/25- AC -20 450 50 + 8 , propofol 40 fent 150 01/26- AC -20 450 50 + 8 , propofol 30 fent 175 OG output 500 /shift 01/28 -AC -20 450 60 + 8 , RASS - 1-2 on propofol 25 fent 200 versed 8, changed TV to 600 01/29 - 50 % , high OG output , WOUND VAC 01/30 -40 % 18 600 +6 , FEVER 38 ( recultured PICC . periph , sputum ) + secretions ETT ,ERAXIS , cont lactulose , added reglan , fent 300 versed 10 01/31 - mucous plugs - 50% ( was on 100% few times ) febt 300 , verced 8 RASS -1 A/P: Encephlopathy-Pt with fluctuating mental status noted be agitated. Unclear e tiology -Creatinine normal -Hx of etoh use but not within window for alcohol withdrawal -Will obtain CT head -Cont precedex and Ativan prn Acute hypoxic resp failure post op: resolved, -Extubated 01/31. -Pt initially intubated 01/23 for surgery and unable to be extubated. -Currently on broad spectrum antibiotics -Will give one dose IV Lasix -Cont duo neb q4 h , mucomist nebs , guafenesin 200 qid Left thigh necrotizing soft tissue infection s/p I&D with wound vac in place -Wound culture + MRSA -Continue vanco and zosyn -Surgery following -Adequate pain control Pulm HTN -TTE 01/24/23 - RVSP 60 mm hg -CTA neg for PE -Will attempt to keep net neg. One dose IV Lasix today given stable creatinine EtOH: drinks beer x6 daily. -CIWA, vitamins -Cont IV thiamine Constipation - CXR 01/28 showing moderate stool burden without acute abnormality - Per nursing, no BM since admission - Continue lactulose and metoclopramide Nutrition -Speech evaluation today, then CLD Lines : PICC, (Central Line Necessity Reviewed) Naidu: 01/23 OG: Nutrition: speech eval Analgesia: Anxiety/ delirium VTE Prophylaxis: ingrid 40 Stress Ulcer Prophylaxis: h2bl Plans in collaboration with bedside consultants and IM MDs. Discussed with RN to reach out if any questions or concerns Case and care daily discussed on multidisciplinary rounds ( RN, PharmD, [employer] Winder , Respiratory Therapy, survey worker ) A total of 35 minutes of CC time was devoted to this patient today, required to treat and/or prevent further deterioration of critical care condition ( as above ) . I am remotely monitoring this patient from another state. I am unable to do the bedside exam, and history/physical and pertinent information is taken from other notes in the computer and bedside staff. Sepsis Event Evaluation Height, Weight, BMI Height: '" Weight: lbs. oz. kg; 37.91 BMI Method:Estimated Focused Exam Lactate Level 01/30/23 08:15: Lactic Acid Level 0.38L Exam Exam Patient acknowledged, consented, and participated in this virtual visit which was conducted using real time audio/video Vital Signs Date Time Temp Pulse Resp B/P (MAP) Pulse Ox O2 Delivery O2 Flow Rate FiO2 02/01/23 13:00 82 11 165/120 (135) 97 Vapotherm 30.00 100.00 02/01/23 12:12 85 02/01/23 12:00 84 23 134/78 (96) 94 Vapotherm 30.00 100.00 02/01/23 12:00 36.7 02/01/23 11:00 87 16 146/82 (103) 95 Vapotherm 30.00 100.00 02/01/23 10:51 94 Vapotherm 30.00 70 02/01/23 10:00 86 14 151/91 (111) 98 Vapotherm 30.00 100.00 02/01/23 09:00 93 15 138/83 (101) 96 Vapotherm 30.00 100.00 02/01/23 08:00 98 161/104 (123) 96 Vapotherm 30.00 100.00 02/01/23 07:33 92 Vapotherm 30.00 100.00 02/01/23 07:26 93 Vapotherm 30.00 100 02/01/23 07:22 103 02/01/23 07:12 89 High Flow N/C 9.00 02/01/23 07:00 110 28 169/95 (119) 92 High Flow N/C 9.00 02/01/23 06:45 101 166/97 02/01/23 06:00 105 26 170/98 (122) 90 High Flow N/C 9.00 02/01/23 05:00 100 26 143/100 (114) 91 High Flow N/C 9.00 02/01/23 04:15 102 21 161/96 (117) 90 High Flow N/C 9.00 02/01/23 03:58 36.8 High Flow N/C 9.00 02/01/23 03:57 92 High Flow N/C 9.00 02/01/23 03:30 103 169/95 02/01/23 03:00 96 20 91 High Flow N/C 9.00 02/01/23 02:36 94 High Flow N/C 9.00 02/01/23 02:00 97 25 154/87 (109) 92 High Flow N/C 9.00 02/01/23 01:00 96 26 166/110 (128) 93 High Flow N/C 9.00 02/01/23 00:04 98 02/01/23 00:00 37.9 High Flow N/C 9.00 02/01/23 00:00 96 25 159/66 (97) 93 High Flow N/C 9.00 02/01/23 00:00 93 High Flow N/C 9.00 01/31/23 23:27 107 158/93 01/31/23 23:00 106 19 157/88 (111) 93 High Flow N/C 9.00 01/31/23 22:17 94 High Flow N/C 9.00 01/31/23 22:00 107 28 168/104 (125) 91 High Flow N/C 9.00 01/31/23 22:00 37.2 01/31/23 21:23 37.9 01/31/23 21:00 110 32 163/92 (115) 90 High Flow N/C 9.00 01/31/23 20:31 144 01/31/23 20:00 93 High Flow N/C 9.00 01/31/23 20:00 37.2 High Flow N/C 9.00 01/31/23 20:00 94 27 152/105 (121) 93 High Flow N/C 9.00 01/31/23 19:03 96 01/31/23 19:00 94 18 153/89 (110) 95 High Flow N/C 9.00 01/31/23 18:53 98 High Flow N/C 9.00 01/31/23 18:00 96 20 153/89 (110) 96 High Flow N/C 9.00 01/31/23 17:34 100 139/81 01/31/23 17:00 98 18 139/81 (100) 95 High Flow N/C 9.00 01/31/23 16:41 37.5 01/31/23 16:21 97 177/97 01/31/23 16:00 94 High Flow N/C 9.00 01/31/23 16:00 99 17 156/91 (112) 95 High Flow N/C 9.00 01/31/23 15:59 101 173/112 01/31/23 15:41 101 173/112 01/31/23 15:00 98 20 168/106 (126) 95 High Flow N/C 9.00 01/31/23 14:56 90 High Flow N/C 9.00 01/31/23 14:15 104 159/88 01/31/23 14:03 152 174/97 01/31/23 14:00 149 26 164/97 (119) 94 Mechanical Ventilator 50.00 01/31/23 13:45 50 I & O 02/01/23 06:59 Intake Total 2487.4 ml Output Total 5000 ml Balance -2512.6 ml Height & Weight Height: '" Weight: lbs. oz. kg; 37.91 BMI Method:Estimated General Appearance: No Apparent Distress, Obese HEENT: PERRL/EOMI Respiratory: No Accessory Muscle Use, No Respiratory Distress, Decreased Breath Sounds Cardiovascular: Regular Rate, Rhythm, No Murmur Capillary Refill: Less Than 3 Seconds Peripheral Pulses: 2+ Dorsalis Pedis (R), 2+ Left Dors-Pedis (L), 2+ Radial Pulses (R), 2+ Radial Pulses (L) Extremity: Other (left lower extremity did not see any cellulitis, left thigh open wound with wound vac,. No induration surrounding wound ) Neurologic/Psychiatric: Alert Skin: Normal Color, Warm/Dry Results Lab Laboratory Tests 01/31/23 04:10 02/01/23 05:00 Assessment/Plan Assessment/Plan . MIKE CUTLER MD Feb 01, 2023 13:51
--- NOTE | 2023-02-01 13:55 | Progress Note - Hospitalist ---
BENJAMIN JENKINS 02/01/23 1355: Subjective Subjective/Events-last exam 57 yo M admitted on 01/23 for LLE necrotizing fasciitis/sepsis who required mechanically ventilation that day due to failed post-operative extubation. Extubated on 01/31 and currently maintained on vapotherm. Per nursing, the patient experienced an episode of SVT following extubation yesterday that resolved with diltiazem 25 mg x 1 and 5mg x 1. He had two water bowel movements this morning and ate a full meal at breakfast. Per nursing and the patient's family, present at bedside, he grew confused after and agitated (pulled a picc line and wound wrapping) after extubation and began to experience hallucinations. Fentanyl was discontinued and replaced with hydrocodone. He was given Haldol once. Focused Exam Lactate Level 01/30/23 08:15: Lactic Acid Level 0.38L Objective Exam Vital Signs Vital Signs Date Time Temp Pulse Resp B/P (MAP) Pulse Ox O2 Delivery O2 Flow Rate FiO2 02/01/23 13:00 82 11 165/120 (135) 97 Vapotherm 30.00 100.00 02/01/23 12:00 36.7 02/01/23 10:51 70 Capillary Refill : Less Than 3 SecondsLess Than 3 Seconds General Appearance: No Apparent Distress HEENT: PERRL/EOMI Respiratory: Normal Breath Sounds, No Accessory Muscle Use, No Respiratory Distress Cardiovascular: Tachycardia, Other (regular rate ) Gastrointestinal: Normal Bowel Sounds Neurologic/Psychiatric: Alert; No Oriented x3; Other (Patient oriented to person but not to time and place. ) Skin: Normal Color, Other (Wound vac in place on left lower extremity. No necrosis or erythema noted on exam. ) Results/Procedures Lab Laboratory Tests 02/01/23 05:00 Patient resulted labs reviewed. Assessment/Plan Assessment and Plan Assess & Plan/Chief Complaint Altered mental status (01/31) - Patient with hallucinations and agitations following extubation 01/31 - Fentanyl discontinued on 01/31 to minimize AMS - Plan: Lorazepam 2mg PRN. Montor. Supraventricular tachycardia (01/31) - One episode on 01/31 after extubation that resolved with Diltiazem - Currently in normal sinus rhythm - No known history of SVT - Plan: Consult cardiology. Monitor. Acute hypoxic respiratory failure - improving Pulmonary vascular congestion Pulmonary hypertension, mild - Etiology for ARF unclear; pulmonary HTN/undiagosed GARFIELD likely contibuting - 01/24 Echo showing systolic pressure of 60-65 mmHg - 01/31 CXR still with "central vascular congestion" - Patient mechanically ventilated from 01/23- after failed post-operative extubation - Patient extubated on 01/31 and currently maintained on vapotherm 30. - Plan: Continue weaning oxygen use. Continue lasix 20 mg. Ventilator associated fungal pneumonia - Sputum culture grew yeast on 01/28 - Miconazole and adunilofungin since 01/28 - Plan: continue anti-fungals Necrotizing fascititis of LLE (inner thigh) - improving S/P I&D and debridement of LLE (01/23) - Patient without leukocytosis and no longer meeting sepsis criteria - Wound cultures grew s. aureus resitant to clindamycin (01/26) - Blood cultures without growth - Vancomycin and Zosyn since 01/23 per surgery - Wound vac in place. Wet to dry wound care BID per surgery - Pain control with hydrocodone vs fentanyl to limit confusion - Plan: follow surgery recommendations Constipation - improving - CXR 01/28 showing moderate stool burden without acute abnormality - 2 watery bowel movement this morning per nursing - Plan: continue laxatives Prediabetes - a1C 5.9 this admission Disposition: Pending DVT prophylaxis: Enoxaparin Diet: Regular BISI MARQUEZ DO 02/02/23 0412: Subjective HPI/CC On Admission Date Seen by Provider: Feb 01, 2023 Time Seen by Provider: 11:00 Subjective/Events-last exam Patient confused postextubation Updated on postop and postintubation delirium and the need for supportive care Reviewed meds and labs ABG reviewed Review of Systems Neurological: Confusion Objective Exam General Appearance: No Apparent Distress, WD/WN, Chronically ill Respiratory: Lungs Clear, Normal Breath Sounds Cardiovascular: Regular Rate, Rhythm Neurologic/Psychiatric: Alert, Disoriented Assessment/Plan Assessment and Plan Assess & Plan/Chief Complaint Supportive care Hopefully delirium will dissipate quickly PT and OT Supervisory-Addendum Brief Verification & Attestation Participated in pt care: history, MDM, physical Personally performed: exam, history, MDM, supervision of care Care discussed with: Medical Student Procedures: n/a Results interpretation: Verified all documentation Verification and Attestation of Medical Student E/M Service A medical student performed and documented this service in my presence. I reviewed and verified all information documented by the medical student and made modifications to such information, when appropriate. I personally performed the physical exam and medical decision making. Bisi Marquez, Feb 02, 2023,04:11 BENJAMIN JENKINS Feb 01, 2023 13:55 BISI MARQUEZ DO Feb 02, 2023 04:12
--- NOTE | 2023-02-01 15:12 | Diagnostic Imaging Report ---
INDICATION: Altered mental status. TECHNIQUE: Multiple contiguous axial images were obtained through the brain without the use of intravenous contrast. Auto Exposure Controls were utilized during the CT exam to meet ALARA standards for radiation dose reduction. COMPARISON: There is no previous study for comparison. FINDINGS: There are no extra-axial fluid collections. No intracranial hemorrhage. No intracranial mass or mass effect. No midline shift. The ventricles are normal in size and position. 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 There is no acute abnormality otherwise seen. The calvarial windows show no fracture. There is fluid in the right sphenoid sinus and right maxillary sinus with a retention cyst in the right maxillary sinus. IMPRESSION: No acute hemorrhage, mass effect, or acute appearing finding. 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 Underlying sinus disease as above. Dictated by: Dictated on workstation # [id number]
--- NOTE | 2023-02-01 17:48 | Consultation-Cardiology ---
HPI-Cardiology Cardiology Consultation Date of Consultation 02/01/23 Date of Admission Time Seen by Provider: 17:44 Indication: Tachycardia HPI 57-year-old gentleman admitted with necrotizing fasciitis of the left thigh, had surgery with I&D receiving antibiotic. Patient had prolonged intubation postsurgery, has pulmonary hypertension. Change in mental status and confusion. He was noted last night and early this morning to have multiple episodes of supraventricular tachycardia. I was called for evaluation On my evaluation patient 1 was laying down comfortably in bed review of his record showed multiple episodes of sinus tachycardia, currently heart rate is stable. Denied any chest pain. Not able to provide full history, his history was obtained by reviewing his records Home Medications & Allergies Allergies: Coded Allergies: codeine (Verified Allergy, Mild, JAUNDICE, 01/29/23) Uncoded Allergies: HAY FEVER (Allergy, Unknown, 07/01/21) Home Medication List Reviewed: Yes [id number] Hx Patient Social History Marital Status: single Living Status: Lives at home with Recreational Drug Use: No Smoking Status: Current Everyday Smoker (2ppd) Alcohol Use?: Yes Past Medical History Discussed below Family Medical History Significant Family History: No Pertinent Family Hx Review of Systems-General Review of Systems Constitutional: malaise, weakness, other (intubated, unable to get ROS) EENTM: see HPI; No blurred vision, No double vision Respiratory: see HPI; No cough; short of breath Cardiovascular: see HPI; No chest pain; edema Gastrointestinal: No abdominal pain, No nausea, No vomiting Genitourinary: see HPI; No decreased output, No discharge Musculoskeletal: see HPI; No back pain, No joint pain Skin: see HPI, change in color, other (cellulitis) Psychiatric/Neurological: Denies Anxiety, Denies Depressed, Denies Emotional Problems All Other Systems Reviewed Negative Unless Noted: Yes (Negative excepted noted.) Reviewed Test Results Reviewed Test Results Lab Laboratory Tests Test 01/31/23 18:10 01/31/23 23:24 02/01/23 05:00 02/01/23 12:16 Range/Units Glucometer 119 H 104 159 H 70-110 MG/DL White Blood Count 12.3 H 4.3-11.0 10^3/uL Red Blood Count 4.15 L 4.30-5.52 10^6/uL Hemoglobin 13.5 13.3-17.7 g/dL Hematocrit 42 40-54 % Mean Corpuscular Volume 101 H 80-99 fL Mean Corpuscular Hemoglobin 33 25-34 pg Mean Corpuscular Hemoglobin Concent 32 32-36 g/dL Red Cell Distribution Width 12.1 10.0-14.5 % Platelet Count 418 H 130-400 10^3/uL Mean Platelet Volume 8.9 L 9.0-12.2 fL Immature Granulocyte % (Auto) 1 % Neutrophils (%) (Auto) 78 H 42-75 % Lymphocytes (%) (Auto) 9 L 12-44 % Monocytes (%) (Auto) 10 0-12 % Eosinophils (%) (Auto) 1 0-10 % Basophils (%) (Auto) 1 0-10 % Neutrophils # (Auto) 9.6 H 1.8-7.8 10^3/uL Lymphocytes # (Auto) 1.1 1.0-4.0 10^3/uL Monocytes # (Auto) 1.3 H 0.0-1.0 10^3/uL Eosinophils # (Auto) 0.1 0.0-0.3 10^3/uL Basophils # (Auto) 0.1 0.0-0.1 10^3/uL Immature Granulocyte # (Auto) 0.1 0.0-0.1 10^3/uL Sodium Level 141 135-145 MMOL/L Potassium Level 3.6 3.6-5.0 MMOL/L Chloride Level 105 98-107 MMOL/L Carbon Dioxide Level 23 21-32 MMOL/L Anion Gap 13 5-14 MMOL/L Blood Urea Nitrogen 6 L 7-18 MG/DL Creatinine 0.70 0.60-1.30 MG/DL Estimat Glomerular Filtration Rate 109 BUN/Creatinine Ratio 9 Glucose Level 100 70-105 MG/DL Calcium Level 9.7 8.5-10.1 MG/DL Corrected Calcium 9.9 8.5-10.1 MG/DL Phosphorus Level 2.4 2.3-4.7 MG/DL Magnesium Level 1.9 1.6-2.4 MG/DL Total Bilirubin 0.5 0.1-1.0 MG/DL Aspartate Amino Transf (AST/SGOT) 36 H 5-34 U/L Alanine Aminotransferase (ALT/SGPT) 52 0-55 U/L Alkaline Phosphatase 108 40-136 U/L Total Protein 8.2 6.4-8.2 GM/DL Albumin 3.7 3.2-4.5 GM/DL Vancomycin Level Trough 21.4 H 10.0-20.0 UG/ML Test 02/01/23 13:04 02/01/23 15:30 Range/Units Arterial Blood pH 7.41 7.37-7.43 Arterial Blood Partial Pressure CO2 42 35-45 MMHG Arterial Blood Partial Pressure O2 58 L 79-93 MMHG Arterial Blood HCO3 27 23-27 MMOL/L Arterial Blood Total CO2 27.9 21.0-31.0 MMOL/L Arterial Blood Oxygen Saturation 89 L 94-100 % Arterial Blood Base Excess 1.7 -2.5-2.5 MMOL/L Blood Gas Ventilator Setting Blood Gas Inspired Oxygen Vancomycin Level Trough 10.1 10.0-20.0 UG/ML Physical Exam Physical Exam Vital Signs Vital Signs - First Documented 01/26/23 01/26/23 01/26/23 00:00 02:10 07:52 Temp 37.0 Pulse 73 Resp 20 B/P (MAP) 110/65 (80) Pulse Ox 95 O2 Delivery Mechanical Ventilator O2 Flow Rate 50.00 FiO2 50 Capillary Refill : Less Than 3 SecondsLess Than 3 Seconds Height, Weight, BMI Height: '" Weight: lbs. oz. kg; 37.91 BMI Method:Estimated General Appearance: No Apparent Distress Eyes: Bilateral Eye Normal Inspection, Bilateral Eye PERRL, Bilateral Eye EOMI HEENT: PERRL/EOMI Neck: Full Range of Motion, Normal Inspection, Non Tender, Supple, Carotid Bruit Respiratory: Normal Breath Sounds, No Accessory Muscle Use, No Respiratory Distress Cardiovascular: Tachycardia, Other (regular rate ) Gastrointestinal: Normal Bowel Sounds Back: Normal Inspection, No CVA Tenderness, No Vertebral Tenderness Extremity: Other (left lower extremity did not see any cellulitis, left thigh open wound with wound vac,. No induration surrounding wound ) Neurologic/Psychiatric: Alert; No Oriented x3; Other (Patient oriented to person but not to time and place. ) Skin: Normal Color, Other (Wound vac in place on left lower extremity. No necrosis or erythema noted on exam. ) Lymphatic: No Adenopathy A/P-Cardiology Admission Diagnosis Paroxysmal supraventricular tachycardia Necrotizing fasciitis Respiratory failure Encephalopathy Assessment/Plan Paroxysmal supraventricular tachycardia, mainly sinus tachycardia episode after extubation Currently in sinus rhythm with controlled rate Continue to monitor Necrotizing fasciitis with cellulitis of the left thigh, status post I&D, currently has a wound VAC Receiving antibiotic and managed by surgical team Status post prolonged respiratory failure, intubated, difficult extubation Still in respiratory failure currently on Vapotherm History of alcohol use. Change in mental status, confusion, lethargy, encephalopathy. Probably secondary to sepsis and hypoxemia Pulmonary hypertension, probably underlying lung disease, continue to monitor. Maintained on Vapotherm BOB PEARCE MD Feb 01, 2023 17:48
[2023-02-01] MEDS: hydrALAZINE 10 MG TABLET PO SCH ×2 (18:28→21:23)
[2023-02-01] MEDS ORDERED: hydrALAZINE 10 MG TABLET PO SCH (21:00)
[2023-02-01] MEDS ORDERED: VANCOMYCIN 1500MG/300ML PREMIX IV SCH (21:00)
[2023-02-01] MEDS ORDERED: ZIPRASIDONE INJECTION 20 MG VIAL IM ONE (21:15)
[2023-02-01] MEDS ORDERED: WATER (STERILE) FOR INJ 10 ML BTL INJ SCH (21:15)
[2023-02-02] MEDS: METOCLOPRAMIDE INJ 10 MG/2 ML IVP SCH ×4 (00:48→17:15)
[2023-02-02] MEDS: RT-Ipratropium/Albuterol NEB 3 ML VIAL INH SCH ×6 (02:06→22:00)
[2023-02-02] MEDS: aCETylcysteine 20% (RT/PO) 4 ML SOLN VIAL INH SCH ×4 (02:06→22:00)
[2023-02-02] MEDS: LORazepam 1 MG TABLET PO PRN ×5 (03:28→20:42)
[2023-02-02] MEDS: PIPERACILLIN/Tazobactam 4.5 GM in NS (IVPB) 100 ML 100 ML IV SCH ×2 (03:28→10:26)
[2023-02-02] MEDS: VANCOMYCIN 1,750 MG/NS 500 ML IVPB IV SCH ×2 (05:16)
[2023-02-02 05:23] LABS: BASOPHILS # (AUTO) 0.1 10^3/uL (0.0-0.1); BASOPHILS % (AUTO) 1 % (0-10); EOSINOPHILS # (AUTO) 0.4 10^3/uL (0.0-0.3); EOSINOPHILS % (AUTO) 3 % (0-10); HEMATOCRIT 44 % (40-54); HEMOGLOBIN 14.1 g/dL (13.3-17.7); LYMPHOCYTES # (AUTO) 1.1 10^3/uL (1.0-4.0); LYMPHOCYTES % (AUTO) 8 % (12-44); MEAN CORPUSCULAR HEMOGLOBIN 32 pg (25-34); MEAN CORPUSCULAR HGB CONC 32 g/dL (32-36); MEAN CORPUSCULAR VOLUME 99 fL (80-99); MONOCYTES # (AUTO) 1.5 10^3/uL (0.0-1.0); MONOCYTES % (AUTO) 11 % (0-12); NEUTROPHILS # (AUTO) 10.2 10^3/uL (1.8-7.8); NEUTROPHILS % (AUTO) 76 % (42-75); PLATELET COUNT 440 10^3/uL (130-400); WHITE BLOOD COUNT 13.4 10^3/uL (4.3-11.0)
[2023-02-02 05:27] LABS: ALBUMIN 3.6 GM/DL (3.2-4.5); POTASSIUM 3.3 MMOL/L (3.6-5.0)
[2023-02-02 05:28] LABS: CALCIUM 9.7 MG/DL (8.5-10.1)
[2023-02-02 05:31] LABS: BILIRUBIN,TOTAL 0.4 MG/DL (0.1-1.0)
[2023-02-02 05:33] LABS: CREATININE SERUM 0.73 MG/DL (0.60-1.30)
[2023-02-02 05:36] LABS: MAGNESIUM 1.8 MG/DL (1.6-2.4)
[2023-02-02] MEDS: POTASSIUM CHLORIDE 20 MEQ TABLET PO SCH (05:42)
[2023-02-02] MEDS: POTASSIUM CL 10MEQ/50ML IVPB 50 ML IV SCH (05:42)
[2023-02-02] MEDS: MAGNESIUM 1 GM/100 ML IVPB 100 ML IV SCH ×3 (05:43→06:09)
[2023-02-02] MEDS ORDERED: POTASSIUM CHLORIDE 20 MEQ TABLET PO ONE ×2 (05:45→08:00)
[2023-02-02] MEDS: SENNOSIDES 8.6 MG TABLET PO SCH (08:13)
[2023-02-02] MEDS: hydrALAZINE 10 MG TABLET PO SCH ×2 (08:14→20:42)
[2023-02-02] MEDS: LACTULOSE SYRUP 10GM/15ML 30ML UDC PO SCH ×2 (08:14→20:42)
[2023-02-02] MEDS: guaiFENesin SYRUP 100 MG/5 ML 10 ML PO SCH ×4 (08:14→20:42)
[2023-02-02] MEDS: amLODIPine 10 MG TABLET PO SCH (08:14)
[2023-02-02] MEDS: ANIDULAFUNGIN IV SCH (08:15)
[2023-02-02] MEDS: FAMOTIDINE INJ 20MG/2ML VIAL IVP SCH ×2 (08:15→20:42)
[2023-02-02] MEDS: NS IV SCH ×2 (08:15→10:09)
[2023-02-02] MEDS: ENOXAPARIN 40 MG/0.4 ML SYRINGE SC SCH (08:16)
[2023-02-02] MEDS: DexMEDEtomidine 1,000mcg/250ml 250 ML IV SCH ×3 (08:50→19:01)
--- NOTE | 2023-02-02 09:32 | Progress Note - Cardiology ---
Cardiology SOAP Progress Note Subjective: In bed Currently on Vapo-therm Lethargic, but awakens easily Does not answer questions Objective: I&O/Vital Signs 02/01/23 02/01/23 02/01/23 02/01/23 22:00 22:31 22:38 23:00 Pulse 75 78 80 Resp 26 B/P (MAP) 175/115 (135) 168/101 160/94 (116) Pulse Ox 98 94 94 O2 Delivery Vapotherm Vapotherm Vapotherm O2 Flow Rate 30.00 30.00 30.00 100.00 100.00 FiO2 70 02/01/23 02/02/23 02/02/23 02/02/23 23:54 00:00 00:00 01:00 Pulse 80 80 77 Resp 48 22 B/P (MAP) 158/100 (119) 151/94 (113) Pulse Ox 93 94 95 O2 Delivery Vapotherm Vapotherm Vapotherm O2 Flow Rate 30.00 30.00 100.00 100.00 FiO2 100 02/02/23 02/02/23 02/02/23 02/02/23 02:00 02:07 02:38 03:00 Pulse 73 78 87 Resp 20 19 B/P (MAP) 162/104 (123) 156/94 142/90 (107) Pulse Ox 95 97 98 O2 Delivery Vapotherm Vapotherm Vapotherm O2 Flow Rate 30.00 30.00 30.00 100.00 100.00 FiO2 70 02/02/23 02/02/23 02/02/23 02/02/23 04:00 04:00 05:00 06:00 Pulse 86 85 77 Resp 24 24 23 B/P (MAP) 170/109 (129) 168/108 (128) 161/98 (119) Pulse Ox 95 94 93 93 O2 Delivery Vapotherm Vapotherm Vapotherm Vapotherm O2 Flow Rate 30.00 30.00 30.00 100.00 100.00 100.00 FiO2 100 02/02/23 02/02/23 02/02/23 02/02/23 07:00 07:00 07:01 08:00 Pulse 78 77 80 Resp 23 23 B/P (MAP) 162/98 (118) 145/90 (106) Pulse Ox 93 93 92 O2 Delivery Vapotherm Vapotherm Vapotherm O2 Flow Rate 30.00 30.00 30.00 100.00 100.00 FiO2 70 02/02/23 02/02/23 08:50 09:00 Pulse 78 83 Resp 18 B/P (MAP) 160/102 130/88 (100) Pulse Ox 93 O2 Delivery Vapotherm O2 Flow Rate 30.00 100.00 02/01/23 23:59 Intake Total 2247.5 ml Output Total 3200 ml Balance -952.5 ml Constitutional: other (Lethargic, opens eyes when named is called, but does not answer any questions) Respiratory: No accessory muscle use, No respiratory distress; other (diminished throughout) Cardiovascular: regular rate-rhythm; No JVD; S1 and S2 Gastrointestional: round, distended; No guarding; audible bowel sounds Extremities: other (wound vac in place to left upper leg), no lower extremity edema bilateral Neurologic/Psychiatric: other (moves extremities) Skin: other (see above) Results/Procedures: Labs Laboratory Tests 02/01/23 12:16: Glucometer 159H 02/01/23 13:04: Arterial Blood pH 7.41, Arterial Blood Partial Pressure CO2 42, Arterial Blood Partial Pressure O2 58L, Arterial Blood HCO3 27, Arterial Blood Total CO2 27.9, Arterial Blood Oxygen Saturation 89L, Arterial Blood Base Excess 1.7, Blood Gas Ventilator Setting , Blood Gas Inspired Oxygen 02/01/23 15:30: Vancomycin Level Trough 10.1 02/02/23 05:02: White Blood Count 13.4H, Red Blood Count 4.42, Hemoglobin 14.1, Hematocrit 44, Mean Corpuscular Volume 99, Mean Corpuscular Hemoglobin 32, Mean Corpuscular Hemoglobin Concent 32, Red Cell Distribution Width 12.0, Platelet Count 440H, Mean Platelet Volume 9.0, Immature Granulocyte % (Auto) 1, Neutrophils (%) (Auto) 76H, Lymphocytes (%) (Auto) 8L, Monocytes (%) (Auto) 11, Eosinophils (%) (Auto) 3, Basophils (%) (Auto) 1, Neutrophils # (Auto) 10.2H, Lymphocytes # (Auto) 1.1, Monocytes # (Auto) 1.5H, Eosinophils # (Auto) 0.4H, Basophils # (Auto) 0.1, Immature Granulocyte # (Auto) 0.1, Sodium Level 138, Potassium Level 3.3L, Chloride Level 100, Carbon Dioxide Level 25, Anion Gap 13, Blood Urea Nitrogen 8, Creatinine 0.73, Estimat Glomerular Filtration Rate 107, BUN/Creatinine Ratio 11, Glucose Level 139H, Calcium Level 9.7, Corrected Calcium 10.0, Phosphorus Level 4.0, Magnesium Level 1.8, Total Bilirubin 0.4, Aspartate Amino Transf (AST/SGOT) 29, Alanine Aminotransferase (ALT/SGPT) 44, Alkaline Phosphatase 104, Total Protein 8.0, Albumin 3.6, Thyroid Stimulating Hormone (TSH) 0.74 Microbiology 01/30/23 Blood Culture - Preliminary, Resulted 01/28/23 Gram Stain - Final, Complete 01/28/23 Sputum Culture - Final, Complete YEAST 01/23/23 Gram Stain - Final, Complete 01/23/23 Anaerobic Culture - Final, Complete No anaerobes isolated 01/23/23 Surgical Culture - Final, Complete Staphylococcus aureus Staphylococcus aureus#2 A/P: Assessment: Paroxysmal supraventricular tachycardia, mainly sinus tachycardia episode after extubation - Currently in sinus rhythm with controlled rate - Echocardiogram of 01-24-[address] Jacob showed LVEF 55-65%. Grade 1 diastolic dysfunction. LA/RA mod dilated. Mild MR. PASP 60-65 mmHg Necrotizing fasciitis with cellulitis of the left thigh, status post I&D, currently has a wound VAC - Receiving antibiotic and managed by surgical team Status post prolonged respiratory failure, intubated, difficult extubation - requiring Vapo-therm History of alcohol use. Change in mental status, confusion, lethargy, encephalopathy. - Probably secondary to sepsis and hypoxemia Pulmonary hypertension - probably underlying lung disease and/or obesity hypoventilation syndrome Plan: Notes from Dr. Jacob reviewed Continue current regimen Advise consideration of out patient sleep studies to eval for sleep apnea Monitor lab closely Replace potassium today MERRICK WOO Feb 02, 2023 09:32
--- NOTE | 2023-02-02 09:39 | ST Dysphagia Evaluation ---
Speech Evaluation-General Medical Diagnosis Acute Respiratory Failure Onset Date: Jan 23, 2023 Therapy Diagnosis Therapy Diagnosis: Intact Oropharyngeal Swallow Precautions Precautions: Fall, Pressure Ulcer, Aspiration Precautions/Isolations: Contact Isolation, Aspiration, Fall Prevention, Pressure Ulcer Referral Referring Physician: Dr. Busch Reason for Referral: Evaluation/Treatment Medical History Pertinent Medical History: HTN Reviewed History: Yes Speech PLF/Current-Dysphagia Prior Level of Function The patient was unable to provide prior level of P.O. function to the clinician. At this time, the patient is receiving a regular consistency diet with thin liquids. Subjective The patient was lying in bed, sleeping, upon entrance to the room by the clinician. With assistance from the patient's RN, the patient was woke with mo derate verbal prompting and encouragement. The patient remained with eyes closed however participated in orientation discussions with the RN and clinician. The patient's head of bed was elevated for safe swallowing position. Cognitive Status Patient Orientation: Person, Confused, Place, Situation Oral Motor Skills Dentition: Natural Current Food Consistancy: Regular, Thin Liquids Ability to Follow Directions: Fair Oral Expression Ability: Moderate Impairment Voice Voice Phonatory-Based Quality: Glottal Jean Voice Pitch: Normal Voice Loudness: Mildly Soft/Quiet Face Facial Symmetry: Symmetrical Oral-Facial Assessment Oral-Facial Dentition: Normal Labial Seal Description: Normal Lingual Protrusion: Normal Volitional Dry Swallow: Yes Voluntary Cough: Yes Can Clear Throat Volitionally: Yes Dysphagia Evaluation Consistencies Presented: Regular, Thin Liquid (Via straw.), Pureed The RN provided the patient multiple pills with thin liquid. One the initial trial, the patient displayed difficulty coordinating straw sips. With additional time, the patient was able to draw bolus material from the straw. Additional oral difficulties were not observed. Pharyngeal impairments were not observed. The patient displays audible pharyngeal congestion at baseline, clearing his throat prior to P.O. trials. The patient was provided thin liquid via straw sips, puree via teaspoon, solids, and medication (by RN). Overt s/s of suspected aspiration were not demonstrated with any consistency tested. Dietary Recommendations: Regular Liquid Recommendations: Thin Recommendations: - Continue a regular consistency diet with thin liquids, as tolerated. - Fully upright and ALERT for P.O. intake of any kind. - Small, single bites and sips. - Meal set-up assistance, as needed. - Monitor for s/s of suspected aspiration with P.O. intake. If demonstrated, please contact speech pathology. - Skilled dysphagia treatment is not warranted at this time. Please re-consult speech pathology if difficulties arise. The results and recommendations were provided to the patient and RN and placed on the in-room white board at the conclusion of the session. Speech-Plan Treatment Plan Speech Therapy Treatment Plan: Discontinue ST Treatment Duration: Feb 02, 2023 Frequency: 1 time per week Estimated Hrs Per Day: .25 hour per day Rehab Potential: Fair Pt/Family Agrees to Plan: Yes Safety Risks/Education Teaching Recipient: Patient Teaching Methods: Discussion Response to Teaching: Reinforcement Needed Education Topics Provided: Results, Recommendations, Plan of Care, Safe Swallowing Strategies Time Speech Therapy Time In: 08:25 Speech Therapy Time Out: 08:50 DATE: Feb 02, 2023 Total Billed Time: 25 Billed Treatment Time 1, MADI TRUJILLO [facility] ST Feb 02, 2023 09:39
[2023-02-02] MEDS: THIAMINE IV SCH (10:09)
[2023-02-02] MEDS: FOLIC ACID IV SCH (10:09)
[2023-02-02] MEDS: SODIUM HYPOCHLORITE 0.125% TOP SCH (10:26)
[2023-02-02] MEDS: MICONAZOLE 2% POWDER 90 GM TOP SCH ×2 (10:26→21:29)
--- NOTE | 2023-02-02 10:52 | Physical Therapy Evaluation ---
PT Evaluation-General Medical Diagnosis Admission Date Jan 23, 2023 at 12:39 Medical Diagnosis: Acute Respiratory Failure Onset Date: Jan 23, 2023 Therapy Diagnosis Therapy Diagnosis: generalized weakness/impaired mobility Precautions Precautions/Isolations: Contact Isolation, Aspiration, Fall Prevention, Pressure Ulcer Referral Physician: Narayan Reason for Referral: Evaluation/Treatment Medical History Pertinent Medical History: CAD, HTN, Smoking Current History ER from [facility] secondary to left LE edema and redness Reviewed History: Yes Social History Home: Apartment Current Living Status: Spouse Prior Prior Level of Function SCALE: Activities may be completed with or without assistive devices. 6-Polowrfixc-qrymmup completes the activity by him/herself with no assistance from a helper. 5-Set-up or Clean-up Assistance-helper sets up or cleans up; patient completes activity. [place] assists only prior to or following the activity. 4-Supervision or Touching Assistance-helper provides verbal cues and/or touching/steadying and/or contact guard assistance as patient completes activity. Assistance may be provided throughout the activity or intermittently. 3-Partial/Moderate Assistance-helper does LESS THAN HALF the effort. [place] lifts, holds or supports trunk or limbs, but provides less than half the effort. 2-Substantial/Maximal Assistance-helper does MORE THAN HALF the effort. [place] lifts or holds trunk or limbs and provides more than half the effort. 9-Vqdyggcns-gvydva does ALL the effort. Patient does none of the effort to complete the activity. Or, the assistance of 2 or more helpers is required for the patient to complete the activity. If activity was not attempted, code reason: 7-Patient Refused. 9-Not Applicable-not attempted and the patient did not perform the activity before the current illness, exacerbation or injury. 10-Not Attempted due to Environmental Limitations-(lack of equipment, weather restraints, etc.). 88-Not Attempted due to Medical Conditions or Safety Concerns. Bed Mobility: 6 Transfers (B,C,W/C): 6 Gait: 6 Stairs: 6 Indoor Mobility (Ambulation): Independent Stairs: Independent Prior Devices Use: None PT Evaluation-Current Subjective Patient is more alert on this date. Able to actively participate with therapy. Objective Patient Orientation: Person Attachments: Oxygen (vapotherm), Naidu Catheter, IV wound vac ROM/Strength ROM Lower Extremities left LE limited due to discomfort and wound vac/right LE WFL Strength Lower Extremities 3+/5 grossly bilateral LE Integumentary/Posture Bladder Incontinence: Naidu Cath Posture trunk flexed posture due to weakness Neuromuscular (Tone, Coordination, Reflexes) diminished coordination due to weakness/sedation Sensory Vision: Functional Hearing: Functional Transfers Sit to Lying (QC): 4 Lying to Sitting/Side of Bed(Q: 4 Sit to Stand (QC): 3 (bed change during standing) Gait Mode of Locomotion: Walk Anticipated Mode of Locomotion: Walk Distance: 8 side steps to right Gait Assistive Device: FWW Balance Sitting Static: Normal Sitting Dynamic: Normal Standing Static: Fair Standing Dynamic: Fair Assessment/Needs Patient will benefit from skilled PT to address functional strength and mobility to improve current LOF to safely return to home with spouse at maximum LOF. Rehab Potential: Fair PT Residential Goals Blast Furnace Supervisor Goals PT Residential Goals Time Frame: Mar 03, 2023 Roll Left & Right (QC): 6 Sit to Lying (QC): 6 Lying-Sitting on Side/Bed(QC): 6 Sit to Stand (QC): 6 Chair/Sgq-lp-Ktczk Xfer(QC): 6 Toilet Transfer (QC): 6 Walk 10 feet (QC): 6 Walk 50ft with 2 Turns (QC): 6 Walk 150 ft (QC): 6 PT Plan Problem List Problem List: Activity Tolerance, Functional Strength, Safety, Balance, Gait, Transfer Treatment/Plan Treatment Plan: Continue Plan of Care Treatment Plan: Bed Mobility, Education, Functional Activity David, Functional Strength, Gait, Safety, Therapeutic Exercise, Transfers Treatment Duration: Mar 03, 2023 Frequency: 6 times per week Estimated Hrs Per Day: .25 hour per day Patient and/or Family Agrees t: Yes Time Time In: 1000 Time Out: 1025 DATE: Feb 02, 2023 Total Billed Treatment Time: 25 Total Billed Treatment 1 visit EVModC 10 min FA 15 min JOLEEN LI PT Feb 02, 2023 10:52
--- NOTE | 2023-02-02 11:13 | Occupational Therapy Eval ---
OT Evaluation-General/PLF Medical Diagnosis Admission Date Jan 23, 2023 at 12:39 Medical Diagnosis: Acute Respiratory Failure Onset Date: Jan 23, 2023 Therapy Diagnosis Therapy Diagnosis: weakness Precautions Precautions/Isolations: Contact Isolation, Aspiration, Fall Prevention, Pressure Ulcer Weight Bear Status Weight Bearing Restriction: Full Weight Bearing Referral Physician: Narayan Referral Reason: Evaluation/Treatment Medical History Pertinent Medical History: CAD, HTN, Smoking Reviewed History: Yes Social History Home: Apartment Current Living Status: Spouse ADL-Prior Level of Function SCALE: Activities may be completed with or without assistive devices. 1-Vojzjffpct-gkfyhhd completes the activity by him/herself with no assistance from a helper. 5-Set-up or Clean-up Assistance-helper sets up or cleans up; patient completes activity. [place] assists only prior to or following the activity. 4-Supervision or Touching Assistance-helper provides verbal cues and/or touching/steadying and/or contact guard assistance as patient completes activity. Assistance may be provided throughout the activity or intermittently. 3-Partial/Moderate Assistance-helper does LESS THAN HALF the effort. [place] lifts, holds or supports trunk or limbs, but provides less than half the effort. 2-Substantial/Maximal Assistance-helper does MORE THAN HALF the effort. [place] lifts or holds trunk or limbs and provides more than half the effort. 3-Lamhhtbfw-uztycn does ALL the effort. Patient does none of the effort to co mplete the activity. Or, the assistance of 2 or more helpers is required for the patient to complete the activity. If activity was not attempted, code reason: 7-Patient Refused. 9-Not Applicable-not attempted and the patient did not perform the activity before the current illness, exacerbation or injury. 10-Not Attempted due to Environmental Limitations-(lack of equipment, weather restraints, etc.). 88-Not Attempted due to Medical Conditions or Safety Concerns. Self Care: Independent Functional Cognition: Independent Drive Self: Yes OT Current Status Subjective agreeable to participate Mental Status/Objective Patient Orientation: Person, Place, Time, Situation stomach distention, keeps eyes closed. Attachments: Naidu Catheter, Oxygen, SCD's, Telemetry, Other-See Comments (wound vac) Current Upper Extremity ROM limited by excessive soft tissue Upper Extremity Coordination delayed and slow motor planning, cautious Upper Extremity Strength -4/5 grossly ADL-Treatment ADL-Current NO ADLS performed, patient completed standing and side stepping for OT to change linens, patient follows instruction w/ FWW use and safety for transfers Eating (QC): 7 Oral Hygiene (QC): 4 Shower/Bathe Self (QC): 7 Upper Body Dressing (QC): 7 Lower Body Dressing (QC): 7 On/Off Footwear (QC): 1 Toileting Hygiene (QC): 1 Education OT Patient Education: Correct positioning, Exercise program, Modified ADL techniques, Progress toward Goal/Update tx plan, Purpose of tx/functional activities, Reviewed precautions, Rehab process, Safety issues, Transfer techniques, Use of adapted equipment Teaching Recipient: Patient Teaching Methods: Demonstration, Discussion Response to Teaching: Reinforcement Needed OT Agile Business Analyst Goals Agile Business Analyst Goals Eating (QC): 6 Oral Hygiene (QC): 6 Toileting Hygiene (QC): 6 Shower/Bathe Self (QC): 6 Upper Body Dressing (QC): 6 Lower Body Dressing (QC): 6 On/Off Footwear (QC): 6 1=Demonstrate adherence to instructed precautions during ADL tasks. 2=Patient will verbalize/demonstrate understanding of assistive devices/modifications for ADL. 3=Patient will improve strength/tolerance for activity to enable patient to perform ADL's. OT Education/Plan Problem List/Assessment Assessment: Decreased Activ Tolerance, Decreased Safety Aware, Decreased UE Strength, Impaired Self-Care Skills Discharge Recommendations Plan/Recommendations: Continue POC Treatment Plan/Plan of Care Treatment,Training & Education: Yes Patient would benefit from OT for education, treatment and training to promote independence in ADL's, mobility, safety and/or upper extremity function for ADL's. Plan of Care: ADL Retraining, Functional Mobility, Group Exercise/Act as Ind, UE Funct Exercise/Act Treatment Duration: Feb 09, 2023 Frequency: 3 times per week (3-5 times per week) Estimated Hrs Per Day: .25 hour per day Agreement: Yes Rehab Potential: Guarded Time Start Time: 10:12 Stop Time: 10:30 DATE: Feb 02, 2023 Total Time Billed (hr/min): 17 Billed Treatment Time EVM 17 min MJ ESPINAL OT Feb 02, 2023 11:13
--- NOTE | 2023-02-02 11:44 | Progress Note - Hospitalist ---
DAKOTA VILLEGAS 02/02/23 1144: Subjective HPI/CC On Admission Date Seen by Provider: Feb 02, 2023 Time Seen by Provider: 11:39 57 yo M with past hx of alcohol and tobacco abuse admitted on 01/23 for L LE infection and pain that had been ongoing for a few weeks. Hx of cellulitis in L LE 4x in the last year. Denies any hx of puncture wounds. Presented to the ER d/t increase in L LE pain and had a hard time walking. Culture from wound taken found MRSA resistant to clindamycin. Dx with LLE necrotizing fascitis/sepsis s/p I/D and debridement with general surgery who required mechanical ventilation th at day due to failed post-operative extubation. Extubated on 01/31 and currently maintained on vapotherm. Had episodes of visual and auditory hallucinations. Subjective/Events-last exam Pt is AxOx3 today but continues to have visual and auditory hallucinations per nursing. Denies any pain in his L LE. He is drowsy but responsive to questions. He is currently on vapotherm 30L at 70% w/o any signs of respiratory distress. Review of Systems General: No Chills, No Night Sweats HEENT: No Visual Changes, No Dysphasia Pulmonary: No Dyspnea, No Cough Cardiovascular: No: Chest Pain, Palpitations Gastrointestinal: No: Nausea, Vomiting, Abdominal Pain Genitourinary: No Dysuria, No Incontinence Musculoskeletal: No: hand pain, leg pain Neurological: Confusion, Other (hallucinations); No: Change in speech Focused Exam Sepsis Stage: Ruled Out Capillary Refill: Less Than 3 Seconds Objective Exam Vital Signs Vital Signs Date Time Temp Pulse Resp B/P (MAP) Pulse Ox O2 Delivery O2 Flow Rate FiO2 02/02/23 12:34 82 02/02/23 12:02 36.8 02/02/23 12:00 26 96 Vapotherm 30.00 100.00 02/02/23 09:56 70 Capillary Refill : Less Than 3 SecondsLess Than 3 Seconds General Appearance: No Apparent Distress, Chronically ill HEENT: Normal ENT Inspection, Pharynx Normal Neck: Normal Inspection, Non Tender Respiratory: Chest Non Tender, Lungs Clear, Normal Breath Sounds, No Accessory Muscle Use, No Respiratory Distress Cardiovascular: Regular Rate, Rhythm, No Edema, No Murmur, Normal Peripheral Pulses Gastrointestinal: Normal Bowel Sounds, Non Tender, Soft Extremity: Normal Capillary Refill, Normal Inspection, No Calf Tenderness, No Pedal Edema Neurologic/Psychiatric: No Alert; Oriented x3, Other (hallucinations, drowsy) Skin: Normal Color, Warm/Dry, Other (L LE wound vac) Results/Procedures Lab Laboratory Tests 02/02/23 05:02 Patient resulted labs reviewed. Imaging: Reviewed Imaging Report Assessment/Plan Assessment and Plan Assess & Plan/Chief Complaint Necrotizing fascititis of LLE S/P I&D and debridement - Patient WBC increased from 12.3 yesterday to 13.4 today, normal lactic acid. Unclear etiology, repeat cbc tmw and monitor - Wound cultures grew s. aureus resitant to clindamycin (01/26), blood cultures without growth - Continue vancomycin and zosyn - Wound vac in place. Wet to dry wound care BID per surgery - Pain control with fentanyl to limit confusion - Surgery following, appreciate recommendations Altered mental status - Patient with hallucinations and agitations following extubation 01/31 - Fentanyl discontinued on 01/31 to minimize AMS - CiWa protocol - Continue lactulose, thiamine replacement, lorazepam Acute hypoxic respiratory failure - Patient mechanically ventilated from 01/23- after failed post-operative extubation - Patient extubated on 01/31 and currently maintained on vapotherm 30 at 70% w/o signs of resp distress - Continue to wean vapotherm usage as tolerated Presumed [place], COPD with pulmonary HTN - 01/24 Echo showing systolic pressure of 60-65 mmHg - 01/31 CXR still with "central vascular congestion" Ventilator associated fungal pneumonia - Sputum culture grew yeast on 01/28 - Continue Miconazole and adunilofungin Tobacco abuse - Nicotine patch BISI MARQUEZ DO 02/03/23 0548: Subjective Subjective/Events-last exam Patient much improved Decreased hallucinations but improved Still on Vapotherm Objective Exam General Appearance: No Apparent Distress, WD/WN, Chronically ill, Obese Respiratory: Lungs Clear, Normal Breath Sounds Cardiovascular: Regular Rate, Rhythm Neurologic/Psychiatric: Alert, Oriented x3, Disoriented Assessment/Plan Assessment and Plan Assess & Plan/Chief Complaint Continue weaning Vapotherm Keep in ICU Supervisory-Addendum Brief Verification & Attestation Participated in pt care: history, MDM, physical Personally performed: exam, history, MDM, supervision of care Care discussed with: Medical Student Procedures: n/a Results interpretation: Verified all documentation Verification and Attestation of Medical Student E/M Service A medical student performed and documented this service in my presence. I reviewed and verified all information documented by the medical student and made modifications to such information, when appropriate. I personally performed the physical exam and medical decision making. Bisi Marquez, Feb 03, 2023,05:47 DAKOTA VILLEGAS Feb 02, 2023 11:44 BISI MARQUEZ DO Feb 03, 2023 05:48
--- NOTE | 2023-02-02 13:11 | Tele-ICU Progress Note ---
Subjective Date Seen by a Provider: Feb 02, 2023 Time Seen by a Provider: 13:11 Subjective/Events-last exam (Tele-ICU Physician , Progress Note ) Service provided via interactive audio and video telecommunications E-CARE system to a patient admitted to ICU bed in [facility]. Patient is seen today due to persistent need of ICU care Available chart/ vitals / labs / Images reviewed Video assessment done using teleICU camera, rest of exam as per RN Discussed with RN Events overnight : events of desat last night - ? mucous plugs Afebrile VT 30L 70 % I/O = neg Drips: Pressors- no Hospital course: (01/23) 57yr old male admitted with left uper medial thigh abscess/cellulitis s/p I & D, to ICU intubated , 100 Fio2 , CTA - neg for PE 01/24- RASS - 1-2 on propofol 40 fent 175 ECHO 01/25- AC -20 450 50 + 8 , propofol 40 fent 150 01/26- AC -20 450 50 + 8 , propofol 30 fent 175 OG output 500 /shift 01/28 -AC -20 450 60 + 8 , RASS - 1-2 on propofol 25 fent 200 versed 8, changed TV to 600 01/29 - 50 % , high OG output , WOUND VAC 01/30 -40 % 18 600 +6 , FEVER 38 ( recultured PICC . periph , sputum ) + secretions ETT ,ERAXIS , cont lactulose , added reglan , fent 300 versed 10 01/31 - mucous plugs - 50% ( was on 100% few times ) febt 300 , verced 8 RASS -1 EXTUBATED 01/31 02/02 - VT 30L 100 % - yty diaretics , confused - precedex 1.5 A/P: Acute hypoxic resp failure 01/23 - postop -EXTUBATED 01/31 -?ETIOLOGY still not clear - IMROVING - CTA 01/23 NEG for pe, ECHO NO shunt ( but present pulm HTN - in ER was ( slightly hypoxic on arrival 89 to 90% was placed on 2 L)) , - low suspect for air embolism based on Sx performed - + secretions -- on duo neb q4 h , mucomist nebs , guafenesin 200 qid -cont diuresis PRN - IS . OOB , ambulation - try BIPAP at night Confusion - ? ICU delirium CTH neg 02/02 Left thigh necrotizing soft tissue infection ---Cultures pending. ---Continue vanco and zosyn clinda - as per Sx - MRSA wound - stop clinda - wound vac 01/29 - as per sx ID - MRSA - soft tissue - VANCO ( by sens ) -suspecteed PNA - Zosyn , vanco - sputum yeast - 01/29 Eraxis -MRSA nasal- bactroban -Fever 01/30 - recultured , subsided PULM HTN - by ECHO 01/24/23 - RVSP 60 mm hg ( no acute PE on CTA ) - keep neg volume status EtOH: drinks beer x6 daily. ---CIWA, vitamins Nutritions - Po MRSA nasal - bactroban Lines : PICC , (Central Line Necessity Reviewed) Naidu: 01/23 OG: Nutrition: npo Analgesia: Anxiety/ delirium VTE Prophylaxis: ingrid 40 Stress Ulcer Prophylaxis: h2bl Plans in collaboration with bedside consultants and IM MDs. Discussed with RN to reach out if any questions or concerns Case and care daily discussed on multidisciplinary rounds ( RN, PharmD, [employer]cer , Respiratory Therapy, film processing utility worker ) A total of 35 minutes of critical care time was devoted to this patient today, required to treat and/or prevent further deterioration of critical care condition ( as above ) . I am remotely monitoring this patient from another state. I am unable to do the bedside exam, and history/physical and pertinent information is taken from other notes in the computer and bedside staff. Sepsis Event Evaluation Height, Weight, BMI Height: '" Weight: lbs. oz. kg; 37.88 BMI Method:Estimated Exam Exam Patient acknowledged, consented, and participated in this virtual visit which was conducted using real time audio/video Vital Signs Date Time Temp Pulse Resp B/P (MAP) Pulse Ox O2 Delivery O2 Flow Rate FiO2 02/02/23 12:34 82 02/02/23 12:02 36.8 02/02/23 12:00 81 26 142/89 (106) 96 Vapotherm 30.00 100.00 02/02/23 11:00 87 28 151/92 (111) 91 Vapotherm 30.00 100.00 02/02/23 10:00 89 147/94 (108) 93 Vapotherm 30.00 100.00 02/02/23 09:56 92 Vapotherm 20.00 70 02/02/23 09:55 89 Vapotherm 30.00 60 02/02/23 09:51 94 Vapotherm 30.00 60 02/02/23 09:46 96 Vapotherm 30.00 70 02/02/23 09:00 83 18 130/88 (100) 93 Vapotherm 30.00 100.00 02/02/23 08:50 78 160/102 02/02/23 08:00 80 23 145/90 (106) 92 Vapotherm 30.00 100.00 02/02/23 07:01 93 Vapotherm 30.00 70 02/02/23 07:00 77 23 162/98 (118) 93 Vapotherm 30.00 100.00 02/02/23 07:00 78 02/02/23 06:00 77 23 161/98 (119) 93 Vapotherm 30.00 100.00 02/02/23 05:00 85 24 168/108 (128) 93 Vapotherm 30.00 100.00 02/02/23 04:00 86 24 170/109 (129) 94 Vapotherm 30.00 100.00 02/02/23 04:00 95 Vapotherm 100 02/02/23 03:00 87 19 142/90 (107) 98 Vapotherm 30.00 100.00 02/02/23 02:38 78 156/94 02/02/23 02:07 97 Vapotherm 30.00 70 02/02/23 02:00 73 20 162/104 (123) 95 Vapotherm 30.00 100.00 02/02/23 01:00 77 22 151/94 (113) 95 Vapotherm 30.00 100.00 02/02/23 00:00 80 48 158/100 (119) 94 Vapotherm 30.00 100.00 02/02/23 00:00 80 02/01/23 23:54 93 Vapotherm 100 02/01/23 23:00 80 26 160/94 (116) 94 Vapotherm 30.00 100.00 02/01/23 22:38 78 168/101 02/01/23 22:31 94 Vapotherm 30.00 70 02/01/23 22:00 75 175/115 (135) 98 Vapotherm 30.00 100.00 02/01/23 21:00 76 172/103 (126) 97 Vapotherm 30.00 100.00 02/01/23 20:00 94 Vapotherm 100 02/01/23 20:00 76 172/98 (122) 95 Vapotherm 30.00 100.00 02/01/23 19:36 36.3 02/01/23 19:12 85 02/01/23 19:00 86 127/78 (94) 90 Vapotherm 30.00 100.00 02/01/23 18:36 94 Vapotherm 30.00 70 02/01/23 18:01 70 174/102 (126) 91 Vapotherm 30.00 100.00 02/01/23 17:00 80 175/103 (127) 93 Vapotherm 30.00 100.00 02/01/23 16:00 75 20 176/101 (126) 92 Vapotherm 30.00 100.00 02/01/23 16:00 92 Vapotherm 100 02/01/23 15:22 36.2 02/01/23 15:15 84 22 166/104 (124) 93 Vapotherm 30.00 100.00 02/01/23 14:29 92 Vapotherm 30.00 70 02/01/23 14:11 81 22 171/102 (125) 94 Vapotherm 30.00 100.00 I & O 02/02/23 06:59 Intake Total 3248.7 ml Output Total 5250 ml Balance -2001.3 ml Height & Weight Height: '" Weight: lbs. oz. kg; 37.88 BMI Method:Estimated General Appearance: No Apparent Distress, Chronically ill HEENT: Normal ENT Inspection, Pharynx Normal Neck: Normal Inspection, Non Tender Respiratory: Chest Non Tender, Lungs Clear, Normal Breath Sounds, No Accessory Muscle Use, No Respiratory Distress Cardiovascular: Regular Rate, Rhythm, No Edema, No Murmur, Normal Peripheral Pulses Capillary Refill: Less Than 3 Seconds Peripheral Pulses: 2+ Dorsalis Pedis (R), 2+ Left Dors-Pedis (L), 2+ Radial Pulses (R), 2+ Radial Pulses (L) Extremity: Normal Capillary Refill, Normal Inspection, No Calf Tenderness, No Pedal Edema Neurologic/Psychiatric: No Alert; Oriented x3, Other (hallucinations, drowsy) Skin: Normal Color, Warm/Dry, Other (L LE wound vac) Lymphatic: No Adenopathy Results Lab Laboratory Tests 02/01/23 05:00 02/02/23 05:02 Assessment/Plan Assessment/Plan 1 RASHMI CANTRELL MD Feb 02, 2023 13:11
--- NOTE | 2023-02-02 13:39 | Progress Note - Surgery ---
Subjective Time Seen by a Provider: 10:21 Subjective/Events-last exam Pt seen and examined, states mininmal leg pain. Review of Systems Pulmonary: Dyspnea, Cough Cardiovascular: No: Chest Pain, Palpitations Gastrointestinal: No: Nausea, Vomiting, Abdominal Pain Musculoskeletal: leg pain Objective Exam Vital Signs Date Time Temp Pulse Resp B/P (MAP) Pulse Ox O2 Delivery O2 Flow Rate FiO2 02/02/23 13:00 80 25 153/102 (113) 96 Vapotherm 30.00 100.00 02/02/23 12:34 82 02/02/23 12:02 36.8 02/02/23 12:00 81 26 142/89 (106) 96 Vapotherm 30.00 100.00 02/02/23 11:00 87 28 151/92 (111) 91 Vapotherm 30.00 100.00 02/02/23 10:00 89 147/94 (108) 93 Vapotherm 30.00 100.00 02/02/23 09:56 92 Vapotherm 20.00 70 02/02/23 09:55 89 Vapotherm 30.00 60 02/02/23 09:51 94 Vapotherm 30.00 60 02/02/23 09:46 96 Vapotherm 30.00 70 02/02/23 09:00 83 18 130/88 (100) 93 Vapotherm 30.00 100.00 02/02/23 08:50 78 160/102 02/02/23 08:00 80 23 145/90 (106) 92 Vapotherm 30.00 100.00 02/02/23 07:01 93 Vapotherm 30.00 70 02/02/23 07:00 77 23 162/98 (118) 93 Vapotherm 30.00 100.00 02/02/23 07:00 78 02/02/23 06:00 77 23 161/98 (119) 93 Vapotherm 30.00 100.00 02/02/23 05:00 85 24 168/108 (128) 93 Vapotherm 30.00 100.00 02/02/23 04:00 86 24 170/109 (129) 94 Vapotherm 30.00 100.00 02/02/23 04:00 95 Vapotherm 100 02/02/23 03:00 87 19 142/90 (107) 98 Vapotherm 30.00 100.00 02/02/23 02:38 78 156/94 02/02/23 02:07 97 Vapotherm 30.00 70 02/02/23 02:00 73 20 162/104 (123) 95 Vapotherm 30.00 100.00 02/02/23 01:00 77 22 151/94 (113) 95 Vapotherm 30.00 100.00 02/02/23 00:00 80 48 158/100 (119) 94 Vapotherm 30.00 100.00 02/02/23 00:00 80 02/01/23 23:54 93 Vapotherm 100 02/01/23 23:00 80 26 160/94 (116) 94 Vapotherm 30.00 100.00 02/01/23 22:38 78 168/101 02/01/23 22:31 94 Vapotherm 30.00 70 02/01/23 22:00 75 175/115 (135) 98 Vapotherm 30.00 100.00 02/01/23 21:00 76 172/103 (126) 97 Vapotherm 30.00 100.00 02/01/23 20:00 94 Vapotherm 100 02/01/23 20:00 76 172/98 (122) 95 Vapotherm 30.00 100.00 02/01/23 19:36 36.3 02/01/23 19:12 85 02/01/23 19:00 86 127/78 (94) 90 Vapotherm 30.00 100.00 02/01/23 18:36 94 Vapotherm 30.00 70 02/01/23 18:01 70 174/102 (126) 91 Vapotherm 30.00 100.00 02/01/23 17:00 80 175/103 (127) 93 Vapotherm 30.00 100.00 02/01/23 16:00 75 20 176/101 (126) 92 Vapotherm 30.00 100.00 02/01/23 16:00 92 Vapotherm 100 02/01/23 15:22 36.2 02/01/23 15:15 84 22 166/104 (124) 93 Vapotherm 30.00 100.00 02/01/23 14:29 92 Vapotherm 30.00 70 02/01/23 14:11 81 22 171/102 (125) 94 Vapotherm 30.00 100.00 I & O 02/02/23 06:59 Intake Total 3248.7 ml Output Total 5250 ml Balance -2001.3 ml Capillary Refill : Less Than 3 SecondsLess Than 3 Seconds General Appearance: No Apparent Distress, Chronically ill Neck: Non Tender Respiratory: Lungs Clear, Normal Breath Sounds, No Accessory Muscle Use, No Respiratory Distress Cardiovascular: Regular Rate, Rhythm, No Murmur Peripheral Pulses: 2+ Dorsalis Pedis (R), 2+ Left Dors-Pedis (L), 2+ Radial Pulses (R), 2+ Radial Pulses (L) Extremity: Normal Capillary Refill, Normal Inspection, No Calf Tenderness, No Pedal Edema Neurologic/Psychiatric: Other (hallucinations, drowsy) Skin: Normal Color, Warm/Dry, Other (L LE wound vac, no erythema) Results Lab Laboratory Tests 02/01/23 15:30: Vancomycin Level Trough 10.1 02/02/23 05:02: White Blood Count 13.4H, Red Blood Count 4.42, Hemoglobin 14.1, Hematocrit 44, Mean Corpuscular Volume 99, Mean Corpuscular Hemoglobin 32, Mean Corpuscular Hemoglobin Concent 32, Red Cell Distribution Width 12.0, Platelet Count 440H, Mean Platelet Volume 9.0, Immature Granulocyte % (Auto) 1, Neutrophils (%) (Auto) 76H, Lymphocytes (%) (Auto) 8L, Monocytes (%) (Auto) 11, Eosinophils (%) (Auto) 3, Basophils (%) (Auto) 1, Neutrophils # (Auto) 10.2H, Lymphocytes # (Auto) 1.1, Monocytes # (Auto) 1.5H, Eosinophils # (Auto) 0.4H, Basophils # (Auto) 0.1, Immature Granulocyte # (Auto) 0.1, Sodium Level 138, Potassium Level 3.3L, Chloride Level 100, Carbon Dioxide Level 25, Anion Gap 13, Blood Urea Nitrogen 8, Creatinine 0.73, Estimat Glomerular Filtration Rate 107, BUN/Creatinine Ratio 11, Glucose Level 139H, Calcium Level 9.7, Corrected Calcium 10.0, Phosphorus Level 4.0, Magnesium Level 1.8, Total Bilirubin 0.4, Aspartate Amino Transf (AST/SGOT) 29, Alanine Aminotransferase (ALT/SGPT) 44, Alkaline Phosphatase 104, Total Protein 8.0, Albumin 3.6, Thyroid Stimulating Hormone (TSH) 0.74 Microbiology 02/01/23 Urine Culture - Preliminary, Resulted NO GROWTH 01/30/23 Blood Culture - Preliminary, Resulted 01/28/23 Gram Stain - Final, Complete 01/28/23 Sputum Culture - Final, Complete YEAST 01/23/23 Gram Stain - Final, Complete 01/23/23 Anaerobic Culture - Final, Complete No anaerobes isolated 01/23/23 Surgical Culture - Final, Complete Staphylococcus aureus Staphylococcus aureus#2 Assessment/Plan Assessment/Plan Assessment/Plan Left thigh necrotizing soft tissue infection s/p incision and drainage and debridement with wound VAC placement Wound VAC to be changed Sunday, wound culture results - MRSA on ABX Sputum culture results - yeast, continue antifungals- miconazole and adinulafungin IV fluids, pain control, start clears and advance as tolerated BOOGIE ANDRE DO Feb 02, 2023 13:39
[2023-02-02] MEDS: oxyCODONE IMMEDIATE RELEASE 5 MG TABLET PO PRN (15:21)
--- NOTE | 2023-02-02 17:36 | Progress Note - Cardiology ---
Cardiology SOAP Progress Note Subjective: Drowsy Does not report cp or palp or syncope or shortness of breath Objective: I&O/Vital Signs 02/02/23 02/02/23 02/02/23 02/02/23 06:00 07:00 07:00 07:01 Pulse 77 78 77 Resp B/P (MAP) 161/98 (119) 162/98 (118) Pulse Ox 93 93 93 O2 Delivery Vapotherm Vapotherm Vapotherm O2 Flow Rate 30.00 30.00 30.00 100.00 100.00 FiO2 70 02/02/23 02/02/23 02/02/23 02/02/23 08:00 08:00 08:50 09:00 Pulse 80 78 83 Resp 18 B/P (MAP) 145/90 (106) 160/102 130/88 (100) Pulse Ox 98 92 93 O2 Delivery Vapotherm Vapotherm Vapotherm O2 Flow Rate 30.00 30.00 100.00 100.00 FiO2 70 02/02/23 02/02/23 02/02/23 02/02/23 09:46 09:51 09:55 09:56 Pulse Ox 96 94 89 92 O2 Delivery Vapotherm Vapotherm Vapotherm Vapotherm O2 Flow Rate 30.00 30.00 30.00 20.00 FiO2 70 60 60 70 02/02/23 02/02/23 02/02/23 02/02/23 10:00 11:00 12:00 12:00 Pulse 89 87 81 Resp 28 26 B/P (MAP) 147/94 (108) 151/92 (111) 142/89 (106) Pulse Ox 93 91 98 96 O2 Delivery Vapotherm Vapotherm Vapotherm Vapotherm O2 Flow Rate 30.00 30.00 30.00 100.00 100.00 100.00 FiO2 70 02/02/23 02/02/23 02/02/23 02/02/23 12:02 12:34 13:00 14:00 Temp 36.8 Pulse 82 80 83 Resp 25 20 B/P (MAP) 153/102 (113) 130/84 (93) Pulse Ox 96 95 O2 Delivery Vapotherm Vapotherm O2 Flow Rate 30.00 30.00 100.00 100.00 02/02/23 02/02/23 02/02/23 02/02/23 14:56 15:00 15:10 16:00 Temp 36.9 Pulse 79 85 Resp 30 13 B/P (MAP) 158/99 (114) 130/91 (103) Pulse Ox 97 94 98 O2 Delivery Vapotherm Vapotherm Vapotherm O2 Flow Rate 20.00 30.00 30.00 100.00 100.00 FiO2 70 02/02/23 02/02/23 02/02/23 16:00 16:48 17:00 Temp 36.9 Pulse 85 Resp 29 B/P (MAP) 135/91 (106) Pulse Ox 98 92 O2 Delivery Vapotherm Vapotherm O2 Flow Rate 30.00 100.00 FiO2 70 02/01/23 23:59 Intake Total 2247.5 ml Output Total 3200 ml Balance -952.5 ml Constitutional: other (Lethargic, opens eyes when named is called, but does not answer any questions) Respiratory: No accessory muscle use, No respiratory distress; other (diminished throughout) Cardiovascular: regular rate-rhythm; No JVD; S1 and S2 Gastrointestional: round, distended; No guarding; audible bowel sounds Extremities: other (wound vac in place to left upper leg), no lower extremity edema bilateral Neurologic/Psychiatric: other (moves extremities) Skin: other (see above) Results/Procedures: Labs Laboratory Tests 02/02/23 05:02: White Blood Count 13.4H, Red Blood Count 4.42, Hemoglobin 14.1, Hematocrit 44, Mean Corpuscular Volume 99, Mean Corpuscular Hemoglobin 32, Mean Corpuscular Hemoglobin Concent 32, Red Cell Distribution Width 12.0, Platelet Count 440H, Mean Platelet Volume 9.0, Immature Granulocyte % (Auto) 1, Neutrophils (%) (Auto) 76H, Lymphocytes (%) (Auto) 8L, Monocytes (%) (Auto) 11, Eosinophils (%) (Auto) 3, Basophils (%) (Auto) 1, Neutrophils # (Auto) 10.2H, Lymphocytes # (Auto) 1.1, Monocytes # (Auto) 1.5H, Eosinophils # (Auto) 0.4H, Basophils # (Auto) 0.1, Immature Granulocyte # (Auto) 0.1, Sodium Level 138, Potassium Level 3.3L, Chloride Level 100, Carbon Dioxide Level 25, Anion Gap 13, Blood Urea Nitrogen 8, Creatinine 0.73, Estimat Glomerular Filtration Rate 107, BUN/Creatinine Ratio 11, Glucose Level 139H, Calcium Level 9.7, Corrected Calcium 10.0, Phosphorus Level 4.0, Magnesium Level 1.8, Total Bilirubin 0.4, Aspartate Amino Transf (AST/SGOT) 29, Alanine Aminotransferase (ALT/SGPT) 44, Alkaline Phosphatase 104, Total Protein 8.0, Albumin 3.6, Thyroid Stimulating Hormone (TSH) 0.74 Microbiology 02/01/23 Urine Culture - Final, Complete NO GROWTH 01/30/23 Blood Culture - Preliminary, Resulted 01/28/23 Gram Stain - Final, Complete 01/28/23 Sputum Culture - Final, Complete YEAST 01/23/23 Gram Stain - Final, Complete 01/23/23 Anaerobic Culture - Final, Complete No anaerobes isolated 01/23/23 Surgical Culture - Final, Complete Staphylococcus aureus Staphylococcus aureus#2 A/P: Assessment: Paroxysmal supraventricular tachycardia, mainly sinus tachycardia episode after extubation - Currently in sinus rhythm with controlled rate - Echocardiogram of 01-24-[address] Jacob showed LVEF 55-65%. Grade 1 diastolic dysfunction. LA/RA mod dilated. Mild MR. PASP 60-65 mmHg Necrotizing fasciitis with cellulitis of the left thigh, status post I&D, troy fay has a wound VAC - Receiving antibiotic and managed by surgical team Status post prolonged respiratory failure, intubated, difficult extubation - requiring Vapo-therm History of alcohol use. Change in mental status, confusion, lethargy, encephalopathy. - Probably secondary to sepsis and hypoxemia Pulmonary hypertension - probably underlying lung disease and/or obesity hypoventilation syndrome Plan: Notes from Dr. Jacob reviewed Continue current regimen Advise consideration of out patient sleep studies to eval for sleep apnea Monitor lab closely Replace potassium today ALBERTINA DEJESUS MD FACP FAC CCDS Feb 02, 2023 17:36
[2023-02-03] MEDS: LORazepam 1 MG TABLET PO PRN (00:30)
[2023-02-03] MEDS: RT-Ipratropium/Albuterol NEB 3 ML VIAL INH SCH ×6 (02:34→21:31)
[2023-02-03] MEDS: aCETylcysteine 20% (RT/PO) 4 ML SOLN VIAL INH SCH ×4 (02:35→21:32)
[2023-02-03] MEDS: METOCLOPRAMIDE INJ 10 MG/2 ML IVP SCH ×4 (02:43→18:02)
[2023-02-03 05:27] LABS: BASOPHILS # (AUTO) 0.1 10^3/uL (0.0-0.1); BASOPHILS % (AUTO) 0 % (0-10); EOSINOPHILS # (AUTO) 0.2 10^3/uL (0.0-0.3); EOSINOPHILS % (AUTO) 2 % (0-10); HEMATOCRIT 42 % (40-54); HEMOGLOBIN 13.7 g/dL (13.3-17.7); LYMPHOCYTES # (AUTO) 1.4 10^3/uL (1.0-4.0); LYMPHOCYTES % (AUTO) 10 % (12-44); MEAN CORPUSCULAR HEMOGLOBIN 32 pg (25-34); MEAN CORPUSCULAR HGB CONC 33 g/dL (32-36); MEAN CORPUSCULAR VOLUME 99 fL (80-99); MEAN PLATELET VOLUME 9.2 fL (9.0-12.2); MONOCYTES # (AUTO) 1.5 10^3/uL (0.0-1.0); MONOCYTES % (AUTO) 11 % (0-12); NEUTROPHILS # (AUTO) 10.6 10^3/uL (1.8-7.8); NEUTROPHILS % (AUTO) 76 % (42-75); PLATELET COUNT 457 10^3/uL (130-400); WHITE BLOOD COUNT 13.9 10^3/uL (4.3-11.0)
[2023-02-03] MEDS: DexMEDEtomidine 1,000mcg/250ml 250 ML IV SCH (05:27)
[2023-02-03 05:41] LABS: ALBUMIN 3.5 GM/DL (3.2-4.5); POTASSIUM 3.7 MMOL/L (3.6-5.0)
[2023-02-03 05:42] LABS: CALCIUM 10.4 MG/DL (8.5-10.1)
[2023-02-03 05:44] LABS: TOTAL PROTEIN 7.5 GM/DL (6.4-8.2)
[2023-02-03 05:45] LABS: BILIRUBIN,TOTAL 0.4 MG/DL (0.1-1.0)
[2023-02-03 05:47] LABS: CREATININE SERUM 1.17 MG/DL (0.60-1.30); PHOSPHORUS 5.2 MG/DL (2.3-4.7)
[2023-02-03 05:50] LABS: MAGNESIUM 1.9 MG/DL (1.6-2.4)
[2023-02-03] MEDS: POTASSIUM CL 10MEQ/50ML IVPB 50 ML IV SCH ×3 (05:55→10:45)
[2023-02-03] MEDS: POTASSIUM CHLORIDE 20 MEQ TABLET PO SCH (05:55)
[2023-02-03] MEDS: MAGNESIUM 1 GM/100 ML IVPB 100 ML IV SCH ×3 (05:55→10:44)
--- NOTE | 2023-02-03 07:55 | Tele-ICU Progress Note ---
Subjective Date Seen by a Provider: Feb 03, 2023 Time Seen by a Provider: 07:49 Subjective/Events-last exam (Tele-ICU Physician , Progress Note ) Service provided via interactive audio and video telecommunications E-CARE system to a patient admitted to ICU bed in [facility]. Patient is seen today due to persistent need of ICU care Available chart/ vitals / labs / Images reviewed Video assessment done using teleICU camera, rest of exam as per RN Discussed with RN Events overnight : events of desat last night - ? mucous plugs Afebrile VT 30L 70 % I/O = neg Drips: Pressors- no Hospital course: (01/23) 57yr old male admitted with left uper medial thigh abscess/cellulitis s/p I & D, to ICU intubated , 100 Fio2 , CTA - neg for PE 01/24- RASS - 1-2 on propofol 40 fent 175 ECHO 01/25- AC -20 450 50 + 8 , propofol 40 fent 150 01/26- AC -20 450 50 + 8 , propofol 30 fent 175 OG output 500 /shift 01/28 -AC -20 450 60 + 8 , RASS - 1-2 on propofol 25 fent 200 versed 8, c hanged TV to 600 01/29 - 50 % , high OG output , WOUND VAC 01/30 -40 % 18 600 +6 , FEVER 38 ( recultured PICC . periph , sputum ) + secretions ETT ,ERAXIS , cont lactulose , added reglan , fent 300 versed 10 01/31 - mucous plugs - 50% ( was on 100% few times ) febt 300 , verced 8 RASS -1 EXTUBATED 01/31 02/02 - VT 30L 100 % - yty diaretics , confused - precedex 1.5 Remains on high flow oxygen @ 12 lpm, CXR shows mild congestion, elevated diaphragms probably from obesity Now off IV Zosyn, still on anti-fungal Rx, yeast in sputum, S aureus from thigh wound-has wound vac, around wound looks good BC still negative On CIWA protocol, On PRN PB and IV Precedex Pt removed PICC line last night. On IV Precedex @ 1.5 Still having auditory and visual hallucinations, on PB and Precedex Sepsis Event Evaluation Height, Weight, BMI Height: '" Weight: lbs. oz. kg; 37.91 BMI Method:Estimated Exam Exam Patient acknowledged, consented, and participated in this virtual visit which was conducted using real time audio/video Vital Signs Date Time Temp Pulse Resp B/P (MAP) Pulse Ox O2 Delivery O2 Flow Rate FiO2 02/03/23 07:28 36.5 02/03/23 07:01 92 High Flow N/C 12.00 02/03/23 07:00 96 High Flow N/C 15.00 02/03/23 07:00 79 02/03/23 07:00 79 25 137/84 (99) 92 High Flow N/C 12.00 02/03/23 06:31 90 OxyMask 15.00 02/03/23 06:00 79 27 122/79 (93) 90 Vapotherm 30.00 100.00 02/03/23 05:27 79 126/82 02/03/23 05:00 78 23 134/93 (107) 90 Vapotherm 30.00 100.00 02/03/23 04:00 95 High Flow N/C 15.00 02/03/23 04:00 80 24 127/84 (98) 90 Vapotherm 30.00 100.00 02/03/23 03:00 80 28 108/79 (89) 91 Vapotherm 30.00 100.00 02/03/23 02:35 92 High Flow N/C 15.00 02/03/23 02:00 84 23 138/88 (105) 90 Vapotherm 30.00 100.00 02/03/23 01:00 86 18 118/77 (91) 90 Vapotherm 30.00 100.00 02/03/23 00:00 89 02/03/23 00:00 89 18 138/85 (102) 90 Vapotherm 30.00 100.00 02/02/23 23:59 92 High Flow N/C 10.00 02/02/23 23:01 87 112/77 02/02/23 23:00 Vapotherm 30.00 100.00 02/02/23 22:48 100 High Flow N/C 10.00 02/02/23 22:00 85 37 151/98 (115) 97 Vapotherm 30.00 100.00 02/02/23 21:00 85 22 125/84 (98) 95 Vapotherm 30.00 100.00 02/02/23 20:28 36.8 12/1/23 20:00 84 27 123/93 (103) 94 Vapotherm 30.00 100.00 02/02/23 20:00 97 High Flow N/C 10.00 02/02/23 19:03 97 Vapotherm 20.00 70 02/02/23 19:00 87 25 144/90 (108) 91 Vapotherm 30.00 100.00 02/02/23 19:00 88 02/02/23 18:56 37.4 02/02/23 18:03 37.1 02/02/23 18:00 88 14 134/90 (97) 90 Vapotherm 30.00 100.00 02/02/23 17:00 85 29 135/91 (106) 92 Vapotherm 30.00 100.00 02/02/23 16:48 36.9 02/02/23 16:00 98 Vapotherm 70 02/02/23 16:00 85 13 130/91 (103) 98 Vapotherm 30.00 100.00 02/02/23 15:10 36.9 02/02/23 15:00 79 30 158/99 (114) 94 Vapotherm 30.00 100.00 02/02/23 14:56 97 Vapotherm 20.00 70 02/02/23 14:00 83 20 130/84 (93) 95 Vapotherm 30.00 100.00 02/02/23 13:00 80 25 153/102 (113) 96 Vapotherm 30.00 100.00 02/02/23 12:34 82 02/02/23 12:02 36.8 02/02/23 12:00 81 26 142/89 (106) 96 Vapotherm 30.00 100.00 02/02/23 12:00 98 Vapotherm 70 02/02/23 11:00 87 28 151/92 (111) 91 Vapotherm 30.00 100.00 02/02/23 10:00 89 147/94 (108) 93 Vapotherm 30.00 100.00 02/02/23 09:56 92 Vapotherm 20.00 70 02/02/23 09:55 89 Vapotherm 30.00 60 02/02/23 09:51 94 Vapotherm 30.00 60 02/02/23 09:46 96 Vapotherm 30.00 70 02/02/23 09:00 83 18 130/88 (100) 93 Vapotherm 30.00 100.00 02/02/23 08:50 78 160/102 02/02/23 08:00 80 23 145/90 (106) 92 Vapotherm 30.00 100.00 02/02/23 08:00 98 Vapotherm 70 I & O 02/03/23 06:59 Intake Total 2141.2 ml Output Total 2325 ml Balance -183.8 ml Height & Weight Height: '" Weight: lbs. oz. kg; 37.91 BMI Method:Estimated General Appearance: No Apparent Distress, WD/WN, Chronically ill, Obese Neck: Non Tender Respiratory: Lungs Clear, Normal Breath Sounds, Rhonci (wet cough), Other Cardiovascular: Regular Rate, Rhythm Capillary Refill: Less Than 3 Seconds Peripheral Pulses: 2+ Dorsalis Pedis (R), 2+ Left Dors-Pedis (L), 2+ Radial Pulses (R), 2+ Radial Pulses (L) Gastrointestinal: normal bowel sounds, non tender, soft, other (getting lactulose, some diarrhea) Extremity: Normal Capillary Refill, Normal Inspection, No Calf Tenderness, No Pedal Edema, Pedal Edema (trace pedal edema) Neurologic/Psychiatric: Alert, Oriented x3, Disoriented, Other (responds to name, having hallucinations) Skin: Normal Color, Warm/Dry, Other (L LE wound vac, no erythema) Results Lab Laboratory Tests 02/02/23 05:02 02/03/23 05:00 Assessment/Plan Assessment/Plan Necrotizing fascitis left thigh, s/p debridement, has wound vac EtOH withdrawal, continue on IV Precedex, thimaine, MVI, Folic acid, also has PB ordered Pulm HTN, from [place]? does snore, unable to keep on BiPAP MRSA in nose on bactroban Critical Care: Critically Ill Patient Time spent with patient (mins): 25 HONORIO DAMON MD Feb 03, 2023 07:55
--- NOTE | 2023-02-03 09:22 | Progress Note - Surgery ---
KELLEY ESCOTO 02[birth year]03/2322: Subjective Date Seen by a Provider: Feb 03, 2023 Time Seen by a Provider: 09:16 Subjective/Events-last exam CC: Necrotizing Fascitis of LLE Update: Connor, 57M, is sleeping prior to encounter. Patient does not keep eyes open, appears to be tired. He denies any current pain. Patient has been sleeping mostly per nurse. Connor is able to answer direct yes/no questions, but struggles to articulate more than that. He appears comfortable. He denies difficulty breathing and is using a nasal cannula. He has no other concerns. Review of Systems General: No Chills; Appetite HEENT: No Head Aches, No Sore Throat Pulmonary: No Cough ("not a lot" ) Cardiovascular: No: Chest Pain, Edema Gastrointestinal: No: Nausea, Vomiting Genitourinary: Other (hager in place) Musculoskeletal: No: back pain, leg pain (denies pain at pump site, no other pain ) Neurological: Weakness Objective Exam Vital Signs Date Time Temp Pulse Resp B/P (MAP) Pulse Ox O2 Delivery O2 Flow Rate FiO2 02/03/23 08:00 79 22 124/78 (89) 94 High Flow N/C 12.00 02/03/23 07:28 36.5 02/03/23 07:01 92 High Flow N/C 12.00 02/03/23 07:00 96 High Flow N/C 15.00 02/03/23 07:00 79 02/03/23 07:00 79 25 137/84 (99) 92 High Flow N/C 12.00 02/03/23 06:31 90 OxyMask 15.00 02/03/23 06:00 79 27 122/79 (93) 90 Vapotherm 30.00 100.00 02/03/23 05:27 79 126/82 02/03/23 05:00 78 23 134/93 (107) 90 Vapotherm 30.00 100.00 02/03/23 04:00 95 High Flow N/C 15.00 02/03/23 04:00 80 24 127/84 (98) 90 Vapotherm 30.00 100.00 02/03/23 03:00 80 28 108/79 (89) 91 Vapotherm 30.00 100.00 02/03/23 02:35 92 High Flow N/C 15.00 02/03/23 02:00 84 23 138/88 (105) 90 Vapotherm 30.00 100.00 02/03/23 01:00 86 18 118/77 (91) 90 Vapotherm 30.00 100.00 02/03/23 00:00 89 02/03/23 00:00 89 18 138/85 (102) 90 Vapotherm 30.00 100.00 02/02/23 23:59 92 High Flow N/C 10.00 02/02/23 23:01 87 112/77 02/02/23 23:00 Vapotherm 30.00 100.00 02/02/23 22:48 100 High Flow N/C 10.00 02/02/23 22:00 85 37 151/98 (115) 97 Vapotherm 30.00 100.00 02/02/23 21:00 85 22 125/84 (98) 95 Vapotherm 30.00 100.00 02/02/23 20:28 36.8 02/02/23 20:00 84 27 123/93 (103) 94 Vapotherm 30.00 100.00 02/02/23 20:00 97 High Flow N/C 10.00 02/02/23 19:03 97 Vapotherm 20.00 70 02/02/23 19:00 87 25 144/90 (108) 91 Vapotherm 30.00 100.00 02/02/23 19:00 88 02/02/23 18:56 37.4 02/02/23 18:03 37.1 02/02/23 18:00 88 14 134/90 (97) 90 Vapotherm 30.00 100.00 02/02/23 17:00 85 29 135/91 (106) 92 Vapotherm 30.00 100.00 02/02/23 16:48 36.9 02/02/23 16:00 98 Vapotherm 70 02/02/23 16:00 85 13 130/91 (103) 98 Vapotherm 30.00 100.00 02/02/23 15:10 36.9 02/02/23 15:00 79 30 158/99 (114) 94 Vapotherm 30.00 100.00 02/02/23 14:56 97 Vapotherm 20.00 70 02/02/23 14:00 83 20 130/84 (93) 95 Vapotherm 30.00 100.00 02/02/23 13:00 80 25 153/102 (113) 96 Vapotherm 30.00 100.00 02/02/23 12:34 82 02/02/23 12:02 36.8 02/02/23 12:00 81 26 142/89 (106) 96 Vapotherm 30.00 100.00 02/02/23 12:00 98 Vapotherm 70 02/02/23 11:00 87 28 151/92 (111) 91 Vapotherm 30.00 100.00 02/02/23 10:00 89 147/94 (108) 93 Vapotherm 30.00 100.00 02/02/23 09:56 92 Vapotherm 20.00 70 02/02/23 09:55 89 Vapotherm 30.00 60 02/02/23 09:51 94 Vapotherm 30.00 60 02/02/23 09:46 96 Vapotherm 30.00 70 I & O 02/03/23 06:59 Intake Total 2141.2 ml Output Total 2325 ml Balance -183.8 ml Capillary Refill : Less Than 3 SecondsLess Than 3 Seconds General Appearance: No Apparent Distress, Chronically ill, Obese HEENT: Pharynx Normal; No Pale Conjunctivae (L), No Pale Conjunctivae (R), No Scleral Icterus (L), No Scleral Icterus (R) Neck: No Carotid Bruit Respiratory: Lungs Clear, Normal Breath Sounds; No Accessory Muscle Use Cardiovascular: Regular Rate, Rhythm; No No Murmur Gastrointestinal: non tender; No guarding Extremity: Normal Capillary Refill, Normal Inspection, No Calf Tenderness, No Pedal Edema Neurologic/Psychiatric: Alert, Oriented x3 Skin: Normal Color, Warm/Dry, Other (L LE wound vac, no erythema) Results Lab Laboratory Tests 02/03/23 05:00: White Blood Count 13.9H, Red Blood Count 4.26L, Hemoglobin 13.7, Hematocrit 42, Mean Corpuscular Volume 99, Mean Corpuscular Hemoglobin 32, Mean Corpuscular Hemoglobin Concent 33, Red Cell Distribution Width 12.4, Platelet Count 457H, Mean Platelet Volume 9.2, Immature Granulocyte % (Auto) 1, Neutrophils (%) ( Auto) 76H, Lymphocytes (%) (Auto) 10L, Monocytes (%) (Auto) 11, Eosinophils (%) (Auto) 2, Basophils (%) (Auto) 0, Neutrophils # (Auto) 10.6H, Lymphocytes # (Auto) 1.4, Monocytes # (Auto) 1.5H, Eosinophils # (Auto) 0.2, Basophils # (Auto) 0.1, Immature Granulocyte # (Auto) 0.1, Sodium Level 137, Potassium Level 3.7, Chloride Level 100, Carbon Dioxide Level 25, Anion Gap 12, Blood Urea Nitrogen 16, Creatinine 1.17, Estimat Glomerular Filtration Rate 74, BUN/Creatinine Ratio 14, Glucose Level 132H, Calcium Level 10.4H, Corrected Calcium 10.8H, Phosphorus Level 5.2H, Magnesium Level 1.9, Total Bilirubin 0.4, Aspartate Amino Transf (AST/SGOT) 29, Alanine Aminotransferase (ALT/SGPT) 44, Alkaline Phosphatase 91, Total Protein 7.5, Albumin 3.5 Microbiology 02/01/23 Urine Culture - Final, Complete NO GROWTH 01/30/23 Blood Culture - Preliminary, Resulted 01/28/23 Gram Stain - Final, Complete 01/28/23 Sputum Culture - Final, Complete YEAST 01/23/23 Gram Stain - Final, Complete 01/23/23 Anaerobic Culture - Final, Complete No anaerobes isolated 01/23/23 Surgical Culture - Final, Complete Staphylococcus aureus Staphylococcus aureus#2 Assessment/Plan Assessment/Plan Assessment/Plan LLE, proximal medial, nectorizing soft tissue infection * S/P I/D, wound vac * Change wound vac on 02/05 * MRSA precautions * Pain management with Fentanyl Ventilator Associated Fungal PNA * Med team management * Miconazle, Adunilofungin Alcohol Use Disorder * CIWA protocol * Jose White ERIC B DO 02/03/23 1422: Subjective Time Seen by a Provider: 10:32 Subjective/Events-last exam Pt seen and examined, at bedside stated he is not as confused as before; "I told them to stop the medicine (precedex) and that has helped". Pt denied any leg pain. Review of Systems General: No Chills HEENT: No Head Aches Pulmonary: No Cough ("not a lot" ) Cardiovascular: No: Chest Pain, Edema Gastrointestinal: No: Nausea, Vomiting Genitourinary: Other (hager in place) Musculoskeletal: No: leg pain (denies pain at pump site, no other pain ) Neurological: Weakness Objective Exam General Appearance: No Apparent Distress, Chronically ill, Obese Respiratory: Lungs Clear, Normal Breath Sounds, No Accessory Muscle Use Cardiovascular: Regular Rate, Rhythm, No Murmur Gastrointestinal: non tender, soft; No guarding Extremity: No Calf Tenderness, No Pedal Edema Skin: Other (L LE wound vac, no erythema) Assessment/Plan Assessment/Plan Assessment/Plan LLE, proximal medial, nectorizing soft tissue infection * S/P I/D, wound vac * Change wound vac on 02/05 * MRSA precautions * Pain management with Fentanyl Ventilator Associated Fungal PNA * Med team management * Miconazle, Adunilofungin Alcohol Use Disorder * CIWA protocol * Ativan, Thiamine Supervisory-Addendum Brief Verification & Attestation Participated in pt care: history, MDM, physical Personally performed: exam, history, MDM, supervision of care Care discussed with: Medical Student Procedures: n/a Verification and Attestation of Medical Student E/M Service A medical student performed and documented this service. I then reviewed and verified all information documented by the medical student and made modifications to such information, when appropriate. I personally performed a physical exam, medical decision making and then discussed any differences between the notes and made revisions as necessary to create one note. Boogie Andre , 02/03/23 , 14:22 KELLEY ESCOTO Feb 03, 2023 09:22 BOOGIE ANDRE DO Feb 03, 2023 14:22
--- NOTE | 2023-02-03 10:13 | Physical Therapy Daily Note ---
PT Daily Note-Current Subjective Pt medicated for pain so very lethargic. He did agree to attempt out of bed activity. Pain Section J - Health Conditions 1. Rarely or not at all 2. Occasionally 3. Frequently 4. Almost constantly 8. Unable to answer Pain Effect on Sleep: 2 Pain Interference with Therapy: 2 Pain Interference w/Day-to-Day: 2 Transfers SCALE: Activities may be completed with or without assistive devices. 2-Xtusurpmll-[id number] completes the activity by him/herself with no assistance from a helper. 5-Set-up or Clean-up Assistance-helper sets up or cleans up; patient completes activity. [place] assists only prior to or following the activity. 4-Supervision or Touching Assistance-helper provides verbal cues and/or touching/steadying and/or contact guard assistance as patient completes activity. Assistance may be provided throughout the activity or intermittently. 3-Partial/Moderate Assistance-helper does LESS THAN HALF the effort. [place] lifts, holds or supports trunk or limbs, but provides less than half the effort. 2-Substantial/Maximal Assistance-helper does MORE THAN HALF the effort. [place] lifts or holds trunk or limbs and provides more than half the effort. 3-Imofksbof-ygfkml does ALL the effort. Patient does none of the effort to complete the activity. Or, the assistance of 2 or more helpers is required for the patient to complete the activity. If activity was not attempted, code reason: 7-Patient Refused. 9-Not Applicable-not attempted and the patient did not perform the activity before the current illness, exacerbation or injury. 10-Not Attempted due to Environmental Limitations-(lack of equipment, weather restraints, etc.). 88-Not Attempted due to Medical Conditions or Safety Concerns. Transfer supine to sit with Min A, sit to supine Mod A. Exercises Stood edge of bed x 3 trials holding chair back for stability. Took 5 steps (R) and 5 steps (L) at bedside. Assessment Current Status: Fair Progress (Pt demonstrated appropriate processing for bed mobility. Medications did restrict his level of alertness and likley his function this session.) PT Group Home Goals Group Home Goals PT Coffee Grower Goals Time Frame: Mar 03, 2023 Roll Left & Right (QC): 6 Sit to Lying (QC): 6 Lying-Sitting on Side/Bed(QC): 6 Sit to Stand (QC): 6 Chair/Wjc-fr-Ysrzb Xfer(QC): 6 Toilet Transfer (QC): 6 Walk 10 feet (QC): 6 Walk 50ft with 2 Turns (QC): 6 Walk 150 ft (QC): 6 PT Plan Treatment/Plan Treatment Plan: Continue Plan of Care Treatment Plan: Bed Mobility, Education, Functional Activity David, Functional Strength, Gait, Safety, Therapeutic Exercise, Transfers Treatment Duration: Mar 03, 2023 Frequency: 6 times per week Estimated Hrs Per Day: .25 hour per day Patient and/or Family Agrees t: Yes Time Time In: 929 Time Out: 954 DATE: Feb 03, 2023 Total Billed Treatment Time: 25 Total Billed Treatment visit, FA 25 minutes ALEJANDRA CAMACHO PT Feb 03, 2023 10:13
--- NOTE | 2023-02-03 10:29 | Progress Note ---
ANTHONY STATON MD, RESIDENT 02/03/23 1029: Subjective HPI/CC On Admission Date Seen by Provider: Feb 03, 2023 Time Seen by Provider: 07:30 57 yo M with past hx of alcohol and tobacco abuse admitted on 01/23 for L LE infection and pain that had been ongoing for a few weeks. Hx of cellulitis in L LE 4x in the last year. Denies any hx of puncture wounds. Presented to the ER d/t increase in L LE pain and had a hard time walking. Culture from wound taken found MRSA resistant to clindamycin. Dx with LLE necrotizing fascitis/sepsis s/p I/D and debridement with general surgery who required mechanical ventilation that day due to failed post-operative extubation. Extubated on 01/31 and currently maintained on vapotherm. Had episodes of visual and auditory hallucinations. Subjective/Events-last exam Patient doing okay this morning. Was resting soundly in bed. Per nurse report, patient was quite agitated overnight not improving with Precedex. He was also quite combative. Did give a loading dose of phenobarbital this morning and has been having hallucinations per nursing report. Objective Exam Vital Signs Vital Signs Date Time Temp Pulse Resp B/P (MAP) Pulse Ox O2 Delivery O2 Flow Rate FiO2 02/03/23 11:00 79 30 95 High Flow N/C 12.00 02/03/23 07:28 36.5 02/02/23 19:03 70 Capillary Refill : Less Than 3 SecondsLess Than 3 Seconds General Appearance: No Apparent Distress Neck: Full Range of Motion, Normal Inspection Respiratory: Chest Non Tender, Lungs Clear, Normal Breath Sounds, No Accessory Muscle Use, No Respiratory Distress Cardiovascular: Regular Rate, Rhythm, No Edema, No Murmur Gastrointestinal: Normal Bowel Sounds, Non Tender, Soft Extremity: No Pedal Edema, Other (Wound VAC dressing left inner thigh, no erythema or drainage noted) Neurologic/Psychiatric: Other (Resting soundly) Skin: Normal Color, Warm/Dry Results/Procedures Lab Laboratory Tests 02/03/23 05:00 Patient resulted labs reviewed. Imaging: Reviewed Imaging Report Assessment/Plan Assessment and Plan Assess & Plan/Chief Complaint Patient is a 57-year-old male with past medical history of alcohol and tobacco use who was admitted for left lower extremity cellulitis and abscess, status post I&D and debridement with general surgery. Patient did require mechanical ventilation during the procedure and failed postoperative extubation. Was eventually extubated on 01/31. Necrotizing fascititis of LLE S/P I&D and debridement -WBC continues to increase to 13.9 from 13.4 yesterday, given that it is a mild increase, will continue to monitor, no fevers noted - Wound cultures grew s. aureus resitant to clindamycin (01/26), blood cultures without growth - Completed vancomycin and zosyn - Wound vac in place. Wet to dry wound care BID per surgery. Will be replaced on Sunday - Surgery following, appreciate recommendations Altered mental status Hallucinations - Patient with hallucinations and agitations following extubation 01/31 - Fentanyl discontinued on 01/31 to minimize AMS - Discontinued CIWA protocol - We will discontinue Precedex at this time - As needed oral and IV Ativan 0.5 mg on board as needed for agitation every 2 hours - Likely a component of ICU psychosis - Continue lactulose, thiamine replacement, lorazepam Acute hypoxic respiratory failure - Patient mechanically ventilated from 01/23- after failed post-operative extubation - Patient extubated on 01/31 - Weaned off of Vapotherm, currently on 12 L high flow nasal cannula and saturating well Presumed GARFIELD, COPD with pulmonary HTN - 01/24 Echo showing systolic pressure of 60-65 mmHg - 01/31 CXR still with "central vascular congestion" Ventilator associated fungal pneumonia - Sputum culture grew yeast on 01/28 - Continue Miconazole and adunilofungin Tobacco abuse - Nicotine patch RAUL MARQUEZ DO 02/03/23 1635: Subjective Subjective/Events-last exam Patient doing well Confusion is still noted but alert demands the Precedex be discontinued Ativan small doses will be given for agitation Objective Exam General Appearance: No Apparent Distress, WD/WN, Chronically ill Respiratory: Lungs Clear Cardiovascular: Regular Rate, Rhythm Assessment/Plan Assessment and Plan Assess & Plan/Chief Complaint DC Precedex as at bedside demands at Ativan as needed ANTHONY STATON MD, RESIDENT Feb 03, 2023 10:29 RAUL MARQUEZ DO Feb 03, 2023 16:35
[2023-02-03] MEDS: amLODIPine 10 MG TABLET PO SCH (10:45)
[2023-02-03] MEDS: hydrALAZINE 10 MG TABLET PO SCH ×2 (10:45→20:40)
[2023-02-03] MEDS: MICONAZOLE 2% POWDER 90 GM TOP SCH ×2 (10:46→20:40)
[2023-02-03] MEDS: SODIUM HYPOCHLORITE 0.125% TOP SCH (10:46)
[2023-02-03] MEDS: SENNOSIDES 8.6 MG TABLET PO SCH (10:46)
[2023-02-03] MEDS: ENOXAPARIN 40 MG/0.4 ML SYRINGE SC SCH (10:46)
[2023-02-03] MEDS: NS IV SCH ×2 (10:47→10:48)
[2023-02-03] MEDS: ANIDULAFUNGIN IV SCH (10:47)
[2023-02-03] MEDS: THIAMINE IV SCH (10:48)
[2023-02-03] MEDS: guaiFENesin SYRUP 100 MG/5 ML 10 ML PO SCH ×4 (10:48→20:40)
[2023-02-03] MEDS: FAMOTIDINE INJ 20MG/2ML VIAL IVP SCH ×2 (10:48→20:40)
[2023-02-03] MEDS: FOLIC ACID IV SCH (10:48)
[2023-02-03] MEDS: LACTULOSE SYRUP 10GM/15ML 30ML UDC PO SCH ×2 (10:48→20:40)
[2023-02-03] MEDS ORDERED: LORazepam 0.5 MG TABLET PO PRN (11:00)
--- NOTE | 2023-02-03 11:06 | Diagnostic Imaging Report ---
CLINICAL INDICATION: Follow-up hypoxia. ICU care management. EXAM: Portable chest x-ray, upright view. COMPARISON: Chest x-ray dated 01/31/2023. FINDINGS: Lungs/pleura: There is progression of low lung volumes noted. There is interval development of consolidation involving the left lung base and increased airspace opacities involving the right lung base. There is no pneumothorax. There is no pleural effusion. Mediastinum: Unremarkable. Pulmonary vasculature: Unremarkable. Heart: Cardiac silhouette is upper limits of normal for portable projection. Bones/extrathoracic soft tissue: Unremarkable. IMPRESSION: 1: There is interval progression of low lung volumes noted. There is concern for development of mild bibasilar atelectasis. 2: Cardiac silhouette is upper limits of normal for portable projection. Dictated by: Dictated on workstation # [id number]
[2023-02-03] MEDS: oxyCODONE IMMEDIATE RELEASE 5 MG TABLET PO PRN (13:36)
--- NOTE | 2023-02-03 15:10 | Progress Note - Cardiology ---
Cardiology SOAP Progress Note Subjective: No cp or palp or syncope or shortness of breath at rest Gen weakness No n/v/d Objective: I&O/Vital Signs 02/03/23 02/03/23 02/03/23 02/03/23 04:00 04:00 05:00 05:27 Pulse 80 78 79 Resp 24 23 B/P (MAP) 127/84 (98) 134/93 (107) 126/82 Pulse Ox 90 95 90 O2 Delivery Vapotherm High Flow N/C Vapotherm O2 Flow Rate 30.00 15.00 30.00 100.00 100.00 02/03/23 02/03/23 02/03/23 02/03/23 06:00 06:31 07:00 07:00 Pulse 79 79 79 Resp 27 25 B/P (MAP) 122/79 (93) 137/84 (99) Pulse Ox 90 90 92 O2 Delivery Vapotherm OxyMask High Flow N/C O2 Flow Rate 30.00 15.00 12.00 100.00 02/03/23 02/03/23 02/03/23 02/03/23 07:00 07:01 07:28 08:00 Temp 36.5 Pulse 79 Resp 22 B/P (MAP) 124/78 (89) Pulse Ox 96 92 94 O2 Delivery High Flow N/C High Flow N/C High Flow N/C O2 Flow Rate 15.00 12.00 12.00 02/03/23 02/03/23 02/03/23 02/03/23 09:00 09:27 09:55 10:00 Pulse 74 79 75 Resp 24 18 B/P (MAP) 137/93 (109) 126/80 135/91 (106) Pulse Ox 97 91 O2 Delivery High Flow N/C High Flow N/C High Flow N/C O2 Flow Rate 12.00 12.00 12.00 02/03/23 02/03/23 02/03/23 02/03/23 10:00 10:10 11:00 11:24 Temp 36.4 Pulse 79 Resp 30 B/P (MAP) Pulse Ox 92 95 O2 Delivery High Flow N/C High Flow N/C High Flow N/C O2 Flow Rate 12.00 10.00 12.00 02/03/23 02/03/23 02/03/23 02/03/23 12:00 12:34 12:56 13:00 Pulse 80 81 90 Resp 22 11 B/P (MAP) 93/56 (68) 107/82 (90) Pulse Ox 96 94 O2 Delivery High Flow N/C High Flow N/C High Flow N/C O2 Flow Rate 12.00 12.00 12.00 02/03/23 02/03/23 02/03/23 02/03/23 14:00 14:24 14:34 14:35 Pulse 86 Resp 20 B/P (MAP) 107/82 (90) Pulse Ox 98 97 O2 Delivery High Flow N/C High Flow N/C High Flow N/C High Flow N/C O2 Flow Rate 12.00 10.00 6.00 6.00 02/03/23 14:48 B/P (MAP) O2 Delivery High Flow N/C O2 Flow Rate 6.00 02/02/23 23:59 Intake Total 1190 ml Output Total 1725 ml Balance -535 ml Constitutional: other (Lethargic, opens eyes when named is called, but does not answer any questions) Respiratory: No accessory muscle use, No respiratory distress; other (diminished throughout) Cardiovascular: regular rate-rhythm; No JVD; S1 and S2 Gastrointestional: round, distended; No guarding; audible bowel sounds Extremities: other (wound vac in place to left upper leg), no lower extremity edema bilateral Neurologic/Psychiatric: other (moves extremities) Skin: other (see above) Results/Procedures: Labs Laboratory Tests 02/03/23 05:00: White Blood Count 13.9H, Red Blood Count 4.26L, Hemoglobin 13.7, Hematocrit 42, Mean Corpuscular Volume 99, Mean Corpuscular Hemoglobin 32, Mean Corpuscular Hemoglobin Concent 33, Red Cell Distribution Width 12.4, Platelet Count 457H, Mean Platelet Volume 9.2, Immature Granulocyte % (Auto) 1, Neutrophils (%) (Auto) 76H, Lymphocytes (%) (Auto) 10L, Monocytes (%) (Auto) 11, Eosinophils (%) (Auto) 2, Basophils (%) (Auto) 0, Neutrophils # (Auto) 10.6H, Lymphocytes # (Auto) 1.4, Monocytes # (Auto) 1.5H, Eosinophils # (Auto) 0.2, Basophils # (Auto) 0.1, Immature Granulocyte # (Auto) 0.1, Sodium Level 137, Potassium Level 3.7, Chloride Level 100, Carbon Dioxide Level 25, Anion Gap 12, Blood Urea Nitrogen 16, Creatinine 1.17, Estimat Glomerular Filtration Rate 74, BUN/Creatinine Ratio 14, Glucose Level 132H, Calcium Level 10.4H, Corrected Calcium 10.8H, Phosphorus Level 5.2H, Magnesium Level 1.9, Total Bilirubin 0.4, Aspartate Amino Transf (AST/SGOT) 29, Alanine Aminotransferase (ALT/SGPT) 44, Alkaline Phosphatase 91, Total Protein 7.5, Albumin 3.5 Microbiology 02/01/23 Urine Culture - Final, Complete NO GROWTH 01/30/23 Blood Culture - Preliminary, Resulted 01/28/23 Gram Stain - Final, Complete 01/28/23 Sputum Culture - Final, Complete YEAST 01/23/23 Gram Stain - Final, Complete 01/23/23 Anaerobic Culture - Final, Complete No anaerobes isolated 01/23/23 Surgical Culture - Final, Complete Staphylococcus aureus Staphylococcus aureus#2 Laboratory Tests 02/02/23 05:02 02/03/23 05:00 A/P: Assessment: Paroxysmal supraventricular tachycardia, mainly sinus tachycardia episode after extubation - Currently in sinus rhythm with controlled rate - Echocardiogram of 01-24-[address] Jacob showed LVEF 55-65%. Grade 1 diastolic dysfunction. LA/RA mod dilated. Mild MR. PASP 60-65 mmHg Necrotizing fasciitis with cellulitis of the left thigh, status post I&D, currently has a wound VAC - Receiving antibiotic and managed by surgical team Status post prolonged respiratory failure, intubated, difficult extubation - requiring Vapo-therm History of alcohol use. Change in mental status, confusion, lethargy, encephalopathy. - Probably secondary to sepsis and hypoxemia Pulmonary hypertension - underlying disease and/or G[place] Plan: Advise consideration of out patient sleep studies to eval for sleep apnea Monitor lab closely Answered his and his family's questions ALBERTINA DEJESUS MD FACP [facility] Feb 03, 2023 15:10
[2023-02-03] MEDS ORDERED: LACTATED RINGERS 1,000 ML 1,000 ML IV ONE (18:16)
[2023-02-03] MEDS: LACTATED RINGERS 1,000 ML 500 ML IV SCH ×2 (18:19→19:00)
[2023-02-03] MEDS ORDERED: NS IV 1000 ML 1,000 ML IV SCH (20:00)
[2023-02-03] MEDS ORDERED: NS IV 1000 ML 1,000 ML ONE (20:05)
[2023-02-04] MEDS: METOCLOPRAMIDE INJ 10 MG/2 ML IVP SCH ×4 (00:12→17:18)
[2023-02-04] MEDS: aCETylcysteine 20% (RT/PO) 4 ML SOLN VIAL INH SCH ×4 (02:44→22:05)
[2023-02-04] MEDS: RT-Ipratropium/Albuterol NEB 3 ML VIAL INH SCH ×6 (02:44→22:05)
[2023-02-04 05:15] LABS: BASOPHILS # (AUTO) 0.1 10^3/uL (0.0-0.1); BASOPHILS % (AUTO) 1 % (0-10); EOSINOPHILS # (AUTO) 0.3 10^3/uL (0.0-0.3); EOSINOPHILS % (AUTO) 3 % (0-10); HEMATOCRIT 39 % (40-54); HEMOGLOBIN 12.3 g/dL (13.3-17.7); LYMPHOCYTES # (AUTO) 1.4 10^3/uL (1.0-4.0); LYMPHOCYTES % (AUTO) 13 % (12-44); MEAN CORPUSCULAR HEMOGLOBIN 32 pg (25-34); MEAN CORPUSCULAR HGB CONC 32 g/dL (32-36); MEAN CORPUSCULAR VOLUME 100 fL (80-99); MEAN PLATELET VOLUME 8.8 fL (9.0-12.2); MONOCYTES # (AUTO) 1.7 10^3/uL (0.0-1.0); MONOCYTES % (AUTO) 15 % (0-12); NEUTROPHILS # (AUTO) 7.4 10^3/uL (1.8-7.8); NEUTROPHILS % (AUTO) 67 % (42-75); PLATELET COUNT 390 10^3/uL (130-400)
[2023-02-04 05:27] LABS: ALBUMIN 3.3 GM/DL (3.2-4.5); POTASSIUM 3.5 MMOL/L (3.6-5.0)
[2023-02-04 05:28] LABS: CALCIUM 9.8 MG/DL (8.5-10.1)
[2023-02-04 05:31] LABS: BILIRUBIN,TOTAL 0.4 MG/DL (0.1-1.0)
[2023-02-04] MEDS: POTASSIUM CL 10MEQ/50ML IVPB 50 ML IV SCH (05:32)
[2023-02-04] MEDS: POTASSIUM CHLORIDE 20 MEQ TABLET PO SCH (05:32)
[2023-02-04 05:33] LABS: CREATININE SERUM 2.37 MG/DL (0.60-1.30); PHOSPHORUS 4.9 MG/DL (2.3-4.7)
[2023-02-04 05:36] LABS: MAGNESIUM 2.3 MG/DL (1.6-2.4)
[2023-02-04] MEDS: MAGNESIUM 1 GM/100 ML IVPB 100 ML IV SCH (05:37)
[2023-02-04] MEDS ORDERED: POTASSIUM CHLORIDE 20 MEQ TABLET PO ONE (05:45)
--- NOTE | 2023-02-04 08:16 | Tele-ICU Progress Note ---
Subjective Date Seen by a Provider: Feb 04, 2023 Time Seen by a Provider: 08:14 Subjective/Events-last exam Tele-ICU Physician , consultation as per request of PCP Service provided via interactive audio and video telecommunications E-CARE system to a patient admitted to ICU bed in [facility]. Available chart/ vitals / labs / Images reviewed H&P is from ER notes Patient's information available about PMH, Shx, Fhx allergy reviewed inEMR. ROS as per chart and RN report Video assessment done using teleICU camera, rest of exam as per RN Discussed with RN. Extubated on 01/31, now on hi yao @ 5 lpm, more alert CXR from yesterday looks about same with elevated diaphragms due to obesity and boderline enlarged heart size Left thigh cellulitis, still has wound vac, on anti fungal Rx, Off IV Zosyn Hx of EtOH, on thiamine, folate and MVI SYDNI, Cr has been rising over last few days Was 0.73 on 02/02, then 1.17 on 02/03, today 2.37, potassium 3.5, LFT's ok, Is making urine 220 mL last shift Pulled out PICC line last night, did get 1.5 l of IVF last night, No increase in WOB Pt user of EtOH but no hallucinations, tremor Sepsis Event Evaluation Height, Weight, BMI Height: '" Weight: lbs. oz. kg; 36.55 BMI Method:Estimated Exam Exam Patient acknowledged, consented, and participated in this virtual visit which was conducted using real time audio/video Vital Signs Date Time Temp Pulse Resp B/P (MAP) Pulse Ox O2 Delivery O2 Flow Rate FiO2 02/04/23 08:10 37.1 02/04/23 08:00 96 123/71 (88) 96 High Flow N/C 5.00 02/04/23 07:00 96 02/04/23 07:00 96 27 96/63 (75) 94 High Flow N/C 5.00 02/04/23 06:00 97 24 118/70 (86) 97 High Flow N/C 5.00 02/04/23 05:00 98 24 119/72 (88) 94 High Flow N/C 5.00 02/04/23 04:45 98 20 113/63 (73) 93 High Flow N/C 5.00 02/04/23 04:30 98 26 110/60 (78) 94 High Flow N/C 5.00 02/04/23 04:15 37.4 98 21 107/57 (76) 94 High Flow N/C 5.00 02/04/23 04:00 98 24 108/56 (67) 93 High Flow N/C 5.00 02/04/23 03:49 94 High Flow N/C 5.00 02/04/23 02:44 High Flow N/C 6.00 02/04/23 02:15 98 24 103/57 (70) 93 High Flow N/C 5.00 02/04/23 02:00 99 23 108/54 (70) 93 High Flow N/C 5.00 02/04/23 01:45 98 26 107/59 (71) 94 High Flow N/C 5.00 02/04/23 01:30 98 24 94/55 (67) 94 High Flow N/C 5.00 02/04/23 01:15 100 18 97/52 (60) 93 High Flow N/C 5.00 02/04/23 01:00 101 16 95/50 (71) 93 High Flow N/C 5.00 02/04/23 00:58 103 02/04/23 00:49 100 24 90/50 (63) 92 High Flow N/C 5.00 02/04/23 00:45 103 24 97/46 (50) 96 High Flow N/C 5.00 02/04/23 00:30 105 17 85/51 (64) 93 High Flow N/C 5.00 02/04/23 00:00 37.5 117/65 (84) High Flow N/C 5.00 02/03/23 23:59 95 High Flow N/C 5.00 02/03/23 23:45 99 25 99/54 (67) 94 High Flow N/C 5.00 02/03/23 23:30 101 30 98/51 (68) 94 High Flow N/C 5.00 02/03/23 23:15 100 25 101/56 (62) 94 High Flow N/C 5.00 02/03/23 23:00 97 28 106/62 (71) 93 High Flow N/C 5.00 02/03/23 22:45 101 26 96/52 (67) 93 High Flow N/C 5.00 02/03/23 22:30 101 22 91/57 (70) 94 High Flow N/C 5.00 02/03/23 22:15 102 23 88/46 (60) 94 High Flow N/C 5.00 02/03/23 22:00 105 24 87/58 (72) 94 High Flow N/C 5.00 02/03/23 21:45 103 24 94/50 (61) 94 High Flow N/C 5.00 02/03/23 21:32 High Flow N/C 6.00 02/03/23 21:30 100 20 94/53 (71) 96 High Flow N/C 5.00 02/03/23 21:17 37.0 02/03/23 21:15 106/44 (86) 94 High Flow N/C 5.00 02/03/23 21:00 96 102/62 (72) 96 High Flow N/C 5.00 02/03/23 20:45 97 91/57 (68) 95 High Flow N/C 5.00 02/03/23 20:30 101 97/66 (75) 95 High Flow N/C 5.00 02/03/23 20:15 101 93/58 (70) 96 High Flow N/C 5.00 02/03/23 20:00 96 High Flow N/C 5.00 02/03/23 20:00 105 84/49 (59) 96 High Flow N/C 5.00 02/03/23 19:45 100 82/48 (59) 95 High Flow N/C 5.00 02/03/23 19:32 36.9 02/03/23 19:30 99 90/50 (61) 97 High Flow N/C 5.00 02/03/23 19:21 High Flow N/C 5.00 02/03/23 19:15 101 95/56 (66) 97 02/03/23 19:00 101 87/46 (56) 96 02/03/23 19:00 103 02/03/23 18:00 102 26 90/62 (71) 96 High Flow N/C 6.00 02/03/23 17:00 95 21 107/71 (82) 99 High Flow N/C 6.00 02/03/23 16:12 High Flow N/C 6.00 02/03/23 16:00 97 18 97/66 (77) 97 High Flow N/C 6.00 02/03/23 15:08 37.0 02/03/23 15:00 98 99 High Flow N/C 6.00 02/03/23 14:48 High Flow N/C 6.00 02/03/23 14:35 High Flow N/C 6.00 02/03/23 14:34 High Flow N/C 6.00 02/03/23 14:24 97 High Flow N/C 10.00 02/03/23 14:00 86 20 107/82 (90) 98 High Flow N/C 12.00 02/03/23 13:00 90 11 107/82 (90) 94 High Flow N/C 12.00 02/03/23 12:56 High Flow N/C 12.00 02/03/23 12:34 81 02/03/23 12:00 80 22 93/56 (68) 96 High Flow N/C 12.00 02/03/23 11:24 36.4 02/03/23 11:00 79 30 95 High Flow N/C 12.00 02/03/23 10:10 High Flow N/C 10.00 02/03/23 10:00 92 High Flow N/C 12.00 02/03/23 10:00 75 18 135/91 (106) 91 High Flow N/C 12.00 02/03/23 09:55 High Flow N/C 12.00 02/03/23 09:27 79 126/80 02/03/23 09:00 74 24 137/93 (109) 97 High Flow N/C 12.00 I & O0 02/04/23 06:59 Intake Total 2682 ml Output Total 625 ml Balance 2057 ml Height & Weight Height: '" Weight: lbs. oz. kg; 36.55 BMI Method:Estimated General Appearance: No Apparent Distress, WD/WN, Chronically ill HEENT: Pharynx Normal; No Pale Conjunctivae (L), No Pale Conjunctivae (R), No Scleral Icterus (L), No Scleral Icterus (R) Neck: No Carotid Bruit Respiratory: Lungs Clear Cardiovascular: Regular Rate, Rhythm Capillary Refill: Less Than 3 Seconds Gastrointestinal: non tender, soft; No guarding; other (confusion at times) Extremity: No Calf Tenderness, No Pedal Edema Neurologic/Psychiatric: Alert, Oriented x3 Skin: Other (L LE wound vac, no erythema) Results Lab Laboratory Tests 02/03/23 05:00 02/04/23 05:05 Assessment/Plan Assessment/Plan Thigh abscess, continue local wound care, now off abx ETOH abuse will continue MVI, thiamine SYDNI, will keep hydrated u/s kidney, LR @ 83 mL/h Critical Care: Critically Ill Patient Time spent with patient (mins): 20 HONORIO DAMON MD Feb 04, 2023 08:16
[2023-02-04] MEDS: amLODIPine 10 MG TABLET PO SCH (08:36)
[2023-02-04] MEDS: SENNOSIDES 8.6 MG TABLET PO SCH (08:36)
[2023-02-04] MEDS: hydrALAZINE 10 MG TABLET PO SCH ×2 (08:37→19:52)
[2023-02-04] MEDS: ENOXAPARIN 40 MG/0.4 ML SYRINGE SC SCH (08:37)
[2023-02-04] MEDS: FAMOTIDINE INJ 20MG/2ML VIAL IVP SCH ×2 (08:38→19:52)
[2023-02-04] MEDS: MICONAZOLE 2% POWDER 90 GM TOP SCH ×2 (08:38→19:53)
[2023-02-04] MEDS: LACTULOSE SYRUP 10GM/15ML 30ML UDC PO SCH ×2 (08:38→19:52)
[2023-02-04] MEDS: guaiFENesin SYRUP 100 MG/5 ML 10 ML PO SCH ×4 (08:38→19:52)
[2023-02-04] MEDS: SODIUM HYPOCHLORITE 0.125% TOP SCH (09:00)
[2023-02-04] MEDS: NS IV SCH ×2 (09:44→09:45)
[2023-02-04] MEDS: ANIDULAFUNGIN IV SCH (09:44)
[2023-02-04] MEDS: THIAMINE IV SCH (09:45)
[2023-02-04] MEDS: FOLIC ACID IV SCH (09:45)
--- NOTE | 2023-02-04 10:31 | Progress Note - Surgery ---
JEVONKELLEY 02/04/23 1031: Subjective Date Seen by a Provider: Feb 04, 2023 Time Seen by a Provider: 10:25 Subjective/Events-last exam CC: LLE Necrotizing Fascitis SP I/D Connor, 57M, was in bed eating breakfast at time of interview. Connor appears much more alert as compared to yesterday. Connor's family member at bedside notes his improvement. Rodriguez says he wasn't able to sleep well saying that he cannot sleep well in the hospital. He also notes that he has decreased appetite. Rodriguez says that he has decreased urge to eat. He notes that this is new, saying prior to admission he was eating well. Rodriguez also complains of "gassy" pain in his stomach. He had a BM yesterday and says that helped. He notes that the gas in his stomach has progressed to causing pain, 7/10, worse with movement. This pain started at 7am today. He notes he will try to have a BM to improve. Rodriguez says he got up yesterday and was able to move around. When asked about mentation, his family member notes, "he is improved, but he is still saying some weird stuff". Rodriguez denies any feelings of pain at his wound vac site. No other concerns noted. Review of Systems General: No Chills, No Night Sweats, No Appetite HEENT: No Head Aches, No Visual Changes Pulmonary: Cough (with inhaler ); No Pleuritic Chest Pain Cardiovascular: No: Chest Pain, Palpitations Gastrointestinal: Abdominal Pain; No: Nausea, Vomiting Genitourinary: No Other Musculoskeletal: No: arm pain, back pain Neurological: Confusion; No: Numbness Objective Exam Vital Signs Date Time Temp Pulse Resp B/P (MAP) Pulse Ox O2 Delivery O2 Flow Rate FiO2 02/04/23 10:00 94 26 120/71 (91) 95 High Flow N/C 5.00 02/04/23 09:00 98 28 112/68 (86) 94 High Flow N/C 5.00 02/04/23 08:10 37.1 02/04/23 08:00 95 High Flow N/C 5.00 02/04/23 08:00 96 123/71 (88) 96 High Flow N/C 5.00 02/04/23 07:00 96 02/04/23 07:00 96 27 96/63 (75) 94 High Flow N/C 5.00 02/04/23 06:00 97 24 118/70 (86) 97 High Flow N/C 5.00 02/04/23 05:00 98 24 119/72 (88) 94 High Flow N/C 5.00 02/04/23 04:45 98 20 113/63 (73) 93 High Flow N/C 5.00 02/04/23 04:30 98 26 110/60 (78) 94 High Flow N/C 5.00 02/04/23 04:15 37.4 98 21 107/57 (76) 94 High Flow N/C 5.00 02/04/23 04:00 98 24 108/56 (67) 93 High Flow N/C 5.00 02/04/23 03:49 94 High Flow N/C 5.00 02/04/23 02:44 High Flow N/C 6.00 02/04/23 02:15 98 24 103/57 (70) 93 High Flow N/C 5.00 02/04/23 02:00 99 23 108/54 (70) 93 High Flow N/C 5.00 02/04/23 01:45 98 26 107/59 (71) 94 High Flow N/C 5.00 02/04/23 01:30 98 24 94/55 (67) 94 High Flow N/C 5.00 02/04/23 01:15 100 18 97/52 (60) 93 High Flow N/C 5.00 02/04/23 01:00 101 16 95/50 (71) 93 High Flow N/C 5.00 02/04/23 00:58 103 02/04/23 00:49 100 24 90/50 (63) 92 High Flow N/C 5.00 02/04/23 00:45 103 24 97/46 (50) 96 High Flow N/C 5.00 02/04/23 00:30 105 17 85/51 (64) 93 High Flow N/C 5.00 02/04/23 00:00 37.5 117/65 (84) High Flow N/C 5.00 02/03/23 23:59 95 High Flow N/C 5.00 02/03/23 23:45 99 25 99/54 (67) 94 High Flow N/C 5.00 02/03/23 23:30 101 30 98/51 (68) 94 High Flow N/C 5.00 02/03/23 23:15 100 25 101/56 (62) 94 High Flow N/C 5.00 02/03/23 23:00 97 28 106/62 (71) 93 High Flow N/C 5.00 02/03/23 22:45 101 26 96/52 (67) 93 High Flow N/C 5.00 02/03/23 22:30 101 22 91/57 (70) 94 High Flow N/C 5.00 02/03/23 22:15 102 23 88/46 (60) 94 High Flow N/C 5.00 02/03/23 22:00 105 24 87/58 (72) 94 High Flow N/C 5.00 02/03/23 21:45 103 24 94/50 (61) 94 High Flow N/C 5.00 02/03/23 21:32 High Flow N/C 6.00 02/03/23 21:30 100 20 94/53 (71) 96 High Flow N/C 5.00 02/03/23 21:17 37.0 02/03/23 21:15 106/44 (86) 94 High Flow N/C 5.00 02/03/23 21:00 96 102/62 (72) 96 High Flow N/C 5.00 02/03/23 20:45 97 91/57 (68) 95 High Flow N/C 5.00 02/03/23 20:30 101 97/66 (75) 95 High Flow N/C 5.00 02/03/23 20:15 101 93/58 (70) 96 High Flow N/C 5.00 02/03/23 20:00 96 High Flow N/C 5.00 02/03/23 20:00 105 84/49 (59) 96 High Flow N/C 5.00 02/03/23 19:45 100 82/48 (59) 95 High Flow N/C 5.00 02/03/23 19:32 36.9 02/03/23 19:30 99 90/50 (61) 97 High Flow N/C 5.00 02/03/23 19:21 High Flow N/C 5.00 02/03/23 19:15 101 95/56 (66) 97 02/03/23 19:00 101 87/46 (56) 96 02/03/23 19:00 103 02/03/23 18:00 102 26 90/62 (71) 96 High Flow N/C 6.00 02/03/23 17:00 95 21 107/71 (82) 99 High Flow N/C 6.00 02/03/23 16:12 High Flow N/C 6.00 02/03/23 16:00 97 18 97/66 (77) 97 High Flow N/C 6.00 02/03/23 15:08 37.0 02/03/23 15:00 98 99 High Flow N/C 6.00 02/03/23 14:48 High Flow N/C 6.00 02/03/23 14:35 High Flow N/C 6.00 02/03/23 14:34 High Flow N/C 6.00 02/03/23 14:24 97 High Flow N/C 10.00 02/03/23 14:00 86 20 107/82 (90) 98 High Flow N/C 12.00 02/03/23 13:00 90 11 107/82 (90) 94 High Flow N/C 12.00 02/03/23 12:56 High Flow N/C 12.00 02/03/23 12:34 81 02/03/23 12:00 80 22 93/56 (68) 96 High Flow N/C 12.00 02/03/23 11:24 36.4 02/03/23 11:00 79 30 95 High Flow N/C 12.00 I & O 02/04/23 06:59 Intake Total 2682 ml Output Total 625 ml Balance 2057 ml Capillary Refill : Less Than 3 SecondsLess Than 3 Seconds General Appearance: No Apparent Distress, WD/WN, Obese HEENT: Pharynx Normal; No Pale Conjunctivae (L), No Pale Conjunctivae (R), No Scleral Icterus (L), No Scleral Icterus (R) Neck: Supple; No JVD Respiratory: Normal Breath Sounds, No Accessory Muscle Use Cardiovascular: Regular Rate, Rhythm; No No Murmur; Normal Peripheral Pulses; No JVD Gastrointestinal: no pulsatile mass, distended (firmness noted on palpation, increased size noted by pt and family ), guarding (involuntary ), rebound, tenderness Extremity: No Calf Tenderness, No Pedal Edema, Swelling (R-foot has mild swelling ) Neurologic/Psychiatric: Alert, Oriented x3 Skin: Warm/Dry; No Rash; Other (L LE wound vac, no erythema in region ) Results Lab Laboratory Tests 02/04/23 05:05: White Blood Count 11.0, Red Blood Count 3.87L, Hemoglobin 12.3L, Hematocrit 39L, Mean Corpuscular Volume 100H, Mean Corpuscular Hemoglobin 32, Mean Corpuscular Hemoglobin Concent 32, Red Cell Distribution Width 12.7, Platelet Count 390, Mean Platelet Volume 8.8L, Immature Granulocyte % (Auto) 1, Neutrophils (%) (Auto) 67, Lymphocytes (%) (Auto) 13, Monocytes (%) (Auto) 15H, Eosinophils (%) (Auto) 3, Basophils (%) (Auto) 1, Neutrophils # (Auto) 7.4, Lymphocytes # (Auto) 1.4, Monocytes # (Auto) 1.7H, Eosinophils # (Auto) 0.3, Basophils # (Auto) 0.1, Immature Granulocyte # (Auto) 0.1, Sodium Level 137, Potassium Level 3.5L, Chloride Level 103, Carbon Dioxide Level 22, Anion Gap 12, Blood Urea Nitrogen 31H, Creatinine 2.37H, Estimat Glomerular Filtration Rate 32, BUN/Creatinine Ratio 13, Glucose Level 113H, Calcium Level 9.8, Corrected Calcium 10.4H, Phosphorus Level 4.9H, Magnesium Level 2.3, Total Bilirubin 0.4, Aspartate Amino Transf (AST/SGOT) 27, Alanine Aminotransferase (ALT/SGPT) 42, Alkaline Phosphatase 81, Total Protein 7.0, Albumin 3.3 Microbiology 02/01/23 Urine Culture - Final, Complete NO GROWTH 01/30/23 Blood Culture - Preliminary, Resulted 01/28/23 Gram Stain - Final, Complete 01/28/23 Sputum Culture - Final, Complete YEAST 01/23/23 Gram Stain - Final, Complete 01/23/23 Anaerobic Culture - Final, Complete No anaerobes isolated 01/23/23 Surgical Culture - Final, Complete Staphylococcus aureus Staphylococcus aureus#2 Assessment/Plan Assessment/Plan Assessment/Plan LLE, proximal medial, nectorizing soft tissue infection * S/P I/D, wound vac * Change wound vac on 02/05 * MRSA precautions * Pain management with Fentanyl Ventilator Associated Fungal PNA * Med team management * Miconazle, Adunilofungin Alcohol Use Disorder * CIWA protocol * Ativan, Thiamine Hypokalemia * replace per protocol Acute Kidney Injury * Cr increased to 2.37 from 1.17 * Decreased systolic BP noted in 02/03 PM, IV bolus given * gentle fluid replacement * medical team management BOOGIE CUMMINGS DO 02/04/23 1623: Subjective Time Seen by a Provider: 14:29 Subjective/Events-last exam Pt seen and examined, no new complaints. Review of Systems General: No Chills, No Night Sweats Pulmonary: Cough (with inhaler ) Cardiovascular: No: Chest Pain, Palpitations Gastrointestinal: No: Nausea, Vomiting Neurological: Confusion Objective Exam General Appearance: No Apparent Distress, Obese Respiratory: Lungs Clear, Normal Breath Sounds, No Accessory Muscle Use Cardiovascular: Regular Rate, Rhythm, No Murmur Gastrointestinal: soft, tenderness (mild and increased with palpation) Extremity: Swelling (R-foot has mild swelling ) Neurologic/Psychiatric: Alert Skin: Warm/Dry, Other (L LE wound vac, no erythema in region ) Assessment/Plan Assessment/Plan Assessment/Plan LLE, proximal medial, nectorizing soft tissue infection * S/P I/D, wound vac * Change wound vac on 02/05 * MRSA precautions * Pain management with Fentanyl Ventilator Associated Fungal PNA * Med team management * Miconazle, Adunilofungin Alcohol Use Disorder * CIWA protocol * Ativan, Thiamine Hypokalemia * replace per protocol Acute Kidney Injury * Cr increased to 2.37 from 1.17 * Decreased systolic BP noted in 02/03 PM, IV bolus given * gentle fluid replacement * medical team management Supervisory-Addendum Brief Verification & Attestation Participated in pt care: history, MDM, physical Personally performed: exam, history, MDM, supervision of care Care discussed with: Medical Student Procedures: n/a Verification and Attestation of Medical Student E/M Service A medical student performed and documented this service. I then reviewed and verified all information documented by the medical student and made modifications to such information, when appropriate. I personally performed a physical exam, medical decision making and then discussed any differences between the notes and made revisions as necessary to create one note. Boogie Cummings , 02/04/23 , 16:23 KELLEY ESCOTO Feb 04, 2023 10:31 BOOGIE CUMMINGS DO Feb 04, 2023 16:23
--- NOTE | 2023-02-04 10:33 | Progress Note ---
ANTHONY STATON MD, RESIDENT 02/04/23 1033: Subjective HPI/CC On Admission Date Seen by Provider: Feb 04, 2023 Time Seen by Provider: 08:50 57 yo M with past hx of alcohol and tobacco abuse admitted on 01/23 for L LE infection and pain that had been ongoing for a few weeks. Hx of cellulitis in L LE 4x in the last year. Denies any hx of puncture wounds. Presented to the ER d/t increase in L LE pain and had a hard time walking. Culture from wound taken found MRSA resistant to clindamycin. Dx with LLE necrotizing fascitis/sepsis s/p I/D and debridement with general surgery who required mechanical ventilation that day due to failed post-operative extubation. Extubated on 01/31 and currently maintained on vapotherm. Had episodes of visual and auditory hallucinations. Subjective/Events-last exam Patient doing well this morning. He states that he feels his mind is little bit more clear than it has been for the last couple of days since discontinuing the Precedex. He still seems a little bit confused but is a little bit more cooperative and subjectively feels better this morning. Respiratory status continues to improve. States his pain is well controlled. Has been able to get up and go to the commode. States no concerns today. Per nursing staff, patient did have poor urine output yesterday, has been given some fluids with some improvement in his urine output. Objective Exam Vital Signs Vital Signs Date Time Temp Pulse Resp B/P (MAP) Pulse Ox O2 Delivery O2 Flow Rate FiO2 02/04/23 12:00 101 21 103/58 (71) 98 High Flow N/C 5.00 02/04/23 08:10 37.1 02/02/23 19:03 70 Capillary Refill : Less Than 3 SecondsLess Than 3 Seconds General Appearance: No Apparent Distress HEENT: Normal ENT Inspection Neck: Full Range of Motion, Normal Inspection Respiratory: Chest Non Tender, Lungs Clear, Normal Breath Sounds, No Accessory Muscle Use, No Respiratory Distress Cardiovascular: Regular Rate, Rhythm, No Edema, No Murmur Gastrointestinal: Normal Bowel Sounds, Non Tender, Soft, Distended (Abdomen does appear more distended than yesterday, does feel a little bit tense on palpation) Extremity: No Pedal Edema, Other (Wound VAC in place in left inner thigh) Neurologic/Psychiatric: Alert, Oriented x3 Skin: Normal Color, Warm/Dry Results/Procedures Lab Laboratory Tests 02/04/23 05:05 Patient resulted labs reviewed. Imaging: Reviewed Imaging Report Assessment/Plan Assessment and Plan Assess & Plan/Chief Complaint Patient is a 57-year-old male with past medical history of alcohol and tobacco use who was admitted for left lower extremity cellulitis and abscess, status p ost I&D and debridement with general surgery. Patient did require mechanical ventilation during the procedure and failed postoperative extubation. Was eventually extubated on 01/31. Necrotizing fascititis of LLE S/P I&D and debridement - Leukocytosis downtrending this morning to 12.3 - Wound cultures grew s. aureus resitant to clindamycin (01/26), blood cultures without growth - Completed vancomycin and zosyn - Wound vac in place. Wet to dry wound care BID per surgery. Will be replaced on Sunday - Surgery following, appreciate recommendations -Transferring patient down to the fourth floor today SYDNI -Noted to have worsening creatinine today of 2.37, has had very poor urine output yesterday -Urinary catheter in place -We will bolus fluids as needed, encouraged oral fluid intake Altered mental status, improving Hallucinations - Patient with hallucinations and agitations following extubation 01/31 - Fentanyl discontinued on 01/31 to minimize AMS - Discontinued CIWA protocol - As needed oral and IV Ativan 0.5 mg on board as needed for agitation every 2 hours - Overall mental status improving since discontinuing the Precedex yesterday - Likely a component of ICU psychosis - Continue lactulose, thiamine replacement, lorazepam Acute hypoxic respiratory failure, improving - Patient mechanically ventilated from 01/23- after failed post-operative extubation - Patient extubated on 01/31 - Weaned off of Vapotherm, currently on 5 L high flow nasal cannula Presumed GARFIELD, COPD with pulmonary HTN - 01/24 Echo showing systolic pressure of 60-65 mmHg - 01/31 CXR still with "central vascular congestion" Ventilator associated fungal pneumonia - Sputum culture grew yeast on 01/28 - Continue Miconazole and adunilofungin Tobacco abuse - Nicotine patch RAUL MARQUEZ DO 02/04/231942: Subjective Subjective/Events-last exam Improved overall Improved status Wheezing improved Moving to 4th floor at bedside is pleased with progress Review of Systems General: Fatigue, Malaise Objective Exam General Appearance: No Apparent Distress, WD/WN, Chronically ill Respiratory: No Accessory Muscle Use, No Respiratory Distress, Crackles Cardiovascular: Regular Rate, Rhythm Assessment/Plan Assessment and Plan Assess & Plan/Chief Complaint Move to 4th floor Monitor closely Continue aggressive care ANTHONY STATON MD, RESIDENT Feb 04, 2023 10:33 RAUL MARQUEZ DO Feb 04, 2023 19:43
--- NOTE | 2023-02-04 12:36 | Progress Note - Cardiology ---
Cardiology SOAP Progress Note Subjective: No cp or palp or syncope or shortness of breath at rest No n/v/d No focal weakness Gen weakness and malaise present Objective: I&O/Vital Signs 02/04/23 02/04/23 02/04/23 02/04/23 00:45 00:49 00:58 01:00 Pulse 103 100 103 101 Resp 24 24 16 B/P (MAP) 97/46 (50) 90/50 (63) 95/50 (71) Pulse Ox 96 92 93 O2 Delivery High Flow N/C High Flow N/C High Flow N/C O2 Flow Rate 5.00 5.00 5.00 02/04/23 02/04/23 02/04/23 02/04/23 01:15 01:30 01:45 02:00 Pulse 100 98 98 99 Resp B/P (MAP) 97/52 (60) 94/55 (67) 107/59 (71) 108/54 (70) Pulse Ox 93 94 94 93 O2 Delivery High Flow N/C High Flow N/C High Flow N/C High Flow N/C O2 Flow Rate 5.00 5.00 5.00 5.00 02/04/23 02/04/23 02/04/23 02/04/23 02:15 02:44 03:49 04:00 Pulse 98 98 Resp 24 B/P (MAP) 103/57 (70) 108/56 (67) Pulse Ox 93 94 93 O2 Delivery High Flow N/C High Flow N/C High Flow N/C High Flow N/C O2 Flow Rate 5.00 6.00 5.00 5.00 02/04/23 02/04/23 02/04/23 02/04/23 04:15 04:30 04:45 05:00 Temp 37.4 Pulse 98 98 98 98 Resp 24 B/P (MAP) 107/57 (76) 110/60 (78) 113/63 (73) 119/72 (88) Pulse Ox 94 94 93 94 O2 Delivery High Flow N/C High Flow N/C High Flow N/C High Flow N/C O2 Flow Rate 5.00 5.00 5.00 5.00 02/04/23 02/04/23 02/04/23 02/04/23 06:00 07:00 07:00 08:00 Pulse 97 96 96 96 Resp 24 27 B/P (MAP) 118/70 (86) 96/63 (75) 123/71 (88) Pulse Ox 97 94 96 O2 Delivery High Flow N/C High Flow N/C High Flow N/C O2 Flow Rate 5.00 5.00 5.00 02/04/23 02/04/23 02/04/23 02/04/23 08:00 08:10 09:00 10:00 Temp 37.1 Pulse 98 94 Resp 28 26 B/P (MAP) 112/68 (86) 120/71 (91) Pulse Ox 95 94 95 O2 Delivery High Flow N/C High Flow N/C High Flow N/C O2 Flow Rate 5.00 5.00 5.00 02/04/23 02/04/23 11:00 12:00 Pulse 106 101 Resp 25 21 B/P (MAP) 123/74 (90) 103/58 (71) Pulse Ox 96 98 O2 Delivery High Flow N/C High Flow N/C O2 Flow Rate 5.00 5.00 02/03/23 23:59 Intake Total 2232 ml Output Total 250 ml Balance 1982 ml Constitutional: other (Lethargic, opens eyes when named is called, but does not answer any questions) Respiratory: No accessory muscle use, No respiratory distress; other (diminished throughout) Cardiovascular: regular rate-rhythm; No JVD; S1 and S2 Gastrointestional: round, distended; No guarding; audible bowel sounds Extremities: other (wound vac in place to left upper leg), no lower extremity edema bilateral Neurologic/Psychiatric: other (moves extremities) Skin: other (see above) Results/Procedures: Labs Laboratory Tests 02/04/23 05:05: White Blood Count 11.0, Red Blood Count 3.87L, Hemoglobin 12.3L, Hematocrit 39L, Mean Corpuscular Volume 100H, Mean Corpuscular Hemoglobin 32, Mean Corpuscular Hemoglobin Concent 32, Red Cell Distribution Width 12.7, Platelet Count 390, Mean Platelet Volume 8.8L, Immature Granulocyte % (Auto) 1, Neutrophils (%) (Auto) 67, Lymphocytes (%) (Auto) 13, Monocytes (%) (Auto) 15H, Eosinophils (%) (Auto) 3, Basophils (%) (Auto) 1, Neutrophils # (Auto) 7.4, Lymphocytes # (Auto) 1.4, Monocytes # (Auto) 1.7H, Eosinophils # (Auto) 0.3, Basophils # (Auto) 0.1, Immature Granulocyte # (Auto) 0.1, Sodium Level 137, Potassium Level 3.5L, Chloride Level 103, Carbon Dioxide Level 22, Anion Gap 12, Blood Urea Nitrogen 31H, Creatinine 2.37H, Estimat Glomerular Filtration Rate 32, BUN/Creatinine Ratio 13, Glucose Level 113H, Calcium Level 9.8, Corrected Calcium 10.4H, Phosphorus Level 4.9H, Magnesium Level 2.3, Total Bilirubin 0.4, Aspartate Amino Transf (AST/SGOT) 27, Alanine Aminotransferase (ALT/SGPT) 42, Alkaline Phosphatase 81, Total Protein 7.0, Albumin 3.3 Microbiology 02/01/23 Urine Culture - Final, Complete NO GROWTH 01/30/23 Blood Culture - Preliminary, Resulted 01/28/23 Gram Stain - Final, Complete 01/28/23 Sputum Culture - Final, Complete YEAST 01/23/23 Gram Stain - Final, Complete 01/23/23 Anaerobic Culture - Final, Complete No anaerobes isolated 01/23/23 Surgical Culture - Final, Complete Staphylococcus aureus Staphylococcus aureus#2 Laboratory Tests 02/03/23 05:00 02/04/23 05:05 A/P: Assessment: SYDNI 3 - managed by Dr. Busch Sinus tachycardia - Echocardiogram of 01-24-[address] Jacob showed LVEF 55-65%. Grade 1 diastolic dysfunction. LA/RA mod dilated. Mild MR. PASP 60-65 mmHg Necrotizing fasciitis with cellulitis of the left thigh, status post I&D, currently has a wound VAC - Receiving antibiotic and managed by surgical team Status post prolonged respiratory failure, intubated, difficult extubation - requiring Vapo-therm History of alcohol use. Change in mental status, confusion, lethargy, encephalopathy. - Probably secondary to sepsis and hypoxemia Pulmonary hypertension - underlying pulm disease and/or GARFIELD Plan: * Development of post-op SYDNI being managed by Dr Busch * Cardiac status clinically stable * Monitor labs ALBERTINA DEJESUS MD FACP [facility] Feb 04, 2023 12:36
[2023-02-04] MEDS: LACTATED RINGERS 1,000 ML 1,000 ML IV SCH ×2 (13:16→19:53)
[2023-02-04] MEDS: ACETAMINOPHEN 500 MG TABLET PO PRN (15:54)
[2023-02-04 16:00] VITALS: BP 104/65
[2023-02-04 20:24] VITALS: BP 96/59
[2023-02-05] VITALS (7 sets, daily range): BP systolic 97–124; BP diastolic 55–76
[2023-02-05] MEDS: METOCLOPRAMIDE INJ 10 MG/2 ML IVP SCH ×4 (01:57→17:42)
[2023-02-05] MEDS: RT-Ipratropium/Albuterol NEB 3 ML VIAL INH SCH ×6 (03:01→21:08)
[2023-02-05] MEDS: aCETylcysteine 20% (RT/PO) 4 ML SOLN VIAL INH SCH ×2 (03:01→11:03)
[2023-02-05 05:41] LABS: BASOPHILS # (AUTO) 0.1 10^3/uL (0.0-0.1); BASOPHILS % (AUTO) 1 % (0-10); EOSINOPHILS # (AUTO) 0.5 10^3/uL (0.0-0.3); EOSINOPHILS % (AUTO) 6 % (0-10); HEMATOCRIT 37 % (40-54); HEMOGLOBIN 11.5 g/dL (13.3-17.7); LYMPHOCYTES # (AUTO) 1.1 10^3/uL (1.0-4.0); LYMPHOCYTES % (AUTO) 12 % (12-44); MEAN CORPUSCULAR HEMOGLOBIN 32 pg (25-34); MEAN CORPUSCULAR HGB CONC 31 g/dL (32-36); MEAN CORPUSCULAR VOLUME 101 fL (80-99); MEAN PLATELET VOLUME 9.1 fL (9.0-12.2); MONOCYTES # (AUTO) 1.6 10^3/uL (0.0-1.0); MONOCYTES % (AUTO) 18 % (0-12); NEUTROPHILS # (AUTO) 5.7 10^3/uL (1.8-7.8); NEUTROPHILS % (AUTO) 63 % (42-75); PLATELET COUNT 354 10^3/uL (130-400); WHITE BLOOD COUNT 9.1 10^3/uL (4.3-11.0)
[2023-02-05 06:05] LABS: POTASSIUM 3.6 MMOL/L (3.6-5.0)
[2023-02-05 06:06] LABS: CALCIUM 9.6 MG/DL (8.5-10.1)
[2023-02-05 06:10] LABS: CREATININE SERUM 1.88 MG/DL (0.60-1.30)
[2023-02-05] MEDS: POTASSIUM CL 10MEQ/50ML IVPB 50 ML IV SCH (06:11)
[2023-02-05] MEDS: POTASSIUM CHLORIDE 20 MEQ TABLET PO SCH (06:11)
[2023-02-05 06:13] LABS: BAND NEUTROPHILS 5 %; EOSINOPHILS % (MANUAL) 2 %; LYMPHOCYTES % (MANUAL) 11 %; MONOCYTES % (MANUAL) 15 %; NEUTROPHILS % (MANUAL) 61 %; REACTIVE LYMPHOCYTES 6 %
[2023-02-05] MEDS: MAGNESIUM 1 GM/100 ML IVPB 100 ML IV SCH (06:25)
--- NOTE | 2023-02-05 07:37 | Progress Note - Surgery ---
KELLEY ESCOTO 02/05/23 0737: Subjective Date Seen by a Provider: Feb 05, 2023 Time Seen by a Provider: 07:32 Subjective/Events-last exam Connor, 57M, notes that he feels the same as yesterday. He was able to sleep well last night. He notes that he has had 2 bowel movements since we last talked. He denies any changes to his stool. Connor says that he has no updates. He denies any pain. His cognition continues to improve. He says that he is eating well. No other concerns. Review of Systems General: No Fatigue; Appetite HEENT: No Head Aches, No Visual Changes Pulmonary: No Dyspnea, No Cough Cardiovascular: No: Chest Pain, Palpitations Gastrointestinal: No: Nausea, Vomiting, Abdominal Pain Genitourinary: Other (hager in place ) Musculoskeletal: back pain (mild, "from being in bed" ); No: arm pain Neurological: No: Weakness, Numbness, Change in speech, Confusion Objective Exam Vital Signs Date Time Temp Pulse Resp B/P (MAP) Pulse Ox O2 Delivery O2 Flow Rate FiO2 02/05/23 06:39 86 High Flow N/C 6.00 02/05/23 04:04 36.6 93 18 124/76 (92) 92 High Flow N/C 4.00 4.00 02/05/23 03:02 High Flow N/C 4.00 02/05/23 03:01 High Flow N/C 4.00 02/05/23 01:00 96 02/05/23 00:02 37.0 96 18 118/68 (85) 92 High Flow N/C 4.00 4.00 02/04/23 22:09 High Flow N/C 4.00 02/04/23 22:05 High Flow N/C 4.00 02/04/23 21:00 95 High Flow N/C 5.00 02/04/23 20:24 37.1 95 18 96/59 (71) 95 High Flow N/C 6.00 02/04/23 19:19 77 High Flow N/C 4.00 02/04/23 19:00 97 02/04/23 16:00 36.7 90 18 104/65 (78) 90 Nasal Cannula 3.50 02/04/23 12:41 103 02/04/23 12:00 36.7 02/04/23 12:00 101 21 103/58 (71) 98 High Flow N/C 5.00 02/04/23 11:00 106 25 123/74 (90) 96 High Flow N/C 5.00 02/04/23 10:00 94 26 120/71 (91) 95 High Flow N/C 5.00 02/04/23 09:00 98 28 112/68 (86) 94 High Flow N/C 5.00 02/04/23 08:10 37.1 02/04/23 08:00 95 High Flow N/C 5.00 02/04/23 08:00 96 123/71 (88) 96 High Flow N/C 5.00 I & O 02/05/23 07:00 Intake Total 1050 ml Output Total 1275 ml Balance -225 ml Capillary Refill : Less Than 3 SecondsLess Than 3 Seconds General Appearance: No Apparent Distress, WD/WN, Chronically ill HEENT: Normal ENT Inspection, Moist Mucous Membranes; No Pale Conjunctivae (L), No Pale Conjunctivae (R) Neck: Non Tender, Supple Respiratory: No Accessory Muscle Use, No Respiratory Distress, Crackles (BL, basilar ) Cardiovascular: Regular Rate, Rhythm, No Edema, No Murmur Gastrointestinal: soft, no pulsatile mass; No distended; tenderness (decreased, pt says very improved ), hernia (umbilical area) Extremity: No Calf Tenderness, No Pedal Edema Neurologic/Psychiatric: Alert, Oriented x3, Normal Mood/Affect Skin: Warm/Dry (skin flaking noted on face, dry ), Other (L LE wound vac, no erythema in region ) Results Lab Laboratory Tests 02/05/23 05:30: White Blood Count 9.1, Red Blood Count 3.62L, Hemoglobin 11.5L, Hematocrit 37L, Mean Corpuscular Volume 101H, Mean Corpuscular Hemoglobin 32, Mean Corpuscular Hemoglobin Concent 31L, Red Cell Distribution Width 12.7, Platelet Count 354, Mean Platelet Volume 9.1, Immature Granulocyte % (Auto) 1, Neutrophils (%) (Auto) 63, Lymphocytes (%) (Auto) 12, Monocytes (%) (Auto) 18H, Eosinophils (%) (Auto) 6, Basophils (%) (Auto) 1, Neutrophils # (Auto) 5.7, Lymphocytes # (Auto) 1.1, Monocytes # (Auto) 1.6H, Eosinophils # (Auto) 0.5H, Basophils # (Auto) 0.1, Immature Granulocyte # (Auto) 0.1, Neutrophils % (Manual) 61, Lymphocytes % (Manual) 11, Monocytes % (Manual) 15, Eosinophils % (Manual) 2, Band Neutrophils 5, Reactive Lymphocytes 6, Sodium Level 138, Potassium Level 3.6, Chloride Level 107, Carbon Dioxide Level 20L, Anion Gap 11, Blood Urea Nitrogen 35H, Creatinine 1.88H, Estimat Glomerular Filtration Rate 42, BUN/Creatinine Ratio 19, Glucose Level 110H, Calcium Level 9.6, Magnesium Level 2.0 Microbiology 02/01/23 Urine Culture - Final, Complete NO GROWTH 01/30/23 Blood Culture - Final, Complete 01/28/23 Gram Stain - Final, Complete 01/28/23 Sputum Culture - Final, Complete YEAST 01/23/23 Gram Stain - Final, Complete 01/23/23 Anaerobic Culture - Final, Complete No anaerobes isolated 01/23/23 Surgical Culture - Final, Complete Staphylococcus aureus Staphylococcus aureus#2 Assessment/Plan Assessment/Plan Assessment/Plan LLE, proximal medial, nectorizing soft tissue infection * S/P I/D, wound vac * Wound vac changed, marked improvement * MRSA precautions * Pain management with Fentanyl Ventilator Associated Fungal PNA * Med team management * Adunilofungin, Miconazole Alcohol Use Disorder * CIWA protocol * Ativan, Thiamine Acute Kidney Injury * Cr improved to 1.8 from 2.37 * gentle fluid replacement * medical team management ANTONIO ANDRE DO 02/05/23 2340: Subjective Time Seen by a Provider: 13:56 Subjective/Events-last exam Pt seen and examined, no new complaints and thinks he is doing better. Review of Systems HEENT: No Head Aches, No Visual Changes Pulmonary: No Dyspnea, No Cough Cardiovascular: No: Chest Pain, Palpitations Gastrointestinal: No: Nausea, Vomiting, Abdominal Pain Genitourinary: No Other (hager in place ) Objective Exam General Appearance: No Apparent Distress, Chronically ill HEENT: Moist Mucous Membranes; No Pale Conjunctivae (L), No Pale Conjunctivae (R) Respiratory: No Accessory Muscle Use, No Respiratory Distress, Crackles (BL, basilar ) Cardiovascular: Regular Rate, Rhythm, No Murmur Gastrointestinal: soft, tenderness (decreased, pt says very improved ) Extremity: No Calf Tenderness Skin: Other (L LE wound vac, no erythema in region ) Assessment/Plan Assessment/Plan Assessment/Plan LLE, proximal medial, nectorizing soft tissue infection * S/P I/D, wound vac * Wound vac changed, marked improvement * MRSA precautions * Pain management with Fentanyl Ventilator Associated Fungal PNA * Med team management * Adunilofungin, Miconazole Alcohol Use Disorder * CIWA protocol * Ativan, Thiamine Acute Kidney Injury * Cr improved to 1.8 from 2.37 * gentle fluid replacement * medical team management Supervisory-Addendum Brief Verification & Attestation Participated in pt care: history, MDM, physical Personally performed: exam, history, MDM, supervision of care Care discussed with: Medical Student Procedures: n/a Verification and Attestation of Medical Student E/M Service A medical student performed and documented this service. I then reviewed and verified all information documented by the medical student and made modifications to such information, when appropriate. I personally performed a physical exam, medical decision making and then discussed any differences between the notes and made revisions as necessary to create one note. Antonio Andre , 02/05/23 , 23:40 KELLEY ESCOTO Feb 05, 2023 07:37 ANTONIO ANDRE DO Feb 05, 2023 23:40
[2023-02-05] MEDS: LACTATED RINGERS 1,000 ML 1,000 ML IV SCH ×2 (08:41→20:20)
[2023-02-05] MEDS: FOLIC ACID IV SCH (08:43)
[2023-02-05] MEDS: NS IV SCH ×2 (08:43→08:49)
[2023-02-05] MEDS: THIAMINE IV SCH (08:43)
[2023-02-05] MEDS: LACTULOSE SYRUP 10GM/15ML 30ML UDC PO SCH ×2 (08:47→20:16)
[2023-02-05] MEDS: SENNOSIDES 8.6 MG TABLET PO SCH (08:48)
[2023-02-05] MEDS: amLODIPine 10 MG TABLET PO SCH (08:48)
[2023-02-05] MEDS: ANIDULAFUNGIN IV SCH (08:49)
[2023-02-05] MEDS: guaiFENesin SYRUP 100 MG/5 ML 10 ML PO SCH ×4 (08:49→20:16)
[2023-02-05] MEDS: SODIUM HYPOCHLORITE 0.125% TOP SCH (08:51)
[2023-02-05] MEDS: ENOXAPARIN 40 MG/0.4 ML SYRINGE SC SCH (08:51)
--- NOTE | 2023-02-05 08:56 | Progress Note ---
Subjective Subjective/Events-last exam Pt seen at 1122. States feeling a little better. Has gotten up to bathroom a few times with assistance. mentions concern about sleep apnea and wondering about testing. Objective Exam Last Set of Vital Signs Vital Signs Date Time Temp Pulse Resp B/P (MAP) Pulse Ox O2 Delivery O2 Flow Rate FiO2 02/05/23 08:50 36.6 103 17 97/65 (76) 90 High Flow N/C 3.50 02/02/23 19:03 70 Capillary Refill : Less Than 3 SecondsLess Than 3 Seconds I&O Intake and Output0 02/04/23 23:59 Intake Total 1000 ml Output Total 750 ml Balance 250 ml Intake Oral 1000 ml Output Urine Total 750 ml # Bowel Movements 3 General: Alert Lungs: Other (decreased air movement throughout) Skin: Other (wound vac in place to left inner thigh) Neuro: Normal Speech Psych/Mental Status: Mental Status NL, Mood NL Results/Procedures Lab Laboratory Tests 02/05/23 05:30: White Blood Count 9.1, Red Blood Count 3.62L, Hemoglobin 11.5L, Hematocrit 37L, Mean Corpuscular Volume 101H, Mean Corpuscular Hemoglobin 32, Mean Corpuscular Hemoglobin Concent 31L, Red Cell Distribution Width 12.7, Platelet Count 354, Mean Platelet Volume 9.1, Immature Granulocyte % (Auto) 1, Neutrophils (%) (Auto) 63, Lymphocytes (%) (Auto) 12, Monocytes (%) (Auto) 18H, Eosinophils (%) (Auto) 6, Basophils (%) (Auto) 1, Neutrophils # (Auto) 5.7, Lymphocytes # (Auto) 1.1, Monocytes # (Auto) 1.6H, Eosinophils # (Auto) 0.5H, Basophils # (Auto) 0.1, Immature Granulocyte # (Auto) 0.1, Neutrophils % (Manual) 61, Lymphocytes % (Manual) 11, Monocytes % (Manual) 15, Eosinophils % (Manual) 2, Band Neutrophils 5, Reactive Lymphocytes 6, Sodium Level 138, Potassium Level 3.6, Chloride Level 107, Carbon Dioxide Level 20L, Anion Gap 11, Blood Urea Nitrogen 35H, Creatinine 1.88H, Estimat Glomerular Filtration Rate 42, BUN/Creatinine Ratio 19, Glucose Level 110H, Calcium Level 9.6, Magnesium Level 2.0 Microbiology 02/01/23 Urine Culture - Final, Complete NO GROWTH 01/30/23 Blood Culture - Final, Complete 01/28/23 Gram Stain - Final, Complete 01/28/23 Sputum Culture - Final, Complete YEAST 01/23/23 Gram Stain - Final, Complete 01/23/23 Anaerobic Culture - Final, Complete No anaerobes isolated 01/23/23 Surgical Culture - Final, Complete Staphylococcus aureus Staphylococcus aureus#2 Assessment/Plan Assessment/Plan (1) Acute kidney injury Status: Acute Assessment & Plan: Suspected to be related to volume depletion with altered mental status. Improved today, follow. (2) PSVT (paroxysmal supraventricular tachycardia) Status: Acute Assessment & Plan: Appreciate Cardiology recommendations (3) Severe sepsis Status: Resolved Assessment & Plan: - Broad spectrum antibiotics Vanc and Zosyn started on admit - Completed clindamycin 01/23-01/28; Zosyn 01/23-02/02 and Vancomycin 01/23-02/02 (4) Necrotizing fasciitis of lower leg Status: Resolved Assessment & Plan: - s/p debridement -Wound vac in place, improving, appreciate Wound Care recommendations (5) Acute and chronic respiratory failure with hypoxia Status: Acute Assessment & Plan: Required extended intubation post-surgery and developed funal pnemonia. Currently on 8 lpm supplemental oxygen. CXR 02/03 with low lung volumes, atalectasis. Suspect underlying sleep apnea and COPD. Encourage IS. (6) Fungal pneumonia Status: Acute Assessment & Plan: - Sputum culture from 01/28 grew yeast - [place] started 01/30, continued (7) Pre-diabetes Status: Chronic Assessment & Plan: - A1c 5.9 (8) Suspected chronic obstructive pulmonary disease based on initial evaluation Status: Acute Assessment & Plan: Clinic chart does not indicate dx of lung disease, but states was on Symbicort. (9) Hypertension Assessment & Plan: Currently low BP, hold anti-hypertensives (10) Apnea Status: Acute Assessment & Plan: Suspected sleep apnea, will need outpatient sleep study (11) DVT prophylaxis Status: Acute Assessment & Plan: Enoxaparin DAVI KITCHEN MD Feb 05, 2023 08:56
[2023-02-05] MEDS ORDERED: POTASSIUM CHLORIDE 20 MEQ TABLET PO ONE (09:00)
[2023-02-05] MEDS: FAMOTIDINE INJ 20MG/2ML VIAL IVP SCH ×2 (09:35→20:15)
[2023-02-05] MEDS: hydrALAZINE 10 MG TABLET PO SCH (09:35)
[2023-02-05] MEDS: MICONAZOLE 2% POWDER 90 GM TOP SCH ×3 (09:36→20:16)
--- NOTE | 2023-02-05 10:10 | Cardiology Progress Note ---
Subjective Date Seen by Provider: Feb 05, 2023 Time Seen by Provider: 09:30 Subjective/Events-last exam Patient is sitting up in chair, denies any chest pain or increased dyspnea. Objective-Cardiology Exam Last Set of Vital Signs Vital Signs 02/02/23 02/05/23 19:03 08:50 Temp 36.6 Pulse 103 Resp 17 B/P (MAP) 97/65 (76) Pulse Ox 90 O2 Delivery High Flow N/C O2 Flow Rate 3.50 FiO2 70 I&O Intake and Output 02/04/23 23:59 Intake Total 1000 ml Output Total 750 ml Balance 250 ml Intake Oral 1000 ml Output Urine Total 750 ml # Bowel Movements 3 General: Alert, Oriented X3, Cooperative HEENT: Atraumatic Lungs: Clear to Auscultation, Normal Air Movement Heart: Regular Rate, No Murmurs Abdomen: Normal Bowel Sounds, Soft Extremities: No Edema Skin: No Rashes, No Significant Lesion Neuro: Normal Speech Psych/Mental Status: Mental Status NL, Mood NL Results Lab Laboratory Tests 02/05/23 05:30 A/P-Cardiology Admission Diagnosis Paroxysmal supraventricular tachycardia Necrotizing fasciitis Respiratory failure Encephalopathy Assessment/Plan Paroxysmal supraventricular tachycardia, mainly sinus tachycardia episode after extubation Currently in sinus rhythm with controlled rate Continue to monitor Necrotizing fasciitis with cellulitis of the left thigh, status post I&D, currently has a wound VAC Receiving antibiotic and managed by surgical team Status post prolonged respiratory failure, intubated, difficult extubation Slowly improving. History of alcohol use. Hypertension, currently hypotensive. Discontinue hydralazine Hold blood pressure medication today and restart tomorrow morning Monitor blood pressure closely Status post change in mental status, confusion, lethargy, encephalopathy. Probably secondary to sepsis and hypoxemia, improved. Pulmonary hypertension, probably underlying lung disease, continue to monitor. Maintained on Vapotherm Supervisory-Addendum Brief Supervisory Addendum Participated in pt care: history, MDM, physical Personally performed: exam, history, MDM Care discussed with: BROCK Results interpretation: Verified all documentation Notes: Patient was seen and evaluated with Rahul, examination performed, management plan was discussed, agree with the current scribed note, I made few changes to the note using Italic font Patient was seen at bedside, no new complain Blood pressure was reported to be low Received labetalol last night, holding his blood pressure medication today and discontinuing hydralazine Continue to monitor RAHUL ALLRED PA-C Feb 05, 2023 10:10 BOB PEARCE MD Feb 05, 2023 10:42
--- NOTE | 2023-02-05 10:16 | Wound Care Assessment ---
Wound Care Assessment Date Seen by Provider: Feb 05, 2023 Time Seen by Provider: 10:11 Chief Complaint L medial thigh abscess MARIA LUZ Munguia is a 57yoM with past medical history of HTN, HLD, COPD who was admitted for L lower extremity cellulitis with underlying abscess. He has had recurrent bouts of cellulitis in this area of his L medial thigh over the last year and most recently completed a 7 day course of keflex before admission. He was taken to the OR for incision and drainage. In the OR he was found to have necrotizing fasciitis. He has completed Vanc and Zosyn for sepsis with wound culture positive for clindamycin resistant MRSA. Blood cultures have been negative. No obvious signs of continued infection to wound today. Prolonged vent stay thought to be related to untreated GARFIELD and pulmonary HTN. Now off vent and on NC. Did have some MS changes off the vent as well but greatly improved today. Poor insight into the severity of his illness and subsequent weakness. Determined to go home and avoid snf or rehab. I strongly advised he listen to his primary team and their counseling on discharge plan (vasu. if his weakness is slow to improve). He was able to trasnfer with 1 person assist from chair to bed but remains very weak. He remains a high fall risk as a result. He is doing very well on wound vac with great improvements in size and granulation this week. Will likely require wound vac for period of time following discharge. Regardless of wound vac status, will certainly need outpatient wound care upon discharge. Past Medical History: Denies Diabetes Type II Smoking Status: Current Everyday Smoker (2ppd) Recreational Drug Use: No Alcohol Use: Regular Use (6 beers/d) Review of Systems General: Fatigue Pulmonary: Dyspnea Neurological: Weakness Exam Vital Signs Date Time Temp Pulse Resp B/P (MAP) Pulse Ox O2 Delivery O2 Flow Rate FiO2 02/05/23 08:50 36.6 103 17 97/65 (76) 90 High Flow N/C 3.50 02/02/23 19:03 70 Capillary Refill : Less Than 3 SecondsLess Than 3 Seconds General Appearance: WD/WN, no apparent distress, obese HEENT: other (normal hearing) Neck: full range of motion Respiratory: other (SOA with conversation and minimal movement. Continuous NC O2) Extremities: pedal edema Neurologic/Psychiatric: alert, normal mood/affect, oriented x 3, other (Poor insight into medical condition) Skin: normal color, warm/dry Skin Problem Location: lower extremities Skin Character: abscess Wound Assessment: 11x4.9x3.5cm. The Epithelialization is small. There is no tunneling or undermining. Drainage is large and serosanguinous. Granulation is large and pink. Necrotic is small and slough. Margins flat. Results Laboratory Tests 02/05/23 05:30: White Blood Count 9.1, Red Blood Count 3.62L, Hemoglobin 11.5L, Hematocrit 37L, Mean Corpuscular Volume 101H, Mean Corpuscular Hemoglobin 32, Mean Corpuscular Hemoglobin Concent 31L, Red Cell Distribution Width 12.7, Platelet Count 354, Mean Platelet Volume 9.1, Immature Granulocyte % (Auto) 1, Neutrophils (%) (Auto) 63, Lymphocytes (%) (Auto) 12, Monocytes (%) (Auto) 18H, Eosinophils (%) (Auto) 6, Basophils (%) (Auto) 1, Neutrophils # (Auto) 5.7, Lymphocytes # (Auto) 1.1, Monocytes # (Auto) 1.6H, Eosinophils # (Auto) 0.5H, Basophils # (Auto) 0.1, Immature Granulocyte # (Auto) 0.1, Neutrophils % (Manual) 61, Lymphocytes % (Manual) 11, Monocytes % (Manual) 15, Eosinophils % (Manual) 2, Band Neutrophils 5, Reactive Lymphocytes 6, Sodium Level 138, Potassium Level 3.6, Chloride Level 107, Carbon Dioxide Level 20L, Anion Gap 11, Blood Urea Nitrogen 35H, Creatinine 1.88H, Estimat Glomerular Filtration Rate 42, BUN/Creatinine Ratio 19, Glucose Level 110H, Calcium Level 9.6, Magnesium Level 2.0 Microbiology 02/01/23 Urine Culture - Final, Complete NO GROWTH 01/30/23 Blood Culture - Final, Complete 01/28/23 Gram Stain - Final, Complete 01/28/23 Sputum Culture - Final, Complete YEAST 01/23/23 Gram Stain - Final, Complete 01/23/23 Anaerobic Culture - Final, Complete No anaerobes isolated 01/23/23 Surgical Culture - Final, Complete Staphylococcus aureus Staphylococcus aureus#2 Assessment/Plan/Dx 1. L medial thigh open surgical wound s/p debridement of nectrotizing soft tissue infection 2. Acute hypoxic respiratory failure thought to be secondary to pna with GARFIELD/pulmonary HTN 3. Sepsis with Cindamycin resistant MRSA 4. Anemia of Chronic disease 5. Alcohol use disorder Plan 1. Wound vac placed 01/29 with good seal, change twice weekly. Completed Vanc and Zosyn. No obvious signs of infection today. No apparent uncontrolled diabetes or vascular disease complicating wound healing. With smoking history is at risk for peripheral vascular disease. 2. Greatly improved 3. Resolved 4. Per primary 5. Per primary, no signs of alcohol withdrawal at this time THADDEUS CHAMPAGNE MD Feb 05, 2023 10:16
--- NOTE | 2023-02-05 11:26 | Physical Therapy Daily Note ---
PT Daily Note-Current Subjective Patient agrees to PT. Pain Section J - Health Conditions 1. Rarely or not at all 2. Occasionally 3. Frequently 4. Almost constantly 8. Unable to answer Pain Effect on Sleep: 1 Pain Interference with Therapy: 1 Pain Interference w/Day-to-Day: 1 Mental Status Attachments: Central Line, Oxygen (8L HF NC), Naidu Catheter wound vac left thigh Transfers SCALE: Activities may be completed with or without assistive devices. 9-Xihulsyrxd-wofdqvg completes the activity by him/herself with no assistance from a helper. 5-Set-up or Clean-up Assistance-helper sets up or cleans up; patient completes activity. [place] assists only prior to or following the activity. 4-Supervision or Touching Assistance-helper provides verbal cues and/or touching/steadying and/or contact guard assistance as patient completes activity. Assistance may be provided throughout the activity or intermittently. 3-Partial/Moderate Assistance-helper does LESS THAN HALF the effort. [place] lifts, holds or supports trunk or limbs, but provides less than half the effort. 2-Substantial/Maximal Assistance-helper does MORE THAN HALF the effort. [place] lifts or holds trunk or limbs and provides more than half the effort. 0-Xdkidgrgs-tgkauu does ALL the effort. Patient does none of the effort to complete the activity. Or, the assistance of 2 or more helpers is required for the patient to complete the activity. If activity was not attempted, code reason: 7-Patient Refused. 9-Not Applicable-not attempted and the patient did not perform the activity before the current illness, exacerbation or injury. 10-Not Attempted due to Environmental Limitations-(lack of equipment, weather restraints, etc.). 88-Not Attempted due to Medical Conditions or Safety Concerns. Sit to Lying (QC): 4 Lying to Sitting/Side of Bed(Q: 4 Sit to Stand (QC): 4 Chair/Euu-lx-Prwmi Xfer(QC): 4 Gait Training Distance: 175' Walk 10 feet (QC): 4 Walk 50 ft with 2 Turns(QC): 4 Walk 150 ft (QC): 4 Assessment VC's for body placement in FWW/safe and functional gait sequence. Improved functional endurance PT Mcfp Goals Vehicle Assembly Inspector Goals PT Mcfp Goals Time Frame: Mar 03, 2023 Roll Left & Right (QC): 6 Sit to Lying (QC): 6 Lying-Sitting on Side/Bed(QC): 6 Sit to Stand (QC): 6 Chair/Lxd-dn-Nebpb Xfer(QC): 6 Toilet Transfer (QC): 6 Walk 10 feet (QC): 6 Walk 50ft with 2 Turns (QC): 6 Walk 150 ft (QC): 6 PT Plan Treatment/Plan Treatment Plan: Continue Plan of Care Treatment Plan: Bed Mobility, Education, Functional Activity David, Functional Strength, Gait, Safety, Therapeutic Exercise, Transfers Treatment Duration: Mar 03, 2023 Frequency: 6 times per week Estimated Hrs Per Day: .25 hour per day Patient and/or Family Agrees t: Yes Time Time In: 1044 Time Out: 1059 DATE: Feb 05, 2023 Total Billed Treatment Time: 15 Total Billed Treatment 1 visit GT 15 min JOLEEN LI PT Feb 05, 2023 11:26
--- NOTE | 2023-02-05 15:51 | Occupational Ther Daily Note ---
OT Current Status-Daily Note Subjective Request bathroom assistance and intervention Mental Status/Objective Patient Orientation: Person, Place, Time, Situation ADL-Treatment Patient reports he has used the BS, OT informed that patient is able to use regular toilet and can ambulate SBA Therapy Code Descriptions/Definitions Functional [place] Measure: 0=Not Assessed/NA 4=Minimal Assistance 1=Total Assistance 5=Supervision or Setup 2=Maximal Assistance 6=Modified [place] 3=Moderate Assistance 7=Complete IndependenceSCALE: Activities may be completed with or without assistive devices. 1-Myvunwanxv-krdukqn completes the activity by him/herself with no assistance from a helper. 5-Set-up or Clean-up Assistance-helper sets up or cleans up; patient completes activity. [place] assists only prior to or following the activity. 4-Supervision or Touching Assistance-helper provides verbal cues and/or touching/steadying and/or contact guard assistance as patient completes activity. Assistance may be provided throughout the activity or intermittently. 3-Partial/Moderate Assistance-helper does LESS THAN HALF the effort. [place] lifts, holds or supports trunk or limbs, but provides less than half the effort. 2-Substantial/Maximal Assistance-helper does MORE THAN HALF the effort. [place] lifts or holds trunk or limbs and provides more than half the effort. 9-Szmcfmofn-lvlouq does ALL the effort. Patient does none of the effort to complete the activity. Or, the assistance of 2 or more helpers is required for the patient to complete the activity. If activity was not attempted, code reason: 7-Patient Refused. 9-Not Applicable-not attempted and the patient did not perform the activity before the current illness, exacerbation or injury. 10-Not Attempted due to Environmental Limitations-(lack of equipment, weather restraints, etc.). 88-Not Attempted due to Medical Conditions or Safety Concerns. Eating (QC): 6 Oral Hygiene (QC): 5 Upper Body Dressing (QC): 4 Lower Body Dressing (QC): 4 On/Off Footwear: 4 Toileting Hygiene (QC): 4 Toilet Transfer (QC): 4 Education OT Patient Education: Correct positioning, Modified ADL techniques, Progress toward Goal/Update tx plan, Purpose of tx/functional activities, Reviewed precautions, Rehab process, Safety issues, Transfer techniques Teaching Recipient: Patient Teaching Methods: Demonstration Response to Teaching: Verbalize Understanding, Reinforcement Needed OT Record Press Supervisor Goals Fdc Goals Eating (QC): 6 Oral Hygiene (QC): 6 Toileting Hygiene (QC): 6 Shower/Bathe Self (QC): 6 Upper Body Dressing (QC): 6 Lower Body Dressing (QC): 6 On/Off Footwear (QC): 6 1=Demonstrate adherence to instructed precautions during ADL tasks. 2=Patient will verbalize/demonstrate understanding of assistive devices/modifications for ADL. 3=Patient will improve strength/tolerance for activity to enable patient to perform ADL's. OT Education/Plan Problem List/Assessment Assessment: Decreased Activ Tolerance, Impaired Self-Care Skills Discharge Recommendations Plan/Recommendations: Continue POC Treatment Plan/Plan of Care Treatment,Training & Education: Yes Patient would benefit from OT for education, treatment and training to promote independence in ADL's, mobility, safety and/or upper extremity function for ADL's. Plan of Care: ADL Retraining, Functional Mobility, Group Exercise/Act as Ind, UE Funct Exercise/Act Treatment Duration: Feb 09, 2023 Frequency: 3 times per week (3-5 times per week) Estimated Hrs Per Day: .25 hour per day Agreement: Yes Rehab Potential: Guarded Time Start Time: 13:56 Stop Time: 14:10 DATE: Feb 05, 2023 Total Time Billed (hr/min): 14 Billed Treatment Time ADL 14 min MJ ESPINAL OT Feb 05, 2023 15:51
[2023-02-05] MEDS: oxyCODONE IMMEDIATE RELEASE 5 MG TABLET PO PRN (17:42)
[2023-02-06] MEDS: METOCLOPRAMIDE INJ 10 MG/2 ML IVP SCH ×4 (00:49→17:58)
[2023-02-06] MEDS: RT-Ipratropium/Albuterol NEB 3 ML VIAL INH SCH ×6 (02:29→22:53)
[2023-02-06 03:19] VITALS: BP 117/75
[2023-02-06 05:40] LABS: BASOPHILS # (AUTO) 0.1 10^3/uL (0.0-0.1); BASOPHILS % (AUTO) 1 % (0-10); EOSINOPHILS # (AUTO) 0.7 10^3/uL (0.0-0.3); EOSINOPHILS % (AUTO) 6 % (0-10); HEMATOCRIT 36 % (40-54); HEMOGLOBIN 11.3 g/dL (13.3-17.7); LYMPHOCYTES # (AUTO) 1.3 10^3/uL (1.0-4.0); LYMPHOCYTES % (AUTO) 12 % (12-44); MEAN CORPUSCULAR HEMOGLOBIN 32 pg (25-34); MEAN CORPUSCULAR HGB CONC 31 g/dL (32-36); MEAN CORPUSCULAR VOLUME 101 fL (80-99); MONOCYTES # (AUTO) 1.5 10^3/uL (0.0-1.0); MONOCYTES % (AUTO) 14 % (0-12); NEUTROPHILS # (AUTO) 7.2 10^3/uL (1.8-7.8); NEUTROPHILS % (AUTO) 66 % (42-75); PLATELET COUNT 339 10^3/uL (130-400); WHITE BLOOD COUNT 10.9 10^3/uL (4.3-11.0)
[2023-02-06 05:48] LABS: ALBUMIN 3.4 GM/DL (3.2-4.5); POTASSIUM 3.5 MMOL/L (3.6-5.0)
[2023-02-06 05:50] LABS: CALCIUM 9.3 MG/DL (8.5-10.1)
[2023-02-06 05:51] LABS: TOTAL PROTEIN 7.1 GM/DL (6.4-8.2)
[2023-02-06 05:53] LABS: BILIRUBIN,TOTAL 0.4 MG/DL (0.1-1.0)
[2023-02-06 05:54] LABS: CREATININE SERUM 1.01 MG/DL (0.60-1.30)
[2023-02-06] MEDS: POTASSIUM CHLORIDE 20 MEQ TABLET PO SCH (06:12)
[2023-02-06] MEDS: POTASSIUM CL 10MEQ/50ML IVPB 50 ML IV SCH (06:13)
--- NOTE | 2023-02-06 06:39 | Progress Note - Surgery ---
KELLEY ESCOTO 02/06/23 0639: Subjective Date Seen by a Provider: Feb 06, 2023 Time Seen by a Provider: 06:32 Subjective/Events-last exam Connor, 57M, was sleeping prior to encounter. He notes that he has been sleeping well. He notes that he has no issues with sleep. He also notes that he is eating well. He denies any N/V. He also notes that he is urinating well, not noticing any blood or increased frequency. Brain says that he had 5 BM yesterday, they were loose. He notes that the laxatives are causing the loose stool. Connor denies any pain currently. He notes that the woundvac change was uncomfortable, and in the future would like more pain management prior to any changes. He says that his leg feels well, no changes otherwise. He wonders about discharge, told to consult with medical team. He denies any new symptoms. His cognition has improved and no longer appears confused. Review of Systems General: Chills ("im always cold" ); No Fatigue HEENT: No Head Aches, No Sore Throat Pulmonary: No Dyspnea, No Cough Cardiovascular: No: Chest Pain, Palpitations Gastrointestinal: No: Nausea, Vomiting, Abdominal Pain, Hematochezia Genitourinary: No Incontinence, No Hematuria Musculoskeletal: No: back pain, leg pain, foot pain Neurological: No: Weakness, Numbness Objective Exam Vital Signs Date Time Temp Pulse Resp B/P (MAP) Pulse Ox O2 Delivery O2 Flow Rate FiO2 02/06/23 03:19 36.8 93 18 117/75 (89) 91 High Flow N/C 8.00 8.00 02/06/23 02:29 93 High Flow N/C 8.00 02/06/23 01:02 95 02/05/23 23:39 36.5 92 18 124/74 (91) 94 High Flow N/C 8.00 8.00 02/05/23 21:09 92 High Flow N/C 8.00 02/05/23 20:15 High Flow N/C 3.50 02/05/23 19:52 36.7 88 18 104/55 (71) 93 High Flow N/C 3.50 02/05/23 19:00 90 02/05/23 18:49 90 High Flow N/C 7.00 02/05/23 16:26 37.0 89 19 116/64 (81) 94 Nasal Cannula 3.50 02/05/23 15:11 91 High Flow N/C 8.00 02/05/23 12:28 91 02/05/23 11:36 36.5 92 17 115/72 (86) 91 High Flow N/C 3.50 02/05/23 11:03 93 High Flow N/C 8.00 02/05/23 09:00 High Flow N/C 3.50 02/05/23 08:50 36.6 103 17 97/65 (76) 90 High Flow N/C 3.50 02/05/23 07:25 91 02/05/23 06:39 86 High Flow N/C 6.00 I & O 02/06/23 07:00 Intake Total 2971.2 ml Output Total 500 ml Balance 2471.2 ml Capillary Refill : Less Than 3 SecondsLess Than 3 Seconds General Appearance: No Apparent Distress, Chronically ill, Obese HEENT: Moist Mucous Membranes; No Pale Conjunctivae (L), No Pale Conjunctivae (R) Neck: Non Tender, Supple; No JVD Respiratory: No Accessory Muscle Use, No Respiratory Distress, Crackles (BL. basilar ) Cardiovascular: Regular Rate, Rhythm, No Murmur Gastrointestinal: non tender, soft Extremity: No Calf Tenderness; No Swelling Neurologic/Psychiatric: Alert, Oriented x3, Normal Mood/Affect Skin: Warm/Dry (diffuse dry skin ), Other (L LE wound vac, no erythema in region ) Results Lab Laboratory Tests 02/06/23 05:30: White Blood Count 10.9, Red Blood Count 3.55L, Hemoglobin 11.3L, Hematocrit 36L, Mean Corpuscular Volume 101H, Mean Corpuscular Hemoglobin 32, Mean Corpuscular Hemoglobin Concent 31L, Red Cell Distribution Width 12.7, Platelet Count 339, Mean Platelet Volume 9.0, Immature Granulocyte % (Auto) 1, Neutrophils (%) (Auto) 66, Lymphocytes (%) (Auto) 12, Monocytes (%) (Auto) 14H, Eosinophils (%) (Auto) 6, Basophils (%) (Auto) 1, Neutrophils # (Auto) 7.2, Lymphocytes # (Auto) 1.3, Monocytes # (Auto) 1.5H, Eosinophils # (Auto) 0.7H, Basophils # (Auto) 0.1, Immature Granulocyte # (Auto) 0.1, Sodium Level 137, Potassium Level 3.5L, Chloride Level 105, Carbon Dioxide Level 23, Anion Gap 9, Blood Urea Nitrogen 20H, Creatinine 1.01, Estimat Glomerular Filtration Rate 88, BUN/Creatinine Ratio 20, Glucose Level 109H, Calcium Level 9.3, Corrected Calcium 9.8, Magnesium Level 1.7, Total Bilirubin 0.4, Aspartate Amino Transf (AST/SGOT) 36H, Alanine Aminotransferase (ALT/SGPT) 56H, Alkaline Phosphatase 78, Total Protein 7.1, Albumin 3.4 Microbiology 02/01/23 Urine Culture - Final, Complete NO GROWTH 01/30/23 Blood Culture - Final, Complete 01/28/23 Gram Stain - Final, Complete 01/28/23 Sputum Culture - Final, Complete YEAST 01/23/23 Gram Stain - Final, Complete 01/23/23 Anaerobic Culture - Final, Complete No anaerobes isolated 01/23/23 Surgical Culture - Final, Complete Staphylococcus aureus Staphylococcus aureus#2 Assessment/Plan Assessment/Plan Assessment/Plan LLE, proximal medial, nectorizing soft tissue infection * S/P I/D, wound vac * Wound vac changed, further review on 02/08 * MRSA precautions * Pain management with Fentanyl Ventilator Associated Fungal PNA * Med team management * Adunilofungin Alcohol Use Disorder * [facility] protocol * Ativan, Thiamine Hypokalemia * replacement per protocol ANTONIO ANDRE DO 02/06/23 1529: Subjective Time Seen by a Provider: 12:04 Subjective/Events-last exam Pt seen and examined, actually saw him ambulating in the hallway. He denied pain or any new problems Review of Systems General: Chills ("im always cold" ) Pulmonary: No Dyspnea, No Cough Cardiovascular: No: Chest Pain, Palpitations Gastrointestinal: No: Nausea, Vomiting, Abdominal Pain Musculoskeletal: No: leg pain Objective Exam General Appearance: No Apparent Distress, Chronically ill, Obese HEENT: Moist Mucous Membranes; No Pale Conjunctivae (L), No Pale Conjunctivae (R) Respiratory: No Accessory Muscle Use, No Respiratory Distress, Crackles (BL. basilar ) Cardiovascular: Regular Rate, Rhythm, No Murmur Gastrointestinal: non tender Extremity: No Calf Tenderness Neurologic/Psychiatric: Alert, Oriented x3 Skin: Warm/Dry (diffuse dry skin ), Other (L LE wound vac, no erythema in region ) Assessment/Plan Assessment/Plan Assessment/Plan LLE, proximal medial, nectorizing soft tissue infection * S/P I/D, wound vac * Wound vac changed, further review on 02/08 * MRSA precautions * Pain management with Fentanyl Ventilator Associated Fungal PNA * Med team management * Adunilofungin Alcohol Use Disorder * [facility] protocol * Ativan, Thiamine Hypokalemia * replacement per protocol Supervisory-Addendum Brief Verification & Attestation Participated in pt care: history, MDM, physical Personally performed: exam, history, MDM, supervision of care Care discussed with: Medical Student Procedures: n/a Verification and Attestation of Medical Student E/M Service A medical student performed and documented this service. I then reviewed and verified all information documented by the medical student and made modifications to such information, when appropriate. I personally performed a physical exam, medical decision making and then discussed any differences between the notes and made revisions as necessary to create one note. Antonio Andre , 02/06/23 , 15:28 KELLEY ESCOTO Feb 06, 2023 06:39 ANTONIO ANDRE DO Feb 06, 2023 15:29
[2023-02-06] MEDS: MAGNESIUM 1 GM/100 ML IVPB 100 ML IV SCH ×5 (06:50→12:12)
[2023-02-06 07:40] VITALS: BP 145/80
--- NOTE | 2023-02-06 08:29 | Cardiology Progress Note ---
Subjective Date Seen by Provider: Feb 06, 2023 Time Seen by Provider: 08:26 Subjective/Events-last exam Patient sitting up at bedside, denies any chest pain or dyspnea. Objective-Cardiology Exam Last Set of Vital Signs Vital Signs 02/02/23 02/06/23 02/06/23 19:03 07:40 07:52 Temp 37.0 Pulse 85 Resp 16 B/P (MAP) 145/80 (101) Pulse Ox 93 O2 Delivery High Flow N/C O2 Flow Rate 8.00 FiO2 70 I&O Intake and Output 02/06/23 00:00 Intake Total 2771.2 ml Output Total 1250 ml Balance 1521.2 ml Intake Oral 1590 ml IV Total 1181.2 ml Output Urine Total 1250 ml # Voids 3 # Bowel Movements 3 General: Alert HEENT: Atraumatic Lungs: Other (decreased air movement throughout) Heart: Regular Rate, No Murmurs Abdomen: Normal Bowel Sounds, Soft Extremities: No Edema Skin: Other (wound vac in place to left inner thigh) Neuro: Normal Speech Psych/Mental Status: Mental Status NL, Mood NL Results Lab Laboratory Tests 02/06/23 05:30 A/P-Cardiology Admission Diagnosis Paroxysmal supraventricular tachycardia Necrotizing fasciitis Respiratory failure Encephalopathy Assessment/Plan Paroxysmal supraventricular tachycardia, mainly sinus tachycardia episode after extubation Currently in sinus rhythm with controlled rate Continue to monitor Necrotizing fasciitis with cellulitis of the left thigh, status post I&D, currently has a wound VAC Receiving antibiotic and managed by surgical team Status post prolonged respiratory failure, intubated, difficult extubation Slowly improving. History of alcohol use. Hypertension, hydralazine discontinued yesterday d/t hypotension. Blood pressure improved, will restart other blood pressure medications that were on hold yesterday. Continue to monitor BP/HR Status post change in mental status, confusion, lethargy, encephalopathy. Probably secondary to sepsis and hypoxemia, improved. Pulmonary hypertension, probably underlying lung disease, continue to monitor. Supervisory-Addendum Brief Supervisory Addendum Participated in pt care: history, MDM, physical Personally performed: exam, history, MDM Care discussed with: BROCK Results interpretation: Verified all documentation Notes: Patient was seen and evaluated with Rahul, examination performed, management plan was discussed, agree with the current scribed note, I made few changes to the note using Italic font Patient was seen at bedside sitting comfortably, eating breakfast Will restart blood pressure medication and continue to monitor Discontinue hydralazine Continue to monitor RAHUL ALLRED PA-C Feb 06, 2023 08:28 BOB PEARCE MD Feb 06, 2023 08:49
[2023-02-06] MEDS ORDERED: POTASSIUM CHLORIDE 20 MEQ TABLET PO NR (08:30)
[2023-02-06] MEDS: ANIDULAFUNGIN IV SCH (08:39)
[2023-02-06] MEDS: NS IV SCH (08:39)
[2023-02-06] MEDS: LACTULOSE SYRUP 10GM/15ML 30ML UDC PO SCH ×2 (08:41→19:44)
[2023-02-06] MEDS: guaiFENesin SYRUP 100 MG/5 ML 10 ML PO SCH ×4 (08:41→20:55)
[2023-02-06] MEDS: ENOXAPARIN 40 MG/0.4 ML SYRINGE SC SCH (08:42)
[2023-02-06] MEDS: amLODIPine 10 MG TABLET PO SCH (08:43)
[2023-02-06] MEDS: SENNOSIDES 8.6 MG TABLET PO SCH (08:43)
[2023-02-06] MEDS: FAMOTIDINE 20 MG TABLET PO SCH ×2 (08:43→20:55)
[2023-02-06] MEDS: FOLIC ACID 1 MG TAB PO SCH (08:43)
[2023-02-06] MEDS: oxyCODONE IMMEDIATE RELEASE 5 MG TABLET PO PRN ×2 (08:43→20:55)
[2023-02-06] MEDS: SODIUM HYPOCHLORITE 0.125% TOP SCH (08:44)
[2023-02-06] MEDS: MICONAZOLE 2% POWDER 90 GM TOP SCH ×2 (08:44→20:57)
[2023-02-06] MEDS ORDERED: POTASSIUM CHLORIDE 20 MEQ TABLET PO ONE (09:00)
[2023-02-06] MEDS ORDERED: NON-FORMULARY MEDICATION 1 EA EA (Budesonide/Formoterol Fumarate (Symbicort 160-4.5 Mcg In IH PRN (11:00)
--- NOTE | 2023-02-06 11:04 | Progress Note ---
Subjective Subjective/Events-last exam Denies shortness of breath, cough but continues to have hypoxia. Urinating well after removal of catheter. Appetite improving, having bowel movements. Objective Exam Last Set of Vital Signs Vital Signs Date Time Temp Pulse Resp B/P (MAP) Pulse Ox O2 Delivery O2 Flow Rate FiO2 02/06/23 07:52 93 High Flow N/C 8.00 02/06/23 07:40 37.0 85 16 145/80 (101) 02/02/23 19:03 70 Capillary Refill : Less Than 3 SecondsLess Than 3 Seconds I&O Intake and Output 02/05/23 23:59 Intake Total 2771.2 ml Output Total 1250 ml Balance 1521.2 ml Intake Oral 1590 ml IV Total 1181.2 ml Output Urine Total 1250 ml # Voids 3 # Bowel Movements 3 General: Alert Lungs: Clear to Auscultation Heart: Regular Rate Abdomen: Normal Bowel Sounds, No Tenderness, Other (distended) Extremities: No Edema, Other (venous stasis changes, wound vac in place to left inner thigh) Neuro: Normal Speech Psych/Mental Status: Mood NL Results/Procedures Lab Laboratory Tests 02/06/23 05:30: White Blood Count 10.9, Red Blood Count 3.55L, Hemoglobin 11.3L, Hematocrit 36L, Mean Corpuscular Volume 101H, Mean Corpuscular Hemoglobin 32, Mean Corpuscular Hemoglobin Concent 31L, Red Cell Distribution Width 12.7, Platelet Count 339, Mean Platelet Volume 9.0, Immature Granulocyte % (Auto) 1, Neutrophils (%) (Auto) 66, Lymphocytes (%) (Auto) 12, Monocytes (%) (Auto) 14H, Eosinophils (%) (Auto) 6, Basophils (%) (Auto) 1, Neutrophils # (Auto) 7.2, Lymphocytes # (Auto) 1.3, Monocytes # (Auto) 1.5H, Eosinophils # (Auto) 0.7H, Basophils # (Auto) 0.1, Immature Granulocyte # (Auto) 0.1, Sodium Level 137, Potassium Level 3.5L, Chloride Level 105, Carbon Dioxide Level 23, Anion Gap 9, Blood Urea Nitrogen 20H, Creatinine 1.01, Estimat Glomerular Filtration Rate 88, BUN/Creatinine Ratio 20, Glucose Level 109H, Calcium Level 9.3, Corrected Calcium 9.8, Magnesium Level 1.7, Total Bilirubin 0.4, Aspartate Amino Transf (AST/SGOT) 36H, Alanine Aminotransferase (ALT/SGPT) 56H, Alkaline Phosphatase 78, Total Protein 7.1, Albumin 3.4 Microbiology 02/01/23 Urine Culture - Final, Complete NO GROWTH 01/30/23 Blood Culture - Final, Complete 01/28/23 Gram Stain - Final, Complete 01/28/23 Sputum Culture - Final, Complete YEAST 01/23/23 Gram Stain - Final, Complete 01/23/23 Anaerobic Culture - Final, Complete No anaerobes isolated 01/23/23 Surgical Culture - Final, Complete Staphylococcus aureus Staphylococcus aureus#2 Assessment/Plan Assessment/Plan (1) Acute kidney injury Status: Resolved Assessment & Plan: Suspected to be related to volume depletion with altered mental status. Resolved today, follow. (2) PSVT (paroxysmal supraventricular tachycardia) Status: Acute Assessment & Plan: Appreciate Cardiology recommendations (3) Severe sepsis Status: Resolved Assessment & Plan: - Broad spectrum antibiotics Vanc and Zosyn started on admit - Completed clindamycin 01/23-01/28; Zosyn 01/23-02/02 and Vancomycin 01/23-02/02 (4) Necrotizing fasciitis of lower leg Status: Resolved Assessment & Plan: - s/p debridement -Wound vac in place, improving, appreciate Wound Care recommendations (5) Acute and chronic respiratory failure with hypoxia Status: Acute Assessment & Plan: Required extended intubation post-surgery and developed funal pnemonia. Currently on 8 lpm supplemental oxygen. CXR 02/03 with low lung volumes, atalectasis. Suspect underlying sleep apnea and COPD. Encourage IS. 02/06- able to wean to 5 lpm after my exam per RT, continue to wean as tolerated, repeat CXR today given persistent hypoxia, encouraged IS hourly. (6) Fungal pneumonia Status: Resolved Assessment & Plan: - Sputum culture from 01/28 grew yeast - [place] started 01/30, d/c today. (7) Pre-diabetes Status: Chronic Assessment & Plan: - A1c 5.9 (8) Suspected chronic obstructive pulmonary disease based on initial evaluation Status: Acute Assessment & Plan: Clinic chart does not indicate dx of lung disease, but states was on Symbicort. 02/06 resume Symbicort (patient does note he wasn't taking for some time). (9) Hypertension Assessment & Plan: 02/05- low BP, hold anti-hypertensives 02/06- BP increasing, resume home meds as needed (10) Apnea Status: Acute Assessment & Plan: Suspected sleep apnea, will need outpatient sleep study (11) DVT prophylaxis Status: Acute Assessment & Plan: Enoxaparin DAVI KITCHEN MD Feb 06, 2023 11:04
[2023-02-06] MEDS ORDERED: FLUTICASONE/VILANTEROL 200/25 MCG (14 DOSES) IH PRN (11:15)
[2023-02-06 11:31] VITALS: BP 147/77
--- NOTE | 2023-02-06 12:05 | Physical Therapy Daily Note ---
PT Daily Note-Current Subjective Patient agrees to PT. Pain Section J - Health Conditions 1. Rarely or not at all 2. Occasionally 3. Frequently 4. Almost constantly 8. Unable to answer Pain Effect on Sleep: 1 Pain Interference with Therapy: 1 Pain Interference w/Day-to-Day: 1 Mental Status Attachments: Oxygen (6L NC HF), IV wound vac Transfers SCALE: Activities may be completed with or without assistive devices. 0-Bkznfinonw-xufugxf completes the activity by him/herself with no assistance from a helper. 5-Set-up or Clean-up Assistance-helper sets up or cleans up; patient completes activity. [place] assists only prior to or following the activity. 4-Supervision or Touching Assistance-helper provides verbal cues and/or touching/steadying and/or contact guard assistance as patient completes activity. Assistance may be provided throughout the activity or intermittently. 3-Partial/Moderate Assistance-helper does LESS THAN HALF the effort. [place] lifts, holds or supports trunk or limbs, but provides less than half the effort. 2-Substantial/Maximal Assistance-helper does MORE THAN HALF the effort. [place] lifts or holds trunk or limbs and provides more than half the effort. 1-Mcqxgzlne-nwuuya does ALL the effort. Patient does none of the effort to complete the activity. Or, the assistance of 2 or more helpers is required for the patient to complete the activity. If activity was not attempted, code reason: 7-Patient Refused. 9-Not Applicable-not attempted and the patient did not perform the activity before the current illness, exacerbation or injury. 10-Not Attempted due to Environmental Limitations-(lack of equipment, weather restraints, etc.). 88-Not Attempted due to Medical Conditions or Safety Concerns. Lying to Sitting/Side of Bed(Q: 6 Sit to Stand (QC): 4 Chair/Jgy-pe-Jkyhv Xfer(QC): 4 Gait Training Distance: 250' Walk 10 feet (QC): 4 Walk 50 ft with 2 Turns(QC): 4 Walk 150 ft (QC): 4 Gait Assistive Device: FWW extended UE's with FWW use/functional gait sequence Assessment Patient up to recliner after session. RT present for SAO2 monitoring with it remaining >90%. PT to increase activity as tolerated by patient. PT Senior Care Goals Sleeping Car Service Attendant Goals PT Senior Care Goals Time Frame: Mar 03, 2023 Roll Left & Right (QC): 6 Sit to Lying (QC): 6 Lying-Sitting on Side/Bed(QC): 6 Sit to Stand (QC): 6 Chair/Bqi-ic-Baomd Xfer(QC): 6 Toilet Transfer (QC): 6 Walk 10 feet (QC): 6 Walk 50ft with 2 Turns (QC): 6 Walk 150 ft (QC): 6 PT Plan Treatment/Plan Treatment Plan: Continue Plan of Care Treatment Plan: Bed Mobility, Education, Functional Activity David, Functional Strength, Gait, Safety, Therapeutic Exercise, Transfers Treatment Duration: Mar 03, 2023 Frequency: 6 times per week Estimated Hrs Per Day: .25 hour per day Patient and/or Family Agrees t: Yes Time Time In: 1132 Time Out: 1147 DATE: Feb 06, 2023 Total Billed Treatment Time: 15 Total Billed Treatment 1 visit FA 15 min JOLEEN LI PT Feb 06, 2023 12:05
[2023-02-06] MEDS: LACTATED RINGERS 1,000 ML 1,000 ML IV SCH (12:13)
--- NOTE | 2023-02-06 14:36 | Occupational Ther Daily Note ---
OT Current Status-Daily Note Subjective Agreeable to participate w/ OT Mental Status/Objective Patient Orientation: Person, Place, Time, Situation ADL-Treatment Therapy Code Descriptions/Definitions Functional [place] Measure: 0=Not Assessed/NA 4=Minimal Assistance 1=Total Assistance 5=Supervision or Setup 2=Maximal Assistance 6=Modified [place] 3=Moderate Assistance 7=Complete IndependenceSCALE: Activities may be completed with or without assistive devices. 4-Wefdeozeuo-fynnjvx completes the activity by him/herself with no assistance from a helper. 5-Set-up or Clean-up Assistance-helper sets up or cleans up; patient completes activity. [place] assists only prior to or following the activity. 4-Supervision or Touching Assistance-helper provides verbal cues and/or touching/steadying and/or contact guard assistance as patient completes activity. Assistance may be provided throughout the activity or intermittently. 3-Partial/Moderate Assistance-helper does LESS THAN HALF the effort. [place] lifts, holds or supports trunk or limbs, but provides less than half the effort. 2-Substantial/Maximal Assistance-helper does MORE THAN HALF the effort. [place] lifts or holds trunk or limbs and provides more than half the effort. 0-Gldxwrzrj-gzyzls does ALL the effort. Patient does none of the effort to complete the activity. Or, the assistance of 2 or more helpers is required for the patient to complete the activity. If activity was not attempted, code reason: 7-Patient Refused. 9-Not Applicable-not attempted and the patient did not perform the activity before the current illness, exacerbation or injury. 10-Not Attempted due to Environmental Limitations-(lack of equipment, weather restraints, etc.). 88-Not Attempted due to Medical Conditions or Safety Concerns. Other Treatment SIT/STAND 30 second reps, ARM JACKS, ARM SCISSORS, HEEL to opposite KNEE 10 x w/ breathing strategies Education OT Patient Education: Exercise program, Modified ADL techniques, Progress toward Goal/Update tx plan, Purpose of tx/functional activities, Reviewed precautions, Rehab process, Safety issues, Transfer techniques, Use of adapted equipment Teaching Recipient: Patient Teaching Methods: Demonstration, Discussion Response to Teaching: Return Demonstration, Reinforcement Needed OT Chcf Goals Chcf Goals Eating (QC): 6 Oral Hygiene (QC): 6 Toileting Hygiene (QC): 6 Shower/Bathe Self (QC): 6 Upper Body Dressing (QC): 6 Lower Body Dressing (QC): 6 On/Off Footwear (QC): 6 1=Demonstrate adherence to instructed precautions during ADL tasks. 2=Patient will verbalize/demonstrate understanding of assistive devices/modifications for ADL. 3=Patient will improve strength/tolerance for activity to enable patient to perform ADL's. OT Education/Plan Problem List/Assessment Assessment: Decreased Activ Tolerance, Impaired Self-Care Skills Discharge Recommendations Plan/Recommendations: Continue POC Treatment Plan/Plan of Care Treatment,Training & Education: Yes Patient would benefit from OT for education, treatment and training to promote independence in ADL's, mobility, safety and/or upper extremity function for ADL's. Plan of Care: ADL Retraining, Functional Mobility, Group Exercise/Act as Ind, UE Funct Exercise/Act Treatment Duration: Feb 09, 2023 Frequency: 3 times per week (3-5 times per week) Estimated Hrs Per Day: .25 hour per day Agreement: Yes Rehab Potential: Guarded Time Start Time: 13:19 Stop Time: 13:32 DATE: Feb 06, 2023 Total Time Billed (hr/min): 13 Billed Treatment Time EX 13 min MJ ESPINAL OT Feb 06, 2023 14:36
[2023-02-06 15:40] VITALS: BP 109/68
--- NOTE | 2023-02-06 16:51 | Diagnostic Imaging Report ---
EXAMINATION: Chest 2 view HISTORY: Hypoxia COMPARISON: 02/03/2023 FINDINGS: There is mild pulmonary edema. Heart size is normal. No pleural effusion or pneumothorax. IMPRESSION: 1. Mild pulmonary edema. Dictated by: Dictated on workstation # [id number]
[2023-02-06 19:54] VITALS: BP 115/85
[2023-02-06 23:33] VITALS: BP 109/64
[2023-02-07] MEDS: METOCLOPRAMIDE INJ 10 MG/2 ML IVP SCH ×3 (00:30→11:28)
[2023-02-07] MEDS: RT-Ipratropium/Albuterol NEB 3 ML VIAL INH SCH ×6 (02:58→22:09)
[2023-02-07 03:14] VITALS: BP 134/74
[2023-02-07 06:23] LABS: MEAN CORPUSCULAR VOLUME 102 fL (80-99)
[2023-02-07 06:25] LABS: BASOPHILS # (AUTO) 0.1 10^3/uL (0.0-0.1); BASOPHILS % (AUTO) 1 % (0-10); EOSINOPHILS # (AUTO) 0.7 10^3/uL (0.0-0.3); EOSINOPHILS % (AUTO) 7 % (0-10); HEMATOCRIT 36 % (40-54); HEMOGLOBIN 11.2 g/dL (13.3-17.7); LYMPHOCYTES # (AUTO) 1.2 10^3/uL (1.0-4.0); LYMPHOCYTES % (AUTO) 11 % (12-44); MEAN CORPUSCULAR HEMOGLOBIN 32 pg (25-34); MEAN CORPUSCULAR HGB CONC 32 g/dL (32-36); MEAN PLATELET VOLUME 10.9 fL (9.0-12.2); MONOCYTES # (AUTO) 1.5 10^3/uL (0.0-1.0); MONOCYTES % (AUTO) 14 % (0-12); NEUTROPHILS # (AUTO) 7.1 10^3/uL (1.8-7.8); NEUTROPHILS % (AUTO) 67 % (42-75); PLATELET COUNT 188 10^3/uL (130-400); WHITE BLOOD COUNT 10.7 10^3/uL (4.3-11.0)
[2023-02-07 06:26] LABS: ALBUMIN 3.3 GM/DL (3.2-4.5)
[2023-02-07 06:27] LABS: POTASSIUM 3.7 MMOL/L (3.6-5.0)
[2023-02-07 06:28] LABS: CALCIUM 9.1 MG/DL (8.5-10.1); SMEAR SCAN COMMENT YES
[2023-02-07] MEDS: THIAMINE 100 MG (VITAMIN B-1) TAB PO SCH (06:28)
[2023-02-07 06:29] LABS: TOTAL PROTEIN 7.2 GM/DL (6.4-8.2)
[2023-02-07 06:31] LABS: BILIRUBIN,TOTAL 0.3 MG/DL (0.1-1.0)
[2023-02-07] MEDS: POTASSIUM CL 10MEQ/50ML IVPB 50 ML IV SCH (06:32)
[2023-02-07] MEDS: POTASSIUM CHLORIDE 20 MEQ TABLET PO SCH (06:32)
[2023-02-07 06:33] LABS: CREATININE SERUM 0.88 MG/DL (0.60-1.30)
--- NOTE | 2023-02-07 07:39 | Progress Note - Surgery ---
KELLEY ESCOTO 02/07/23 0739: Subjective Date Seen by a Provider: Feb 07, 2023 Time Seen by a Provider: 07:20 Subjective/Events-last exam Connor, 57M, was asleep prior to interview. He notes that he was able to sleep "pretty good". He says that he has no concerns or changes from yesterday. Connor notes that he does not having any SOB or difficulty breathing. His SpO2 has been at 91% on 3L, but continues to note that he can breathe fine. Connor notes that he is eating well. He says that he has had 2 brown, loose bowel movements since we last spoke. He denies seeing any blood. He also notes that he is urinating well, potentially more frequent, but denies any pain. Connor also has no concerns about his woundvac. He denies any current pain. He continues to be AO x3 and has no decline in mental status. Review of Systems General: No Chills, No Fatigue HEENT: No Head Aches, No Visual Changes Pulmonary: No Dyspnea, No Cough Cardiovascular: No: Chest Pain, Palpitations Gastrointestinal: No: Nausea, Vomiting, Abdominal Pain Genitourinary: No Dysuria; Frequency (increased, says that he drinks more here); No Hematuria Musculoskeletal: No: shoulder pain, back pain Neurological: No: Weakness, Numbness Objective Exam Vital Signs Date Time Temp Pulse Resp B/P (MAP) Pulse Ox O2 Delivery O2 Flow Rate FiO2 02/07/23 03:14 37.0 91 16 134/74 (94) 91 High Flow N/C 3.00 3.00 02/07/23 02:58 90 High Flow N/C 3.00 02/07/23 00:44 90 02/06/23 23:33 37.4 90 20 109/64 (79) 91 High Flow N/C 3.00 3.00 02/06/23 22:53 92 High Flow N/C 3.00 02/06/23 21:00 High Flow N/C 3.00 02/06/23 19:54 37.3 97 20 115/85 (95) 90 High Flow N/C 3.00 02/06/23 19:45 92 High Flow N/C 3.00 02/06/23 19:25 97 02/06/23 15:40 36.4 88 20 109/68 (82) 92 Nasal Cannula 3.00 02/06/23 15:31 93 High Flow N/C 3.00 02/06/23 14:37 High Flow N/C 3.00 02/06/23 14:35 98 High Flow N/C 5.00 02/06/23 13:00 85 02/06/23 11:33 High Flow N/C 5.00 02/06/23 11:31 36.8 82 17 147/77 (100) 92 High Flow N/C 8.00 02/06/23 11:28 95 High Flow N/C 8.00 02/06/23 09:00 High Flow N/C 5.00 02/06/23 07:52 93 High Flow N/C 8.00 02/06/23 07:40 37.0 85 16 145/80 (101) 91 Nasal Cannula 8.00 I & O 02/07/23 07:00 Intake Total 1380 ml Balance 1380 ml Capillary Refill : Less Than 3 SecondsLess Than 3 Seconds General Appearance: No Apparent Distress, Chronically ill, Obese HEENT: Moist Mucous Membranes; No Pale Conjunctivae (L), No Pale Conjunctivae (R) Neck: Non Tender, Supple Respiratory: Lungs Clear (nothing appreciated with auscultation ), Normal Breath Sounds, No Accessory Muscle Use, No Respiratory Distress Cardiovascular: Regular Rate, Rhythm, No Murmur Gastrointestinal: non tender, soft (improved, more soft today than yesterday ) Extremity: No Calf Tenderness, Swelling (mild swelling in LE at ankle area BL ) Neurologic/Psychiatric: Alert, Oriented x3, Normal Mood/Affect Skin: Normal Color, Warm/Dry (diffuse dry skin ), Other (L LE wound vac, no erythema in region ) Results Lab Laboratory Tests 02/07/23 05:58: White Blood Count 10.7, Red Blood Count 3.50L, Hemoglobin 11.2L, Hematocrit 36L, Mean Corpuscular Volume 102H, Mean Corpuscular Hemoglobin 32, Mean Corpuscular Hemoglobin Concent 32, Red Cell Distribution Width 12.7, Platelet Count 188, Mean Platelet Volume 10.9, Immature Granulocyte % (Auto) 1, Neutrophils (%) (Auto) 67, Lymphocytes (%) (Auto) 11L, Monocytes (%) (Auto) 14H, Eosinophils (%) (Auto) 7, Basophils (%) (Auto) 1, Neutrophils # (Auto) 7.1, Lymphocytes # (Auto) 1.2, Monocytes # (Auto) 1.5H, Eosinophils # (Auto) 0.7H, Basophils # (Auto) 0.1, Immature Granulocyte # (Auto) 0.1, Percent Immature Platelet Fraction 11.2H, Sodium Level 135, Potassium Level 3.7, Chloride Level 104, Carbon Dioxide Level 23, Anion Gap 8, Blood Urea Nitrogen 16, Creatinine 0.88, Estimat Glomerular Filtration Rate 102, BUN/Creatinine Ratio 18, Glucose Level 116H, Calcium Level 9.1, Corrected Calcium 9.7, Total Bilirubin 0.3, Aspartate Amino Transf (AST/SGOT) 50H, Alanine Aminotransferase (ALT/SGPT) 78H, Alkaline Phosphatase 82, Total Protein 7.2, Albumin 3.3, Smear Scan YES Microbiology 02/01/23 Urine Culture - Final, Complete NO GROWTH 01/30/23 Blood Culture - Final, Complete 01/28/23 Gram Stain - Final, Complete 01/28/23 Sputum Culture - Final, Complete YEAST 01/23/23 Gram Stain - Final, Complete 01/23/23 Anaerobic Culture - Final, Complete No anaerobes isolated 01/23/23 Surgical Culture - Final, Complete Staphylococcus aureus Staphylococcus aureus#2 Assessment/Plan Assessment/Plan Assessment/Plan LLE, proximal medial, nectorizing soft tissue infection * S/P I/D, wound vac * Wound vac changed, further review on 02/08 * Pain management with Fentanyl Acute on Chronic Hypoxic Respiratory Failure * IS, Symbicort * Ambulation * CXR found mild pulmonary edema, no effusion * med team management HTN * med team management * Amlodipine, Lisinopril, HCTZ Hyperlipidemia * med team management * Atorvastatin DVT Prophylaxis * Lovenox Obesity ANTONIO ANDRE DO 02/07/23 1347: Subjective Time Seen by a Provider: 11:08 Subjective/Events-last exam Pt seen and examined, no changes. Review of Systems HEENT: No Head Aches, No Visual Changes Pulmonary: No Dyspnea, No Cough Cardiovascular: No: Chest Pain, Palpitations Gastrointestinal: No: Nausea, Vomiting, Abdominal Pain Objective Exam General Appearance: No Apparent Distress, Chronically ill, Obese HEENT: Moist Mucous Membranes Respiratory: Lungs Clear (nothing appreciated with auscultation ), Normal Breath Sounds, No Accessory Muscle Use, No Respiratory Distress Cardiovascular: Regular Rate, Rhythm, No Murmur Gastrointestinal: non tender, soft (improved, more soft today than yesterday ) Extremity: No Calf Tenderness, Swelling (mild swelling in LE at ankle area BL ) Skin: Other (L LE wound vac, no erythema in region ) Assessment/Plan Assessment/Plan Assessment/Plan LLE, proximal medial, nectorizing soft tissue infection * S/P I/D, wound vac * Wound vac changed, further review on 02/08 * Pain management with Fentanyl Acute on Chronic Hypoxic Respiratory Failure * IS, Symbicort * Ambulation * CXR found mild pulmonary edema, no effusion * med team management HTN * med team management * Amlodipine, Lisinopril, HCTZ Hyperlipidemia * med team management * Atorvastatin DVT Prophylaxis * Lovenox Obesity Supervisory-Addendum Brief Verification & Attestation Participated in pt care: history, MDM, physical Personally performed: exam, history, MDM, supervision of care Care discussed with: Medical Student Procedures: n/a Verification and Attestation of Medical Student E/M Service A medical student performed and documented this service. I then reviewed and verified all information documented by the medical student and made modifications to such information, when appropriate. I personally performed a physical exam, medical decision making and then discussed any differences between the notes and made revisions as necessary to create one note. Antonio Andre , 02/07/23 , 13:47 KELLEY ESCOTO Feb 07, 2023 07:39 ANTONIO ANDRE DO Feb 07, 2023 13:47
--- NOTE | 2023-02-07 07:57 | Progress Note - Surgery ---
Subjective Date Seen by a Provider: Feb 07, 2023 Time Seen by a Provider: 07:21 Objective Exam Vital Signs Date Time Temp Pulse Resp B/P (MAP) Pulse Ox O2 Delivery O2 Flow Rate FiO2 02/07/23 03:14 37.0 91 16 134/74 (94) 91 High Flow N/C 3.00 3.00 02/07/23 02:58 90 High Flow N/C 3.00 02/07/23 00:44 90 02/06/23 23:33 37.4 90 20 109/64 (79) 91 High Flow N/C 3.00 3.00 02/06/23 22:53 92 High Flow N/C 3.00 02/06/23 21:00 High Flow N/C 3.00 02/06/23 19:54 37.3 97 20 115/85 (95) 90 High Flow N/C 3.00 02/06/23 19:45 92 High Flow N/C 3.00 02/06/23 19:25 97 02/06/23 15:40 36.4 88 20 109/68 (82) 92 Nasal Cannula 3.00 02/06/23 15:31 93 High Flow N/C 3.00 02/06/23 14:37 High Flow N/C 3.00 02/06/23 14:35 98 High Flow N/C 5.00 02/06/23 13:00 85 02/06/23 11:33 High Flow N/C 5.00 02/06/23 11:31 36.8 82 17 147/77 (100) 92 High Flow N/C 8.00 02/06/23 11:28 95 High Flow N/C 8.00 02/06/23 09:00 High Flow N/C 5.00 02/06/23 07:52 93 High Flow N/C 8.00 02/06/23 07:40 37.0 85 16 145/80 (101) 91 Nasal Cannula 8.00 I & O 02/07/23 06:59 Intake Total 1380 ml Balance 1380 ml Capillary Refill : Less Than 3 SecondsLess Than 3 Seconds General Appearance: No Apparent Distress, Chronically ill, Obese HEENT: Moist Mucous Membranes; No Pale Conjunctivae (L), No Pale Conjunctivae (R) Neck: Non Tender, Supple; No JVD Respiratory: No Accessory Muscle Use, No Respiratory Distress, Crackles (BL. basilar ) Cardiovascular: Regular Rate, Rhythm, No Murmur Gastrointestinal: non tender Extremity: No Calf Tenderness Neurologic/Psychiatric: Alert, Oriented x3 Skin: Warm/Dry (diffuse dry skin ), Other (L LE wound vac, no erythema in region ) Results Lab Laboratory Tests 02/07/23 05:58: White Blood Count 10.7, Red Blood Count 3.50L, Hemoglobin 11.2L, Hematocrit 36L, Mean Corpuscular Volume 102H, Mean Corpuscular Hemoglobin 32, Mean Corpuscular Hemoglobin Concent 32, Red Cell Distribution Width 12.7, Platelet Count 188, Mean Platelet Volume 10.9, Immature Granulocyte % (Auto) 1, Neutrophils (%) (Auto) 67, Lymphocytes (%) (Auto) 11L, Monocytes (%) (Auto) 14H, Eosinophils (%) (Auto) 7, Basophils (%) (Auto) 1, Neutrophils # (Auto) 7.1, Lymphocytes # (Auto) 1.2, Monocytes # (Auto) 1.5H, Eosinophils # (Auto) 0.7H, Basophils # (Auto) 0.1, Immature Granulocyte # (Auto) 0.1, Percent Immature Platelet Fraction 11.2H, Sodium Level 135, Potassium Level 3.7, Chloride Level 104, Carbon Dioxide Level 23, Anion Gap 8, Blood Urea Nitrogen 16, Creatinine 0.88, Estimat Glomerular Filtration Rate 102, BUN/Creatinine Ratio 18, Glucose Level 116H, Calcium Level 9.1, Corrected Calcium 9.7, Total Bilirubin 0.3, Aspartate Amino Transf (AST/SGOT) 50H, Alanine Aminotransferase (ALT/SGPT) 78H, Alkaline Phosphatase 82, Total Protein 7.2, Albumin 3.3, Smear Scan YES Microbiology 02/01/23 Urine Culture - Final, Complete NO GROWTH 01/30/23 Blood Culture - Final, Complete 01/28/23 Gram Stain - Final, Complete 01/28/23 Sputum Culture - Final, Complete YEAST 01/23/23 Gram Stain - Final, Complete 01/23/23 Anaerobic Culture - Final, Complete No anaerobes isolated 01/23/23 Surgical Culture - Final, Complete Staphylococcus aureus Staphylococcus aureus#2 Assessment/Plan Assessment/Plan Assessment/Plan LLE, proximal medial, nectorizing soft tissue infection * S/P I/D, wound vac * Wound vac changed, further review on 02/08 * MRSA precautions * Pain management with Fentanyl Ventilator Associated Fungal PNA * Med team management * Adunilofungin Alcohol Use Disorder * [facility] protocol * Ativan, Thiamine Hypokalemia * replacement per protocol KELLEY ESCOTO Feb 07, 2023 07:57
[2023-02-07 08:22] VITALS: BP 107/65
[2023-02-07] MEDS ORDERED: POTASSIUM CHLORIDE 20 MEQ TABLET PO ONE (09:00)
--- NOTE | 2023-02-07 09:18 | Cardiology Progress Note ---
Subjective Date Seen by Provider: Feb 07, 2023 Time Seen by Provider: 08:15 Subjective/Events-last exam Patient is sitting up in bed, denies any chest pain or dyspnea. Wound vac to thigh in place. Objective-Cardiology Exam Last Set of Vital Signs Vital Signs 02/02/23 02/07/23 19:03 11:42 Temp 36.5 Pulse 83 Resp 16 B/P (MAP) 117/63 (81) Pulse Ox 90 O2 Delivery High Flow N/C O2 Flow Rate 3.00 FiO2 70 I&O Intake and Output 02/06/23 23:59 Intake Total 1580 ml Balance 1580 ml Intake Oral 1580 ml # Voids 6 # Bowel Movements 2 General: Alert HEENT: Atraumatic Lungs: Clear to Auscultation Heart: Regular Rate Abdomen: Normal Bowel Sounds, No Tenderness, Other (distended) Extremities: No Edema, Other (venous stasis changes, wound vac in place to left inner thigh) Skin: Other (wound vac in place to left inner thigh) Neuro: Normal Speech Psych/Mental Status: Mood NL Results Lab Laboratory Tests 02/07/23 05:58 A/P-Cardiology Admission Diagnosis Paroxysmal supraventricular tachycardia Necrotizing fasciitis Respiratory failure Encephalopathy Assessment/Plan Paroxysmal supraventricular tachycardia, mainly sinus tachycardia episode after extubation Currently in sinus rhythm with controlled rate Continue to monitor Necrotizing fasciitis with cellulitis of the left thigh, status post I&D, currently has a wound VAC Receiving antibiotic and managed by surgical team Status post prolonged respiratory failure, intubated, difficult extubation Slowly improving. History of alcohol use. Hypertension, hydralazine discontinued d/t hypotension. Amlodipine held this morning d/t borderline hypotension. I will d/c amlodipine, continue to monitor. Status post change in mental status, confusion, lethargy, encephalopathy. Probably secondary to sepsis and hypoxemia, improved. Pulmonary hypertension, probably underlying lung disease, continue to monitor. Supervisory-Addendum Brief Supervisory Addendum Participated in pt care: history, MDM, physical Personally performed: exam, history, MDM Care discussed with: BROCK Results interpretation: Verified all documentation Notes: Patient was seen and evaluated with Rahul, examination performed, management plan was discussed, agree with the current scribed note, I made few changes to t he note using Italic font Patient was seen at bedside, laying down comfortably Amlodipine was held this morning due to borderline hypotension I will discontinue amlodipine and monitor blood pressure No changes from cardiology standpoint RAHUL ALLRED PA-C Feb 07, 2023 09:18 BOB PEARCE MD Feb 07, 2023 12:16
[2023-02-07] MEDS: MAGNESIUM 1 GM/100 ML IVPB 100 ML IV SCH (09:37)
[2023-02-07] MEDS: LACTULOSE SYRUP 10GM/15ML 30ML UDC PO SCH (09:47)
[2023-02-07] MEDS: guaiFENesin SYRUP 100 MG/5 ML 10 ML PO SCH (09:47)
[2023-02-07] MEDS: FOLIC ACID 1 MG TAB PO SCH (09:47)
[2023-02-07] MEDS: SENNOSIDES 8.6 MG TABLET PO SCH (09:48)
[2023-02-07] MEDS: FAMOTIDINE 20 MG TABLET PO SCH ×2 (09:48→20:42)
[2023-02-07] MEDS: ENOXAPARIN 40 MG/0.4 ML SYRINGE SC SCH (09:48)
[2023-02-07] MEDS: amLODIPine 10 MG TABLET PO SCH (09:48)
[2023-02-07] MEDS: SODIUM HYPOCHLORITE 0.125% TOP SCH (09:49)
[2023-02-07] MEDS: MICONAZOLE 2% POWDER 90 GM TOP SCH ×2 (09:49→20:43)
[2023-02-07 11:42] VITALS: BP 117/63
[2023-02-07 15:54] VITALS: BP 114/71
--- NOTE | 2023-02-07 16:19 | Physical Therapy Daily Note ---
PT Daily Note-Current Subjective Patient lying supine in bed upon PT arrival, agreeable to treatment. Patient rates pain at 0/10 currently. Pain Section J - Health Conditions 1. Rarely or not at all 2. Occasionally 3. Frequently 4. Almost constantly 8. Unable to answer Pain Effect on Sleep: 1 Pain Interference with Therapy: 1 Pain Interference w/Day-to-Day: 1 Transfers SCALE: Activities may be completed with or without assistive devices. 5-Qevncvxnyu-dlrjphc completes the activity by him/herself with no assistance from a helper. 5-Set-up or Clean-up Assistance-helper sets up or cleans up; patient completes activity. [place] assists only prior to or following the activity. 4-Supervision or Touching Assistance-helper provides verbal cues and/or touching/steadying and/or contact guard assistance as patient completes activity. Assistance may be provided throughout the activity or intermittently. 3-Partial/Moderate Assistance-helper does LESS THAN HALF the effort. [place] lif ts, holds or supports trunk or limbs, but provides less than half the effort. 2-Substantial/Maximal Assistance-helper does MORE THAN HALF the effort. [place] lifts or holds trunk or limbs and provides more than half the effort. 1-Ifahgmgvb-kiqtpd does ALL the effort. Patient does none of the effort to complete the activity. Or, the assistance of 2 or more helpers is required for the patient to complete the activity. If activity was not attempted, code reason: 7-Patient Refused. 9-Not Applicable-not attempted and the patient did not perform the activity before the current illness, exacerbation or injury. 10-Not Attempted due to Environmental Limitations-(lack of equipment, weather restraints, etc.). 88-Not Attempted due to Medical Conditions or Safety Concerns. Roll Left & Right (QC): 4 Sit to Lying (QC): 4 Lying to Sitting/Side of Bed(Q: 4 Sit to Stand (QC): 4 Chair/Dqh-nb-Jmrwj Xfer(QC): 4 Gait Training Does the Patient Walk?: Yes Distance: 250' Walk 10 feet (QC): 4 Walk 50 ft with 2 Turns(QC): 4 Walk 150 ft (QC): 4 Gait Assistive Device: FWW Assessment Current Status: Fair Progress Patient performed all bed mobility and transfers with SBA/CGA. Patient ambulates 250 feet with FWW, with CGA and verbal cues for safety, progression, posture and conservation of energy. Patient in chair post treatment with all needs met, nursing notified, call light in hand. PT Foreign Student Adviser Goals Foreign Student Adviser Goals PT Foreign Student Adviser Goals Time Frame: Mar 03, 2023 Roll Left & Right (QC): 6 Sit to Lying (QC): 6 Lying-Sitting on Side/Bed(QC): 6 Sit to Stand (QC): 6 Chair/Nvh-bf-Zfpar Xfer(QC): 6 Toilet Transfer (QC): 6 Walk 10 feet (QC): 6 Walk 50ft with 2 Turns (QC): 6 Walk 150 ft (QC): 6 PT Plan Treatment/Plan Treatment Plan: Continue Plan of Care Treatment Plan: Bed Mobility, Education, Functional Activity David, Functional Strength, Gait, Safety, Therapeutic Exercise, Transfers Treatment Duration: Mar 03, 2023 Frequency: 6 times per week Estimated Hrs Per Day: .25 hour per day Patient and/or Family Agrees t: Yes Safety Risks/Education Patient Education: Gait Training, Transfer Techniques Teaching Recipient: Patient Teaching Methods: Demonstration, Discussion Response to Teaching: Verbalize Understanding, Return Demonstration Time Time In: 1140 Time Out: 1155 DATE: Feb 07, 2023 Total Billed Treatment Time: 15 Total Billed Treatment Visit, GT ELAINE ALCANTAR PT Feb 07, 2023 16:19
--- NOTE | 2023-02-07 16:40 | Progress Note ---
Subjective Subjective/Events-last exam Pt states he is hopeful to go home. Supplemental oxygen has been weaned to 3lpm at rest. Objective Exam Last Set of Vital Signs Vital Signs Date Time Temp Pulse Resp B/P (MAP) Pulse Ox O2 Delivery O2 Flow Rate FiO2 02/07/23 15:54 36.8 87 19 114/71 (85) 90 High Flow N/C 3.00 02/02/23 19:03 70 Capillary Refill : Less Than 3 SecondsLess Than 3 Seconds I&O Intake and Output 02/06/23 23:59 Intake Total 1580 ml Balance 1580 ml Intake Oral 1580 ml # Voids 6 # Bowel Movements 2 General: Alert, No Acute Distress Lungs: Clear to Auscultation, Normal Air Movement Heart: Regular Rate, No Murmurs Abdomen: Normal Bowel Sounds, Soft Neuro: Normal Speech Psych/Mental Status: Mood NL Results/Procedures Lab Laboratory Tests 02/07/23 00:01: Magnesium Level 1.8 02/07/23 05:58: White Blood Count 10.7, Red Blood Count 3.50L, Hemoglobin 11.2L, Hematocrit 36L, Mean Corpuscular Volume 102H, Mean Corpuscular Hemoglobin 32, Mean Corpuscular Hemoglobin Concent 32, Red Cell Distribution Width 12.7, Platelet Count 188, Mean Platelet Volume 10.9, Immature Granulocyte % (Auto) 1, Neutrophils (%) (Auto) 67, Lymphocytes (%) (Auto) 11L, Monocytes (%) (Auto) 14H, Eosinophils (%) (Auto) 7, Basophils (%) (Auto) 1, Neutrophils # (Auto) 7.1, Lymphocytes # (Auto) 1.2, Monocytes # (Auto) 1.5H, Eosinophils # (Auto) 0.7H, Basophils # (Auto) 0.1, Immature Granulocyte # (Auto) 0.1, Percent Immature Platelet Fraction 11.2H, Sodium Level 135, Potassium Level 3.7, Chloride Level 104, Carbon Dioxide Level 23, Anion Gap 8, Blood Urea Nitrogen 16, Creatinine 0.88, Estimat Glomerular Filtration Rate 102, BUN/Creatinine Ratio 18, Glucose Level 116H, Calcium Level 9.1, Corrected Calcium 9.7, Total Bilirubin 0.3, Aspartate Amino Transf (AST/SGOT) 50H, Alanine Aminotransferase (ALT/SGPT) 78H, Alkaline Phosphatase 82, Total Protein 7.2, Albumin 3.3, Smear Scan YES Microbiology 02/01/23 Urine Culture - Final, Complete NO GROWTH 01/30/23 Blood Culture - Final, Complete 01/28/23 Gram Stain - Final, Complete 01/28/23 Sputum Culture - Final, Complete YEAST 01/23/23 Gram Stain - Final, Complete 01/23/23 Anaerobic Culture - Final, Complete No anaerobes isolated 01/23/23 Surgical Culture - Final, Complete Staphylococcus aureus Staphylococcus aureus#2 Assessment/Plan Assessment/Plan (1) Acute kidney injury Status: Resolved Assessment & Plan: Suspected to be related to volume depletion with altered mental status. Resolved 02/06, follow. (2) PSVT (paroxysmal supraventricular tachycardia) Status: Acute Assessment & Plan: Appreciate Cardiology recommendations (3) Severe sepsis Status: Resolved Assessment & Plan: - Broad spectrum antibiotics Vanc and Zosyn started on admit - Completed clindamycin 01/23-01/28; Zosyn 01/23-02/02 and Vancomycin 01/23-02/02 (4) Necrotizing fasciitis of lower leg Status: Resolved Assessment & Plan: - s/p debridement -Wound vac in place, improving, appreciate Wound Care recommendations 02/07- plan to d/c with wet to dry dressings and consider wound vac outpatient pending follow up and evaluation there. (5) Acute and chronic respiratory failure with hypoxia Status: Acute Assessment & Plan: Required extended intubation post-surgery and developed funal pnemonia. Currently on 8 lpm supplemental oxygen. CXR 02/03 with low lung volumes, atalectasis. Suspect underlying sleep apnea and COPD. Encourage IS. 02/06- able to wean to 5 lpm after my exam per RT, continue to wean as tolerated, repeat CXR today given persistent hypoxia, encouraged IS hourly. 02/07- weaned to 3 lpm at rest, home O2 study ordered in anticipate of d/c. (6) Fungal pneumonia Status: Resolved Assessment & Plan: - Sputum culture from 01/28 grew yeast - Anidulafungan started 01/30, d/c 02/06. (7) Pre-diabetes Status: Chronic Assessment & Plan: - A1c 5.9 (8) Suspected chronic obstructive pulmonary disease based on initial evaluation Status: Acute Assessment & Plan: Clinic chart does not indicate dx of lung disease, but states was on Symbicort. 02/06 resume Symbicort (patient does note he wasn't taking for some time). (9) Hypertension Assessment & Plan: 02/05- low BP, hold anti-hypertensives 02/06- BP increasing, resume home meds as needed (10) Apnea Status: Acute Assessment & Plan: Suspected sleep apnea, will need outpatient sleep study (11) DVT prophylaxis Status: Acute Assessment & Plan: Enoxaparin DAVI KITCHEN MD Feb 07, 2023 16:40
[2023-02-07 20:22] VITALS: BP 112/64
[2023-02-07] MEDS ORDERED: RT-ALBUINH INH (22:17)
[2023-02-07 23:51] VITALS: BP 119/74
[2023-02-08] MEDS: RT-Ipratropium/Albuterol NEB 3 ML VIAL INH SCH ×3 (02:52→11:14)
[2023-02-08] MEDS: ACETAMINOPHEN 500 MG TABLET PO PRN (04:08)
[2023-02-08 04:29] VITALS: BP 109/68
[2023-02-08] MEDS: THIAMINE 100 MG (VITAMIN B-1) TAB PO SCH (05:23)
[2023-02-08 05:43] LABS: HEMATOCRIT 36 % (40-54); HEMOGLOBIN 11.4 g/dL (13.3-17.7); MEAN CORPUSCULAR HEMOGLOBIN 32 pg (25-34); MEAN CORPUSCULAR HGB CONC 32 g/dL (32-36); MEAN CORPUSCULAR VOLUME 100 fL (80-99); MEAN PLATELET VOLUME 9.6 fL (9.0-12.2); PLATELET COUNT 369 10^3/uL (130-400); WHITE BLOOD COUNT 10.1 10^3/uL (4.3-11.0)
[2023-02-08 05:53] LABS: POTASSIUM 3.6 MMOL/L (3.6-5.0)
[2023-02-08 05:54] LABS: CALCIUM 9.6 MG/DL (8.5-10.1)
[2023-02-08] MEDS: POTASSIUM CL 10MEQ/50ML IVPB 50 ML IV SCH (05:54)
[2023-02-08] MEDS: POTASSIUM CHLORIDE 20 MEQ TABLET PO SCH (05:54)
[2023-02-08 05:59] LABS: CREATININE SERUM 0.94 MG/DL (0.60-1.30)
[2023-02-08] MEDS: MAGNESIUM 1 GM/100 ML IVPB 100 ML IV SCH (06:16)
[2023-02-08] MEDS: FOLIC ACID 1 MG TAB PO SCH (08:12)
[2023-02-08] MEDS: FAMOTIDINE 20 MG TABLET PO SCH (08:12)
[2023-02-08] MEDS: ENOXAPARIN 40 MG/0.4 ML SYRINGE SC SCH (08:12)
[2023-02-08] MEDS: MICONAZOLE 2% POWDER 90 GM TOP SCH (08:13)
[2023-02-08] MEDS: SODIUM HYPOCHLORITE 0.125% TOP SCH (08:13)
[2023-02-08] MEDS: SENNOSIDES 8.6 MG TABLET PO SCH (08:14)
--- NOTE | 2023-02-08 08:14 | Cardiology Progress Note ---
Subjective Date Seen by Provider: Feb 08, 2023 Time Seen by Provider: 08:13 Subjective/Events-last exam Patient was seen at bedside, sitting comfortably, no new complain Focused Exam Lactate Level 02/08/23 07:00: Lactic Acid Level 0.66 Lactic Acid Level Laboratory Tests Test 02/08/23 07:00 Lactic Acid Level 0.66 MMOL/L (0.50-2.00) Objective-Cardiology Exam Last Set of Vital Signs Vital Signs 02/02/23 02/08/23 02/08/23 02/08/23 19:03 04:29 05:05 07:19 Temp 37.5 Pulse 87 Resp 18 B/P (MAP) 109/68 (82) Pulse Ox 92 O2 Delivery High Flow N/C O2 Flow Rate 3.00 FiO2 70 I&O Intake and Output 02/08/23 00:00 Intake Total 1360 ml Balance 1360 ml Intake Oral 1360 ml # Voids 7 # Bowel Movements 4 General: Alert, Oriented X3, Cooperative, No Acute Distress HEENT: Atraumatic Neck: Supple, No JVD, No Thyromegaly Lungs: Clear to Auscultation, Normal Air Movement Heart: Regular Rate, Normal S1, Normal S2, No Murmurs Abdomen: Normal Bowel Sounds, Soft Extremities: No Clubbing, No Cyanosis, No Edema, Other (venous stasis changes, wound vac in place to left inner thigh) Skin: No Rashes, No Breakdown, Other (wound vac in place to left inner thigh) Neuro: Normal Speech Psych/Mental Status: Mental Status NL, Mood NL Results Lab Laboratory Tests 02/08/23 05:29 A/P-Cardiology Admission Diagnosis Paroxysmal supraventricular tachycardia Necrotizing fasciitis Respiratory failure Encephalopathy Assessment/Plan Paroxysmal supraventricular tachycardia, mainly sinus tachycardia episode after extubation Currently in sinus rhythm with controlled rate Continue to monitor Necrotizing fasciitis with cellulitis of the left thigh, status post I&D, currently has a wound VAC Receiving antibiotic and managed by surgical team Status post prolonged respiratory failure, intubated, difficult extubation Back to baseline. Feeling better. History of alcohol use. Hypertension, hydralazine discontinued d/t hypotension. Amlodipine held this morning d/t borderline hypotension. I will d/c amlodipine, continue to monitor. Status post change in mental status, confusion, lethargy, encephalopathy. Probably secondary to sepsis and hypoxemia, improved. Pulmonary hypertension, probably underlying lung disease, continue to monitor. BOB PEARCE MD Feb 08, 2023 08:14
[2023-02-08 08:20] VITALS: BP 121/61
[2023-02-08] MEDS ORDERED: POTASSIUM CHLORIDE 20 MEQ TABLET PO ONE (09:00)
[2023-02-08] MEDS ORDERED: MICO90PO TOP (09:54)
--- NOTE | 2023-02-08 11:48 | D/C HH Face to Face Order ---
D/C Face to Face Orders Instructions for Patient Via [facility], Patient Instructions/FollowUp: You have a VASHE wet to dry dressing that will need to be changed one more time today before you go to bed. Follow the wound care instructions sent home with you. You also need to see Outpatient Wound Care for follow up wound care and dressing orders. Phone number to call or reschedule them is [phone]. Follow up with Dr. Underwood at outpatient wound care tomorrow 02/09 at 8:15 am. Follow up with your your primary physician within a week of discharge. [facility] Dis[facility] Diet for Home: Regular Diet Patient Data-Allergies,Ht & Wt Patient Allergies: Coded Allergies: codeine (Verified Allergy, Mild, JAUNDICE, 01/29/23) Uncoded Allergies: HAY FEVER (Allergy, Unknown, 07/01/21) Home Health Need/Face to Face Date of Face to Face: Feb 08, 2023 Clinical Findings: Non-healing wound I have seen Pt [id number]: Yes Discharged To: Home Diagnosis/Conditions: (1) Acute kidney injury (2) PSVT (paroxysmal supraventricular tachycardia) (3) Severe sepsis (4) Necrotizing fasciitis of lower leg (5) Acute and chronic respiratory failure with hypoxia (6) Fungal pneumonia (7) Pre-diabetes (8) Suspected chronic obstructive pulmonary disease based on initial evaluation (9) Hypertension (10) Apnea Patient is Homebound due to: Pain w/ambulation Homebound Status Due to the above stated illness, injury or surgical procedure (medical condition or diagnosis) and associated clinical findings, the patient is homebound because of his/her inability to leave home except with aid of a supportive device and/or person AND leaving the home requires a considerable and taxing effort or is medically contraindicated. Pt req the following assistanc: Aid of another person, [facility] Nursing Orders Home Health Services Order: Nursing Services, Physical Therapy-Evaluate & Treat, Wound Care-Eval/Treat Home Health Infusion Therapy Line Start Date: Jan 27, 2023 Certify Stmt I certify that this patient is under my care and that I, a nurse practitioner or a physician; a automobile mechanic assistant working with me, had a face to face encounter that - meets the physician face to face encounter requirements with this patient as dated. DAVI KITCHEN MD Feb 08, 2023 11:48
--- NOTE | 2023-02-08 11:49 | Discharge Summary ---
Discharge Summary Hospital Course Hospital Course Date of Admission: Jan 23, 2023 at 12:39 Admission Diagnosis : Family Physician/Provider: [place] Date of Discharge: 02/08/23 Discharge Diagnosis: [ ] Hospital Course: [ ] Labs and Pending Lab Test: Laboratory Tests 02/08/23 05:29: White Blood Count 10.1, Red Blood Count 3.55L, Hemoglobin 11.4L, Hematocrit 36L, Mean Corpuscular Volume 100H, Mean Corpuscular Hemoglobin 32, Mean Corpuscular Hemoglobin Concent 32, Red Cell Distribution Width 12.4, Platelet Count 369, Mean Platelet Volume 9.6, Sodium Level 137, Potassium Level 3.6, Chloride Level 103, Carbon Dioxide Level 25, Anion Gap 9, Blood Urea Nitrogen 14, Creatinine 0.94, Estimat Glomerular Filtration Rate 96, BUN/Creatinine Ratio 15, Glucose Level 119H, Calcium Level 9.6, Magnesium Level 1.6 02/08/23 07:00: Lactic Acid Level 0.66 Microbiology 02/01/23 Urine Culture - Final, Complete NO GROWTH 01/30/23 Blood Culture - Final, Complete 01/28/23 Gram Stain - Final, Complete 01/28/23 Sputum Culture - Final, Complete YEAST 01/23/23 Gram Stain - Final, Complete 01/23/23 Anaerobic Culture - Final, Complete No anaerobes isolated 01/23/23 Surgical Culture - Final, Complete Staphylococcus aureus Staphylococcus aureus#2 Home Meds Active Lotrimin AF (Miconazole Nitrate) 2 % Powder 0 Gm TOP BID Apply to affected area twice daily Ventolin Hfa (Albuterol Sulfate) 1 Puff Puff 2 Puff INH Q4H 1 PUFF = 90 MCG Reported Omeprazole 20 Mg Tab.rap.dr 20 Mg PO DAILY Symbicort 160-4.5 Mcg Inhaler (Budesonide/Formoterol Fumarate) 160 Mcg-4.5 Mcg/Actuation Hfa.aer.ad 2 Puff IH BID PRN Atorvastatin Calcium 20 Mg Tablet 20 Mg PO HS Hydrochlorothiazide 25 Mg Tablet 25 Mg PO DAILY Lisinopril 40 Mg Tablet 40 Mg PO DAILY Discharge Physical Examination Allergies: Coded Allergies: codeine (Verified Allergy, Mild, JAUNDICE, 01/29/23) Uncoded Allergies: HAY FEVER (Allergy, Unknown, 07/01/21) Vitals & I&Os Vital Signs Date Time Temp Pulse Resp B/P (MAP) Pulse Ox O2 Delivery O2 Flow Rate FiO2 02/08/23 09:49 90 Nasal Cannula 5.00 02/08/23 08:20 36.9 89 18 121/61 (81) 02/02/23 19:03 70 Discharge Summary Date of Admission Jan 23, 2023 at 12:39 Date of Discharge Discharge Date: Feb 08, 2023 DAVI KITCHEN MD Feb 08, 2023 11:49
[2023-02-08 12:00] VITALS: BP 117/66
[2023-02-08 12:59] VITALS: BP 117/66
--- NOTE | 2023-02-08 20:15 | Discharge Summary ---
Discharge Summary Hospital Course Problems/Diagnosis: (1) Acute kidney injury Status: Resolved Resolution Date/Time: 02/06/23 @ 13:51 Assessment & Plan: Suspected to be related to volume depletion with altered mental status. Resolved 02/06 (2) PSVT (paroxysmal supraventricular tachycardia) Status: Acute Assessment & Plan: Appreciate Cardiology recommendations, occurred in context of extubation (3) Severe sepsis Status: Resolved Resolution Date/Time: 02/05/23 @ 13:40 Assessment & Plan: - Broad spectrum antibiotics Vanc and Zosyn started on admit - Completed clindamycin 01/23-01/28; Zosyn 01/23-02/02 and Vancomycin 01/23-02/02 (4) Necrotizing fasciitis of lower leg Status: Resolved Resolution Date/Time: 02/05/23 @ 13:40 Assessment & Plan: - s/p debridement -Wound vac in place, improving, appreciate Wound Care recommendations 02/07- plan to d/c with wet to dry dressings and consider wound vac outpatient pending follow up and evaluation there. (5) Acute and chronic respiratory failure with hypoxia Status: Acute Assessment & Plan: Required extended intubation post-surgery and developed funal pnemonia. Currently on 8 lpm supplemental oxygen. CXR 02/03 with low lung volumes, atalectasis. Suspect underlying sleep apnea and COPD. Encourage IS. 02/06- able to wean to 5 lpm after my exam per RT, continue to wean as tolerated, repeat CXR today given persistent hypoxia, encouraged IS hourly. 02/07- weaned to 3 lpm at rest, home O2 study ordered in anticipate of d/c. 02/08 discharged with 3 lpm supplemental O2 at rest and 6 lpm with activity (6) Fungal pneumonia Status: Resolved Resolution Date/Time: 02/06/23 @ 13:52 Assessment & Plan: - Sputum culture from 01/28 grew yeast - Anidulafungan started 01/30, d/c 02/06. (7) Pre-diabetes Status: Chronic Assessment & Plan: - A1c 5.9 (8) Suspected chronic obstructive pulmonary disease based on initial evaluation Status: Acute Assessment & Plan: Clinic chart does not indicate dx of lung disease, but states was on Symbicort. 02/06 resume Symbicort (patient does note he wasn't taking for some time). (9) Hypertension Assessment & Plan: 02/05- low BP, hold anti-hypertensives 02/06- BP increasing, resume home meds as needed 02/08 on d/c held 2 of his home BP meds, discussed he may need to resume pending follow up home BPs (10) Apnea Status: Acute Assessment & Plan: Suspected sleep apnea, will need outpatient sleep study Hospital Course Date of Admission: Jan 23, 2023 at 12:39 Admission Diagnosis : Family Physician/Provider: [place] Date of Discharge: 02/08/23 Discharge Diagnosis: See problem list Hospital Course: See problem list Labs and Pending Lab Test: Laboratory Tests 02/08/23 05:29: White Blood Count 10.1, Red Blood Count 3.55L, Hemoglobin 11.4L, Hematocrit 36L, Mean Corpuscular Volume 100H, Mean Corpuscular Hemoglobin 32, Mean Corpuscular Hemoglobin Concent 32, Red Cell Distribution Width 12.4, Platelet Count 369, Mean Platelet Volume 9.6, Sodium Level 137, Potassium Level 3.6, Chloride Level 103, Carbon Dioxide Level 25, Anion Gap 9, Blood Urea Nitrogen 14, Creatinine 0.94, Estimat Glomerular Filtration Rate 96, BUN/Creatinine Ratio 15, Glucose Level 119H, Calcium Level 9.6, Magnesium Level 1.6 02/08/23 07:00: Lactic Acid Level 0.66 Microbiology 02/01/23 Urine Culture - Final, Complete NO GROWTH 01/30/23 Blood Culture - Final, Complete 01/28/23 Gram Stain - Final, Complete 01/28/23 Sputum Culture - Final, Complete YEAST 01/23/23 Gram Stain - Final, Complete 01/23/23 Anaerobic Culture - Final, Complete No anaerobes isolated 01/23/23 Surgical Culture - Final, Complete Staphylococcus aureus Staphylococcus aureus#2 Home Meds Active Lotrimin AF (Miconazole Nitrate) 2 % Powder 0 Gm TOP BID Apply to affected area twice daily Ventolin Hfa (Albuterol Sulfate) 1 Puff Puff 2 Puff INH Q4H 1 PUFF = 90 MCG Reported Omeprazole 20 Mg Tab.rap.dr 20 Mg PO DAILY Symbicort 160-4.5 Mcg Inhaler (Budesonide/Formoterol Fumarate) 160 Mcg-4.5 Mcg/Actuation Hfa.aer.ad 2 Puff IH BID PRN Atorvastatin Calcium 20 Mg Tablet 20 Mg PO HS Hydrochlorothiazide 25 Mg Tablet 25 Mg PO DAILY Lisinopril 40 Mg Tablet 40 Mg PO DAILY Assessment/Pt DC Instructions Follow up with Wound Care tomorrow as scheduled Follow up with primary provider within a week of discharge. Discharge Diet: Regular Diet Activity as Tolerated: Yes Discharge Physical Examination Allergies: Coded Allergies: codeine (Verified Allergy, Mild, JAUNDICE, 01/29/23) Uncoded Allergies: HAY FEVER (Allergy, Unknown, 07/01/21) General Appearance: No Apparent Distress, WD/WN Respiratory: Lungs Clear, Normal Breath Sounds Cardiovascular: Regular Rate, Rhythm Gastrointestinal: Normal Bowel Sounds, Non Tender, Soft Skin: Warm/Dry Neurologic/Psychiatric: Alert, Normal Mood/Affect DAVI KITCHEN MD Feb 08, 2023 20:15
== END 2023-02-08 12:58 | disposition home health service (06) | DRG 853 ==
LOC: EDUNIT# 09:35 → ER 09:38 → 4TH 11:58 → OBSVTOIN 12:39 → ICU 18:09 → 4TH 02-04 14:06
PROVIDERS: ADMIT Family Medicine; ATTEND Family Medicine
PROC: 0J9M0ZZ Drainage of Left Upper Leg Subcutaneous Tissue and Fascia, Open Approach (ICD-10-PCS; 2023-01-23)
PROC: 5A1955Z Respiratory Ventilation, Greater than 96 Consecutive Hours (ICD-10-PCS; 2023-01-23)
PROC: 0JBM0ZZ Excision of Left Upper Leg Subcutaneous Tissue and Fascia, Open Approach (ICD-10-PCS; principal; 2023-01-23 17:23)
PROC: 5A0945A Assistance with Respiratory Ventilation, 24-96 Consecutive Hours, High Flow/Velocity Cannula (ICD-10-PCS; 2023-02-01)
DX: A41.02 Sepsis due to Methicillin resistant Staphylococcus aureus (principal); B37.1 Pulmonary candidiasis; J96.21 Acute and chronic respiratory failure with hypoxia; M72.6 Necrotizing fasciitis; L03.116 Cellulitis of left lower limb; J95.851 Ventilator associated pneumonia; J44.0 Chronic obstructive pulmonary disease with (acute) lower respiratory infection; G93.40 Encephalopathy, unspecified; N17.9 Acute kidney failure, unspecified; I47.10 Supraventricular tachycardia, unspecified; R44.0 Auditory hallucinations; J90 Pleural effusion, not elsewhere classified; Z16.29 Resistance to other single specified antibiotic; F10.132 Alcohol abuse with withdrawal with perceptual disturbance; R65.20 Severe sepsis without septic shock; F17.210 Nicotine dependence, cigarettes, uncomplicated; I27.20 Pulmonary hypertension, unspecified; G47.33 Obstructive sleep apnea (adult) (pediatric); D63.8 Anemia in other chronic diseases classified elsewhere; Z91.81 History of falling; K59.00 Constipation, unspecified; G25.81 Restless legs syndrome; E78.1 Pure hyperglyceridemia; R73.03 Prediabetes; Z88.5 Allergy status to narcotic agent
CPT/HCPCS: 10061; 36415; 36569; 36600; 70450; 71045; 71046; 71275; 74018; 76937; 80048; 80053; 80061; 80202; 82805; 82947; 83036; 83605; 83735; 84100; 84443; 84478; 85007; 85025; 85027; 85610; 85730; 86141; 87040; 87070; 87075; 87077; 87081; 87088; 87186; 87205; 87636; 93005; 93306; 94002; 94003; 94640; 94664; 94760; 94761; 94799; 96361; 96365

== ENCOUNTER → 2023-02-09 | Outpatient (CLI) | payer OTHER ==
[~2023-02-09] MED LIST changes: +AMLO-251 PO; +ATOR20TA66 PO; +BUDE10.2 IH; +HYDR-3922 PO; +HYDR25TA4 PO; +LISI40TA9 PO; +MICO90PO TOP; +OMEP-401 PO; +RT-ALBUINH INH
== END ==
LOC: WOUNDCARE 08:06
PROVIDERS: ATTEND Family Medicine
DX: I96 Gangrene, not elsewhere classified (principal); L02.416 Cutaneous abscess of left lower limb; L03.116 Cellulitis of left lower limb; M72.6 Necrotizing fasciitis; T81.31XA Disruption of external operation (surgical) wound, not elsewhere classified, initial encounter; E66.01 Morbid (severe) obesity due to excess calories; B95.62 Methicillin resistant Staphylococcus aureus infection as the cause of diseases classified elsewhere; B37.2 Candidiasis of skin and nail; Z68.32 Body mass index [BMI] 32.0-32.9, adult
CPT/HCPCS: 11042; 11045; A6260; G0463